=== PATIENT | female | born 1950 | race Caucasian/White ===

== ENCOUNTER 2018-09-10 16:11 | Inpatient (IN) | payer MEDICARE, OTHER ==
--- NOTE | 2018-09-10 16:35 | ED ---
General Adult HPI - General Chief complaint: Skin/Abscess/Foreign Body Stated complaint: Abscess Time Seen by Provider: 09/10/18 16:15 Source: patient, RN/MD, RN notes reviewed Mode of arrival: wheelchair Limitations: no limitations - History of Present Illness Initial comments: This a 67-year-old female who no longer ambulates. Patient is in a wheelchair and developed a wound on her right thigh and it turned into an abscess. Dr. Olvera has been following this patient and today he lanced the abscess and wanted the patient brought in and admitted to the hospital and treated with IV antibiotics. Patient states she believes part of the reason is because they want her in bed as opposed to her wheelchair. Patient denies any fever or chills. Patient denies any redness to the skin patient denies any streaking. Patient denies any other symptoms at this time. - Related Data Home Medications Medication Instructions Recorded Confirmed Biotin 7.5 mg PO DAILY 10/25/14 09/10/18 Bumetanide [BUMEX] 2 mg PO DAILY PRN 10/25/14 09/10/18 Calcium Carbonate/Vitamin D3 1 tab PO BID 10/25/14 09/10/18 [Caltrate 600 + D Tablet] Cholecalciferol [Vitamin D3] 1,000 unit PO BID 10/25/14 09/10/18 Gammagard 50 gram IV [id number] 10/25/14 09/10/18 Simvastatin 40 mg PO HS 10/25/14 09/10/18 predniSONE 20 mg PO Q48H 10/25/14 09/10/18 predniSONE 30 mg PO Q48H 07/04/15 09/10/18 Gabapentin [Neurontin] 300 mg PO TID 12/26/15 09/10/18 Melatonin 10 mg PO HS 12/26/15 09/10/18 Oxybutynin Chloride [Ditropan] 5 mg PO BID 02/10/18 09/10/18 Aspirin EC [Ecotrin Low Dose] 81 mg PO DAILY 08/27/18 09/10/18 Acetaminophen [Tylenol Extra 500 mg PO Q4-6H PRN 09/10/18 09/10/18 Strength] Allergies Allergy/AdvReac Type Severity Reaction Status Date / Time cephalexin monohydrate Allergy Itching, Verified 09/10/18 17:18 [From Keflex] hives diphenhydramine HCl Allergy Itching, Verified 09/10/18 17:18 [From Benadryl] hives sulfamethoxazole AdvReac Mild Unknown Verified 09/10/18 17:18 [From Bactrim] trimethoprim [From Bactrim] AdvReac Mild Unknown Verified 09/10/18 17:18 Review of Systems ROS Statement: Those systems with pertinent positive or pertinent negative responses have been documented in the HPI. ROS Other: All systems not noted in ROS Statement are negative. Past Medical History Past Medical History: Hyperlipidemia, Musculoskeletal Disorder Additional Past Medical History / Comment(s): inclusion body myositis, insomnia , neuropathy, in wheelchair-no wt bearing, History of Any Multi-Drug Resistant Organisms: None Reported Past Surgical History: Appendectomy, Tonsillectomy Additional Past Surgical History / Comment(s): cyst removal left inner thigh4 muscle biopsiesFacial plastic surgery after bout with shingles. Infusaport. Right cataract surgery. mass removed from 2015. Past Anesthesia/Blood Transfusion Reactions: Motion Sickness Past Psychological History: No Psychological Hx Reported Smoking Status: Never smoker Past Alcohol Use History: None Reported Past Drug Use History: None Reported - Past Family History Mother Family Medical History: Dementia Father Family Medical History: Coronary Artery Disease (CAD) General Exam - General Exam Comments Initial Comments: GENERAL: Patient is well-developed and well-nourished. Patient is nontoxic and well- hydrated and is in mild distress. ENT: Neck is soft and supple. No significant lymphadenopathy is noted. Oropharynx is clear. Moist mucous membranes. Neck has full range of motion without eliciting any pain. EYES: The sclera were anicteric and conjunctiva were pink and moist. Extraocular movements were intact and pupils were equal round and reactive to light. Eyelids were unremarkable. PULMONARY: Unlabored respirations. Good breath sounds bilaterally. No audible rales rhonchi or wheezing was noted. CARDIOVASCULAR: There is a regular rate and rhythm without any murmurs gallops or rubs. ABDOMEN: Soft and nontender with normal bowel sounds. No palpable organomegaly was noted. There is no palpable pulsatile mass. SKIN: Skin around the incision is erythematous. NEUROLOGIC: Patient is alert and oriented x3. Cranial nerves II through XII are grossly intact. Normal speech, volume and content. Symmetrical smile. LYMPHATICS: No significant lymphadenopathy is noted PSYCHIATRIC: Normal psychiatric evaluation. MUSCULOSKELETAL Patient has a area on the right thigh that is tender and it appears as though it is already been lanced open and it is very little active bleeding. There is erythema around this incision. Limitations: no limitations Course Vital Signs 09/10/18 16:17 Temperature 96.8 F L Pulse Rate 85 Respiratory 18 Rate Blood Pressure 140/82 O2 Sat by Pulse 95 Oximetry Medical Decision Making - Medical Decision Making CAT scan shows signs of cellulitis with abscess formation but no osteomyelitis noted. I started the patient on Zosyn and Vanco. I spoke with Dr. Smith he did not want to admit the patient. I spoke with Dr. Olvera he wanted me to admit to the surgical service of Dr. Smith would not take it. - Lab Data Result diagrams: 09/10/18 17:00 09/10/18 17:00 Lab Results 09/10/18 09/10/18 09/10/18 Range/Units 17:00 17:00 17:00 WBC 8.3 (3.8-10.6) k/uL RBC 4.58 (3.80-5.40) m/uL Hgb 13.9 (11.4-16.0) gm/dL Hct 42.7 (34.0-46.0) % MCV 93.3 (80.0-100.0) fL MCH 30.3 (25.0-35.0) pg MCHC 32.4 (31.0-37.0) g/dL RDW 15.6 H (11.5-15.5) % Plt Count 173 (150-450) k/uL Neutrophils % 73 % Lymphocytes % 19 % Monocytes % 5 % Eosinophils % 2 % Basophils % 0 % Neutrophils # 6.1 (1.3-7.7) k/uL Lymphocytes # 1.6 (1.0-4.8) k/uL Monocytes # 0.4 (0-1.0) k/uL Eosinophils # 0.1 (0-0.7) k/uL Basophils # 0.0 (0-0.2) k/uL Sodium 140 (137-145) mmol/L Potassium 4.4 (3.5-5.1) mmol/L Chloride 108 H (98-107) mmol/L Carbon Dioxide 27 (22-30) mmol/L Anion Gap 5 mmol/L BUN 13 (7-17) mg/dL Creatinine 0.29 L (0.52-1.04) mg/dL Est GFR (CKD-EPI)AfAm >90 (>60 ml/min/1.73 sqM) Est GFR (CKD-EPI)NonAf >90 (>60 ml/min/1.73 sqM) Glucose 116 H (74-99) mg/dL Plasma Lactic Acid Michael 1.1 (0.7-2.0) mmol/L Calcium 9.1 (8.4-10.2) mg/dL Total Bilirubin 0.4 (0.2-1.3) mg/dL AST 98 H (14-36) U/L ALT 80 H (9-52) U/L Alkaline Phosphatase 240 H (38-126) U/L Total Protein 6.7 (6.3-8.2) g/dL Albumin 3.2 L (3.5-5.0) g/dL Disposition Clinical Impression: Abscess of right thigh Disposition: ADMITTED IP TO THIS [facility] Referrals: Choco Castro DO [Primary Care Provider] - 1-2 days Time of Disposition: 19:36
[2018-09-10 17:33] LABS: ALT 80 U/L (9-52); AST 98 U/L (14-36); Albumin 3.2 g/dL (3.5-5.0); Alkaline Phosphatase 240 U/L (38-126); Anion Gap 5 mmol/L; Blood Urea Nitrogen 13 mg/dL (7-17); Calcium 9.1 mg/dL (8.4-10.2); Carbon Dioxide 27 mmol/L (22-30); Chloride 108 mmol/L (98-107); Glucose 116 mg/dL (74-99); Potassium 4.4 mmol/L (3.5-5.1); Sodium 140 mmol/L (137-145); Total Bilirubin 0.4 mg/dL (0.2-1.3); Total Protein 6.7 g/dL (6.3-8.2)
[2018-09-10 17:36] LABS: Basophils % (A) 0 %; Eosinophils # (A) 0.1 k/uL (0-0.7); Eosinophils % (A) 2 %; HCT 42.7 % (34.0-46.0); HGB 13.9 gm/dL (11.4-16.0); Lymphocytes # (A) 1.6 k/uL (1.0-4.8); Lymphocytes % (A) 19 %; MCH 30.3 pg (25.0-35.0); MCHC 32.4 g/dL (31.0-37.0); MCV 93.3 fL (80.0-100.0); Mean Platelet Volume 7.3; Monocytes # (A) 0.4 k/uL (0-1.0); Monocytes % (A) 5 %; Neutrophils # (A) 6.1 k/uL (1.3-7.7); Neutrophils % (A) 73 %; Platelet Count 173 k/uL (150-450); RBC 4.58 m/uL (3.80-5.40); RDW 15.6 % (11.5-15.5); WBC 8.3 k/uL (3.8-10.6)
[2018-09-10] MEDS ORDERED: VANCOMYCIN IV PER PHARMACY 1 EACH MISC MISCELLANE PRN (18:33)
[2018-09-10] MEDS ORDERED: PIPERACILLIN-TAZOBACTAM 3.375 GM in SODIUM CHLORIDE 0.9% 100 ML IVPB STA (18:33)
--- NOTE | 2018-09-10 18:34 | CT ---
EXAMINATION TYPE: CT femur RT w con DATE OF EXAM: 09/10/2018 COMPARISON: None HISTORY: Right leg swelling and abscess lanced today CT DLP: 418.3 mGycm Automated exposure control for dose reduction was used. CONTRAST: Performed with IV Contrast, patient injected with 100 mL of Isovue 300. Multiple axial sections were obtained from the level of the mid ileum to the proximal tibia with intr avenous contrast. FINDINGS: There is extensive muscle atrophy around the femur. There is a 6.5 x 6.5 x 6 cm complex mass in the s oft tissues posterior to the proximal shaft of the femur. This contains air and other mixed density. Some of this could be packing material from abscess drainage. There is increased density in the subcu taneous fat inferior to the ischial tubercle and consistent with adjacent cellulitis. The femur is intact without evidence of focal bone destruction or fracture. There is air in the soft tissues extending inferiorly to smaller extent along the posterior aspect of the proximal femur. Ther e are also some air bubbles in the soft tissues over the posterior lateral distal femur I see no foca l bone destruction. There is no evidence of osteomyelitis. There is some osteoarthritic narrowing of the lateral joint space of the knee. I see no new fracture. The hip joint appears anatomic. There is minor spurring of the acetabulum. IMPRESSION: ADVANCED MUSCLE ATROPHY. COMPLEX MASS CONSISTENT WITH ABSCESS AND PACKING MATERIAL IN THE POSTERIOR UPPER THIGH SOFT TISSUES. NO FRACTURE. NO SIGN OF OSTEOMYELITIS. There is also subcutaneous edema over the more posterior and m edial proximal thigh consistent with cellulitis. Assess is inferior to the ischial tubercle and measu res 10 x 3.5 cm.
[2018-09-10] MEDS ORDERED: VANCOMYCIN 750 MG in SODIUM CHLORIDE 0.9% 250 ML IVPB ONE (19:00)
[2018-09-10] MEDS ORDERED: SODIUM CHLORIDE 0.9% 1,000 ML IV ONE (19:46)
[2018-09-10] MEDS ORDERED: ACETAMINOPHEN TAB 500 MG TAB PO PRN (23:29)
[2018-09-11] MEDS: MORPHINE SULFATE 2 MG/ML SYRINGE IVP PRN ×3 (00:08→23:34)
[2018-09-11] MEDS: predniSONE 10 MG TAB PO SCH ×2 (01:27→09:06)
[2018-09-11] MEDS: predniSONE 20 MG TAB PO SCH (01:27)
[2018-09-11] MEDS: GABAPENTIN 300 MG CAP PO SCH ×4 (01:30→23:29)
[2018-09-11] MEDS: CALCIUM CARB-VIT D 500MG-200UN 1 EACH TAB PO SCH ×3 (01:30→23:28)
[2018-09-11] MEDS: ATORVASTATIN 20 MG TAB PO SCH ×2 (01:30→23:28)
[2018-09-11] MEDS: MELATONIN 5 MG TABLET PO SCH ×2 (01:30→23:28)
[2018-09-11] MEDS: OXYBUTYNIN CHLORIDE 5 MG TAB PO SCH ×3 (01:31→23:28)
[2018-09-11] MEDS: PIPERACILLIN-TAZOBACTAM 3.375 GM in SODIUM CHLORIDE 0.9% 100 ML IVPB SCH ×3 (04:52→23:27)
[2018-09-11] MEDS: ASPIRIN 81 MG PO SCH (08:49)
[2018-09-11] MEDS: CHOLECALCIFEROL 1,000 UNIT TAB PO SCH (08:50)
[2018-09-11] MEDS ORDERED: BIOTIN PO SCH (09:00)
--- NOTE | 2018-09-11 12:43 | P.HPIM ---
History of Present Illness H&P Date: 09/11/18 Chief Complaint: right thigh abscess This is a 67-year-old female one of Dr. 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 Rehman [place] [facility] [place] and she has been getting Gammagard every 2 weeks for many years, patient developed to have a sore on her right thigh for which initially she saw Dr. Baugh in the office and she was given a cream and antibiotic and ended up having a wound that she was referred to the wound clinic for and she has been seeing Dr. Olvera for the past 3 weeks unfortunately that one got bigger and bigger without significant improvement I received a call yesterday from Dr. Olvera stating that the patient needed to come to the hospital because of what appears to be an abscess in the right thigh and she would need to be on IV antibiotic and try to get her to a detention, patient was referred to the ER had a computed tomography scan of the thigh that showed a 6.5 6.56 cm complex massiveness of an abscess with air bubble in the soft tissue with edema of the soft tissue without any evidence of osteomyelitis, orthopedic surgery as well as general surgery were consulted, patient also was started on IV anabiotic in the form of vancomycin and Zosyn infectious disease consultation was obtained from Dr. Gan. Review of Systems Constitutional: Reports fatigue, Reports weakness, Denies night sweats, Denies poor appetite Eyes: denies blurred vision, denies bulging eye, denies decreased vision, denies diplopia Ears: deny: decreased hearing Ears, nose, mouth and throat: Denies dysphagia, Denies neck lump, Denies swelling in throat, Denies sore throat Cardiovascular: Denies chest pain, Denies decreased exercise tolerance, Denies dyspnea on exertion, Denies paroxysmal nocturnal dyspnea, Denies rapid heart beat, Denies shortness of breath Respiratory: Denies congestion, Denies cough with sputum, Denies sleep apnea, Denies snoring, Denies wheezing Gastrointestinal: Denies abdominal pain, Denies belching, Denies BRBPR, Denies heartburn, Denies loss of appetite, Denies melena, Denies nausea, Denies vomiting Genitourinary: Reports urge incontinence, Denies dysuria, Denies nocturia Menstruation: Reports postmenopausal Musculoskeletal: Reports atrophy, Reports gait dysfunction, Reports muscle weakness Musculoskeletal: absent: ankle pain, ankle stiffness, ankle swelling, elbow pain , elbow stiffness, elbow swelling, foot pain, foot stiffness, foot swelling, hand pain, hand stiffness, hand swelling, hip pain, hip stiffness, hip swelling , knee pain, knee stiffness, knee swelling, shoulder pain, shoulder stiffness, shoulder swelling, wrist pain, wrist stiffness, wrist swelling Integumentary: Denies pruritus, Denies rash Neurological: Reports gait dysfunction, Reports motor disturbance, Reports paralysis, Reports weakness Psychiatric: Denies anxiety, Denies depression Endocrine: Denies fatigue, Denies weight change Past Medical History Past Medical History: Hyperlipidemia, Musculoskeletal Disorder Additional Past Medical History / Comment(s): inclusion body myositis, polymyositis, insomnia, neuropathy, in wheelchair-no wt bearing, History of Any Multi-Drug Resistant Organisms: None Reported Past Surgical History: Appendectomy, Hysterectomy, Tonsillectomy Additional Past Surgical History / Comment(s): cyst removal left inner thigh4 muscle biopsiesFacial plastic surgery after bout with shingles. Infusaport. bilateral cataract surgery. mass removed from urethra 2015. Past Anesthesia/Blood Transfusion Reactions: Motion Sickness Past Psychological History: No Psychological Hx Reported Smoking Status: Never smoker Past Alcohol Use History: None Reported Additional Past Alcohol Use History / Comment(s): quit smoking 1975, smoked for about 9 yrs off and on Past Drug Use History: None Reported - Past Family History Mother Family Medical History: Dementia (mother at age of 95 from Alzheimer dementia.) Father Family Medical History: Coronary Artery Disease (CAD) (father at age 95 from CAD.) Brother(s) Family Medical History: No Reported History (patient has one brother with Celiac disease.) Daughter(s) Family Medical History: No Reported History (patient has 2 daughters no major medical problems.) Son(s) Family Medical History: No Reported History (patient has one son no major medical problems.) Medications and Allergies Home Medications Medication Instructions Recorded Confirmed Type Biotin 7.5 mg PO DAILY 10/25/14 09/10/18 History Bumetanide [BUMEX] 2 mg PO DAILY PRN 10/25/14 09/10/18 History Calcium Carbonate/Vitamin D3 1 tab PO BID 10/25/14 09/10/18 History [Caltrate 600 + D Tablet] Cholecalciferol [Vitamin D3] 1,000 unit PO DAILY 10/25/14 09/10/18 History Gammagard 50 gram IV [id number] 10/25/14 09/10/18 History Simvastatin 40 mg PO HS 10/25/14 09/10/18 History predniSONE 20 mg PO Q48H 10/25/14 09/10/18 History predniSONE 30 mg PO Q48H 07/04/15 09/10/18 History Gabapentin [Neurontin] 300 mg PO TID 12/26/15 09/10/18 History Melatonin 10 mg PO HS 12/26/15 09/10/18 History Oxybutynin Chloride [Ditropan] 5 mg PO BID 02/10/18 09/10/18 History Aspirin EC [Ecotrin Low Dose] 81 mg PO DAILY 08/27/18 09/10/18 History Acetaminophen [Tylenol Extra 500 mg PO Q4-6H PRN 09/10/18 09/10/18 History Strength] Allergies Allergy/AdvReac Type Severity Reaction Status Date / Time diphenhydramine HCl Allergy Mild Itching, Verified 09/10/18 22:49 [From Benadryl] hives cephalexin monohydrate Allergy Itching, Verified 09/10/18 17:18 [From Keflex] hives sulfamethoxazole AdvReac Mild Unknown Verified 09/10/18 22:49 [From Bactrim] trimethoprim [From Bactrim] AdvReac Mild Unknown Verified 09/10/18 22:49 Physical Exam Vitals: Vital Signs Temp Pulse Pulse Resp BP BP Pulse Ox 09/11/18 08:00 16 09/11/18 06:26 99.0 F 97 17 122/71 94 L 09/10/18 23:00 98.4 F 90 18 141/70 95 09/10/18 21:26 97.9 F 94 17 156/89 92 L 09/10/18 20:00 98 F 88 16 156/94 95 09/10/18 16:17 96.8 F L 85 18 140/82 95 Intake and Output 09/10/18 09/11/18 09/11/18 22:59 06:59 14:59 Other: Voiding Method Bedpan # Voids 1 1 Weight 49.895 kg - Constitutional General appearance: no acute distress, thin - EENT Eyes: anicteric sclerae, EOMI, PERRLA, no ptosis, no scleral icterus, normal appearance ENT: hearing grossly normal, NA/AT, normal oropharynx, no thrush Ears: bilateral: normal - Neck Neck: no lymphadenopathy, normal ROM, no rigidity, no stridor, no thyromegaly Carotids: bilateral: upstroke normal Thyroid: bilateral: normal size - Respiratory Respiratory: bilateral: diminished, negative: dullness, rales, rhonchi, wheezing , prolonged expiration - Cardiovascular Rhythm: regular Heart sounds: normal: S1, S2 Abnormal Heart Sounds: no systolic murmur, no S3 Gallop, no S4 Gallop - Gastrointestinal General gastrointestinal: normal bowel sounds, soft, no splenomegaly, no tenderness, no umbilical hernia, no ventral hernia - Integumentary Integumentary: normal, normal turgor - Neurologic Neurologic: focal deficits (bilateral lower extremity paraparesis with bilateral foot drop.) - Musculoskeletal Musculoskeletal: no gait normal - Psychiatric Psychiatric: A&O x's 3, appropriate affect, intact judgment & insight Results CBC & Chem 7: 09/10/18 17:00 09/10/18 17:00 Labs: Abnormal Lab Results - Last 24 Hours (Table) 09/10/18 09/10/18 Range/Units 17:00 17:00 RDW 15.6 H (11.5-15.5) % Chloride 108 H (98-107) mmol/L Creatinine 0.29 L (0.52-1.04) mg/dL Glucose 116 H (74-99) mg/dL AST 98 H (14-36) U/L ALT 80 H (9-52) U/L Alkaline Phosphatase 240 H (38-126) U/L Albumin 3.2 L (3.5-5.0) g/dL Microbiology - Last 24 Hours (Table) 09/10/18 20:15 Gram Stain - Preliminary Leg - Right Wound Culture - Preliminary Thrombosis Risk Factor Assmnt - DVT/VTE Prophylaxis DVT/VTE Prophylaxis: Pharmacologic Prophylaxis ordered, Mechanical Prophylaxis ordered - Choose All That Apply Any of the Below Risk Factors Present?: Yes Each Factor Represents 1 point: Medical pt on bed rest Other Risk Factors: Yes Each Risk Factor Represents 2 Points: Age 61-74 years Other congenital or acquired thrombophilia - If yes, enter type in comment: No Thrombosis Risk Factor Assessment Total Risk Factor Score: 3 Thrombosis Risk Factor Assessment Level: Moderate Risk Assessment and Plan Assessment: Assessment and plan: 1. Right thigh abscess status post incision and drainage. Continue patient on vancomycin and Zosyn, wound culture aerobic and anaerobic, blood cultures, infectious disease consultation, surgical consultation along with orthopedic surgery consultation, to see the patient would need more I+D in the OR based on the report of the computed tomography scan. We'll continue to monitor the patient very closely. 2. 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 Patient has been getting Gammagard every 14 days continue with alternating dose of prednisone as prescribed. 3. Hyperlipidemia. Continue simvastatin 40 mg at bedtime. 4. Overactive bladder. Continue patient on oxybutynin 5 mg orally twice every day. 5. Non-use edema both lower extremity is. Continue patient on Bumex. Monitor the patient CMP magnesium level. 6. DVT prophylaxis. Heparin 5000 unit subcutaneously every 8 hours. 7. GI prophylaxis. Continue PPI. 8. Admit to inpatient. Estimate a length of stay 2 midnights. 9. Patient is full code.
[2018-09-11] MEDS: VANCOMYCIN 750 MG in SODIUM CHLORIDE 0.9% 250 ML IVPB SCH (13:59)
--- NOTE | 2018-09-11 15:06 | P.CNOR ---
History of Present Illness - HPI Consult date: 09/11/18 History of present illness: This is a 67-year-old female with a past medical history of hypertension, cardiovascular disease, and inclusion body myositis who began seeing Dr. Baugh initially for a wound on the right thigh. Patient was given a cream and antibiotic, which she used for about a month with no substantial improvement of the wound. She was subsequently referred to the wound care center for evaluation and treatment. She has been seeing Dr. Olvera for the past 3 weeks , an abscess had developed and Dr. Olvera performed an incision into the abscess yesterday, and patient was told to come to the ER for a CT scan of the right thigh and IV antibiotics. Patient uses a wheelchair and is non-weight bearing of both lower extremities, she uses a slid board to get into bed and this is thought to have caused the initial wound on the right thigh. Currently, patient denies any fevers or chills. She denies any substantial pain in the right thigh area. Denies chest pain, shortness of breath. Review of Systems Please refer to HPI. Past Medical History Past Medical History: Hyperlipidemia, Musculoskeletal Disorder Additional Past Medical History / Comment(s): inclusion body myositis, polymyositis, insomnia, neuropathy, in wheelchair-no wt bearing, History of Any Multi-Drug Resistant Organisms: None Reported Past Surgical History: Appendectomy, Hysterectomy, Tonsillectomy Additional Past Surgical History / Comment(s): cyst removal left inner thigh4 muscle biopsiesFacial plastic surgery after bout with shingles. Infusaport. bilateral cataract surgery. mass removed from urethra 2015. Past Anesthesia/Blood Transfusion Reactions: Motion Sickness Past Psychological History: No Psychological Hx Reported Smoking Status: Never smoker Past Alcohol Use History: None Reported Additional Past Alcohol Use History / Comment(s): quit smoking 1975, smoked for about 9 yrs off and on Past Drug Use History: None Reported - Past Family History Mother Family Medical History: Dementia (mother at age of 95 from Alzheimer dementia.) Father Family Medical History: Coronary Artery Disease (CAD) (father at age 95 from CAD.) Brother(s) Family Medical History: No Reported History (patient has one brother with Celiac disease.) Daughter(s) Family Medical History: No Reported History (patient has 2 daughters no major medical problems.) Son(s) Family Medical History: No Reported History (patient has one son no major medical problems.) Medications and Allergies Home Medications Medication Instructions Recorded Confirmed Type Biotin 7.5 mg PO DAILY 10/25/14 09/10/18 History Bumetanide [BUMEX] 2 mg PO DAILY PRN 10/25/14 09/10/18 History Calcium Carbonate/Vitamin D3 1 tab PO BID 10/25/14 09/10/18 History [Caltrate 600 + D Tablet] Cholecalciferol [Vitamin D3] 1,000 unit PO DAILY 10/25/14 09/10/18 History Gammagard 50 gram IV [id number] 10/25/14 09/10/18 History Simvastatin 40 mg PO HS 10/25/14 09/10/18 History predniSONE 20 mg PO Q48H 10/25/14 09/10/18 History predniSONE 30 mg PO Q48H 07/04/15 09/10/18 History Gabapentin [Neurontin] 300 mg PO TID 12/26/15 09/10/18 History Melatonin 10 mg PO HS 12/26/15 09/10/18 History Oxybutynin Chloride [Ditropan] 5 mg PO BID 02/10/18 09/10/18 History Aspirin EC [Ecotrin Low Dose] 81 mg PO DAILY 08/27/18 09/10/18 History Acetaminophen [Tylenol Extra 500 mg PO Q4-6H PRN 09/10/18 09/10/18 History Strength] Allergies Allergy/AdvReac Type Severity Reaction Status Date / Time diphenhydramine HCl Allergy Mild Itching, Verified 09/10/18 22:49 [From Benadryl] hives cephalexin monohydrate Allergy Itching, Verified 09/10/18 17:18 [From Keflex] hives sulfamethoxazole AdvReac Mild Unknown Verified 09/10/18 22:49 [From Bactrim] trimethoprim [From Bactrim] AdvReac Mild Unknown Verified 09/10/18 22:49 Physical Examination On exam, patient is sitting up in bed in no acute distress. She is alert and orientated x3. There is a dressing in place on the right thigh, dressing was taken down and revealed a deep wound on the right posterolateral thigh that measures about 2 1/2 or 3 cm with active red drainage. No surrounding erythema or fluctuance. Patient unable to perform active ROM of lower extremities bilaterally. Results Femur CT reveals an intact femur without destruction. Air in the soft tissues. No evidence of osteomyelitis. - Labs Labs: Abnormal Lab Results - Last 24 Hours (Table) 09/10/18 09/10/18 09/11/18 Range/Units 17:00 17:00 11:33 RDW 15.6 H (11.5-15.5) % Chloride 108 H (98-107) mmol/L Creatinine 0.29 L (0.52-1.04) mg/dL Glucose 116 H (74-99) mg/dL AST 98 H (14-36) U/L ALT 80 H (9-52) U/L Alkaline Phosphatase 240 H (38-126) U/L C-Reactive Protein 48.1 H (<10.0) mg/L Albumin 3.2 L (3.5-5.0) g/dL Microbiology - Last 24 Hours (Table) 09/10/18 20:15 Gram Stain - Preliminary Leg - Right Wound Culture - Preliminary H & H 09/10/18 Range/Units 17:00 Hgb 13.9 (11.4-16.0) gm/dL Hct 42.7 (34.0-46.0) % Result Diagrams: 09/10/18 17:00 09/10/18 17:00 Assessment and Plan Assessment: Right thigh wound Plan: - Based on the CT scan results and the physical exam, there are no findings that would specifically require an orthopedic surgeon. - Patient is an established patient of Dr. Hanks, therefore orthopedics will defer any further I&D to Dr. Hanks. - We will continue to follow patient peripherally.
--- NOTE | 2018-09-11 16:25 | P.GSCN ---
History of Present Illness Consult date: 09/11/18 Reason for Consult: Thigh abscess, management Requesting physician: Tristan Joseph History of present illness: This is a 67-year-old female who follows with Dr. Choco Whitlock on an outpatient basis. 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 She had developed a wound on her posterior right thigh at the junction of the right buttock which she felt was likely from moving back and forth on her wheelchair slide. She saw her primary care physician who prescribed antibiotic cream, however the wound progressed and she was referred to Dr. Olvera in the wound care clinic where his she has been seen for the last 3 weeks. Most recently she was seen yesterday in the wound care center, it was felt that the wound had abscessed, and she had an I&D with the opening palpated down to 13 cm. It was packed with silver rope, sterile dressings were applied, and the patient was instructed to come to the hospital for IV antibiotics. She was admitted for evaluation and treatment. A computed tomography scan was completed demonstrating complex mass consistent with abscess and packing material, posterior upper thigh soft tissue, consistent with cellulitis, no sign of osteomyelitis. Dr. Olvera was consulted for wound care management. Review of Systems Review of systems was completed and was negative except as noted. - Constitutional Reports weakness - Musculoskeletal Musculoskeleta Comment(s): Generalized weakness, wheelchair bound with myositis Past Medical History Past Medical History: Hyperlipidemia, Musculoskeletal Disorder Additional Past Medical History / Comment(s): inclusion body myositis, polymyositis, insomnia, neuropathy, in wheelchair-no wt bearing, History of Any Multi-Drug Resistant Organisms: None Reported Past Surgical History: Appendectomy, Hysterectomy, Tonsillectomy Additional Past Surgical History / Comment(s): cyst removal left inner thigh4 muscle biopsiesFacial plastic surgery after bout with shingles. Infusaport. bilateral cataract surgery. mass removed from urethra 2015. Past Anesthesia/Blood Transfusion Reactions: Motion Sickness Past Psychological History: No Psychological Hx Reported Smoking Status: Never smoker Past Alcohol Use History: None Reported Additional Past Alcohol Use History / Comment(s): quit smoking 1975, smoked for about 9 yrs off and on Past Drug Use History: None Reported - Past Family History Mother Family Medical History: Dementia (mother at age of 95 from Alzheimer dementia.) Father Family Medical History: Coronary Artery Disease (CAD) (father at age 95 from CAD.) Brother(s) Family Medical History: No Reported History (patient has one brother with Celiac disease.) Daughter(s) Family Medical History: No Reported History (patient has 2 daughters no major medical problems.) Son(s) Family Medical History: No Reported History (patient has one son no major medical problems.) Medications and Allergies Home Medications Medication Instructions Recorded Confirmed Type Biotin 7.5 mg PO DAILY 10/25/14 09/10/18 History Bumetanide [BUMEX] 2 mg PO DAILY PRN 10/25/14 09/10/18 History Calcium Carbonate/Vitamin D3 1 tab PO BID 10/25/14 09/10/18 History [Caltrate 600 + D Tablet] Cholecalciferol [Vitamin D3] 1,000 unit PO DAILY 10/25/14 09/10/18 History Gammagard 50 gram IV [id number] 10/25/14 09/10/18 History Simvastatin 40 mg PO HS 10/25/14 09/10/18 History predniSONE 20 mg PO Q48H 10/25/14 09/10/18 History predniSONE 30 mg PO Q48H 07/04/15 09/10/18 History Gabapentin [Neurontin] 300 mg PO TID 12/26/15 09/10/18 History Melatonin 10 mg PO HS 12/26/15 09/10/18 History Oxybutynin Chloride [Ditropan] 5 mg PO BID 02/10/18 09/10/18 History Aspirin EC [Ecotrin Low Dose] 81 mg PO DAILY 08/27/18 09/10/18 History Acetaminophen [Tylenol Extra 500 mg PO Q4-6H PRN 09/10/18 09/10/18 History Strength] Allergies Allergy/AdvReac Type Severity Reaction Status Date / Time diphenhydramine HCl Allergy Mild Itching, Verified 09/10/18 22:49 [From Benadryl] hives cephalexin monohydrate Allergy Itching, Verified 09/10/18 17:18 [From Keflex] hives sulfamethoxazole AdvReac Mild Unknown Verified 09/10/18 22:49 [From Bactrim] trimethoprim [From Bactrim] AdvReac Mild Unknown Verified 09/10/18 22:49 Surgical - Exam Vital Signs Temp Pulse Resp BP Pulse Ox 96.8 F L 85 18 140/82 95 09/10/18 16:17 18 16:17 09/10/18 16:17 09/10/18 16:17 09/10/18 16:17 - General well developed, well nourished, no distress, no pain - Eyes PERRL, normal ocular movement - ENT no hearing loss - Neck no masses, no bruits, trachea midline - Respiratory Lungs sounds clear bilaterally. Respirations even, nonlabored. Currently on room air with oxygen saturation 94%. - Cardiovascular S1, S2 present. Regular rate and rhythm. Palpable peripheral pulses bilaterally. No edema present. No calf pain or tenderness noted. - Abdomen Abdomen: soft, non tender, bowel sounds - Genitourinary Deferred - Rectum Deferred - Integumentary Patient does have wound 2 to posterior right upper thigh at the junction of the right buttock. Appears clean. See chart for measurements. no rash, no growths - Musculoskeletal Wheelchair-bound, she does have good upper arm strength and is able to roll herself in bed. - Psychiatric oriented to time, oriented to person, oriented to place, speech is normal, memory intact Results - Labs 09/10/18 17:00 09/10/18 17:00 Abnormal Lab Results - Last 24 Hours (Table) 09/10/18 09/10/18 09/11/18 Range/Units 17:00 17:00 11:33 RDW 15.6 H (11.5-15.5) % ESR 84 H (0-20) mm/hr Chloride 108 H (98-107) mmol/L Creatinine 0.29 L (0.52-1.04) mg/dL Glucose 116 H (74-99) mg/dL AST 98 H (14-36) U/L ALT 80 H (9-52) U/L Alkaline Phosphatase 240 H (38-126) U/L C-Reactive Protein (<10.0) mg/L Albumin 3.2 L (3.5-5.0) g/dL 09/11/18 Range/Units 11:33 RDW (11.5-15.5) % ESR (0-20) mm/hr Chloride (98-107) mmol/L Creatinine (0.52-1.04) mg/dL Glucose (74-99) mg/dL AST (14-36) U/L ALT (9-52) U/L Alkaline Phosphatase (38-126) U/L C-Reactive Protein 48.1 H (<10.0) mg/L Albumin (3.5-5.0) g/dL Microbiology - Last 24 Hours (Table) 09/10/18 20:15 Gram Stain - Preliminary Leg - Right Wound Culture - Preliminary Diabetes panel 09/10/18 Range/Units 17:00 Sodium 140 (137-145) mmol/L Potassium 4.4 (3.5-5.1) mmol/L Chloride 108 H (98-107) mmol/L Carbon Dioxide 27 (22-30) mmol/L BUN 13 (7-17) mg/dL Creatinine 0.29 L (0.52-1.04) mg/dL Glucose 116 H (74-99) mg/dL Calcium 9.1 (8.4-10.2) mg/dL AST 98 H (14-36) U/L ALT 80 H (9-52) U/L Alkaline Phosphatase 240 H (38-126) U/L Total Protein 6.7 (6.3-8.2) g/dL Albumin 3.2 L (3.5-5.0) g/dL Calcium panel 09/10/18 Range/Units 17:00 Calcium 9.1 (8.4-10.2) mg/dL Albumin 3.2 L (3.5-5.0) g/dL Pituitary panel 09/10/18 Range/Units 17:00 Sodium 140 (137-145) mmol/L Potassium 4.4 (3.5-5.1) mmol/L Chloride 108 H (98-107) mmol/L Carbon Dioxide 27 (22-30) mmol/L BUN 13 (7-17) mg/dL Creatinine 0.29 L (0.52-1.04) mg/dL Glucose 116 H (74-99) mg/dL Calcium 9.1 (8.4-10.2) mg/dL Adrenal panel 09/10/18 Range/Units 17:00 Sodium 140 (137-145) mmol/L Potassium 4.4 (3.5-5.1) mmol/L Chloride 108 H (98-107) mmol/L Carbon Dioxide 27 (22-30) mmol/L BUN 13 (7-17) mg/dL Creatinine 0.29 L (0.52-1.04) mg/dL Glucose 116 H (74-99) mg/dL Calcium 9.1 (8.4-10.2) mg/dL Total Bilirubin 0.4 (0.2-1.3) mg/dL AST 98 H (14-36) U/L ALT 80 H (9-52) U/L Alkaline Phosphatase 240 H (38-126) U/L Total Protein 6.7 (6.3-8.2) g/dL Albumin 3.2 L (3.5-5.0) g/dL - Imaging Additional studies: CT of the femur reviewed Assessment and Plan (1) Abscess of right thigh Current Visit: Yes Status: Acute Code(s): L02.415 - CUTANEOUS ABSCESS OF RIGHT LOWER LIMB SNOMED Code(s): 8961669 Plan: The patient was seen and examined at the bedside. She was seen earlier by Dr. Olvera. At this time our recommendation is daily wet-to-dry dressing changes to the right upper thigh wound. Antibiotics per infectious disease. Medical management per Dr. Smith's service. Patient may need ECF placement for continued therapy post hospitalization. Time with Patient: Greater than 30
--- NOTE | 2018-09-11 17:33 | P.GSCN ---
History of Present Illness Consult date: 09/11/18 Reason for Consult: Right thigh wound History of present illness: Patient admitted to the hospital from the wound care center. The patient has a wound present in the right posterior proximal thigh for the last month or so. Yesterday the patient had a extension of the incision of the wound itself and during palpation the wound was noted to track down to the level of the femur. CAT scan also showed air bubbles extending down towards the femur. Patient has mild discomfort at the wound opening site. C-reactive protein and sed rate both elevated. Serous drainage noted during dressing changes. Orthopedic and infectious disease consultations have been placed. Patient is wheelchair bound for the last 10 years. No previous wound at that location. No previous flaps. Review of Systems The patient denies any acute changes in vision or hearing, no dysphagia or odynophagia, no chest pain or shortness of breath, no dysuria or hematuria, no headache, no runny nose, no rectal bleeding or melena, no unexplained weight loss Past Medical History Past Medical History: Hyperlipidemia, Musculoskeletal Disorder Additional Past Medical History / Comment(s): inclusion body myositis, polymyositis, insomnia, neuropathy, in wheelchair-no wt bearing, History of Any Multi-Drug Resistant Organisms: None Reported Past Surgical History: Appendectomy, Hysterectomy, Tonsillectomy Additional Past Surgical History / Comment(s): cyst removal left inner thigh4 muscle biopsiesFacial plastic surgery after bout with shinmaria guadalupe. Infusaport. bilateral cataract surgery. mass removed from urethra 2015. Past Anesthesia/Blood Transfusion Reactions: Motion Sickness Past Psychological History: No Psychological Hx Reported Smoking Status: Never smoker Past Alcohol Use History: None Reported Additional Past Alcohol Use History / Comment(s): quit smoking 1975, smoked for about 9 yrs off and on Past Drug Use History: None Reported - Past Family History Mother Family Medical History: Dementia (mother at age of 95 from Alzheimer dementia.) Father Family Medical History: Coronary Artery Disease (CAD) (father at age 95 from CAD.) Brother(s) Family Medical History: No Reported History (patient has one brother with Celiac disease.) Daughter(s) Family Medical History: No Reported History (patient has 2 daughters no major medical problems.) Son(s) Family Medical History: No Reported History (patient has one son no major medical problems.) Medications and Allergies Home Medications Medication Instructions Recorded Confirmed Type Biotin 7.5 mg PO DAILY 10/25/14 09/10/18 History Bumetanide [BUMEX] 2 mg PO DAILY PRN 10/25/14 09/10/18 History Calcium Carbonate/Vitamin D3 1 tab PO BID 10/25/14 09/10/18 History [Caltrate 600 + D Tablet] Cholecalciferol [Vitamin D3] 1,000 unit PO DAILY 10/25/14 09/10/18 History Gammagard 50 gram IV [id number] 10/25/14 09/10/18 History Simvastatin 40 mg PO HS 10/25/14 09/10/18 History predniSONE 20 mg PO Q48H 10/25/14 09/10/18 History predniSONE 30 mg PO Q48H 07/04/15 09/10/18 History Gabapentin [Neurontin] 300 mg PO TID 12/26/15 09/10/18 History Melatonin 10 mg PO HS 12/26/15 09/10/18 History Oxybutynin Chloride [Ditropan] 5 mg PO BID 02/10/18 09/10/18 History Aspirin EC [Ecotrin Low Dose] 81 mg PO DAILY 08/27/18 09/10/18 History Acetaminophen [Tylenol Extra 500 mg PO Q4-6H PRN 09/10/18 09/10/18 History Strength] Allergies Allergy/AdvReac Type Severity Reaction Status Date / Time diphenhydramine HCl Allergy Mild Itching, Verified 09/10/18 22:49 [From Benadryl] hives cephalexin monohydrate Allergy Itching, Verified 09/10/18 17:18 [From Keflex] hives sulfamethoxazole AdvReac Mild Unknown Verified 09/10/18 22:49 [From Bactrim] trimethoprim [From Bactrim] AdvReac Mild Unknown Verified 09/10/18 22:49 Surgical - Exam Vital Signs Temp Pulse Resp BP Pulse Ox 96.8 F L 85 18 140/82 95 09/10/18 16:17 09/10/18 16:17 09/10/18 16:17 09/10/18 16:17 09/10/18 16:17 Physical exam: General: Well-developed, well-nourished HEENT: Normocephalic, sclerae nonicteric Abdomen: Nontender, nondistended Extremities: Wound right posterior thigh proximally with recent extension/ incision measuring 5 cm in length, wound tracking down to the femur, serous drainage noted, mild tenderness, no significant erythema, no purulence noted Neuro: Alert and oriented Results - Labs 09/10/18 17:00 09/10/18 17:00 Abnormal Lab Results - Last 24 Hours (Table) 09/10/18 09/10/18 09/11/18 Range/Units 17:00 17:00 11:33 RDW 15.6 H (11.5-15.5) % ESR 84 H (0-20) mm/hr Chloride 108 H (98-107) mmol/L Creatinine 0.29 L (0.52-1.04) mg/dL Glucose 116 H (74-99) mg/dL AST 98 H (14-36) U/L ALT 80 H (9-52) U/L Alkaline Phosphatase 240 H (38-126) U/L C-Reactive Protein (<10.0) mg/L Albumin 3.2 L (3.5-5.0) g/dL 09/11/18 Range/Units 11:33 RDW (11.5-15.5) % ESR (0-20) mm/hr Chloride (98-107) mmol/L Creatinine (0.52-1.04) mg/dL Glucose (74-99) mg/dL AST (14-36) U/L ALT (9-52) U/L Alkaline Phosphatase (38-126) U/L C-Reactive Protein 48.1 H (<10.0) mg/L Albumin (3.5-5.0) g/dL Microbiology - Last 24 Hours (Table) 09/10/18 20:15 Gram Stain - Preliminary Leg - Right Wound Culture - Preliminary Diabetes panel 09/10/18 Range/Units 17:00 Sodium 140 (137-145) mmol/L Potassium 4.4 (3.5-5.1) mmol/L Chloride 108 H (98-107) mmol/L Carbon Dioxide 27 (22-30) mmol/L BUN 13 (7-17) mg/dL Creatinine 0.29 L (0.52-1.04) mg/dL Glucose 116 H (74-99) mg/dL Calcium 9.1 (8.4-10.2) mg/dL AST 98 H (14-36) U/L ALT 80 H (9-52) U/L Alkaline Phosphatase 240 H (38-126) U/L Total Protein 6.7 (6.3-8.2) g/dL Albumin 3.2 L (3.5-5.0) g/dL Calcium panel 09/10/18 Range/Units 17:00 Calcium 9.1 (8.4-10.2) mg/dL Albumin 3.2 L (3.5-5.0) g/dL Pituitary panel 09/10/18 Range/Units 17:00 Sodium 140 (137-145) mmol/L Potassium 4.4 (3.5-5.1) mmol/L Chloride 108 H (98-107) mmol/L Carbon Dioxide 27 (22-30) mmol/L BUN 13 (7-17) mg/dL Creatinine 0.29 L (0.52-1.04) mg/dL Glucose 116 H (74-99) mg/dL Calcium 9.1 (8.4-10.2) mg/dL Adrenal panel 09/10/18 Range/Units 17:00 Sodium 140 (137-145) mmol/L Potassium 4.4 (3.5-5.1) mmol/L Chloride 108 H (98-107) mmol/L Carbon Dioxide 27 (22-30) mmol/L BUN 13 (7-17) mg/dL Creatinine 0.29 L (0.52-1.04) mg/dL Glucose 116 H (74-99) mg/dL Calcium 9.1 (8.4-10.2) mg/dL Total Bilirubin 0.4 (0.2-1.3) mg/dL AST 98 H (14-36) U/L ALT 80 H (9-52) U/L Alkaline Phosphatase 240 H (38-126) U/L Total Protein 6.7 (6.3-8.2) g/dL Albumin 3.2 L (3.5-5.0) g/dL Assessment and Plan (1) Open wound of right thigh Narrative/Plan: 67-year-old female with wound right posterior thigh extending down to the femur. The femur itself does not have any friability to suggest definite osteomyelitis. Await infectious disease evaluation. Await formal orthopedic consultation. Continue local wound care. No evidence of extension to the GI tract on recent CAT scan or physical exam. Current Visit: Yes Status: Acute Code(s): S71.101A - UNSPECIFIED OPEN WOUND , RIGHT THIGH, INITIAL ENCOUNTER SNOMED Code(s): 976785572
--- NOTE | 2018-09-12 00:20 | CONS ---
CONSULTATION DATE OF SERVICE: 09/11/2018. REASON FOR CONSULTATION: Right hip wound infection. HISTORY OF PRESENT ILLNESS: The patient is a 67-year-old female who apparently did develop a sore on her right thigh area a couple of months ago. The patient says she has been using some local cream and antibiotic. However, the wound continued getting worse. The patient has subsequently follow up with Dr. Olvera in the [facility] and apparently the patient on a follow-up visit yesterday to the wound care center noticed to have an infection. The patient did have debridement of the wound done at the [facility] Care [facility] and subsequently has been sent to the [facility] ER for further evaluation. On arrival to the ER, the patient did have a right femoral CT completed which did show a 6.6 x 6.5 x 6 mm wound. I did review the CT with Dr. Dyson, which shows mostly formation, but no evidence of any drainable fluid. The wound was taken down deep to the femur, but no cortical bony erosion was noticed. The patient has been afebrile and did have a normal white count. Wound culture has been obtained which is currently pending. She was started on vancomycin and Zosyn. Infectious Disease was consulted for further recommendation of antibiotic therapy. The patient does complain of a dull aching pain into the right femoral for right thigh wound area. The pain is 5 to 6/10 worse with dressing changes and currently no significant drainage per the nurse taking care of the patient. REVIEW OF SYSTEMS: Positive points have been mentioned in HPI. The rest of systems has been negative. PAST MEDICAL HISTORY: Significant for hypertension, inclusion body myositis, insomnia, neuropathy, wheelchair. PAST SURGICAL HISTORY: Appendectomy, hysterectomy, tonsillectomy. SOCIAL HISTORY: Remote history of smoking. Quit back in 1975. Denies drinking or drug use. FAMILY HISTORY: Mother with history of father history of coronary artery disease. ALLERGIES: TO CEPHALEXIN, SULFAMETHOXAZOLE AND diphenhydramine. MEDICATION: Currently patient is on Tylenol, aspirin, Lipitor, Os-Wil with D, vitamin D3, Lovenox, Neurontin, melatonin, morphine sulfate, troponin, Zosyn prednisone, vancomycin, Pharmacy to dose. EXAMINATION: Blood pressure is 114/64, pulse of 96, temperature 98.4. She is 94% on room air. General description is an elderly female lying in bed in no distress. No tachypnea or accessory muscle of respiration use. HEENT: Shows no pallor or scleral icterus. Oral mucosa membranes dry. No pharyngeal erythema or thrush. Neck trachea central. No thyromegaly. Lungs unlabored breathing clear to auscultation anteriorly. No wheeze or crackle heart S1, S2. Regular rate and rhythm. ABDOMEN: Soft, no tenderness. No guarding or rigidity. Extremities are no edema of the feet. Examination of right thigh, the patient did have a deep wound with some slough tissue at the site of the wound minimal. No sign of surrounding swelling. No induration or fluctuation was noticed. NEUROLOGICAL: Patient is awake, alert, oriented times three. Mood and affect normal. LABS: Hemoglobin 13.1, white count of 8.3, BUN of 13, creatinine 0.29. There was some mildly elevated CRP was 42.1 32/84. Wound cultures with blood culture currently pending. DIAGNOSTIC IMPRESSION AND PLAN: Patient with extensive right thigh wound, status post drainage by Dr. Olvera. The patient subsequently did have a CT of the right hip femoral area that was reviewed with Kiel and did show some changes, but no drainable abscess. No evidence of any myositis or extension to the femoral wound or any cortical erosion. We will need to cover for both gram-positive as well as gram-negative pathogen while waiting for the culture to finalize. PLAN: 1. Local wound care with Aquacel Silver packing however discuss with surgery if the wound VAC should be attempted. 2. Vancomycin pharmacy to dose target of 15 and Zosyn to provide adequate coverage for underlying infection while waiting for the culture to finalize. 3. We will follow up on clinical condition and culture to further adjust medication if needed. Thank you for this consultation. Will follow this patient with you. MMODL / IJN: [id number] /
[2018-09-12] MEDS: VANCOMYCIN 750 MG in SODIUM CHLORIDE 0.9% 250 ML IVPB SCH ×2 (06:08→21:46)
[2018-09-12] MEDS: PIPERACILLIN-TAZOBACTAM 3.375 GM in SODIUM CHLORIDE 0.9% 100 ML IVPB SCH ×3 (06:08→21:46)
[2018-09-12] MEDS: ENOXAPARIN 40 MG/0.4 ML SYRINGE SQ SCH (09:24)
[2018-09-12] MEDS: GABAPENTIN 300 MG CAP PO SCH ×3 (09:24→21:45)
[2018-09-12] MEDS: CALCIUM CARB-VIT D 500MG-200UN 1 EACH TAB PO SCH ×2 (09:25→21:46)
[2018-09-12] MEDS: OXYBUTYNIN CHLORIDE 5 MG TAB PO SCH ×2 (09:25→21:46)
[2018-09-12] MEDS: CHOLECALCIFEROL 1,000 UNIT TAB PO SCH (09:25)
[2018-09-12] MEDS: MORPHINE SULFATE 2 MG/ML SYRINGE IVP PRN ×3 (09:25→21:51)
[2018-09-12] MEDS: ASPIRIN 81 MG PO SCH (09:25)
[2018-09-12] MEDS: PANTOPRAZOLE 40 MG TABLET PO SCH (09:25)
[2018-09-12 10:56] LABS: ALT 50 U/L (9-52); AST 62 U/L (14-36); Albumin 2.6 g/dL (3.5-5.0); Alkaline Phosphatase 201 U/L (38-126); Anion Gap 7 mmol/L; Blood Urea Nitrogen 11 mg/dL (7-17); Calcium 8.6 mg/dL (8.4-10.2); Carbon Dioxide 23 mmol/L (22-30); Chloride 112 mmol/L (98-107); Glucose 116 mg/dL (74-99); Potassium 3.3 mmol/L (3.5-5.1); Sodium 142 mmol/L (137-145); Total Bilirubin 0.6 mg/dL (0.2-1.3); Total Protein 5.5 g/dL (6.3-8.2)
[2018-09-12 10:58] LABS: Basophils % (A) 0 %; Eosinophils # (A) 0.1 k/uL (0-0.7); Eosinophils % (A) 1 %; HCT 37.8 % (34.0-46.0); HGB 12.1 gm/dL (11.4-16.0); Hypochromasia Slight; Lymphocytes # (A) 1.4 k/uL (1.0-4.8); Lymphocytes % (A) 22 %; MCH 30.2 pg (25.0-35.0); MCHC 32.1 g/dL (31.0-37.0); Monocytes # (A) 0.5 k/uL (0-1.0); Monocytes % (A) 7 %; Neutrophils # (A) 4.4 k/uL (1.3-7.7); Neutrophils % (A) 68 %; Platelet Count 174 k/uL (150-450); RBC 4.02 m/uL (3.80-5.40); RDW 15.4 % (11.5-15.5); WBC 6.5 k/uL (3.8-10.6)
--- NOTE | 2018-09-12 13:15 | P.WNDSOAP ---
Subjective Progress Note Date: 09/12/18 Principal diagnosis: Abscess right thigh No new complaints. Tolerating packing well. Gen. surgery and orthopedics consults noted. Objective - Vital Signs Vital signs: Vital Signs Temp 97.5 F L 09/12/18 06:31 Pulse 79 09/12/18 06:31 Resp 17 09/12/18 08:00 BP 125/80 09/12/18 06:31 Pulse Ox 97 09/12/18 06:31 Intake & Output 09/11/18 09/12/18 09/12/18 18:59 06:59 18:59 Intake Total 400 200 Balance 400 200 Intake: Oral 400 200 Other: Voiding Method Bedpan # Voids 1 1 - Exam Wound is fairly clean with serosanguineous drainage only. - Labs CBC & Chem 7: 09/12/18 10:21 09/12/18 10:21 Labs: Abnormal Lab Results - Last 24 Hours (Table) 09/11/18 09/12/18 Range/Units 11:33 10:21 ESR 84 H (0-20) mm/hr Potassium 3.3 L (3.5-5.1) mmol/L Chloride 112 H (98-107) mmol/L Creatinine 0.36 L (0.52-1.04) mg/dL Glucose 116 H (74-99) mg/dL AST 62 H (14-36) U/L Alkaline Phosphatase 201 H (38-126) U/L Total Protein 5.5 L (6.3-8.2) g/dL Albumin 2.6 L (3.5-5.0) g/dL Microbiology - Last 24 Hours (Table) 09/10/18 17:05 Blood Culture - Preliminary Blood No Growth after 24 hours 09/10/18 20:15 Gram Stain - Preliminary Leg - Right Wound Culture - Preliminary Assessment and Plan (1) Abscess of right thigh Current Visit: Yes Status: Acute Code(s): L02.415 - CUTANEOUS ABSCESS OF RIGHT LOWER LIMB SNOMED Code(s): 8389915 Plan: Cavity seems to be cleaning up well. We will proceed with wound VAC. Discharge planning in process.
--- NOTE | 2018-09-12 15:07 | P.PN ---
Subjective Progress Note Date: 09/12/18 This is a 67-year-old female one of Dr. 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 Baugh in the office and she was given a cream and antibiotic and ended up having a wound that she was referred to the wound clinic for and she has been seeing Dr. Olvera for the past 3 weeks unfortunately that one got bigger and bigger without significant improvement I received a call yesterday from Dr. Olvera stating that the patient needed to come to the hospital because of what appears to be an abscess in the right thigh and she would need to be on IV antibiotic and try to get her to a skilled nursing, patient was referred to the ER had a computed tomography scan of the thigh that showed a 6.5 6.56 cm complex massiveness of an abscess with air bubble in the soft tissue with edema of the soft tissue without any evidence of osteomyelitis, orthopedic surgery as well as general surgery were consulted, patient also was started on IV anabiotic in the form of vancomycin and Zosyn infectious disease consultation was obtained from Dr. Gan. 09/12: Patient has been seen by multiple consultants including Dr. Bolton and Dr. Olvera. Dr. Gan has recommended local wound care with [facility] and will discuss wound VAC with general surgery. He has recommended vancomycin and Zosyn. The patient's pain is currently controlled. She is concerned about getting Gammagard on Saturday which is her normal scheduled date. We have asked social work to follow-up on this issue whether she can have it while in the hospital. She has agreed to go to [facility] for subacute rehab most likely on Saturday. Review of Systems Constitutional: Reports fatigue, Reports weakness, Denies night sweats Eyes: denies blurred vision, denies bulging eye, denies decreased vision, denies diplopia Ears: deny: decreased hearing Ears, nose, mouth and throat: Denies dysphagia, Denies neck lump, Denies swelling in throat, Denies sore throat Cardiovascular: Denies chest pain, Denies decreased exercise tolerance, Denies dyspnea on exertion, Denies paroxysmal nocturnal dyspnea, Denies rapid heart beat, Denies shortness of breath Respiratory: Denies congestion, Denies cough with sputum, Denies sleep apnea, Denies snoring, Denies wheezing Gastrointestinal: Denies abdominal pain, Denies belching, Denies BRBPR, Denies heartburn, Denies loss of appetite, Denies melena, Denies nausea, Denies vomiting Genitourinary: Reports urge incontinence, Denies dysuria, Denies nocturia Menstruation: Reports postmenopausal Musculoskeletal: Reports atrophy, Reports gait dysfunction, Reports muscle weakness Musculoskeletal: absent: ankle pain, ankle stiffness, ankle swelling, elbow pain , elbow stiffness, elbow swelling, foot pain, foot stiffness, foot swelling, hand pain, hand stiffness, hand swelling, hip pain, hip stiffness, hip swelling , knee pain, knee stiffness, knee swelling, shoulder pain, shoulder stiffness, shoulder swelling, wrist pain, wrist stiffness, wrist swelling Integumentary: Denies pruritus, Denies rash Neurological: Reports gait dysfunction, Reports motor disturbance, Reports paralysis, Reports weakness Psychiatric: Denies anxiety, Denies depression Endocrine: Denies fatigue, Denies weight change Objective - Vital Signs Vital signs: Vital Signs Temp 97.5 F L 09/12/18 06:31 Pulse 79 09/12/18 06:31 Resp 17 09/12/18 06:31 BP 125/80 09/12/18 06:31 Pulse Ox 97 09/12/18 06:31 Intake & Output 09/11/18 09/12/18 09/12/18 18:59 06:59 18:59 Intake Total 400 200 Balance 400 200 Intake: Oral 400 200 Other: Voiding Method Bedpan # Voids 1 1 - Exam General appearance: no acute distress, thin, patient is in bed and appears to be comfortable. - EENT Eyes: anicteric sclerae, EOMI, PERRLA, no ptosis, no scleral icterus, normal appearance ENT: hearing grossly normal, NA/AT, normal oropharynx, no thrush Ears: bilateral: normal - Neck Neck: no lymphadenopathy, normal ROM, no rigidity, no stridor, no thyromegaly Carotids: bilateral: upstroke normal Thyroid: bilateral: normal size - Respiratory Respiratory: bilateral: diminished, negative: dullness, rales, rhonchi, wheezing , prolonged expiration - Cardiovascular Rhythm: regular Heart sounds: normal: S1, S2 Abnormal Heart Sounds: no systolic murmur, no S3 Gallop, no S4 Gallop - Gastrointestinal General gastrointestinal: normal bowel sounds, soft, no splenomegaly, no tenderness, no umbilical hernia, no ventral hernia - Integumentary Integumentary: normal, normal turgor - Neurologic Neurologic: focal deficits (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 Right thigh abscess status post incision and drainage. Continue patient on vancomycin and Zosyn, wound culture aerobic and anaerobic, blood cultures, consultations with Dr. Bolton, Dr. Olvera and Dr. Gan appreciated. 2. 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 Patient has been getting Gammagard every 14 days continue with alternating dose of prednisone as prescribed. Patient is scheduled for Gammagard on Saturday and is concerned that she does not miss a dose. Social work to follow-up on this issue. 3. Hyperlipidemia. Continue simvastatin 40 mg at bedtime. 4. Overactive bladder. Continue patient on oxybutynin 5 mg orally twice every day. 5. Non-use edema both lower extremity is. Continue patient on Bumex. Monitor the patient CMP magnesium level. 6. DVT prophylaxis. Heparin 5000 unit subcutaneously every 8 hours. 7. GI prophylaxis. Continue PPI. 8. Patient is full code. Discharge plan: on Saturday Impression and plan of care have been directed as dictated by the signing physician. Loan Zhang nurse practitioner acting as scribe for signing physician.
--- NOTE | 2018-09-12 15:50 | P.PN ---
Progress Note - Text Progress Note Date: 09/12/18 Orthopedics will be signing off this patient and will re-evaluate as needed.
--- NOTE | 2018-09-12 16:46 | P.PN ---
Subjective Progress Note Date: 09/12/18 Principal diagnosis: Right thigh wound Patient without new complaints. The patient had a wound VAC placed earlier today. Spoke with nursing. There were fairly confident they were able to reach the depth of the wound with the foam. Cultures pending. Patient remains on IV antibiotics. She is afebrile. Objective - Vital Signs Vital signs: Vital Signs Temp 97.5 F L 09/12/18 06:31 Pulse 79 09/12/18 06:31 Resp 17 09/12/18 08:00 BP 125/80 09/12/18 06:31 Pulse Ox 97 09/12/18 06:31 Intake & Output 09/11/18 09/12/18 09/12/18 18:59 06:59 18:59 Intake Total 400 400 Balance 400 400 Intake: Oral 400 400 Other: Voiding Method Bedpan # Voids 1 1 2 - Exam Right thigh with wound VAC in place - Labs CBC & Chem 7: 09/12/18 10:21 09/12/18 10:21 Labs: Abnormal Lab Results - Last 24 Hours (Table) 09/12/18 Range/Units 10:21 Potassium 3.3 L (3.5-5.1) mmol/L Chloride 112 H (98-107) mmol/L Creatinine 0.36 L (0.52-1.04) mg/dL Glucose 116 H (74-99) mg/dL AST 62 H (14-36) U/L Alkaline Phosphatase 201 H (38-126) U/L Total Protein 5.5 L (6.3-8.2) g/dL Albumin 2.6 L (3.5-5.0) g/dL Microbiology - Last 24 Hours (Table) 09/10/18 20:15 Gram Stain - Final Leg - Right Wound Culture - Final 09/10/18 17:05 Blood Culture - Preliminary Blood No Growth after 24 hours Assessment and Plan (1) Open wound of right thigh Narrative/Plan: Continue local wound care and IV antibiotics. We'll sign off at this point. Reconsult if necessary. Current Visit: Yes Status: Acute Code(s): S71.101A - UNSPECIFIED OPEN WOUND , RIGHT THIGH, INITIAL ENCOUNTER SNOMED Code(s): 284012327
[2018-09-12] MEDS: predniSONE 10 MG TAB PO SCH (21:45)
[2018-09-12] MEDS: MELATONIN 5 MG TABLET PO SCH (21:46)
[2018-09-12] MEDS: ATORVASTATIN 20 MG TAB PO SCH (21:46)
[2018-09-12] MEDS: predniSONE 20 MG TAB PO SCH (21:55)
--- NOTE | 2018-09-12 22:54 | PN ---
PROGRESS NOTE DATE OF SERVICE: 09/12/2018 REASON FOR FOLLOWUP: Right hip abscess and wound. INTERVAL HISTORY: The patient is currently afebrile. She has been breathing comfortably. Denies having any chest pain or shortness of breath. No cough. No abdominal pain or any worsening pain to the right hip area. EXAMINATION: Blood pressure 135/80 with a pulse of 79, temperature is 97.5. She is 97% on room air. General description is an elderly female lying in bed in no distress. Respiratory system: Unlabored breathing. Clear to auscultation anteriorly. Heart S1, S2. Regular rate and rhythm. Abdomen soft, no tenderness. Right heel wound is currently dressed up no obvious drainage on the dressing. LABS: Wound cultures currently pending. DIAGNOSTIC IMPRESSION AND PLAN: Patient with right hip abscess status post drainage. Culture is currently pending. Patient is currently covered with vancomycin and Zosyn that will continue for now while waiting for the culture to finalize. Local wound care can be transitioned to the wound VAC. This was discussed with Discharge antibiotic will depend upon the culture report. Continue supportive care. MMODL / IJN: [id number] /
[2018-09-13] MEDS ORDERED: Potassium Replacement Protocol 1 EACH MISC MISCELLANE PRN (02:58)
[2018-09-13] MEDS: PIPERACILLIN-TAZOBACTAM 3.375 GM in SODIUM CHLORIDE 0.9% 100 ML IVPB SCH ×3 (04:03→21:02)
[2018-09-13] MEDS: POTASSIUM CHLORIDE ER 20 MEQ TAB.ER PO SCH (05:11)
[2018-09-13] MEDS: CHOLECALCIFEROL 1,000 UNIT TAB PO SCH (07:46)
[2018-09-13] MEDS: CALCIUM CARB-VIT D 500MG-200UN 1 EACH TAB PO SCH ×2 (07:46→21:08)
[2018-09-13] MEDS: PANTOPRAZOLE 40 MG TABLET PO SCH (07:46)
[2018-09-13] MEDS: ASPIRIN 81 MG PO SCH (07:46)
[2018-09-13] MEDS: ENOXAPARIN 40 MG/0.4 ML SYRINGE SQ SCH (07:46)
[2018-09-13] MEDS: GABAPENTIN 300 MG CAP PO SCH ×3 (07:46→21:03)
[2018-09-13] MEDS: OXYBUTYNIN CHLORIDE 5 MG TAB PO SCH ×2 (07:47→21:03)
--- NOTE | 2018-09-13 09:13 | P.WNDSOAP ---
Subjective Progress Note Date: 09/13/18 Principal diagnosis: Abscess right thigh No new complaints. Seems to be tolerating the wound VAC well. Objective - Vital Signs Vital signs: Vital Signs Temp 98.5 F 09/13/18 07:00 Pulse 89 09/13/18 07:00 Resp 18 09/13/18 07:00 BP 110/68 09/13/18 07:00 Pulse Ox 94 L 09/13/18 07:00 Intake & Output 09/12/18 09/13/18 09/13/18 18:59 06:59 18:59 Intake Total 400 600 Balance 400 600 Intake: Oral 400 600 Other: Voiding Method Bedpan # Voids 2 2 # Bowel Movements 1 - Exam Wound VAC dressing dry with serosanguineous drainage from the wound VAC - Labs CBC & Chem 7: 09/12/18 10:21 09/12/18 10:21 Labs: Abnormal Lab Results - Last 24 Hours (Table) 09/12/18 Range/Units 10:21 Potassium 3.3 L (3.5-5.1) mmol/L Chloride 112 H (98-107) mmol/L Creatinine 0.36 L (0.52-1.04) mg/dL Glucose 116 H (74-99) mg/dL AST 62 H (14-36) U/L Alkaline Phosphatase 201 H (38-126) U/L Total Protein 5.5 L (6.3-8.2) g/dL Albumin 2.6 L (3.5-5.0) g/dL Microbiology - Last 24 Hours (Table) 09/10/18 17:05 Blood Culture - Preliminary Blood No Growth after 48 hours 09/10/18 20:15 Gram Stain - Final Leg - Right Wound Culture - Final Assessment and Plan (1) Abscess of right thigh Current Visit: Yes Status: Acute Code(s): L02.415 - CUTANEOUS ABSCESS OF RIGHT LOWER LIMB SNOMED Code(s): 2944462 Plan: Seems to be tolerating the wound VAC well. Patient can be discharged to [facility] when antibiotics arranged by infectious disease. I will follow her in the wound center on a weekly basis.
[2018-09-13 10:01] VITALS: BMI 20.1
[2018-09-13 10:25] LABS: Anion Gap 5 mmol/L; Blood Urea Nitrogen 9 mg/dL (7-17); Calcium 8.7 mg/dL (8.4-10.2); Carbon Dioxide 24 mmol/L (22-30); Chloride 112 mmol/L (98-107); Glucose 149 mg/dL (74-99); Potassium 4.4 mmol/L (3.5-5.1); Sodium 141 mmol/L (137-145)
[2018-09-13] MEDS ORDERED: VANCOMYCIN TROUGH DUE 1 EACH MISC MISCELLANE ONE (13:00)
[2018-09-13] MEDS: VANCOMYCIN 750 MG in SODIUM CHLORIDE 0.9% 250 ML IVPB SCH (13:26)
[2018-09-13] MEDS: MELATONIN 5 MG TABLET PO SCH (21:03)
[2018-09-13] MEDS: ATORVASTATIN 20 MG TAB PO SCH (21:03)
--- NOTE | 2018-09-13 23:20 | P.PN ---
Subjective Progress Note Date: 09/13/18 is is a 67-year-old female one of Dr. 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 Baugh in the office and she was given a cream and antibiotic and ended up having a wound that she was referred to the wound clinic for and she has been seeing Dr. Olvera for the past 3 weeks unfortunately that one got bigger and bigger without significant improvement I received a call yesterday from Dr. Olvera stating that the patient needed to come to the hospital because of what appears to be an abscess in the right thigh and she would need to be on IV antibiotic and try to get her to a residential, patient was referred to the ER had a computed tomography scan of the thigh that showed a 6.5 6.56 cm complex massiveness of an abscess with air bubble in the soft tissue with edema of the soft tissue without any evidence of osteomyelitis, orthopedic surgery as well as general surgery were consulted, patient also was started on IV anabiotic in the form of vancomycin and Zosyn infectious disease consultation was obtained from Dr. Gan. 09/12: Patient has been seen by multiple consultants including Dr. Bolton and Dr. Olvera. Dr. Gan has recommended local wound care with [facility] and will discuss wound VAC with general surgery. He has recommended vancomycin and Zosyn. The patient's pain is currently controlled. She is concerned about getting Gammagard on Saturday which is her normal scheduled date. We have asked social work to follow-up on this issue whether she can have it while in the hospital. She has agreed to go to [facility] for subacute rehab most likely on Saturday. 09/13 patient is doing well, she will be given gammagard while here on saturday prior to her discharge to [facility]. wound vac has negligible discharge, wound cultures are currently negative. Infectious disease following Objective - Vital Signs Vital signs: Vital Signs Temp 98.8 F 09/13/18 14:50 Pulse 93 09/13/18 14:50 Resp 20 09/13/18 14:50 BP 116/78 09/13/18 14:50 Pulse Ox 94 L 09/13/18 14:50 Intake & Output 09/12/18 09/13/18 09/13/18 18:59 06:59 18:59 Intake Total 400 600 440 Balance 400 600 440 Weight 49.895 kg Intake: Oral 400 600 440 Other: Voiding Method Bedpan # Voids 2 2 2 # Bowel Movements 1 - Constitutional General appearance: Present: cooperative, no acute distress, obese - EENT Eyes: Present: anicteric sclerae, EOMI, PERRLA, dentition normal, normal appearance ENT: Present: hearing grossly normal, normal oropharynx - Neck Neck: Present: normal ROM. Absent: lymphadenopathy, other, rigidity, stridor, thyromegaly - Respiratory Respiratory: right: rhonchi, bilateral: CTA, negative: diminished, dullness, wheezing - Cardiovascular Rhythm: regular Heart sounds: normal: S1 - Integumentary Integumentary: Present: decreased turgor, normal, normal turgor - Neurologic Neurologic: Present: CNII-XII intact - Musculoskeletal Musculoskeletal Comment(s): paraparesis bilateral lowere extremites with foot brop on exam and gastrocnemius hamstrings quadriceps atrophy - Labs CBC & Chem 7: 09/12/18 10:21 09/13/18 10:03 Labs: Abnormal Lab Results - Last 24 Hours (Table) 09/13/18 Range/Units 10:03 Chloride 112 H (98-107) mmol/L Creatinine 0.33 L (0.52-1.04) mg/dL Glucose 149 H (74-99) mg/dL Microbiology - Last 24 Hours (Table) 09/10/18 17:05 Blood Culture - Preliminary Blood No Growth after 48 hours 09/10/18 20:15 Gram Stain - Final Leg - Right Wound Culture - Final Assessment and Plan Plan: 1. Right thigh abscess status post incision and drainage. Continue patient on vancomycin and Zosyn, wound culture aerobic and anaerobic, blood cultures, consultations with Dr. Bolton, Dr. Olvera and Dr. Gan appreciated. 2. 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 Patient has been getting Gammagard every 14 days continue with alternating dose of prednisone as prescribed. Patient is scheduled for Gammagard on Saturday and is concerned that she does not miss a dose. Social work to follow-up on this issue. Gammagard ordered for saturday prior to trasnfer to [facility] re[facility] 3. Hyperlipidemia. Continue simvastatin 40 mg at bedtime. 4. Overactive bladder. Continue patient on oxybutynin 5 mg orally twice every day. 5. Non-use edema both lower extremity is. Continue patient on Bumex. Monitor the patient CMP magnesium level. 6. DVT prophylaxis. Heparin 5000 unit subcutaneously every 8 hours. 7. GI prophylaxis. Continue PPI. 8. Patient is full code. Discharge plan: [place] on Saturday
[2018-09-14] MEDS: VANCOMYCIN 750 MG in SODIUM CHLORIDE 0.9% 250 ML IVPB SCH ×2 (01:02→13:30)
[2018-09-14] MEDS: PIPERACILLIN-TAZOBACTAM 3.375 GM in SODIUM CHLORIDE 0.9% 100 ML IVPB SCH ×3 (03:20→21:20)
[2018-09-14] MEDS: PANTOPRAZOLE 40 MG TABLET PO SCH (08:11)
[2018-09-14] MEDS: CALCIUM CARB-VIT D 500MG-200UN 1 EACH TAB PO SCH ×2 (08:12→21:24)
[2018-09-14] MEDS: CHOLECALCIFEROL 1,000 UNIT TAB PO SCH (08:12)
[2018-09-14] MEDS: ENOXAPARIN 40 MG/0.4 ML SYRINGE SQ SCH (08:12)
[2018-09-14] MEDS: ASPIRIN 81 MG PO SCH (08:12)
[2018-09-14] MEDS: OXYBUTYNIN CHLORIDE 5 MG TAB PO SCH ×2 (08:13→21:12)
[2018-09-14] MEDS: GABAPENTIN 300 MG CAP PO SCH ×3 (08:13→21:11)
[2018-09-14] MEDS: NYSTATIN 100,000 UNIT/ML SUSP 500,000 UNIT/5 ML CUP PO SCH ×4 (08:13→21:33)
[2018-09-14] MEDS ORDERED: LORATADINE 10 MG TAB PO PRN (16:21)
[2018-09-14] MEDS: ATORVASTATIN 20 MG TAB PO SCH (21:11)
[2018-09-14] MEDS: predniSONE 10 MG TAB PO SCH (21:12)
[2018-09-14] MEDS: MELATONIN 5 MG TABLET PO SCH (21:23)
--- NOTE | 2018-09-14 21:49 | P.PN ---
Subjective Progress Note Date: 09/14/18 is is a 67-year-old female one of Dr. 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 Baugh in the office and she was given a cream and antibiotic and ended up having a wound that she was referred to the wound clinic for and she has been seeing Dr. Olvera for the past 3 weeks unfortunately that one got bigger and bigger without significant improvement I received a call yesterday from Dr. Olvera stating that the patient needed to come to the hospital because of what appears to be an abscess in the right thigh and she would need to be on IV antibiotic and try to get her to a care home, patient was referred to the ER had a computed tomography scan of the thigh that showed a 6.5 6.56 cm complex massiveness of an abscess with air bubble in the soft tissue with edema of the soft tissue without any evidence of osteomyelitis, orthopedic surgery as well as general surgery were consulted, patient also was started on IV anabiotic in the form of vancomycin and Zosyn infectious disease consultation was obtained from Dr. Gan. 09/12: Patient has been seen by multiple consultants including Dr. Bolton and Dr. Olvera. Dr. Gan has recommended local wound care with [facility] and will discuss wound VAC with general surgery. He has recommended vancomycin and Zosyn. The patient's pain is currently controlled. She is concerned about getting Gammagard on Saturday which is her normal scheduled date. We have asked social work to follow-up on this issue whether she can have it while in the hospital. She has agreed to go to [facility] for subacute rehab most likely on Saturday. 09/13 patient is doing well, she will be given gammagard while here on saturday prior to her discharge to [facility]. wound vac has negligible discharge, wound cultures are currently negative. Infectious disease following 09/14 patient continues to be stable, no fe=nancy or chills no diarrhea, gammgard in am, vwound vacc working presure at goal 126. no redness surrounding incision area. anticipate [place] in am Objective - Vital Signs Vital signs: Vital Signs Temp 98.4 F 09/14/18 14:27 Pulse 89 09/14/18 14:27 Resp 16 09/14/18 14:27 BP 114/75 09/14/18 14:27 Pulse Ox 96 09/14/18 14:27 Intake & Output 09/13/18 09/14/18 09/14/18 18:59 06:59 18:59 Intake Total 440 200 Balance 440 200 Weight 49.895 kg Intake: Oral 440 200 Other: Voiding Method Bedpan Bedpan # Voids 2 2 1 - Constitutional General appearance: Present: cooperative, no acute distress - EENT Eyes: Present: anicteric sclerae, EOMI, PERRLA, dentition normal, normal appearance ENT: Present: hearing grossly normal, NA/AT, normal oropharynx - Neck Neck: Present: normal ROM - Respiratory Respiratory: bilateral: CTA, negative: diminished, dullness, rales, rhonchi, wheezing, prolonged expiration - Cardiovascular Heart sounds: normal: S1, S2 Abnormal Heart Sounds: Absent: systolic murmur, diastolic murmur, rub, S3 Gallop , S4 Gallop, click, other - Gastrointestinal General gastrointestinal: Present: normal bowel sounds, soft - Integumentary Integumentary: Present: decreased turgor, normal - Neurologic Neurologic: Present: CNII-XII intact - Musculoskeletal Musculoskeletal: Present: gait normal, strength equal bilaterally - Psychiatric Psychiatric: Present: A&O x's 3, appropriate affect, intact judgment & insight - Labs CBC & Chem 7: 09/12/18 10:21 09/13/18 10:03 Labs: Microbiology - Last 24 Hours (Table) 09/10/18 17:05 Blood Culture - Preliminary Blood No Growth after 72 hours Assessment and Plan Plan: 1. Right thigh abscess status post incision and drainage. Continue patient on vancomycin and Zosyn, wound culture aerobic and anaerobic, blood cultures, currently negative. consultations with Dr. Bolton, Dr. Olvera and Dr. aGn appreciated. 2. 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 Patient has been getting Gammagard every 14 days continue with alternating dose of prednisone as prescribed. Patient is scheduled for Gammagard on Saturday and is concerned that she does not miss a dose. Social work to follow-up on this issue. Gammagard ordered for saturday prior to trasnfer to [facility] 3. Hyperlipidemia. Continue simvastatin 40 mg at bedtime. 4. Overactive bladder. Continue patient on oxybutynin 5 mg orally twice every day. 5. Non-use edema both lower extremity is. Continue patient on Bumex. Monitor the patient CMP magnesium level. 6. DVT prophylaxis. Heparin 5000 unit subcutaneously every 8 hours. 7. GI prophylaxis. Continue PPI. 8. Patient is full code. Discharge plan: on Saturday
[2018-09-14] MEDS: predniSONE 20 MG TAB PO SCH (23:51)
[2018-09-15] MEDS: VANCOMYCIN 750 MG in SODIUM CHLORIDE 0.9% 250 ML IVPB SCH ×2 (02:14→15:02)
[2018-09-15] MEDS: PIPERACILLIN-TAZOBACTAM 3.375 GM in SODIUM CHLORIDE 0.9% 100 ML IVPB SCH ×2 (04:44→13:57)
[2018-09-15] MEDS ORDERED: IMMUNE GLOBULIN (GAMUNEX-C) 40 GM in EMPTY BAG 1 BAG IV NR (06:00)
[2018-09-15] MEDS ORDERED: IMMUNE GLOBULIN (GAMUNEX-C) 10 GM in EMPTY BAG 1 BAG IV NR (06:00)
[2018-09-15] MEDS ORDERED: IMMUNE GLOBULIN (GAMMAGARD) 1 GM/10 ML VIAL IV ONE (08:00)
[2018-09-15] MEDS: CHOLECALCIFEROL 1,000 UNIT TAB PO SCH (08:07)
[2018-09-15] MEDS: CALCIUM CARB-VIT D 500MG-200UN 1 EACH TAB PO SCH (08:07)
[2018-09-15] MEDS: NYSTATIN 100,000 UNIT/ML SUSP 500,000 UNIT/5 ML CUP PO SCH ×2 (08:07→13:56)
[2018-09-15] MEDS: ASPIRIN 81 MG PO SCH (08:07)
[2018-09-15] MEDS: GABAPENTIN 300 MG CAP PO SCH ×2 (08:07→15:03)
[2018-09-15] MEDS: OXYBUTYNIN CHLORIDE 5 MG TAB PO SCH (08:07)
[2018-09-15] MEDS: ENOXAPARIN 40 MG/0.4 ML SYRINGE SQ SCH (08:08)
[2018-09-15] MEDS: PANTOPRAZOLE 40 MG TABLET PO SCH (08:10)
[2018-09-15 10:58] LABS: ALT 42 U/L (9-52); AST 55 U/L (14-36); Albumin 2.6 g/dL (3.5-5.0); Alkaline Phosphatase 239 U/L (38-126); Anion Gap 7 mmol/L; Blood Urea Nitrogen 6 mg/dL (7-17); Calcium 8.4 mg/dL (8.4-10.2); Carbon Dioxide 23 mmol/L (22-30); Chloride 112 mmol/L (98-107); Glucose 177 mg/dL (74-99); Potassium 3.9 mmol/L (3.5-5.1); Sodium 142 mmol/L (137-145); Total Bilirubin 0.4 mg/dL (0.2-1.3); Total Protein 5.5 g/dL (6.3-8.2)
--- NOTE | 2018-09-15 12:34 | P.DS ---
Providers Date of admission: 09/10/18 19:37 Expected date of discharge: 09/15/18 Attending physician: Jordan Smith Consults: 09/10/18 19:46 Consult Physician Urgent Consulting Provider: Bob Olvera Consult Reason/Comments: Thigh abscess Do you want consulting provider notified?: Yes 09/10/18 20:01 Consult Physician Urgent Consulting Provider: Saulo Gan Consult Reason/Comments: Abscess right thigh Do you want consulting provider notified?: Yes 09/11/18 10:00 Consult Physician Routine Consulting Provider: Chang Bolton Consult Reason/Comments: thigh abscess Do you want consulting provider notified?: Yes Primary care physician: [facility] Course: This is a 67-year-old female one of Dr. 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 Rehman at [facility] and she has been getting Gammagard every 2 weeks for many years, patient developed to have a sore on her right thigh for which initially she saw Dr. Baugh in the office and she was given a cream and antibiotic and ended up having a wound that she was referred to the wound clinic for and she has been seeing Dr. Olvera for the past 3 weeks unfortunately that one got bigger and bigger without significant improvement I received a call yesterday from Dr. Olvera stating that the patient needed to come to the hospital because of what appears to be an abscess in the right thigh and she would need to be on IV antibiotic and try to get her to a halfway, patient was referred to the ER had a computed tomography scan of the thigh that showed a 6.5 6.56 cm complex massiveness of an abscess with air bubble in the soft tissue with edema of the soft tissue without any evidence of osteomyelitis, orthopedic surgery as well as general surgery were consulted, patient also was started on IV anabiotic in the form of vancomycin and Zosyn infectious disease consultation was obtained from Dr. Gan. 09/12: Patient has been seen by multiple consultants including Dr. Bolton and Dr. Olvera. Dr. Gan has recommended local wound care with Aquacel Ag and will discuss wound VAC with general surgery. He has recommended vancomycin and Zosyn. The patient's pain is currently controlled. She is concerned about getting Gammagard on Saturday which is her normal scheduled date. We have asked social work to follow-up on this issue whether she can have it while in the hospital. She has agreed to go to [facility] for subacute rehab most likely on Saturday. 09/13 patient is doing well, she will be given gammagard while here on saturday prior to her discharge to [facility]. wound vac has negligible discharge, wound cultures are currently negative. Infectious disease following 09/14 patient continues to be stable, no fe=nancy or chills no diarrhea, gammgard in am, vwound vacc working presure at goal 126. no redness surrounding incision area. anticipate [place] in am 09/15: Patient did receive Gammagard this morning. Plan is for transfer to [facility] today in stable condition. No new complaints. Discharge diagnoses: 1. Right thigh abscess status post incision and drainage. 2. 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 3. Hyperlipidemia. 4. Overactive bladder. 5. Non-use edema both lower extremities. Discharge plan: [facility] today Impression and plan of care have been directed as dictated by the signing physician. Loan Zhang nurse practitioner acting as scribe for signing physician. Patient Condition at Discharge: Good Plan - Discharge Summary Discharge Rx Participant: No New Discharge Prescriptions: New Loratadine [Claritin] 10 mg PO DAILY PRN tab PRN Reason: Allergy Symptoms Nystatin 100,000 Unit/ml Susp [Mycostatin Oral Susp] 500,000 unit PO QID cup Pantoprazole [Protonix] 40 mg PO AC-BRKFST tablet. cefTRIAXone [Rocephin] 2,000 mg IVPB Q24HR #28 vial Continue predniSONE 20 mg PO Q48H Simvastatin 40 mg PO HS Gammagard 50 gram IV [id number] Cholecalciferol [Vitamin D3] 1,000 unit PO DAILY Calcium Carbonate/Vitamin D3 [Caltrate 600 Plus D3 Tablet] 1 tab PO BID Bumetanide [BUMEX] 2 mg PO DAILY PRN PRN Reason: Edema Biotin 7.5 mg PO DAILY predniSONE 30 mg PO Q48H Gabapentin [Neurontin] 300 mg PO TID Melatonin 10 mg PO HS Oxybutynin Chloride [Ditropan] 5 mg PO BID Aspirin EC [Ecotrin Low Dose] 81 mg PO DAILY Acetaminophen [Tylenol Extra Strength] 500 mg PO Q4-6H PRN PRN Reason: Pain Discharge Medication List Biotin 7.5 mg PO DAILY 10/25/14 [History] Bumetanide [BUMEX] 2 mg PO DAILY PRN 10/25/14 [History] Calcium Carbonate/Vitamin D3 [Caltrate 600 Plus D3 Tablet] 1 tab PO BID [History] Cholecalciferol [Vitamin D3] 1,000 unit PO DAILY 10/25/14 [History] Gammagard 50 gram IV [id number] 10/25/14 [History] Simvastatin 40 mg PO HS 10/25/14 [History] predniSONE 20 mg PO Q48H 10/25/14 [History] predniSONE 30 mg PO Q48H 07/04/15 [History] Gabapentin [Neurontin] 300 mg PO TID 12/26/15 [History] Melatonin 10 mg PO HS 12/26/15 [History] Oxybutynin Chloride [Ditropan] 5 mg PO BID 02/10/18 [History] Aspirin EC [Ecotrin Low Dose] 81 mg PO DAILY 08/27/18 [History] Acetaminophen [Tylenol Extra Strength] 500 mg PO Q4-6H PRN 09/10/18 [History] Loratadine [Claritin] 10 mg PO DAILY PRN tab 09/15/18 [Rx] Nystatin 100,000 Unit/ml Susp [Mycostatin Oral Susp] 500,000 unit PO QID cup [Rx] Pantoprazole [Protonix] 40 mg PO AC-BRKFST tablet. 09/15/18 [Rx] cefTRIAXone [Rocephin] 2,000 mg IVPB Q24HR #28 vial 09/15/18 [Rx] Follow up Appointment(s)/Referral(s): [facility], [NON-STAFF] - Choco Castro DO [Primary Care Provider] - 1-2 days Ambulatory/Diagnostic Orders: Basic Metabolic Panel [LAB.AMB] Location: None Selected Complete Blood Count w/diff [LAB.AMB] Location: None Selected C Reactive Protein [LAB.AMB] Location: None Selected Erythrocyte Sedimentation Rate [LAB.AMB] Location: None Selected Discharge Disposition: TRANSFER TO SNF/ECF
[2018-09-15] MEDS ORDERED: VANCOMYCIN TROUGH DUE 1 EACH MISC MISCELLANE ONE (13:00)
[2018-09-15 15:06] VITALS: BP 96/64; PULSE 97; TEMP 97.1
[2018-09-15 16:20] VITALS: RESP 18
--- NOTE | 2018-09-15 17:13 | PN ---
PROGRESS NOTE DATE OF SERVICE: 09/15/2018 REASON FOR FOLLOWUP: Right thigh abscess and wound. INTERVAL HISTORY: The patient is afebrile. She is breathing comfortably. The patient denies having any chest pain or shortness of breath or cough. No abdominal pain or pain to the right thigh area. PHYSICAL EXAMINATION: Blood pressure 126/70 with a pulse of 97, temperature 97.1. She is 96% on room air. General description is an elderly female lying in bed in no distress. RESPIRATORY SYSTEM: Unlabored breathing. Clear to auscultation anteriorly. HEART: S1, S2. Regular rate and rhythm. ABDOMEN: Soft. No tenderness. Right thigh wound is currently packed with a wound V.A.C. LABS: BUN of 6, creatinine 0.35. The abscess culture has been negative so far. DIAGNOSTIC IMPRESSION AND PLAN: Patient with right thigh abscess, status post drainage. Culture has been negative so far. Antibiotic will be transitioned to Rocephin 2 grams daily. She will continue for a couple of weeks. Local wound care with a wound V.A.C. and close outpatient followup. Continue supportive care. MMODL / IJN: [id number] /
== END 2018-09-15 16:50 | DRG 603 ==
LOC: EC 16:11 → 4MS4W 19:37
PROVIDERS: ADMIT Internal Medicine; ATTEND Internal Medicine
DX: L02.415 Cutaneous abscess of right lower limb (principal); G82.20 Paraplegia, unspecified; L03.115 Cellulitis of right lower limb; E78.5 Hyperlipidemia, unspecified; G72.41 Inclusion body myositis [IBM]; I11.9 Hypertensive heart disease without heart failure; I25.10 Atherosclerotic heart disease of native coronary artery without angina pectoris; M21.371 Foot drop, right foot; M21.372 Foot drop, left foot; N32.81 Overactive bladder; Z79.899 Other long term (current) drug therapy; Z82.0 Family history of epilepsy and other diseases of the nervous system; Z82.49 Family history of ischemic heart disease and other diseases of the circulatory system; Z87.891 Personal history of nicotine dependence; Z90.710 Acquired absence of both cervix and uterus; Z98.42 Cataract extraction status, left eye; Z98.41 Cataract extraction status, right eye; Z99.3 Dependence on wheelchair; Z88.1 Allergy status to other antibiotic agents; Z88.2 Allergy status to sulfonamides; Z88.8 Allergy status to other drugs, medicaments and biological substances; Z83.79 Family history of other diseases of the digestive system; R53.1 Weakness; Z79.82 Long term (current) use of aspirin; Z79.52 Long term (current) use of systemic steroids; G47.00 Insomnia, unspecified; R60.0 Localized edema
CPT/HCPCS: 36415; 80048; 80053; 80202; 83605; 85025; 85652; 86140; 87040; 87070; 87205; 96361; 96365; 96366; 96368; 96375; 99284

== ENCOUNTER 2019-01-14 15:28 | Inpatient (IN) | payer MEDICARE, OTHER ==
--- NOTE | 2019-01-14 16:11 | ED ---
General Adult HPI - General Chief complaint: Extremity Problem,Nontraumatic Stated complaint: Poss Blood Clot Time Seen by Provider: 01/14/19 15:30 Source: patient, RN notes reviewed Mode of arrival: wheelchair Limitations: physical limitation - History of Present Illness Initial comments: This is a 68-year-old female who presents emergency Department complaining of left leg swelling from the knee down. Patient states is gotten progressively worse over the last month. Patient states she is typically [facility] at a [facility] for the last 100 days. Patient states this started about one month ago. Patient states his got progressively worse even when she elevates her legs it does not seem to decrease swelling in that leg. Patient denies any pain unless she touches it. Patient states the bruising at the toes and the medial aspect of the heel has begun in the last couple of weeks. Patient denies any injury or trauma. Patient states sensation to the area is normal. Patient denies any pain in the thigh or problems in the thigh or above. Patient has no other problems at this time she denies any difficulty breathing shortness of breath or chest pain. - Related Data Home Medications Medication Instructions Recorded Confirmed Bumetanide [BUMEX] 2 mg PO DAILY PRN 10/25/14 01/14/19 Calcium Carbonate/Vitamin D3 1 tab PO BID 10/25/14 01/14/19 [Caltrate 600 Plus D3 Tablet] Cholecalciferol [Vitamin D3] 2,000 unit PO DAILY 10/25/14 01/14/19 Gammagard 50 gram IV [id number] 10/25/14 01/14/19 predniSONE 20 mg PO Q48H 10/25/14 01/14/19 predniSONE 30 mg PO Q48H 07/04/15 01/14/19 Gabapentin [Neurontin] 300 mg PO TID 12/26/15 01/14/19 Melatonin 10 mg PO HS 12/26/15 01/14/19 Oxybutynin Chloride [Ditropan] 5 mg PO BID 02/10/18 01/14/19 Aspirin EC [Ecotrin Low Dose] 81 mg PO DAILY 08/27/18 01/14/19 Biotin 7.5mg 7.5 mg PO DAILY 01/14/19 01/14/19 Mupirocin 2% Oint [Bactroban 2% 1 applic TOPICAL BID 01/14/19 01/14/19 Oint] Simvastatin [Zocor] 40 mg PO HS 01/14/19 01/14/19 Allergies Allergy/AdvReac Type Severity Reaction Status Date / Time diphenhydramine HCl Allergy Mild Itching, Verified 01/14/19 17:07 [From Benadryl] hives cephalexin monohydrate Allergy Itching, Verified 01/14/19 17:07 [From Keflex] hives sulfamethoxazole AdvReac Mild Rash/Hives Verified 01/14/19 17:07 [From Bactrim] trimethoprim [From Bactrim] AdvReac Mild Rash/Hives Verified 01/14/19 17:07 Review of Systems ROS Statement: Those systems with pertinent positive or pertinent negative responses have been documented in the HPI. ROS Other: All systems not noted in ROS Statement are negative. Past Medical History Past Medical History: Hyperlipidemia, Musculoskeletal Disorder Additional Past Medical History / Comment(s): inclusion body myositis, polymyositis, insomnia, neuropathy, in wheelchair-no wt bearing, History of Any Multi-Drug Resistant Organisms: None Reported Date of last positivie culture/infection: 11/19/18 MDRO Source:: THIGH Past Surgical History: Appendectomy, Hysterectomy, Tonsillectomy Additional Past Surgical History / Comment(s): cyst removal left inner thigh4 muscle biopsiesFacial plastic surgery after bout with shingles. Infusaport. bilateral cataract surgery. mass removed from urethra 2015. Past Anesthesia/Blood Transfusion Reactions: Motion Sickness Past Psychological History: No Psychological Hx Reported Smoking Status: Former smoker Past Alcohol Use History: None Reported Past Drug Use History: None Reported - Past Family History Mother Family Medical History: Dementia (mother at age of 95 from Alzheimer dementia.) Father Family Medical History: Coronary Artery Disease (CAD) (father at age 95 from CAD.) Brother(s) Family Medical History: No Reported History (patient has one brother with Celiac disease.) Daughter(s) Family Medical History: No Reported History (patient has 2 daughters no major medical problems.) Son(s) Family Medical History: No Reported History (patient has one son no major medical problems.) General Exam - General Exam Comments Initial Comments: GENERAL: Patient is well-developed and well-nourished. Patient is nontoxic and well- hydrated and is in no acute distress. ENT: Neck is soft and supple. EYES: The sclera were anicteric and conjunctiva were pink and moist. Extraocular movements were intact and pupils were equal round and reactive to light. Eyelids were unremarkable. PULMONARY: Unlabored respirations. Good breath sounds bilaterally. No audible rales rhonchi or wheezing was noted. CARDIOVASCULAR: There is a regular rate and rhythm without any murmurs gallops or rubs. SKIN: Skin is clear with no lesions or rashes and otherwise unremarkable. NEUROLOGIC: Patient is alert and oriented x3. Cranial nerves II through XII are grossly intact. Motor and sensory are also intact. Normal speech, volume and content. Symmetrical smile. MUSCULOSKELETAL: Normal extremities with adequate strength and full range of motion. Patient has 2+ edema to the left lower leg from the knee down is extremely edematous and the foot there is ecchymosis to the distal aspect of each toe as well as to her medial heel. LYMPHATICS: No significant lymphadenopathy is noted PSYCHIATRIC: Normal psychiatric evaluation. Limitations: physical limitation Course Vital Signs 01/14/19 01/14/19 15:29 17:46 Temperature 99.1 F Pulse Rate 89 79 Respiratory 18 16 Rate Blood Pressure 132/85 143/84 O2 Sat by Pulse 94 L 94 L Oximetry Medical Decision Making - Medical Decision Making Ultrasound shows a left leg DVT. I spoke with the treatment he agreed to admit the patient admitted the patient I started heparin I continued heparin on the floor. Critical Care Time Critical Care Time: Yes Total Critical Care Time: 35 Disposition Clinical Impression: Left leg DVT Disposition: ADMITTED IP TO THIS HOSP Referrals: Choco Castro DO [Primary Care Provider] - 1-2 days Time of Disposition: 18:07
--- NOTE | 2019-01-14 17:13 | US ---
EXAMINATION TYPE: US venous doppler duplex LE LT DATE OF EXAM: 01/14/2019 4:55 PM COMPARISON: NONE CLINICAL HISTORY: Pain. Pain and swelling left leg x 1 month. Pt on baby aspirin. SIDE PERFORMED: Left TECHNIQUE: The lower extremity deep venous system is examined utilizing real time linear array sonog tara with graded compression, doppler sonography and color-flow sonography. VESSELS IMAGED: External Iliac Vein (EIV) Common Femoral Vein Deep Femoral Vein Greater Saphenous Vein * Femoral Vein Popliteal Vein Small Saphenous Vein * Proximal Calf Veins (* superficial vessels) FINDINGS: There is no compressibility from the left external iliac vein through the left popliteal ve in. Thrombus visualized. Non-compressible from EIV to distal femoral vein with thready flow seen. Pop liteal vein appears compressible and shows flow. IMPRESSION: POSITIVE FOR EXTENSIVE DEEP VENOUS THROMBUS, LEFT LOWER EXTREMITY.
[2019-01-14] MEDS ORDERED: HEPARIN SODIUM,PORCINE 5,000 UNIT/ML 1 ML VIAL IV ONE (18:05)
[2019-01-14] MEDS ORDERED: SODIUM CHLORIDE 0.9% 1,000 ML IV ONE (18:08)
[2019-01-14] MEDS ORDERED: HEPARIN SOD,PORK IN 0.45% NACL 25,000 UNIT in 0.45% NACL 1 250ML.BAG IV SCH (18:15)
[2019-01-14 18:36] LABS: Anisocytosis Slight; Basophils % (A) 0 %; Eosinophils # (A) 0.1 k/uL (0-0.7); Eosinophils % (A) 1 %; HCT 41.7 % (34.0-46.0); HGB 13.5 gm/dL (11.4-16.0); Lymphocytes # (A) 2.2 k/uL (1.0-4.8); Lymphocytes % (A) 30 %; MCH 29.1 pg (25.0-35.0); MCHC 32.3 g/dL (31.0-37.0); Mean Platelet Volume 8.1; Monocytes # (A) 0.2 k/uL (0-1.0); Monocytes % (A) 3 %; Neutrophils # (A) 4.9 k/uL (1.3-7.7); Neutrophils % (A) 65 %; RBC 4.64 m/uL (3.80-5.40); RDW 18.3 % (11.5-15.5); WBC 7.5 k/uL (3.8-10.6)
[2019-01-14 18:47] LABS: ALT 37 U/L (9-52); AST 47 U/L (14-36); Albumin 3.1 g/dL (3.5-5.0); Alkaline Phosphatase 93 U/L (38-126); Anion Gap 2 mmol/L; Blood Urea Nitrogen 11 mg/dL (7-17); Calcium 8.7 mg/dL (8.4-10.2); Carbon Dioxide 28 mmol/L (22-30); Chloride 109 mmol/L (98-107); Glucose 106 mg/dL (74-99); Sodium 139 mmol/L (137-145); Total Bilirubin 0.6 mg/dL (0.2-1.3); Total Protein 7.3 g/dL (6.3-8.2)
[2019-01-14 19:02] LABS: Platelet Count 96 k/uL (150-450); Prothrombin Time 10.8 sec (9.0-12.0)
[2019-01-14 19:07] LABS: Partial Thromboplastin Time 115.4 sec (22.0-30.0)
[2019-01-14 20:53] VITALS: BMI 23.1
[2019-01-14] MEDS ORDERED: ACETAMINOPHEN TAB 325 MG TAB PO PRN (21:09)
[2019-01-14] MEDS ORDERED: BUMETANIDE 1 MG TAB PO PRN (21:10)
[2019-01-14] MEDS ORDERED: ATORVASTATIN 20 MG TAB PO SCH (21:15)
[2019-01-14] MEDS ORDERED: MELATONIN 5 MG TABLET PO SCH (21:15)
[2019-01-14] MEDS: GABAPENTIN 300 MG CAP PO SCH (21:26)
[2019-01-15 07:43] VITALS: TEMP 97.6
[2019-01-15] MEDS ORDERED: HYDROmorphone 0.5 MG/0.5 ML SYRINGE IVP PRN (08:17)
--- NOTE | 2019-01-15 08:19 | P.HPIM ---
History of Present Illness H&P Date: 01/15/19 Chief Complaint: Swelling in the left lower extremity HISTORY AND PHYSICAL AND DISCHARGE SUMMARY: This is a 68-year-old female one of Dr. 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 Patient also has history of abscess of the right thigh in a care of Dr. Olvera through the wound healing Center. Patient states that this is almost healed at the time of this admission. She was recently hospitalized in August 2018 for this reason and was discharged to [facility] and completed her 100 days stay and was discharged for [facility] at the end of November. She is currently living at home with her . She apparently was seen by Dr. Olvera yesterday and due to swelling in her lower extremity which patient states it actually started while she was at [facility] but didn't seem to get any better. Dr. Olvera sent her into the emergency center for evaluation. On venous Doppler was positive for extensive DVT on the left lower extremity. Patient was placed on heparin drip and admitted to the [facility] floor. Upon evaluation of the patient, she was having extreme pain 10/10 to her left foot which had a large hematoma/bolus filled area of swelling. We requested a stat evaluation by Dr. Brooks and Dr. Ospina. It was decided the patient would be best treated at a tertiary care center and patient was agreeable to this. She was started on IV Dilaudid and heparin drip placed on hold which is to be on hold during her transportation. Patient will be transferred to [facility] once all arrangements are have been completed. Patient has been accepted at [facility]. Review of Systems All systems: negative Constitutional: Denies anorexia, Denies chills, Denies fatigue, Denies fever, Denies lethargy, Denies malaise, Denies poor appetite, Denies weight loss Eyes: denies blurred vision, denies pain Ears, nose, mouth and throat: Denies dysphagia, Denies headache, Denies nasal congestion, Denies nasal discharge, Denies sore throat, Denies vertigo Cardiovascular: Reports leg edema, Denies chest pain, Denies decreased exercise tolerance, Denies dyspnea on exertion, Denies shortness of breath, Denies syncope Respiratory: Denies cough, Denies cough with sputum, Denies dyspnea, Denies excessive sputum, Denies hemoptysis, Denies home oxygen, Denies wheezing Gastrointestinal: Denies abdominal pain, Denies diarrhea, Denies loss of appetit e, Denies nausea, Denies vomiting Genitourinary: Denies dysuria, Denies hematuria Musculoskeletal: Denies myalgias Musculoskeletal: left: foot pain, foot swelling Integumentary: Reports color changes, Reports darkening of skin, Reports wounds, Denies pruritus, Denies rash Neurological: Denies aphasia, Denies change in mentation, Denies change in speech, Denies numbness, Denies seizures, Denies weakness Psychiatric: Denies anxiety, Denies depression Endocrine: Denies fatigue, Denies weight change Past Medical History Past Medical History: Hyperlipidemia, Musculoskeletal Disorder Additional Past Medical History / Comment(s): inclusion body myositis, poly myositis, insomnia, neuropathy, in wheelchair-no wt bearing, History of Any Multi-Drug Resistant Organisms: None Reported Date of last positivie culture/infection: 11/19/18 MDRO Source:: THIGH Past Surgical History: Appendectomy, Hysterectomy, Tonsillectomy Additional Past Surgical History / Comment(s): cyst removal left inner thigh4 muscle biopsiesFacial plastic surgery after bout with shingles. Infusaport. bilateral cataract surgery. mass removed from urethra 2015. Past Anesthesia/Blood Transfusion Reactions: Motion Sickness Past Psychological History: No Psychological Hx Reported Smoking Status: Former smoker Past Alcohol Use History: None Reported Additional Past Alcohol Use History / Comment(s): quit smoking 1975, smoked for about 9 yrs off and on Past Drug Use History: None Reported - Past Family History Mother Family Medical History: Dementia Additional Family Medical History / Comment(s): Mother at age 95 from Alzhe tolu dementia. Father Family Medical History: Coronary Artery Disease (CAD) Additional Family Medical History / Comment(s): Father at age 95 from coronary artery disease. Brother(s) Family Medical History: No Reported History Additional Family Medical History / Comment(s): Patient has 1 brother with celiac disease. Daughter(s) Family Medical History: No Reported History Additional Family Medical History / Comment(s): Patient has 2 daughters with no major medical problems. Son(s) Family Medical History: No Reported History Additional Family Medical History / Comment(s): Patient has one son with no major medical problems. Medications and Allergies Home Medications Medication Instructions Recorded Confirmed Type Bumetanide [BUMEX] 2 mg PO DAILY PRN 10/25/14 01/14/19 History Calcium Carbonate/Vitamin D3 1 tab PO BID 10/25/14 01/14/19 History [Caltrate 600 Plus D3 Tablet] Cholecalciferol [Vitamin D3] 2,000 unit PO DAILY 10/25/14 01/14/19 History Gammagard 50 gram IV [id number] 10/25/14 01/14/19 History predniSONE 20 mg PO Q48H 10/25/14 01/14/19 History predniSONE 30 mg PO Q48H 07/04/15 01/14/19 History Gabapentin [Neurontin] 300 mg PO TID 12/26/15 01/14/19 History Melatonin 10 mg PO HS 12/26/15 01/14/19 History Oxybutynin Chloride [Ditropan] 5 mg PO BID 02/10/18 01/14/19 History Aspirin EC [Ecotrin Low Dose] 81 mg PO DAILY 08/27/18 01/14/19 History Biotin 7.5mg 7.5 mg PO DAILY 01/14/19 01/14/19 History Mupirocin 2% Oint [Bactroban 2% 1 applic TOPICAL BID 01/14/19 01/14/19 History Oint] Simvastatin [Zocor] 40 mg PO HS 01/14/19 01/14/19 History Allergies Allergy/AdvReac Type Severity Reaction Status Date / Time diphenhydramine HCl Allergy Mild Itching, Verified 01/14/19 17:07 [From Benadryl] hives cephalexin monohydrate Allergy Itching, Verified 01/14/19 17:07 [From Keflex] hives sulfamethoxazole AdvReac Mild Rash/Hives Verified 01/14/19 17:07 [From Bactrim] trimethoprim [From Bactrim] AdvReac Mild Rash/Hives Verified 01/14/19 17:07 Physical Exam Vitals: Vital Signs Temp Pulse Pulse Resp BP BP Pulse Ox 01/15/19 08:05 124 H 93 H 127/100 01/15/19 07:00 97.6 F 95 18 125/80 98 01/15/19 01:16 97.8 F 98 18 121/80 98 01/14/19 20:14 98.5 F 80 19 165/89 95 01/14/19 18:53 98.2 F 75 16 145/88 96 01/14/19 17:46 79 16 143/84 94 L 01/14/19 15:29 99.1 F 89 18 132/85 94 L Intake and Output 01/14/19 01/15/19 01/15/19 22:59 06:59 14:59 Intake Total 225 506 Balance 225 506 Intake: Intake, IV Titration 225 506 Amount Heparin Sod,Pork in 0.45% 225 56 NaCl 25,000 unit In 0.45 % NaCl 1 250ml.bag @ 12 UNITS/KG/HR 7.076 mls/hr IV .Q24H [facility] Rx#: [id number] Sodium Chloride 0.9% 1, 450 000 ml @ 75 mls/hr IV . [id number] ONE Rx#:[id number] Other: Weight 58.967 kg General appearance: acute distress, thin - EENT Eyes: anicteric sclerae, EOMI, PERRLA, no ptosis, no scleral icterus, normal appearance ENT: hearing grossly normal, NA/AT, normal oropharynx, no thrush Ears: bilateral: normal - Neck Neck: no lymphadenopathy, normal ROM, no rigidity, no stridor, no thyromegaly Carotids: bilateral: upstroke normal Thyroid: bilateral: normal size - Respiratory Respiratory: bilateral: diminished, negative: dullness, rales, rhonchi, wheezing, prolonged expiration - Cardiovascular Rhythm: regular Heart sounds: normal: S1, S2 Abnormal Heart Sounds: no systolic murmur, no S3 Gallop, no S4 Gallop - Gastrointestinal General gastrointestinal: normal bowel sounds, soft, no splenomegaly, no tenderness, no umbilical hernia, no ventral hernia - Integumentary Integumentary: normal, normal turgor - Neurologic Neurologic: focal deficits (bilateral lower extremity paraparesis with bilateral foot drop.) - Musculoskeletal Musculoskeletal: no gait normal Edema to the left lower extremity. Dorsalis pedis obtained by Doppler. Patient has very large area of hematoma, serous fluid collection on the dorsal surface of the left foot. Area extremely painful. - Psychiatric Psychiatric: A&O x's 3, appropriate affect, intact judgment & insight Results CBC & Chem 7: 01/14/19 18:24 01/14/19 18:24 Labs: Abnormal Lab Results - Last 24 Hours (Table) 01/14/19 01/14/19 01/14/19 Range/Units 18:24 18:24 18:24 RDW 18.3 H (11.5-15.5) % Plt Count 96 L (150-450) k/uL APTT 115.4 H* (22.0-30.0) sec Chloride 109 H (98-107) mmol/L Creatinine 0.21 L (0.52-1.04) mg/dL Glucose 106 H (74-99) mg/dL AST 47 H (14-36) U/L Albumin 3.1 L (3.5-5.0) g/dL 01/15/19 Range/Units 00:11 RDW (11.5-15.5) % Plt Count (150-450) k/uL APTT 123.0 H* (22.0-30.0) sec Chloride (98-107) mmol/L Creatinine (0.52-1.04) mg/dL Glucose (74-99) mg/dL AST (14-36) U/L Albumin (3.5-5.0) g/dL Thrombosis Risk Factor Assmnt - Choose All That Apply Any of the Below Risk Factors Present?: No Other Risk Factors: Yes Each Risk Factor Represents 2 Points: Age 61-74 years Other congenital or acquired thrombophilia - If yes, enter type in comment: No Thrombosis Risk Factor Assessment Total Risk Factor Score: 2 Thrombosis Risk Factor Assessment Level: Low Risk Assessment and Plan Plan: 1. Acute left lower extremity DVT with large hematoma on the left foot. Heparin drip will be placed on hold. Consults with vascular surgeon and orthopedic surgeon appreciated. Patient is agreeable for transfer to [facility] and this will be done once all arrangements are completed. Dilaudid for pain control. 2. Healing right thigh abscess/ulcer status post incision and drainage and follows with Dr. Olvera in the wound healing Center. 3. 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 Patient has received Gammagard along with alternating dose of prednisone as prescribed. 4. Hyperlipidemia. Continue simvastatin 40 mg at bedtime. 5. Overactive bladder. Continue patient on oxybutynin 5 mg orally twice every day. Admit to inpatient. Estimate a length of stay 2 midnights. Patient is full code. Impression and plan of care have been directed as dictated by the signing physician. Loan Zhang nurse practitioner acting as scribe for signing physician.
[2019-01-15] MEDS ORDERED: MUPIROCIN 2% OINT 22 GM TUBE TOPICAL SCH (09:00)
[2019-01-15] MEDS ORDERED: CHOLECALCIFEROL 1,000 UNIT TAB PO SCH (09:00)
[2019-01-15] MEDS ORDERED: BIOTIN PO SCH (09:00)
[2019-01-15] MEDS ORDERED: OXYBUTYNIN CHLORIDE 5 MG TAB PO SCH (09:00)
[2019-01-15] MEDS ORDERED: CALCIUM CARB-VIT D 500MG-200UN 1 EACH TAB PO SCH (09:00)
[2019-01-15 09:45] VITALS: BP 115/81; PULSE 95; RESP 16
--- NOTE | 2019-01-15 10:22 | CT ---
EXAMINATION TYPE: CT lower extremity LT wo con DATE OF EXAM: 01/15/2019 COMPARISON: None HISTORY: Swelling Lt lower leg and foot, bruising CT DLP: 153.9 mGycm Automated exposure control for dose reduction was used. Unenhanced CT of the left lower extremity was performed from the right knee through the distal aspect of the midfoot. Bone and soft tissue window settings are submitted. Images are reviewed in the axial, sagittal and coronal planes. FINDINGS: There is a hematoma noted at the site of clinical concern which measures 7.2 x 4.1 x 11.4 cm situated over the dorsum of the left foot. I do not see evidence for additional mass. Fluid fluid level noted . No underlying fractures identified. IMPRESSION: LARGE HEMATOMA AT THE SITE OF CLINICAL CONCERN.
--- NOTE | 2019-01-15 11:29 | CONS ---
CONSULTATION This is a 68-year-old female. She came to the wound clinic for followup with Dr. Bob Olvera. The patient had some swelling of the dorsal aspect of the left foot. The patient was sent to the emergency room and got admitted. The patient has history of DVT of the left external iliac vein and popliteal vein. The patient was started on heparin and patient developed large hematoma on the dorsal aspect of the left foot with skin necrosis. The patient has history of inclusion body myositis, polymyositis, insomnia, neuropathy. The patient is wheelchair bound because she had a wound on her right leg and was treated with VAC therapy in wound clinic. SURGICAL HISTORY: Patient had an appendectomy, hysterectomy and tonsillectomy in the past. PHYSICAL EXAMINATION: On examination, patient was seen in her room. Neck is supple. Chest is clear. Abdomen is soft. Femorals are 1+ bilateral. The patient has a large hematoma 7.2 x 4.1 x .4 cm, situated over the dorsum aspect of the left foot and no underlying fracture noted by CT scan. IMPRESSION: Deep venous thrombosis of the left external iliac vein, popliteal vein with large hematoma dorsal aspect left foot. The patient was seen by orthopedic, Dr. Andrews and also patient evaluated by me. Since patient has extensive deep venous thrombosis. Patient will need extensive debridement of the dorsum aspect of the foot which Dr. Andrews is thinking about, but the concern is coverage of the left foot with skin graft. I did discuss with Orthopedic and also with Dr. Bob Olvera that patient will be going to a tertiary center. She may need a filter placed if she needs to have debridement, but the limb salvage is a concern. She may end up with major amputation. Patient does not want to go this route most likely she will be transferred to a tertiary center. MMODL / IJN: [id number] /
[2019-01-15] MEDS: GABAPENTIN 300 MG CAP PO SCH (12:29)
[2019-01-15] MEDS ORDERED: predniSONE 10 MG TAB PO SCH (21:00)
[2019-01-16] MEDS ORDERED: predniSONE 20 MG TAB PO SCH (21:00)
== END 2019-01-15 13:03 | disposition short-term general hospital (02) | DRG 300 ==
LOC: EC 15:28 → 4SSUR 18:08
PROVIDERS: ADMIT Internal Medicine; ATTEND Internal Medicine
DX: I82.422 Acute embolism and thrombosis of left iliac vein (principal); L02.415 Cutaneous abscess of right lower limb; G82.20 Paraplegia, unspecified; G72.41 Inclusion body myositis [IBM]; G62.9 Polyneuropathy, unspecified; I82.432 Acute embolism and thrombosis of left popliteal vein; B02.9 Zoster without complications; I11.9 Hypertensive heart disease without heart failure; E78.5 Hyperlipidemia, unspecified; G47.00 Insomnia, unspecified; S90.32XA Contusion of left foot, initial encounter; M21.371 Foot drop, right foot; M21.372 Foot drop, left foot; N32.81 Overactive bladder; Z79.899 Other long term (current) drug therapy; Z79.82 Long term (current) use of aspirin; Z74.01 Bed confinement status; Z90.710 Acquired absence of both cervix and uterus; Z90.49 Acquired absence of other specified parts of digestive tract; Z87.891 Personal history of nicotine dependence; Z88.1 Allergy status to other antibiotic agents; Z88.2 Allergy status to sulfonamides; Z88.8 Allergy status to other drugs, medicaments and biological substances; Z99.3 Dependence on wheelchair; Z82.0 Family history of epilepsy and other diseases of the nervous system; Z82.49 Family history of ischemic heart disease and other diseases of the circulatory system; Z83.79 Family history of other diseases of the digestive system
CPT/HCPCS: 80053; 85025; 85610; 85730; 96365; 96376; 99285

== ENCOUNTER 2019-03-25 05:42 | Day surgery (SDC) | payer MEDICARE, OTHER ==
[2019-03-20 11:31] VITALS: BMI 22.8
[~2019-03-25 05:42] MED LIST: ceFAZolin IN SWFI 2 GM/20 ML SYRINGE IVP ONE
[2019-03-25] MEDS ORDERED: HYDROmorphone 0.5 MG/0.5 ML SYRINGE IVP PRN (05:46)
[2019-03-25] MEDS ORDERED: LACTATED RINGERS 1,000 ML IV SCH (05:46)
[2019-03-25] MEDS ORDERED: ONDANSETRON 4 MG/2 ML VIAL IVP ONE (05:46)
[2019-03-25] MEDS ORDERED: LIDOCAINE 1% 20 ML VIAL (10MG/ML) FOR IV START INTRADERMA PRN (05:46)
[2019-03-25] MEDS ORDERED: LACTATED RINGERS 1,000 ML IV ONE (06:47)
--- NOTE | 2019-03-25 07:42 | P.GSHP ---
History of Present Illness H&P Date: 03/25/19 Chief Complaint: Ulcer left foot 6 weeks or so ago the patient developed a hematoma on the dorsum of the left foot and had resulting slough of skin on the dorsum of the foot. She had a debridement and biologic skin replacement. The site is now granulated and prepared for skin grafting. - Constitutional Constitutional: Denies chills, Denies fever - EENT Eyes: denies blurred vision, denies pain Ears, nose, mouth and throat: Denies headache, Denies sore throat - Cardiovascular Cardiovascular: Denies chest pain, Denies shortness of breath - Respiratory Respiratory: Denies cough, Denies 7 - Gastrointestinal Gastrointestinal: Denies abdominal pain, Denies diarrhea, Denies nausea, Denies vomiting - Genitourinary (Female) Genitourinary: Denies dysuria, Denies hematuria - Genitourinary (Male) Genitourinary: Denies dysuria, Denies hematuria - Musculoskeletal Comment: Patient is nonambulatory due to a lower limb neuropathy Musculoskeletal: Denies myalgias - Integumentary Integumentary: Denies pruritus, Denies rash - Neurological Comment: Patient is totally unable to ambulate and has neuropathy affecting both lower limbs. Neurological: Reports motor disturbance, Reports weakness - Psychiatric Psychiatric: Denies anxiety, Denies depression - Endocrine Endocrine: Denies fatigue, Denies weight change Past Medical History Past Medical History: Deep Vein Thrombosis (DVT), Hyperlipidemia, Musculoskeletal Disorder, Skin Disorder Additional Past Medical History / Comment(s): inclusion body myositis, polymyositis - gets IV infusions q14 days, insomnia, neuropathy, in wheelchair- no wt bearing, WOUND LT FOOT; [facility], [facility]. History of Any Multi-Drug Resistant Organisms: None Reported Date of last positivie culture/infection: 11/19/18 MDRO Source:: THIGH Past Surgical History: Appendectomy, Hysterectomy, Tonsillectomy Additional Past Surgical History / Comment(s): cyst removal left inner thigh, 4 muscle biopsies, Facial plastic surgery after bout with shingles. Infusaport. bilateral cataract surgery. mass removed from urethra 2015. BLOOD CLOT FILTERS EUGENE GROIN. Past Anesthesia/Blood Transfusion Reactions: Motion Sickness, Postoperative Nausea & Vomiting (PONV) Additional Past Anesthesia/Blood Transfusion Reaction / Comment(s): PONV AFTER URETHRA SURGERY. Smoking Status: Former smoker - Past Family History Mother Family Medical History: Dementia Additional Family Medical History / Comment(s): Mother at age 95 from Alzheimer dementia. Father Family Medical History: Coronary Artery Disease (CAD) Additional Family Medical History / Comment(s): Father at age 95 from coronary artery disease. Brother(s) Family Medical History: No Reported History Additional Family Medical History / Comment(s): Patient has 1 brother with celiac disease. Daughter(s) Family Medical History: No Reported History Additional Family Medical History / Comment(s): Patient has 2 daughters with no major medical problems. Son(s) Family Medical History: No Reported History Additional Family Medical History / Comment(s): Patient has one son with no major medical problems. Medications and Allergies Home Medications Medication Instructions Recorded Confirmed Type Calcium Carbonate/Vitamin D3 1 tab PO DAILY 10/25/14 03/25/19 History [Caltrate 600 Plus D3 Tablet] Gammagard 50 gram IV [id number] 10/25/14 03/25/19 History predniSONE 20 mg PO Q48H 10/25/14 03/25/19 History predniSONE 30 mg PO Q48H 07/04/15 03/25/19 History Gabapentin [Neurontin] 300 mg PO TID 12/26/15 03/25/19 History Melatonin 10 mg PO HS 12/26/15 03/25/19 History Oxybutynin Chloride [Ditropan] 5 mg PO BID 02/10/18 03/25/19 History Aspirin EC [Ecotrin Low Dose] 81 mg PO DAILY 08/27/18 03/25/19 History Biotin 7.5mg 7.5 mg PO DAILY 01/14/19 03/25/19 History Simvastatin [Zocor] 40 mg PO HS 01/14/19 03/25/19 History Acetaminophen [Tylenol Extra 1,000 mg PO Q6H PRN 03/20/19 03/25/19 History Strength] Multivit-Min/FA/Lycopen/Lutein 1 each PO DAILY 03/20/19 03/25/19 History [Centrum Silver Tablet] Vits A and D/White Pet/Lanolin [A 1 applic TOPICAL DAILY PRN 03/20/19 03/25/19 History and D Ointment] Allergies Allergy/AdvReac Type Severity Reaction Status Date / Time diphenhydramine HCl Allergy Mild Itching, Verified 03/25/19 06:36 [From Benadryl] hives cephalexin monohydrate Allergy Itching, Verified 03/25/19 06:36 [From Keflex] hives sulfamethoxazole AdvReac Mild Rash/Hives Verified 03/25/19 06:36 [From Bactrim] trimethoprim [From Bactrim] AdvReac Mild Rash/Hives Verified 03/25/19 06:36 Surgical - Exam Osteopathic Statement: *. No significant issues noted on an osteopathic structural exam other than those noted in the History and Physical/Consult. Vital Signs Temp Pulse Resp BP Pulse Ox 97.8 F 82 16 162/77 98 03/25/19 06:30 03/25/19 06:30 03/25/19 06:30 03/25/19 06:30 03/25/19 06:30 - General well developed, well nourished, no distress - Eyes normal ocular movement, no icteric - ENT no hearing loss, no congestion - Neck no masses, trachea midline - Respiratory normal expansion, normal respiratory effort, clear to auscultation - Cardiovascular Rhythm: regular - Abdomen Abdomen: soft, non tender, no guarding, no rigid, no rebound - Integumentary no rash, no abnormal pigmentation - Neurologic no disoriented, no combative - Musculoskeletal Totally unable to ambulate due to neuropathy - Psychiatric oriented to time, oriented to person, oriented to place, speech is normal, memory intact Assessment and Plan (1) Chronic ulcer of 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
[2019-03-25] MEDS ORDERED: MIDAZOLAM 2 MG/2 ML VIAL ONE (08:25)
[2019-03-25] MEDS ORDERED: PROPOFOL 10 MG/ML 20 ML VIAL IV ONE (08:25)
[2019-03-25] MEDS ORDERED: fentaNYL (PF) 50 MCG/ML 2 ML AMP ONE (08:25)
[2019-03-25] MEDS ORDERED: MINERAL OIL 1 APPLIC/ML OIL TOPICAL ONE (09:09)
[2019-03-25 09:45] VITALS: TEMP 97.6
[2019-03-25 11:01] VITALS: RESP 20
[2019-03-25 11:05] VITALS: BP 127/76; PULSE 87
--- NOTE | 2019-04-01 14:20 | P.PCN ---
Date of Procedure: 03/25/19 Preoperative Diagnosis: Chronic ulcer dorsum left foot Postoperative Diagnosis: Same Procedure(s) Performed: Split-thickness skin graft Anesthesia: MAC Surgeon: Bob Olvera Estimated Blood Loss (ml): 25 Pathology: none sent Condition: stable Disposition: PACU Indications for Procedure: The patient has a large chronic ulcer on the dorsum of the left foot following I&D of a large hematoma Operative Findings: There was a good viable granular bed at the base of the ulcer. The ulcer was about 11.5 by 6 cm and 0.2 cm in depth Description of Procedure: With the patient spine position, under benefit of IV sedation, we prepped and draped in standard fashion. We first, utilizing a sharp curette, debridement it aggressively the base of the ulcer. We removed all nonviable excess granulation tissue down to a good healthy bloody bed. We then harvested a 1" x 11 cm and a 1" x 9 cm patch using the dermatome set at 06/1000 inch thickness. These were placed on the 1-3 crimping sheet and placed through the fenestrater. We then placed these to obtain as complete a coverage as possible over the ulcer. They were each flattened as much as possible to get his good surface contact as possible between ulcer and graft. We then secured them in position by a cover sheet of Adaptic touch which was held in place by window paning half inch Steri- Strips. We then placed a dressing with a hydrogel, absorptive silver, more hydr ogel, dry gauze, dry gauze roll, and gentle James wrap. The donor sites were covered with Tegaderm. The patient tolerated the procedure well and was taken to recovery area in stable condition.
== END 2019-03-25 11:55 | disposition home or self-care (01) ==
LOC: OR 05:42
PROVIDERS: ATTEND Thoracic Surgery (Cardiothoracic Vascular Surgery)
DX: L97.522 Non-pressure chronic ulcer of other part of left foot with fat layer exposed (principal); E78.5 Hyperlipidemia, unspecified; M33.20 Polymyositis, organ involvement unspecified; G47.00 Insomnia, unspecified; G62.9 Polyneuropathy, unspecified; I82.409 Acute embolism and thrombosis of unspecified deep veins of unspecified lower extremity; Z79.82 Long term (current) use of aspirin; Z79.52 Long term (current) use of systemic steroids; Z79.899 Other long term (current) drug therapy; Z88.1 Allergy status to other antibiotic agents; Z88.2 Allergy status to sulfonamides; Z88.8 Allergy status to other drugs, medicaments and biological substances; Z99.3 Dependence on wheelchair; Z98.890 Other specified postprocedural states; Z90.710 Acquired absence of both cervix and uterus; Z90.81 Acquired absence of spleen; Z90.89 Acquired absence of other organs; Z87.891 Personal history of nicotine dependence; Z82.0 Family history of epilepsy and other diseases of the nervous system; Z82.49 Family history of ischemic heart disease and other diseases of the circulatory system; Z83.79 Family history of other diseases of the digestive system
CPT/HCPCS: 15115; 15004; J2250; J2405; J3010; J2704

== ENCOUNTER → 2019-10-27 | Outpatient (CLI) | payer MEDICARE, OTHER ==
--- NOTE | 2019-10-27 16:21 | XR ---
Lumbosacral spine HISTORY: Chronic back pain 5 views of lumbosacral spine No comparisons There is wedge compression deformity at T12, loss of superior endplate height of approximately 25%, t here is associated sclerosis, no evident retropulsion. Bone mineralization is reduced. Lumbar vertebr al bodies show preserved height. There is multilevel spondylosis, loss of disc height present at L4-5 , L2-3 with associated vacuum phenomenon, there is sclerosis in the posterior elements consistent wit h facet arthropathy. Mild anterolisthesis grade 1 L5-S1, no evident spondylolysis. There is an inferi or vena cava filter noted incidentally. Mild dextroscoliosis centered at the mid lumbar spine. IMPRESSION: Osteopenia. Compression fracture T12 is indeterminate, consider bone scan as indicated. F acet arthropathy and degenerative disc disease, scoliosis.
== END | disposition home or self-care (01) ==
LOC: RADXRMAIN 12:48
PROVIDERS: ATTEND Family Medicine
DX: M51.37 Other intervertebral disc degeneration, lumbosacral region (principal); M85.80 Other specified disorders of bone density and structure, unspecified site; M46.97 Unspecified inflammatory spondylopathy, lumbosacral region; M41.87 Other forms of scoliosis, lumbosacral region
CPT/HCPCS: 72110

== ENCOUNTER → 2019-11-19 | Outpatient (CLI) | payer MEDICARE, OTHER ==
--- NOTE | 2019-11-19 15:33 | NM ---
EXAMINATION TYPE: NM bone scan whole body DATE OF EXAM: 11/19/2019 COMPARISON: Lumbosacral spine 10/27/2019 HISTORY: Osteopenia, back pain Delayed whole-body scanning was performed following the injection of 24.4 mCi Tc 99m MDP. Images acq uired 3 hours post injection. FINDINGS: There are foci of increased uptake noted along the anterior ribs bilaterally. Bandlike area of increa sed uptake is also noted at T12 and likely the superior endplate of L1. Soft tissue uptake is normal. IMPRESSION: Probable osteoporotic compression fractures at T12, L1. Likely there are posttraumatic changes of mul tiple anterior bilateral ribs.
== END | disposition home or self-care (01) ==
LOC: RADNMMAIN 10:52
PROVIDERS: ATTEND Family Medicine
DX: M85.80 Other specified disorders of bone density and structure, unspecified site (principal)
CPT/HCPCS: 78306; A9503; J1642

== ENCOUNTER 2020-12-22 11:36 | Inpatient (IN) | payer MEDICARE, OTHER ==
[2020-12-22] MEDS ORDERED: SODIUM CHLORIDE 0.9% 1,000 ML IV ONE ×3 (12:30→14:50)
[2020-12-22] MEDS ORDERED: ACETAMINOPHEN TAB 500 MG TAB PO STA (12:33)
[2020-12-22] MEDS ORDERED: PIPERACILLIN-TAZOBACTAM 3.375 GM in SODIUM CHLORIDE 0.9% 100 ML IVPB STA (12:33)
[2020-12-22] MEDS ORDERED: IBUPROFEN 600 MG TAB PO STA (12:33)
--- NOTE | 2020-12-22 12:53 | ED ---
General Adult HPI - General Chief complaint: Seizure Stated complaint: Altered mental status Time Seen by Provider: 12/22/20 12:00 Source: patient, EMS, RN notes reviewed, old records reviewed Mode of arrival: EMS Limitations: no limitations - History of Present Illness Initial comments: This is a 70-year-old female presents emergency Department via EMS. EMS brought the patient because the found the patient in bed confused and he states her normal baseline is alert and oriented 3 with occasional confusion. Today the patient was much more confused she has some blood in her mouth and it concerned the and he thought maybe she had had a seizure. Patient has no history of seizures. Patient herself has no complaints. Patient did have a temperature of 106. There's been no history given to me of any difficulty breathing or cough. Patient has had no history of vomiting or diarrhea. No other history is available this time because no one is with the patient currently. - Related Data Home Medications Medication Instructions Recorded Confirmed Calcium Carbonate/Vitamin D3 1 tab PO BID 10/25/14 12/22/20 [Caltrate 600 Plus D3 Tablet] Gammagard 1 dose IV [id number] 10/25/14 12/22/20 predniSONE 20 mg PO DAILY 10/25/14 12/22/20 Gabapentin [Neurontin] 300 mg PO BID@0900,1300 12/26/15 12/22/20 Oxybutynin Chloride [Ditropan] 5 mg PO BID 02/10/18 12/22/20 Aspirin EC [Ecotrin Low Dose] 81 mg PO DAILY 08/27/18 12/22/20 Simvastatin [Zocor] 40 mg PO DAILY 01/14/19 12/22/20 Acetaminophen [Tylenol Extra 1,000 mg PO Q6H PRN 03/20/19 12/22/20 Strength] Biotin 10,000 mcg PO DAILY 12/22/20 12/22/20 Cholecalciferol [Vitamin D3 (25 50 mcg PO DAILY 12/22/20 12/22/20 Mcg = 1000 Iu)] Gabapentin 600 mg PO HS 12/22/20 12/22/20 Loratadine [Claritin] 10 mg PO DAILY 12/22/20 12/22/20 Melatonin 5 mg PO HS 12/22/20 12/22/20 Multivitamin [Multivitamins Adult 2 tab PO DAILY 12/22/20 12/22/20 Gummies] Allergies Allergy/AdvReac Type Severity Reaction Status Date / Time diphenhydramine HCl Allergy Mild Itching, Verified 12/22/20 13:42 [From Benadryl] hives cephalexin monohydrate Allergy Itching, Verified 12/22/20 13:42 [From Keflex] hives sulfamethoxazole AdvReac Mild Rash/Hives Verified 12/22/20 13:42 [From Bactrim] trimethoprim [From Bactrim] AdvReac Mild Rash/Hives Verified 12/22/20 13:42 Review of Systems ROS Statement: Those systems with pertinent positive or pertinent negative responses have been documented in the HPI. ROS Other: All systems not noted in ROS Statement are negative. 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 History of Any Multi-Drug Resistant Organisms: None Reported Date of last positivie culture/infection: 11/19/18 MDRO Source:: THIGH Past Surgical History: Appendectomy, Hysterectomy, Tonsillectomy Additional Past Surgical History / Comment(s): cyst removal left inner thigh4 muscle biopsiesFacial plastic surgery after bout with shingles. Infusaport. bilateral cataract surgery. mass removed from urethra 2015.skin graft to left foot Past Anesthesia/Blood Transfusion Reactions: Motion Sickness, Postoperative Nausea & Vomiting (PONV) Additional Past Anesthesia/Blood Transfusion Reaction / Comment(s): PONV AFTER URETHRA SURGERY. Past Psychological History: No Psychological Hx Reported Smoking Status: Former smoker Past Alcohol Use History: None Reported Past Drug Use History: None Reported - Past Family History Mother Family Medical History: Dementia Additional Family Medical History / Comment(s): Mother at age 95 from Alzheimer dementia. Father Family Medical History: Coronary Artery Disease (CAD) Additional Family Medical History / Comment(s): Father at age 95 from coronary artery disease. Brother(s) Family Medical History: No Reported History Additional Family Medical History / Comment(s): Patient has 1 brother with ce liac disease. Daughter(s) Family Medical History: No Reported History Additional Family Medical History / Comment(s): Patient has 2 daughters with no major medical problems. Son(s) Family Medical History: No Reported History Additional Family Medical History / Comment(s): Patient has one son with no major medical problems. General Exam - General Exam Comments Initial Comments: GENERAL: Patient is well-developed and well-nourished. Patient is nontoxic and well- hydrated and is in no acute distress. ENT: Neck is soft and supple. No significant lymphadenopathy is noted. Oropharynx is clear. Dry mucous membranes. Neck has full range of motion without eliciting any pain. EYES: The sclera were anicteric and conjunctiva were pink and moist. Extraocular movements were intact and pupils were equal round and reactive to light. Eyelids were unremarkable. PULMONARY: Unlabored respirations. Good breath sounds bilaterally. No audible rales rhonchi or wheezing was noted. CARDIOVASCULAR: There is a regular rate and rhythm without any murmurs gallops or rubs. ABDOMEN: Soft and nontender with normal bowel sounds. SKIN: Skin is clear with no lesions or rashes and otherwise unremarkable. NEUROLOGIC: Patient is alert and oriented 2. Cranial nerves II through XII are grossly intact. Motor and sensory are also intact. Normal speech, volume and content. Symmetrical smile. MUSCULOSKELETAL: Normal extremities with adequate strength and full range of motion. No lower extremity swelling or edema. No calf tenderness. LYMPHATICS: No significant lymphadenopathy is noted PSYCHIATRIC: Normal psychiatric evaluation. Limitations: no limitations Course Vital Signs 12/22/20 12/22/20 12/22/20 11:37 13:31 13:46 Temperature 100.8 F H 99.2 F Pulse Rate 129 H 113 H 115 H Respiratory 24 20 22 Rate Blood Pressure 75/50 94/46 110/58 O2 Sat by Pulse 97 96 Oximetry 12/22/20 12/22/20 12/22/20 14:49 15:32 16:57 Temperature 98 F Pulse Rate 112 H 105 H 105 H Respiratory 22 24 22 Rate Blood Pressure 90/54 98/59 113/82 O2 Sat by Pulse 96 95 95 Oximetry Procedures - Sepsis Sepsis Focused Exam #1 Time Sepsis Criteria Met: 14:30 Sepsis Focused Exam Date: 12/22/20 Sepsis Focused Exam Time: 14:51 Sepsis Focused Exam Complete: Yes Vital Signs & RN Notes Reviewed: Yes Capillary Refill: < 2 Seconds: Fingers Peripheral Pulses: Weak: Radial (R) Skin Color: Normal for Patient Respiratory Exam: normal lung sounds Cardiovascular Exam: tachycardia Medical Decision Making - Medical Decision Making EKG shows sinus tachycardia at 130 bpm UT interval 200 QRS is 86 QT interval 310 QTC is 456. Patient's EKG shows some slight ST segment depression in V4 V5 and V6. Patient also some T-wave inversions in 1 and aVL. Patient's lactic acid was elevated patient had a white count and urinary tract infection. Patient was started on Zosyn. He was deemed septic at 2:30. Patient received 2 L of fluid patient's ideal body weight is 56 kg. I spoke with Dr. Guerin she agreed to accept the patient admitted the patient admitted wrote admitting orders. EKG shows sinus tachycardia at 111 bpm UT interval 130 QRS is 80 QT interval 328 QTC is 446. Patient's EKG shows some T-wave inversions in 1 and aVL. Also some T-wave inversions in V1 and V2. No ST segment elevation is noted. Patient has a GCS of about 14 at this point and she stated that she does not want CPR does not want to be intubated we are trying to contact her to verify this. Chest x-ray showed some infiltrate in the lower lobes correlate for pneumonitis. - Lab Data Result diagrams: 12/22/20 12:41 12/22/20 12:41 Lab Results 12/22/20 12/22/20 12/22/20 Range/Units 12:41 12:41 12:41 WBC 16.9 H (3.8-10.6) k/uL RBC 5.10 (3.80-5.40) m/uL Hgb 14.9 (11.4-16.0) gm/dL Hct 47.4 H (34.0-46.0) % MCV 92.9 (80.0-100.0) fL MCH 29.2 (25.0-35.0) pg MCHC 31.4 (31.0-37.0) g/dL RDW 17.9 H (11.5-15.5) % Plt Count 142 L (150-450) k/uL MPV 10.3 Neutrophils % 73 % Lymphocytes % 20 % Monocytes % 5 % Eosinophils % 0 % Basophils % 0 % Neutrophils # 12.4 H (1.3-7.7) k/uL Lymphocytes # 3.4 (1.0-4.8) k/uL Monocytes # 0.9 (0-1.0) k/uL Eosinophils # 0.1 (0-0.7) k/uL Basophils # 0.1 (0-0.2) k/uL Hypochromasia Slight Anisocytosis Slight PT 12.6 H (9.0-12.0) sec INR 1.2 H (<1.2) APTT 26.4 (22.0-30.0) sec Sodium (137-145) mmol/L Potassium (3.5-5.1) mmol/L Chloride (98-107) mmol/L Carbon Dioxide (22-30) mmol/L Anion Gap mmol/L BUN (7-17) mg/dL Creatinine (0.52-1.04) mg/dL Est GFR (CKD-EPI)AfAm (>60 ml/min/1.73 sqM) Est GFR (CKD-EPI)NonAf (>60 ml/min/1.73 sqM) Glucose (74-99) mg/dL Lactic Ac Sepsis Rflx Plasma Lactic Acid Michael (0.7-2.0) mmol/L Calcium (8.4-10.2) mg/dL Total Bilirubin (0.2-1.3) mg/dL AST (14-36) U/L ALT (4-34) U/L Alkaline Phosphatase (38-126) U/L Troponin I (0.000-0.034) ng/mL Total Protein (6.3-8.2) g/dL Albumin (3.5-5.0) g/dL Urine Color Yellow Urine Appearance Cloudy H (Clear) Urine pH 5.0 (5.0-8.0) Ur Specific [place] 1.014 (1.001-1.035) Urine Protein 1+ H (Negative) Urine Glucose (UA) 3+ H (Negative) Urine Ketones Negative (Negative) Urine Blood Moderate H (Negative) Urine Nitrite Negative (Negative) Urine Bilirubin Negative (Negative) Urine Urobilinogen <2.0 (<2.0) mg/dL Ur Leukocyte Esterase Large H (Negative) Urine RBC 6 H (0-5) /hpf Urine WBC 99 H (0-5) /hpf Urine WBC Clumps Occasional H (None) /hpf Ur Squamous Epith Cells 2 (0-4) /hpf Amorphous Sediment Few H (None) /hpf Urine Bacteria Many H (None) /hpf Urine Mucus Rare H (None) /hpf Urine Opiates Screen Not Detected (NotDetected) Ur Oxycodone Screen Not Detected (NotDetected) Urine Methadone Screen Not Detected (NotDetected) Ur Propoxyphene Screen Not Detected (NotDetected) Ur Barbiturates Screen Not Detected (NotDetected) U Tricyclic Antidepress Not Detected (NotDetected) Ur Phencyclidine Scrn Not Detected (NotDetected) Ur Amphetamines Screen Not Detected (NotDetected) U Methamphetamines Scrn Not Detected (NotDetected) U Benzodiazepines Scrn Not Detected (NotDetected) Urine Cocaine Screen Not Detected (NotDetected) U Marijuana (THC) Screen Not Detected (NotDetected) Coronavirus (PCR) (Not Detectd) 12/22/20 12/22/20 12/22/20 Range/Units 12:41 12:41 12:43 WBC (3.8-10.6) k/uL RBC (3.80-5.40) m/uL Hgb (11.4-16.0) gm/dL Hct (34.0-46.0) % MCV (80.0-100.0) fL MCH (25.0-35.0) pg MCHC (31.0-37.0) g/dL RDW (11.5-15.5) % Plt Count (150-450) k/uL MPV Neutrophils % % Lymphocytes % % Monocytes % % Eosinophils % % Basophils % % Neutrophils # (1.3-7.7) k/uL Lymphocytes # (1.0-4.8) k/uL Monocytes # (0-1.0) k/uL Eosinophils # (0-0.7) k/uL Basophils # (0-0.2) k/uL Hypochromasia Anisocytosis PT (9.0-12.0) sec INR (<1.2) APTT (22.0-30.0) sec Sodium 139 (137-145) mmol/L Potassium 4.1 (3.5-5.1) mmol/L Chloride 108 H (98-107) mmol/L Carbon Dioxide 20 L (22-30) mmol/L Anion Gap 11 mmol/L BUN 20 H (7-17) mg/dL Creatinine 1.11 H (0.52-1.04) mg/dL Est GFR (CKD-EPI)AfAm 58 (>60 ml/min/1.73 sqM) Est GFR (CKD-EPI)NonAf 50 (>60 ml/min/1.73 sqM) Glucose 94 (74-99) mg/dL Lactic Ac Sepsis Rflx Plasma Lactic Acid Michael (0.7-2.0) mmol/L Calcium 8.3 L (8.4-10.2) mg/dL Total Bilirubin 1.1 (0.2-1.3) mg/dL AST 198 H (14-36) U/L ALT 137 H (4-34) U/L Alkaline Phosphatase 200 H (38-126) U/L Troponin I 0.086 H* (0.000-0.034) ng/mL Total Protein 6.7 (6.3-8.2) g/dL Albumin 2.7 L (3.5-5.0) g/dL Urine Color Urine Appearance (Clear) Urine pH (5.0-8.0) Ur Specific [place] (1.001-1.035) Urine Protein (Negative) Urine Glucose (UA) (Negative) Urine Ketones (Negative) Urine Blood (Negative) Urine Nitrite (Negative) Urine Bilirubin (Negative) Urine Urobilinogen (<2.0) mg/dL Ur Leukocyte Esterase (Negative) Urine RBC (0-5) /hpf Urine WBC (0-5) /hpf Urine WBC Clumps (None) /hpf Ur Squamous Epith Cells (0-4) /hpf Amorphous Sediment (None) /hpf Urine Bacteria (None) /hpf Urine Mucus (None) /hpf Urine Opiates Screen (NotDetected) Ur Oxycodone Screen (NotDetected) Urine Methadone Screen (NotDetected) Ur Propoxyphene Screen (NotDetected) Ur Barbiturates Screen (NotDetected) U Tricyclic Antidepress (NotDetected) Ur Phencyclidine Scrn (NotDetected) Ur Amphetamines Screen (NotDetected) U Methamphetamines Scrn (NotDetected) U Benzodiazepines Scrn (NotDetected) Urine Cocaine Screen (NotDetected) U Marijuana (THC) Screen (NotDetected) Coronavirus (PCR) Not Detected (Not Detectd) 12/22/20 12/22/20 Range/Units 12:45 13:56 WBC (3.8-10.6) k/uL RBC (3.80-5.40) m/uL Hgb (11.4-16.0) gm/dL Hct (34.0-46.0) % MCV (80.0-100.0) fL MCH (25.0-35.0) pg MCHC (31.0-37.0) g/dL RDW (11.5-15.5) % Plt Count (150-450) k/uL MPV Neutrophils % % Lymphocytes % % Monocytes % % Eosinophils % % Basophils % % Neutrophils # (1.3-7.7) k/uL Lymphocytes # (1.0-4.8) k/uL Monocytes # (0-1.0) k/uL Eosinophils # (0-0.7) k/uL Basophils # (0-0.2) k/uL Hypochromasia Anisocytosis PT (9.0-12.0) sec INR (<1.2) APTT (22.0-30.0) sec Sodium (137-145) mmol/L Potassium (3.5-5.1) mmol/L Chloride (98-107) mmol/L Carbon Dioxide (22-30) mmol/L Anion Gap mmol/L BUN (7-17) mg/dL Creatinine (0.52-1.04) mg/dL Est GFR (CKD-EPI)AfAm (>60 ml/min/1.73 sqM) Est GFR (CKD-EPI)NonAf (>60 ml/min/1.73 sqM) Glucose (74-99) mg/dL Lactic Ac Sepsis Rflx Y Plasma Lactic Acid Michael 6.5 H* (0.7-2.0) mmol/L Calcium (8.4-10.2) mg/dL Total Bilirubin (0.2-1.3) mg/dL AST (14-36) U/L ALT (4-34) U/L Alkaline Phosphatase (38-126) U/L Troponin I (0.000-0.034) ng/mL Total Protein (6.3-8.2) g/dL Albumin (3.5-5.0) g/dL Urine Color Urine Appearance (Clear) Urine pH (5.0-8.0) Ur Specific [place] (1.001-1.035) Urine Protein (Negative) Urine Glucose (UA) (Negative) Urine Ketones (Negative) Urine Blood (Negative) Urine Nitrite (Negative) Urine Bilirubin (Negative) Urine Urobilinogen (<2.0) mg/dL Ur Leukocyte Esterase (Negative) Urine RBC (0-5) /hpf Urine WBC (0-5) /hpf Urine WBC Clumps (None) /hpf Ur Squamous Epith Cells (0-4) /hpf Amorphous Sediment (None) /hpf Urine Bacteria (None) /hpf Urine Mucus (None) /hpf Urine Opiates Screen (NotDetected) Ur Oxycodone Screen (NotDetected) Urine Methadone Screen (NotDetected) Ur Propoxyphene Screen (NotDetected) Ur Barbiturates Screen (NotDetected) U Tricyclic Antidepress (NotDetected) Ur Phencyclidine Scrn (NotDetected) Ur Amphetamines Screen (NotDetected) U Methamphetamines Scrn (NotDetected) U Benzodiazepines Scrn (NotDetected) Urine Cocaine Screen (NotDetected) U Marijuana (THC) Screen (NotDetected) Coronavirus (PCR) (Not Detectd) Critical Care Time Critical Care Time: Yes Total Critical Care Time: 35 Disposition Clinical Impression: Sepsis, Urinary tract infection, Altered mental status Disposition: ADMITTED IP TO THIS [facility] Time of Disposition: 14:42
[2020-12-22 13:26] LABS: Albumin 2.7 g/dL (3.5-5.0); Calcium 8.3 mg/dL (8.4-10.2); Potassium 4.1 mmol/L (3.5-5.1); Total Bilirubin 1.1 mg/dL (0.2-1.3); Total Protein 6.7 g/dL (6.3-8.2)
[2020-12-22 13:28] LABS: INR 1.2 (<1.2); Partial Thromboplastin Time 26.4 sec (22.0-30.0); Prothrombin Time 12.6 sec (9.0-12.0)
[2020-12-22 13:29] LABS: Amorphous Sediment,Urine Few /hpf; Appearance,Urine Cloudy (Clear); Bacteria,Urine Many /hpf; Bilirubin,Urine Negative (Negative); Blood,Urine Moderate (Negative); Color,Urine Yellow; Glucose,Urine (UA) 3+ (Negative); Ketones,Urine Negative (Negative); Leukocyte Esterase,Urine Large (Negative); Mucus,Urine Rare /hpf; Nitrite,Urine Negative (Negative); Protein,Urine 1+ (Negative); RBC,Urine 6 /hpf (0-5); Specific Gravity,Urine 1.014 (1.001-1.035); Squamous Epithelial Cell,Urine 2 /hpf (0-4); Urobilinogen,Urine <2.0 mg/dL (<2.0); WBC,Urine 99 /hpf (0-5)
[2020-12-22 13:32] LABS: Amphetamine Screen,Urine Not Detected (NotDetected); Anisocytosis Slight; Barbiturate Screen,Urine Not Detected (NotDetected); Basophils # (A) 0.1 k/uL (0-0.2); Basophils % (A) 0 %; Benzodiazepines Screen,Urine Not Detected (NotDetected); Cocaine Screen,Urine Not Detected (NotDetected); Eosinophils # (A) 0.1 k/uL (0-0.7); Eosinophils % (A) 0 %; HCT 47.4 % (34.0-46.0); HGB 14.9 gm/dL (11.4-16.0); Hypochromasia Slight; Lymphocytes # (A) 3.4 k/uL (1.0-4.8); Lymphocytes % (A) 20 %; MCH 29.2 pg (25.0-35.0); MCHC 31.4 g/dL (31.0-37.0); MCV 92.9 fL (80.0-100.0); Mean Platelet Volume 10.3; Methadone Screen, Urine Not Detected (NotDetected); Monocytes # (A) 0.9 k/uL (0-1.0); Monocytes % (A) 5 %; Neutrophils # (A) 12.4 k/uL (1.3-7.7); Neutrophils % (A) 73 %; Opiate Screen,Urine Not Detected (NotDetected); Oxycodone Screen, Urine Not Detected (NotDetected); Phencyclidine Screen,Urine Not Detected (NotDetected); Platelet Count 142 k/uL (150-450); RDW 17.9 % (11.5-15.5); Tricyclic Antidepressant,Urine Not Detected (NotDetected); Urn Cannabinoid Scrn Not Detected (NotDetected); WBC 16.9 k/uL (3.8-10.6)
--- NOTE | 2020-12-22 14:15 | XR ---
EXAMINATION TYPE: XR chest 2V DATE OF EXAM: 12/22/2020 COMPARISON: 01/05/2016 TECHNIQUE: PA and lateral views submitted. HISTORY: Altered mental status FINDINGS: Bilateral lower lobe consolidation and small effusion. Heart size is normal. Right-sided Mediport cat heter. Atherosclerotic change aorta. Biapical pleural thickening. Diffuse interstitial pattern. Heart size normal. IMPRESSION: 1. Bilateral lower lobe infiltrate correlate for bronchitis or interstitial pneumonitis.
[2020-12-22] MEDS ORDERED: VANCOMYCIN IV PER PHARMACY 1 EACH MISC MISCELLANE PRN (14:54)
[2020-12-22] MEDS ORDERED: HYDROCORTISONE SUCCINATE 100 MG/2 ML VIAL IV STA (14:57)
[2020-12-22 15:03] LABS: Glucose,Whole Blood 97 mg/dL (75-99)
[2020-12-22] MEDS ORDERED: VANCOMYCIN 1,250 MG in SODIUM CHLORIDE 0.9% 250 ML IVPB ONE (15:15)
[2020-12-22] MEDS: SODIUM CHLORIDE 0.9% 1,000 ML IV SCH (15:22)
--- NOTE | 2020-12-22 18:28 | P.HPIM ---
History of Present Illness H&P Date: 12/22/20 Chief Complaint: mental status change anorexia This is a 68-year-old female one of Dr. 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 Patient also has history of abscess of the right thigh in a care of Dr. Olvera through the wound healing Center. Patient was brought into the emergency room secondary to mental status changes, the found that the patient is more confused than usual, patient she is fully alert and oriented, with intermittent arm contusion, however she persisted with this confusional state, along with blood the secretions in her mouth, could be related to tongue biting or mouth biting, and he thought that he might have a seizure. She also has temperature of 106, patient denies any abdominal pain nausea vomiting or diarrhea, denies any shortness of breath cough of difficulty of breathing. In the emergency room, patient was dehydrated when seen, with lactic acidosis, and septic. Patient requires fluids are for breast station 2 L was given, also has some pyuria, significant of pus in the urine, and was started on IV Zosyn. EKG supposed sinus tachycardia, heart rate of 111, there is nonspecific inversion T-wave, leads 1 and aVL, and T-wave inversion in V1 and V2, no ST segment elevations noted, troponins done, chest x-ray are shows lower lobe inf iltration, correlated for pneumonitis. CODE STATUS was discussed in the ER, and she is has verbalized to the emergency physician that she does not want CPR, and no intubation. was attempted to be conducted in the emergency room to verify this. Review of Systems Constitutional: Reports as per HPI, Reports anorexia, Reports chills, Reports fatigue, Reports fever, Reports lethargy, Reports poor appetite, Reports weakne ss Ears, nose, mouth and throat: Reports as per HPI, Denies dysphagia Cardiovascular: Reports as per HPI, Denies chest pain, Denies claudication, Lorenzo es decreased exercise tolerance, Denies dyspnea on exertion, Denies edema, Denies high blood pressure, Denies irregular heart beat, Denies leg edema, Denies lightheadedness, Denies orthopnea, Denies palpitations, Denies paroxysmal nocturnal dyspnea, Denies phlebitis, Denies rapid heart beat, Denies shortness of breath, Denies syncope Respiratory: Reports as per HPI, Denies cough, Denies cough with sputum, Denies dyspnea Gastrointestinal: Reports as per HPI, Reports loss of appetite, Denies abdominal pain, Denies coffee ground emesis, Denies nausea, Denies vomiting Genitourinary: Reports as per HPI, Denies dysuria, Denies flank pain, Denies mixed incontinence Menstruation: Reports as per HPI Musculoskeletal: Reports as per HPI, Reports gait dysfunction, Reports low back pain, Reports muscle weakness, Denies arm numbness/tingling, Denies atrophy, Denies fractures, Denies frequent falls, Denies hot joints, Denies leg numbness/tingling, Denies limitation of motion, Denies loss of height, Denies morning stiffness, Denies muscle cramps, Denies myalgias, Denies neck pain, Denies neck stiffness, Denies prior amputations, Denies redness of joints, Denies shooting arm pain, Denies shooting leg pain Integumentary: Reports as per HPI Neurological: Reports as per HPI, Reports memory loss, Reports tremors, Reports weakness Psychiatric: Reports as per HPI, Reports sleep disturbances, Denies anhedonia, Denies anxiety, Denies anxiety attacks, Denies change in appetite, Denies change in libido, Denies change in sleep habits, Denies confusion, Denies depression, Denies difficulty concentrating, Denies disorientation, Denies hallucinations, Denies hopelessness, Denies hypersomnia, Denies insomnia, Denies irritability, Denies memory loss, Denies mood swings, Denies paranoia, Denies sadness/ tearfulness, Denies suicidal ideation Endocrine: Reports as per HPI Hematologic/Lymphatic: Reports as per HPI Allergic/Immunologic: Reports as per HPI, Denies allergic rhinitis, Denies anaphylaxis, Denies angioedema, Denies gluten intolerance, Denies persistent infections, Denies seasonal allergies, Denies urticaria, Denies wheezing Past Medical History Past Medical History: Deep Vein Thrombosis (DVT), Hyperlipidemia, Musculoskeletal Disorder, Skin Disorder Additional Past Medical History / Comment(s): inclusion body myositis, polymyositis - gets IV infusions q14 days, insomnia, neuropathy, in wheelchair- no wt bearing, WOUND LT FOOT; HAS [facility] & SAT, [facility]. History of Any Multi-Drug Resistant Organisms: None Reported Date of last positivie culture/infection: 11/19/18 MDRO Source:: THIGH Past Surgical History: Appendectomy, Hysterectomy, Tonsillectomy Additional Past Surgical History / Comment(s): cyst removal left inner thigh4 muscle biopsiesFacial plastic surgery after bout with shingles. Infusaport. bilateral cataract surgery. mass removed from urethra 2016.skin graft to left foot Past Anesthesia/Blood Transfusion Reactions: Motion Sickness, Postoperative Nausea & Vomiting (PONV) Additional Past Anesthesia/Blood Transfusion Reaction / Comment(s): PONV AFTER URETHRA SURGERY. Past Psychological History: No Psychological Hx Reported Smoking Status: Former smoker Past Alcohol Use History: None Reported Past Drug Use History: None Reported - Past Family History Mother Family Medical History: Dementia Additional Family Medical History / Comment(s): Mother at age 95 from Alzheimer dementia. Father Family Medical History: Coronary Artery Disease (CAD) Additional Family Medical History / Comment(s): Father at age 95 from coronary artery disease. Brother(s) Family Medical History: No Reported History Additional Family Medical History / Comment(s): Patient has 1 brother with celiac disease. Daughter(s) Family Medical History: No Reported History Additional Family Medical History / Comment(s): Patient has 2 daughters with no major medical problems. Son(s) Family Medical History: No Reported History Additional Family Medical History / Comment(s): Patient has one son with no major medical problems. Medications and Allergies Home Medications Medication Instructions Recorded Confirmed Type Calcium Carbonate/Vitamin D3 1 tab PO BID 10/25/14 12/22/20 History [Caltrate 600 Plus D3 Tablet] Gammagard 1 dose IV [id number] 10/25/14 12/22/20 History predniSONE 20 mg PO DAILY 10/25/14 12/22/20 History Gabapentin [Neurontin] 300 mg PO BID@0900,1300 12/26/15 12/22/20 History Oxybutynin Chloride [Ditropan] 5 mg PO BID 02/10/18 12/22/20 History Aspirin EC [Ecotrin Low Dose] 81 mg PO DAILY 08/27/18 12/22/20 History Simvastatin [Zocor] 40 mg PO DAILY 01/14/19 12/22/20 History Acetaminophen [Tylenol Extra 1,000 mg PO Q6H PRN 03/20/19 12/22/20 History Strength] Biotin 10,000 mcg PO DAILY 12/22/20 12/22/20 History Cholecalciferol [Vitamin D3 (25 50 mcg PO DAILY 12/22/20 12/22/20 History Mcg = 1000 Iu)] Gabapentin 600 mg PO HS 12/22/20 12/22/20 History Loratadine [Claritin] 10 mg PO DAILY 12/22/20 12/22/20 History Melatonin 5 mg PO HS 12/22/20 12/22/20 History Multivitamin [Multivitamins Adult 2 tab PO DAILY 12/22/20 12/22/20 History Gummies] Allergies Allergy/AdvReac Type Severity Reaction Status Date / Time diphenhydramine HCl Allergy Mild Itching, Verified 12/22/20 13:42 [From Benadryl] hives cephalexin monohydrate Allergy Itching, Verified 12/22/20 13:42 [From Keflex] hives sulfamethoxazole AdvReac Mild Rash/Hives Verified 12/22/20 13:42 [From Bactrim] trimethoprim [From Bactrim] AdvReac Mild Rash/Hives Verified 12/22/20 13:42 Physical Exam Vitals: Vital Signs Temp Pulse Resp BP Pulse Ox 12/22/20 15:32 98 F 105 H 24 98/59 95 12/22/20 14:49 112 H 22 90/54 96 12/22/20 13:46 115 H 22 110/58 12/22/20 13:31 99.2 F 113 H 20 94/46 96 12/22/20 11:37 100.8 F H 129 H 24 75/50 97 Intake and Output 12/22/20 12/22/20 12/22/20 06:59 14:59 22:59 Other: Weight 67 kg - Constitutional General appearance: cooperative - EENT Eyes: anicteric sclerae, normal appearance ENT: NA/AT, normal oropharynx - Neck Neck: normal ROM - Respiratory Respiratory: bilateral: CTA, negative: diminished, dullness, rales - Cardiovascular Rhythm: regular - Gastrointestinal General gastrointestinal: normal bowel sounds, soft - Integumentary Integumentary: decreased turgor, normal - Neurologic Neurologic: CNII-XII intact - Musculoskeletal Musculoskeletal: generalized weakness - Psychiatric Psychiatric: A&O x's 3, appropriate affect Results CBC & Chem 7: 12/22/20 12:41 12/22/20 12:41 Labs: Abnormal Lab Results - Last 24 Hours (Table) 12/22/20 12/22/20 12/22/20 Range/Units 12:41 12:41 12:41 WBC 16.9 H (3.8-10.6) k/uL Hct 47.4 H (34.0-46.0) % RDW 17.9 H (11.5-15.5) % Plt Count 142 L (150-450) k/uL Neutrophils # 12.4 H (1.3-7.7) k/uL PT 12.6 H (9.0-12.0) sec INR 1.2 H (<1.2) Chloride (98-107) mmol/L Carbon Dioxide (22-30) mmol/L BUN (7-17) mg/dL Creatinine (0.52-1.04) mg/dL Plasma Lactic Acid Michael (0.7-2.0) mmol/L Calcium (8.4-10.2) mg/dL AST (14-36) U/L ALT (4-34) U/L Alkaline Phosphatase (38-126) U/L Troponin I (0.000-0.034) ng/mL Albumin (3.5-5.0) g/dL Urine Appearance Cloudy H (Clear) Urine Protein 1+ H (Negative) Urine Glucose (UA) 3+ H (Negative) Urine Blood Moderate H (Negative) Ur Leukocyte Esterase Large H (Negative) Urine RBC 6 H (0-5) /hpf Urine WBC 99 H (0-5) /hpf Urine WBC Clumps Occasional H (None) /hpf Amorphous Sediment Few H (None) /hpf Urine Bacteria Many H (None) /hpf Urine Mucus Rare H (None) /hpf 12/22/20 12/22/20 12/22/20 Range/Units 12:41 12:41 12:45 WBC (3.8-10.6) k/uL Hct (34.0-46.0) % RDW (11.5-15.5) % Plt Count (150-450) k/uL Neutrophils # (1.3-7.7) k/uL PT (9.0-12.0) sec INR (<1.2) Chloride 108 H (98-107) mmol/L Carbon Dioxide 20 L (22-30) mmol/L BUN 20 H (7-17) mg/dL Creatinine 1.11 H (0.52-1.04) mg/dL Plasma Lactic Acid Michael 6.5 H* (0.7-2.0) mmol/L Calcium 8.3 L (8.4-10.2) mg/dL AST 198 H (14-36) U/L ALT 137 H (4-34) U/L Alkaline Phosphatase 200 H (38-126) U/L Troponin I 0.086 H* (0.000-0.034) ng/mL Albumin 2.7 L (3.5-5.0) g/dL Urine Appearance (Clear) Urine Protein (Negative) Urine Glucose (UA) (Negative) Urine Blood (Negative) Ur Leukocyte Esterase (Negative) Urine RBC (0-5) /hpf Urine WBC (0-5) /hpf Urine WBC Clumps (None) /hpf Amorphous Sediment (None) /hpf Urine Bacteria (None) /hpf Urine Mucus (None) /hpf 12/22/20 12/22/20 Range/Units 15:13 16:19 WBC (3.8-10.6) k/uL Hct (34.0-46.0) % RDW (11.5-15.5) % Plt Count (150-450) k/uL Neutrophils # (1.3-7.7) k/uL PT (9.0-12.0) sec INR (<1.2) Chloride (98-107) mmol/L Carbon Dioxide (22-30) mmol/L BUN (7-17) mg/dL Creatinine (0.52-1.04) mg/dL Plasma Lactic Acid Michael 6.1 H* (0.7-2.0) mmol/L Calcium (8.4-10.2) mg/dL AST (14-36) U/L ALT (4-34) U/L Alkaline Phosphatase (38-126) U/L Troponin I 0.096 H* (0.000-0.034) ng/mL Albumin (3.5-5.0) g/dL Urine Appearance (Clear) Urine Protein (Negative) Urine Glucose (UA) (Negative) Urine Blood (Negative) Ur Leukocyte Esterase (Negative) Urine RBC (0-5) /hpf Urine WBC (0-5) /hpf Urine WBC Clumps (None) /hpf Amorphous Sediment (None) /hpf Urine Bacteria (None) /hpf Urine Mucus (None) /hpf Laboratory Results WBC 16.9 k/uL (3.8-10.6) H 12/22/20 12:41 RBC 5.10 m/uL (3.80-5.40) 12/22/20 12:41 Hgb 14.9 gm/dL (11.4-16.0) 12/22/20 12:41 Hct 47.4 % (34.0-46.0) H 12/22/20 12:41 MCV 92.9 fL (80.0-100.0) 12/22/20 12:41 MCH 29.2 pg (25.0-35.0) 12/22/20 12:41 MCHC 31.4 g/dL (31.0-37.0) 12/22/20 12:41 RDW 17.9 % (11.5-15.5) H 12/22/20 12:41 Plt Count 142 k/uL (150-450) L 12/22/20 12:41 MPV 10.3 12/22/20 12:41 Neutrophils % 73 % 12/22/20 12:41 Lymphocytes % 20 % 12/22/20 12:41 Monocytes % 5 % 12/22/20 12:41 Eosinophils % 0 % 12/22/20 12:41 Basophils % 0 % 12/22/20 12:41 Neutrophils # 12.4 k/uL (1.3-7.7) H 12/22/20 12:41 Lymphocytes # 3.4 k/uL (1.0-4.8) 12/22/20 12:41 Monocytes # 0.9 k/uL (0-1.0) 12/22/20 12:41 Eosinophils # 0.1 k/uL (0-0.7) 12/22/20 12:41 Basophils # 0.1 k/uL (0-0.2) 12/22/20 12:41 Hypochromasia Slight 12/22/20 12:41 Anisocytosis Slight 12/22/20 12:41 PT 12.6 sec (9.0-12.0) H 12/22/20 12:41 INR 1.2 (<1.2) H 12/22/20 12:41 APTT 26.4 sec (22.0-30.0) 12/22/20 12:41 Sodium 139 mmol/L (137-145) 12/22/20 12:41 Potassium 4.1 mmol/L (3.5-5.1) 12/22/20 12:41 Chloride 108 mmol/L (98-107) H 12/22/20 12:41 Carbon Dioxide 20 mmol/L (22-30) L 12/22/20 12:41 Anion Gap 11 mmol/L 12/22/20 12:41 BUN 20 mg/dL (7-17) H 12/22/20 12:41 Creatinine 1.11 mg/dL (0.52-1.04) H 12/22/20 12:41 Est GFR (CKD-EPI)AfAm 58 (>60 ml/min/1.73 sqM) 12/22/20 12:41 Est GFR (CKD-EPI)NonAf 50 (>60 ml/min/1.73 sqM) 12/22/20 12:41 Glucose 94 mg/dL (74-99) 12/22/20 12:41 POC Glucose (mg/dL) 97 mg/dL (75-99) 12/22/20 15:02 POC Glu Training Development Manager Viktor Ocampo 12/22/20 15:02 Lactic Ac Sepsis Rflx Y 12/22/20 13:56 Plasma Lactic Acid Michael 6.1 mmol/L (0.7-2.0) H* 12/22/20 16:19 Calcium 8.3 mg/dL (8.4-10.2) L 12/22/20 12:41 Total Bilirubin 1.1 mg/dL (0.2-1.3) 12/22/20 12:41 AST 198 U/L (14-36) H 12/22/20 12:41 ALT 137 U/L (4-34) H 12/22/20 12:41 Alkaline Phosphatase 200 U/L (38-126) H 12/22/20 12:41 Troponin I 0.096 ng/mL (0.000-0.034) H* 12/22/20 15:13 Total Protein 6.7 g/dL (6.3-8.2) 12/22/20 12:41 Albumin 2.7 g/dL (3.5-5.0) L 12/22/20 12:41 Urine Color Yellow 12/22/20 12:41 Urine Appearance Cloudy (Clear) H 12/22/20 12:41 Urine pH 5.0 (5.0-8.0) 12/22/20 12:41 Ur Specific [place] 1.014 (1.001-1.035) 12/22/20 12:41 Urine Protein 1+ (Negative) H 12/22/20 12:41 Urine Glucose (UA) 3+ (Negative) H 12/22/20 12:41 Urine Ketones Negative (Negative) 12/22/20 12:41 Urine Blood Moderate (Negative) H 12/22/20 12:41 Urine Nitrite Negative (Negative) 12/22/20 12:41 Urine Bilirubin Negative (Negative) 12/22/20 12:41 Urine Urobilinogen <2.0 mg/dL (<2.0) 12/22/20 12:41 Ur Leukocyte Esterase Large (Negative) H 12/22/20 12:41 Urine RBC 6 /hpf (0-5) H 12/22/20 12:41 Urine WBC 99 /hpf (0-5) H 12/22/20 12:41 Urine WBC Clumps Occasional /hpf (None) H 12/22/20 12:41 Ur Squamous Epith Cells 2 /hpf (0-4) 12/22/20 12:41 Amorphous Sediment Few /hpf (None) H 12/22/20 12:41 Urine Bacteria Many /hpf (None) H 12/22/20 12:41 Urine Mucus Rare /hpf (None) H 12/22/20 12:41 Urine Opiates Screen Not Detected (NotDetected) 12/22/20 12:41 Ur Oxycodone Screen Not Detected (NotDetected) 12/22/20 12:41 Urine Methadone Screen Not Detected (NotDetected) 12/22/20 12:41 Ur Propoxyphene Screen Not Detected (NotDetected) 12/22/20 12:41 Ur Barbiturates Screen Not Detected (NotDetected) 12/22/20 12:41 U Tricyclic Antidepress Not Detected (NotDetected) 12/22/20 12:41 Ur Phencyclidine Scrn Not Detected (NotDetected) 12/22/20 12:41 Ur Amphetamines Screen Not Detected (NotDetected) 12/22/20 12:41 U Methamphetamines Scrn Not Detected (NotDetected) 12/22/20 12:41 U Benzodiazepines Scrn Not Detected (NotDetected) 12/22/20 12:41 Urine Cocaine Screen Not Detected (NotDetected) 12/22/20 12:41 U Marijuana (THC) Screen Not Detected (NotDetected) 12/22/20 12:41 Coronavirus (PCR) Not Detected (Not Detectd) 12/22/20 12:43 Thrombosis Risk Factor Assmnt - DVT/VTE Prophylaxis DVT/VTE Prophylaxis: Pharmacologic Prophylaxis ordered - Choose All That Apply Each Factor Represents 1 point: Sepsis (< 1month) Each Risk Factor Represents 2 Points: Age 61-74 years, Patient confined to bed Thrombosis Risk Factor Assessment Total Risk Factor Score: 5 Thrombosis Risk Factor Assessment Level: High Risk Assessment and Plan Plan: 1. Acute UTI with suspected pyelonephritis, sepsis, with SIRS, fever, leukocytosis , metabolic encephalopathy coming in with severe confusional state, and dehydration. Patient currently is receiving IV Zosyn, with cultures sent over blood in urine, renal ultrasound, IV fluids for hydration. 2. Acute kidney injury, underlying Ckd stage II 3. Elevated troponin, with T-wave inversion in leads 1 and aVF, no current chest pain, however underlying sepsis could be triggering effect, monitor for type II [place], consult with cardiology, echocardiogram to eval for wall motion abnormality 2. 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 Patient has been getting Gammagard every 14 days continue with alternating dose of prednisone as prescribed. Patient is scheduled for [facility] work to follow-up on this issue. 3. Hyperlipidemia. Continue simvastatin 40 mg at bedtime. check for cpk 4. Overactive bladder. Continue patient on oxybutynin 5 mg orally twice every day. 5. Non-use edema both lower extremity Continue patient on Bumex. Monitor the patient CMP magnesium level. 6. DVT prophylaxis. Heparin 5000 unit subcutaneously every 8 hours. 7. GI prophylaxis. Continue PPI. 8. Patient is full code.
--- NOTE | 2020-12-22 22:22 | US ---
EXAMINATION TYPE: US kidneys/renal and bladder DATE OF EXAM: 12/22/2020 COMPARISON: NONE CLINICAL HISTORY: pyelonephritis. Pyelonephritis. Poor historian. EXAM MEASUREMENTS: Right Kidney: 10.0 x 5.7 x 4.8 cm Left Kidney: 9.2 x 5.4 x 5.5 cm Right Kidney: Cortex appears thin. Left Kidney: Cortex appears slightly thin. Bladder: Not visualized. Patient has catheter in place. Bilateral Jets seen: No IMPRESSION: No acute abnormality of the renal ultrasound.
--- NOTE | 2020-12-23 05:36 | CONS ---
CONSULTATION DATE OF SERVICE: 12/22/2020 REASON FOR CONSULTATION: Sepsis. HISTORY OF PRESENT ILLNESS: The patient is a 70-year-old female who has been brought into the ER by EMS after apparently the patient was noted to be confused in bed with her in this patient who at baseline is alert and oriented x3 with occasional confusion. The patient was extremely more confused today and presented to hospital. Her thought she may have seizure activity, but no history of any seizure. There was no clear history of any fever at home. No vomiting, diarrhea or any other complaints. With these symptoms, the patient was evaluated by the ER physician. On arrival in the ER the patient did have a fever of 100.8 degrees Fahrenheit. The patient has been tachycardic. Blood pressure has been normal. She did have elevated lactic acid. Troponin was mildly elevated. White count was 16.9. Creatinine was 1.1. Urine has been positive. Urine tox screen was negative. Can PCR was negative. The patient did have a chest x-ray; bilateral lower lobe infiltrate, correlate for bronchitis or aspiration pneumonitis. Patient will be started on vancomycin and Zosyn. The patient was admitted to the hospital. Infectious Disease was consulted for further management of antibiotic therapy. Most of the information has been obtained from review of the chart and talking to the nursing staff, as the patient herself was unable to provide a reliable history. REVIEW OF SYSTEMS: Positive points have been mentioned in the HPI. Rest of the systems are negative as per discussion with her . PAST MEDICAL HISTORY: DVT, hyperlipidemia, inclusion dermatomyositis, polymyositis. PAST SURGICAL HISTORY: Appendectomy, hysterectomy, tonsillectomy, cyst removed from the inner thigh. SOCIAL HISTORY: Remote history of smoking. No drinking or drug use. FAMILY HISTORY: Mother with history of dementia. Father with history of coronary artery disease. ALLERGIES: CEPHALEXIN, , DIPHENHYDRAMINE. Has tolerated Zosyn without a problem. MEDICATIONS: The patient is currently on aspirin, Lipitor, Os Wil D, Lovenox, Neurontin, Zosyn, vancomycin, Pharmacy to dose and IV fluid. PHYSICAL EXAMINATION: Blood pressure 129/69 with a pulse of 103, temperature 99.1. She is 98% on 3 L nasal cannula. General description is an elderly female lying in bed in no distress. No tachypnea or accessory muscle of respiration use. HEENT EXAMINATION: No pallor or scleral icterus. Oral mucous membrane has slight dried blood. NECK: Trachea is central. No thyromegaly. LUNGS: Unlabored breathing. Decreased breath sounds at the base. No wheeze. HEART: S1, S2. Regular rate and rhythm. ABDOMEN: Soft. No tenderness. No guarding or rigidity. EXTREMITIES: No edema of the feet. SKIN EXAMINATION: No rash or mass palpable. Neurologically the patient is awake; however, orientation could not be determined. LABS: Hemoglobin is 14.9, white count 16.9, BUN of 20, creatinine 1.11. Lactic acid 6.5. Liver enzymes are elevated. Urine was positive. Culture is currently pending. The patient did have an abdominal ultrasound that did not show any abnormality. DIAGNOSTIC IMPRESSION AND PLAN: Patient admitted to hospital with confusion and weakness in this patient who did have a fever, elevated white count, meeting criteria for SIRS/sepsis. Source is likely urine. She did have significantly positive UA and currently no other obvious focus of infection. Pneumonitis is less likely but not excluded. Abdomen was soft. Skin examination showed no evidence of any cellulitis. PLAN: 1. Will keep the patient on Zosyn 3.375 grams q.8 hours. 2. Try to obtain sputum for Gram stain and culture. 3. Discontinue vancomycin to decrease risk of nephrotoxicity. No evidence of any Gram- positive infection. 4. Will follow clinical condition and culture to further adjust medication if needed. Thank you for this consultation. Will follow this patient along with you. MMODL / IJN: [id number] /
[2020-12-23] MEDS: SODIUM CHLORIDE 0.9% 1,000 ML IV SCH ×3 (08:17→21:51)
[2020-12-23] MEDS: GABAPENTIN 300 MG CAP PO SCH ×4 (08:19→21:51)
[2020-12-23] MEDS: MELATONIN 5 MG TABLET PO SCH ×2 (08:24→21:51)
[2020-12-23] MEDS: ENOXAPARIN 40 MG/0.4 ML SYRINGE SQ SCH ×2 (08:24→10:13)
[2020-12-23] MEDS: PIPERACILLIN-TAZOBACTAM 3.375 GM in SODIUM CHLORIDE 0.9% 100 ML IVPB SCH ×4 (08:25→21:52)
[2020-12-23 10:05] LABS: African American GFR (CKD) >90 (>60 ml/min/1.73 sqM); Creatine Kinase 597 U/L (30-135); Non-African American GFR(CKD) >90 (>60 ml/min/1.73 sqM)
[2020-12-23 10:11] LABS: Anisocytosis Slight; Basophils % (A) 0 %; Eosinophils % (A) 0 %; HGB 12.8 gm/dL (11.4-16.0); Hypochromasia Slight; Lymphocytes # (A) 1.5 k/uL (1.0-4.8); Lymphocytes % (A) 15 %; MCH 28.7 pg (25.0-35.0); MCHC 31.3 g/dL (31.0-37.0); MCV 91.9 fL (80.0-100.0); Mean Platelet Volume 9.8; Monocytes # (A) 0.4 k/uL (0-1.0); Monocytes % (A) 4 %; Neutrophils # (A) 8.2 k/uL (1.3-7.7); Neutrophils % (A) 80 %; RBC 4.47 m/uL (3.80-5.40); RDW 17.7 % (11.5-15.5); WBC 10.3 k/uL (3.8-10.6)
[2020-12-23] MEDS: ATORVASTATIN 20 MG TAB PO SCH (10:13)
[2020-12-23] MEDS: ASPIRIN 81 MG PO SCH (10:13)
[2020-12-23] MEDS: predniSONE 20 MG TAB PO SCH (10:13)
[2020-12-23] MEDS: CALCIUM CARB-VIT D 500 MG-5 MCG TAB PO SCH ×3 (10:13→21:51)
[2020-12-23] MEDS: LORATADINE 10 MG TAB PO SCH (10:13)
--- NOTE | 2020-12-23 10:50 | ECHOF ---
Referral Reason:abn ekg, elev troponin MEASUREMENTS -------- HEIGHT: 165.1 cm WEIGHT: 66.7 kg BP: IVSd: 1.1 cm (0.6 - 1.1) LVIDd: 3.9 cm (3.9 - 5.3) LVPWd: 1.2 cm (0.6 - 1.1) IVSs: 1.1 cm LVIDs: 2.5 cm LVPWs: 0.9 cm Ao Diam: 3.1 cm (2.0 - 3.7) MV EXCURSION: 15.271 mm (> 18.000) MV EF SLOPE: 95 mm/s (70 - 150) EPSS: 0.6 cm FINDINGS -------- Atrial fibrillation. This was a techncally difficult study with suboptimal views, , Lumason utilized for enhancement of im ages. Pt. not compliant. LV size, wall thickness and systolic function are normal, with an EF greater than 55%. The left baltazar tricular size is normal. The right ventricle is normal in size. The left atrial size is normal. The right atrial size is normal. 5.0mg OF Lumason UTLIZED: 2 OR MORE WALL SEGMENTS NOT VISUALIZED. There is mild aortic valve sclerosis. There is no evidence of aortic regurgitation. Mild mitral regurgitation is present. Mild tricuspid regurgitation present. Right ventricular systolic pressure is normal at < 35 mmHg. The pulmonic valve was not well visualized. There is a small, generalized pericardial effusion present. CONCLUSIONS -------- 1. This was a techncally difficult study with suboptimal views, , Lumason utilized for enhancement of images. 2. Pt. not compliant. 3. LV size, wall thickness and systolic function are normal, with an EF greater than 55%. 4. The left ventricular size is normal. 5. The right ventricle is normal in size. 6. The left atrial size is normal. 7. The right atrial size is normal. 8. 5.0mg OF Lumason UTLIZED: 2 OR MORE WALL SEGMENTS NOT VISUALIZED. 9. There is mild aortic valve sclerosis. 10. Mild mitral regurgitation is present. 11. Mild tricuspid regurgitation present. 12. The pulmonic valve was not well visualized. 13. There is a small, generalized pericardial effusion present. FARO DEALER: Em Barry RDCS
--- NOTE | 2020-12-23 10:53 | P.CRDCN ---
History of Present Illness History of present illness: HISTORY OF PRESENTING ILLNESS This is a pleasant 70-year-old female past medical history significant for inclusion body myositis, dyslipidemia and history of DVT. She does not fol low in the office with a director of occupational therapy. We have been asked to see in consultation for elevated troponin. She is a poor historian, information is obtained from the nursing staff and medical record. She was brought in by EMS because her found her in bed confused. On arrival she was diagnosed with urinary tract infection and has been started on IV antibiotics. She is seen and examined resting comfortably laying flat in no acute distress. She denies symptoms of chest pain, shortness of breath, dizziness or palpitations. Echocardiogram obtained reveals preserved LV systolic function with ejection fraction greater than 55% with a small generalized pericardial effusion. DIAGNOSTICS EKG reveals sinus tachycardia T-wave inversions in the lateral precordial leads suggestive of LVH. Chest xray bilateral lower lobe infiltrate. Laboratory reviewed, WBC 16.9, hemoglobin 14.9, platelets 142, sodium 139, potassium 4.1, creatinine 1.11, lactic acid on admission 6. 5 repeat today 3.1, troponin 0.086 and 0.096. Current cardiac medications include simvastatin 40 mg daily. REVIEW OF SYSTEMS At the time of my exam: CONSTITUTIONAL: Denies fever or chills. CARDIOVASCULAR: Denies chest pain, shortness of breath, orthopnea, PND or palpitations. RESPIRATORY: Denies cough. GASTROINTESTINAL: Denies abdominal pain, diarrhea, constipation, nausea or vomiting. MUSCULOSKELETAL: Denies myalgias. NEUROLOGIC: Denies numbness, tingling, headacbe or weakness. ENDOCRINE: Denies fatigue, weight change, polydipsia or polyurina. GENITOURINARY: Denies burning, hematuria or urgency with micturation. HEMATOLOGIC: Denies history of anemia or bleeding. PHYSICAL EXAMINATION Blood pressure 132/82 heart rate 105 afebrile and maintaining oxygen saturation on room air. CONSTITUTIONAL: No apparent distress. HEENT: Head is normocephalic. Pupils are equal, round. Sclerae anicteric. Mucous membranes of the mouth are moist. No JVD. No carotid bruit. CHEST EXAMINATION: Lungs are clear to auscultation. No chest wall tenderness is noted on palpation or with deep breathing. HEART EXAMINATION: Regular rate and rhythm. S1, S2 heard. No murmurs, gallops or rub. ABDOMEN: Soft, nontender. Positive bowel sounds. EXTREMITIES: 2+ peripheral pulses, no lower extremity edema and no calf tenderness. NEUROLOGIC EXAMINATION: Patient is awake, alert and oriented x3. ASSESSMENT Urinary tract infection with sepsis Leukocytosis Lactic acidosis Elevated troponin secondary to sepsis Inclusion body myositis Dyslipidemia PLAN Troponin elevation is not secondary to primary myocardial injury. No further cardiac workup at this time. Ongoing medical management treatment of sepsis and UTI. Thank you kindly for this consultation. Nurse Practitioner note has been reviewed, I agree with a documented findings an d plan of care. Patient was seen and examined. 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 History of Any Multi-Drug Resistant Organisms: None Reported Date of last positivie culture/infection: 11/19/18 MDRO Source:: THIGH Past Surgical History: Appendectomy, Hysterectomy, Tonsillectomy Additional Past Surgical History / Comment(s): cyst removal left inner thigh, 4 muscle biopsies, facial plastic surgery after bout with shingles, Infusaport. bilateral cataract surgery with lens implants, benign mass removed from urethra , skin graft to left foot, spouse believes pt has filters in bilateral groins for DVTs Past Anesthesia/Blood Transfusion Reactions: Motion Sickness, Postoperative Nausea & Vomiting (PONV) Additional Past Anesthesia/Blood Transfusion Reaction / Comment(s): PONV AFTER URETHRA SURGERY. Smoking Status: Former smoker - Past Family History Mother Family Medical History: Dementia Additional Family Medical History / Comment(s): Mother at age 93-95 from Alzheimer dementia. Father Family Medical History: Coronary Artery Disease (CAD), Dementia Additional Family Medical History / Comment(s): Father at age 93-95 from coronary artery disease. Brother(s) Family Medical History: No Reported History Additional Family Medical History / Comment(s): Patient has 1 brother with celiac disease. Daughter(s) Family Medical History: No Reported History Additional Family Medical History / Comment(s): Patient has 2 daughters with no major medical problems. Son(s) Family Medical History: No Reported History Additional Family Medical History / Comment(s): Patient has one son with no major medical problems. Medications and Allergies Home Medications Medication Instructions Recorded Confirmed Type Calcium Carbonate/Vitamin D3 1 tab PO BID 10/25/14 12/22/20 History [Caltrate 600 Plus D3 Tablet] Gammagard 1 dose IV [id number] 10/25/14 12/22/20 History predniSONE 20 mg PO DAILY 10/25/14 12/22/20 History Gabapentin [Neurontin] 300 mg PO BID@0900,1300 12/26/15 12/22/20 History Oxybutynin Chloride [Ditropan] 5 mg PO BID 02/10/18 12/22/20 History Aspirin EC [Ecotrin Low Dose] 81 mg PO DAILY 08/27/18 12/22/20 History Simvastatin [Zocor] 40 mg PO DAILY 01/14/19 12/22/20 History Acetaminophen [Tylenol Extra 1,000 mg PO Q6H PRN 03/20/19 12/22/20 History Strength] Biotin 10,000 mcg PO DAILY 12/22/20 12/22/20 History Cholecalciferol [Vitamin D3 (25 50 mcg PO DAILY 12/22/20 12/22/20 History Mcg = 1000 Iu)] Gabapentin 600 mg PO HS 12/22/20 12/22/20 History Loratadine [Claritin] 10 mg PO DAILY 12/22/20 12/22/20 History Melatonin 5 mg PO HS 12/22/20 12/22/20 History Multivitamin [Multivitamins Adult 2 tab PO DAILY 12/22/20 12/22/20 History Gummies] Allergies Allergy/AdvReac Type Severity Reaction Status Date / Time diphenhydramine HCl Allergy Mild Itching, Verified 12/22/20 13:42 [From Benadryl] hives cephalexin monohydrate Allergy Itching, Verified 12/22/20 13:42 [From Keflex] hives sulfamethoxazole AdvReac Mild Rash/Hives Verified 12/22/20 13:42 [From Bactrim] trimethoprim [From Bactrim] AdvReac Mild Rash/Hives Verified 12/22/20 13:42 Physical Exam Vitals: Vital Signs Temp Pulse Resp BP Pulse Ox 12/23/20 10:32 99 F 105 H 18 132/82 97 12/23/20 08:45 99.0 F 105 H 24 131/81 95 12/22/20 21:00 98.1 F 103 H 20 129/69 98 12/22/20 18:17 98 F 98 18 128/82 96 12/22/20 16:57 105 H 22 113/82 95 12/22/20 15:32 98 F 105 H 24 98/59 95 12/22/20 14:49 112 H 22 90/54 96 12/22/20 13:46 115 H 22 110/58 12/22/20 13:31 99.2 F 113 H 20 94/46 96 12/22/20 11:37 100.8 F H 129 H 24 75/50 97 Intake and Output 12/22/20 12/23/20 12/23/20 22:59 06:59 14:59 Other: Weight 67 kg Results 12/23/20 09:07 12/23/20 09:07 Cardiac Enzymes 12/22/20 12/22/20 12/22/20 Range/Units 12:41 12:41 15:13 AST 198 H (14-36) U/L Troponin I 0.086 H* 0.096 H* (0.000-0.034) ng/mL Coagulation 12/22/20 Range/Units 12:41 PT 12.6 H (9.0-12.0) sec APTT 26.4 (22.0-30.0) sec CBC 12/22/20 12/23/20 Range/Units 12:41 09:07 WBC 16.9 H 10.3 (3.8-10.6) k/uL RBC 5.10 4.47 (3.80-5.40) m/uL Hgb 14.9 12.8 (11.4-16.0) gm/dL Hct 47.4 H 41.0 (34.0-46.0) % Plt Count 142 L (150-450) k/uL Comprehensive Metabolic Panel 12/22/20 12/23/20 Range/Units 12:41 09:07 Sodium 139 (137-145) mmol/L Potassium 4.1 (3.5-5.1) mmol/L Chloride 108 H (98-107) mmol/L Carbon Dioxide 20 L (22-30) mmol/L BUN 20 H (7-17) mg/dL Creatinine 1.11 H 0.51 L (0.52-1.04) mg/dL Glucose 94 (74-99) mg/dL Calcium 8.3 L (8.4-10.2) mg/dL AST 198 H (14-36) U/L ALT 137 H (4-34) U/L Alkaline Phosphatase 200 H (38-126) U/L Total Protein 6.7 (6.3-8.2) g/dL Albumin 2.7 L (3.5-5.0) g/dL Current Medications Generic Name Dose Route Start Last Admin Trade Name Freq PRN Reason Stop Dose Admin Aspirin 81 mg 12/23/20 09:00 12/23/20 10:13 Aspirin 81 Mg PO 81 mg DAILY JARVIS Administration Atorvastatin Calcium 20 mg 12/23/20 09:00 12/23/20 10:13 Atorvastatin 20 Mg Tab PO 20 mg DAILY JARVIS Administration Calcium Carbonate 1 each 12/22/20 21:00 12/23/20 10:31 Calcium Carb-Vit D 500 Mg-5 Mcg Tab PO Not Given BID JARVIS Enoxaparin Sodium 40 mg 12/22/20 21:30 12/23/20 10:13 Enoxaparin 40 Mg/0.4 Ml Syringe SQ 40 mg DAILY JARVIS Administration Gabapentin 600 mg 12/22/20 21:00 12/23/20 08:19 Gabapentin 300 Mg Cap PO Not Given HS JARVIS Gabapentin 300 mg 12/23/20 09:00 12/23/20 10:31 Gabapentin 300 Mg Cap PO Not Given BID@0900,1300 JARVIS Sodium Chloride 1,000 mls @ 130 mls/hr 12/22/20 15:00 12/23/20 08:17 Saline 0.9% IV Not Given .[id number] JARVIS Piperacillin Sod/Tazobactam 100 mls @ 25 mls/hr 12/22/20 22:00 12/23/20 10:13 Sod 3.375 gm/ Sodium Chloride IVPB 25 mls/hr Q8H JARVIS Administration Loratadine 10 mg 12/23/20 09:00 12/23/20 10:13 Loratadine 10 Mg Tab PO 10 mg DAILY JARVIS Administration Melatonin 5 mg 12/22/20 21:00 12/23/20 08:24 Melatonin 5 Mg Tablet PO Not Given HS JARVIS Prednisone 20 mg 12/23/20 09:00 12/23/20 10:13 Prednisone 20 Mg Tab PO 20 mg DAILY JARVIS Administration Intake and Output 12/22/20 12/23/20 12/23/20 22:59 06:59 14:59 Other: Weight 67 kg Patient Weight 12/24/20 06:59 Weight 67 kg 12/23/20 09:07 12/23/20 09:07
--- NOTE | 2020-12-23 11:10 | P.PN ---
Subjective Progress Note Date: 12/23/20 HISTORY OF PRESENT ILLNESS This is a 68-year-old female one of Dr. Castro with a past medical history significant for hypertension and hypertensive cardiovascular disease, history of inclusion body myositis that [place] [facility] [place] many [place]. Patient also has history of abscess of the right thigh in a care of Dr. Olvera through the wound healing [facility]. Patient was brought into the emergency room secondary to mental status changes, the found that the patient is more confused than usual, patient she is fully alert and oriented, with intermittent arm contusion, however she persisted with this confusional state, along with blood the secretions in her mouth, could be related to tongue biting or mouth biting, and he thought that he might have a seizure. She also has temperature of 106, patient denies any abdominal pain nausea vomiting or diarrhea, denies any shortness of breath cough of difficulty of breathing. In the emergency room, patient was dehydrated when seen, with lactic acidosis, and septic. Patient requires fluids are for breast station 2 L was given, also has some pyuria, significant of pus in the urine, and was started on IV Zosyn. EKG supposed sinus tachycardia, heart rate of 111, there is nonspecific inversion T-wave, leads 1 and aVL, and T-wave inversion in V1 and V2, no ST seg ment elevations noted, troponins done, chest x-ray are shows lower lobe infiltration, correlated for pneumonitis. CODE STATUS was discussed in the ER, and she is has verbalized to the emergency physician that she does not want CPR, and no intubation. was attempted to be conducted in the emergency room to verify this. 12/23: Patient is seen today in the emergency center waiting for a cardiac stepdown bed. Patient is complaining of feeling sore all over. Patient has been afebrile, heart rate 105, blood pressure 132/82, pulse ox 97% on 3 L nasal cannula. Repeat blood work reveals WBC 10.3, hemoglobin 12.8. Creatinine 0.51. CK 597. Echocardiogram reveals EF greater than 55%, mild mitral regurgitation, mild tricuspid regurgitation. Patient has been seen by cardiology and acute coronary syndrome has been ruled out and no plan for any further cardiac workup. Renal ultrasound reveals no acute abnormality. Patient has been seen by Dr. Gan with recommendations to continue Zosyn, obtain sputum culture, discontinue vancomycin. Consult is also in place for pulmonary medicine. Patient will be transferred to [facility] floor without telemetry. REVIEW OF SYSTEMS Constitutional: No fever, no chills, no night sweats. No weight change. Reports weakness, Reports fatigue Reports lethargy. Reports daytime sleepiness. EENT: No headache. No blurred vision or double vision, no loss of vision. No dizziness. No nasal drainage or congestion. No epistaxis. No sore throat. Lungs: No shortness of breath, cough, no sputum production. No wheezing. Cardiovascular: No chest pain, no lower extremity edema. No palpitations. No paroxysmal nocturnal dyspnea. No orthopnea. No lightheadedness or dizziness. No syncopal episodes. Abdominal: No abdominal pain. No nausea, vomiting. No diarrhea. No constipation. No bloody or tarry stools. Reports loss of appetite. Genitourinary: No dysuria, increased frequency, urgency. No urinary retention. Musculoskeletal: No myalgias. Reports muscle weakness, Reports gait dysfunction, no frequent falls. No back pain. No neck pain. Integumentary: No wounds, no lesions. No rash or pruritus. No unusual b ruising. No change in hair or nails. Neurologic: No aphasia. No facial droop. No change in mentation. Reports memory loss. No head injury. No headache. No paralysis. No paresthesia. Psychiatric: No depression. No anxiety. No mood swings. Endocrine: No abnormal blood sugars. PHYSICAL EXAMINATION Gen: This is a 70-year-old female. Patient is in the ER. She is resting in bed and appears to be comfortable. No acute distress. HEENT: Head is atraumatic, normocephalic. Pupils equal, round. Sclerae is anicteric. NECK: Supple. No JVD. No lymphadenopathy. No thyromegaly. LUNGS: Clear to auscultation. No wheezes or rhonchi. No intercostal retractions. HEART: Regular rate and rhythm. No murmur. ABDOMEN: Soft. Bowel sounds are present. No masses. No tenderness. EXTREMITIES: No pedal edema. No calf tenderness. Dorsalis pedis +2 bilaterally. NEUROLOGICAL: Patient is awake, alert and oriented x3. Cranial nerves 2 through 12 are grossly intact. ASSESSMENT AND PLAN 1. Acute UTI with suspected pyelonephritis, sepsis, metabolic encephalopathy coming in with severe confusional state, and dehydration. Patient currently on IV Zosyn, with cultures sent over blood in urine, renal ultrasound, IV fluids for hydration. Consult with Dr. Gan appreciated. Vancomycin discontinued. 2. Acute kidney injury, underlying Ckd stage II 3. Elevated troponin, with T-wave inversion in leads 1 and aVF, no current chest pain, however underlying sepsis could be triggering effect, monitor for type II LA, consult with cardiology appreciated. Echocardiogram as above. Acute coronary syndrome ruled out. 4. 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 Patient has been getting Gammagard every 14 days continue with alternating dose of prednisone as prescribed. Patient is scheduled for [employer] work to follow-up on this issue. 5. Hyperlipidemia. Continue simvastatin 40 mg at bedtime. check for cpk 6. Overactive bladder. Continue patient on oxybutynin 5 mg orally twice every day. 7. Non-use edema both lower extremity Continue patient on Bumex. Monitor the patient CMP magnesium level. 8. DVT prophylaxis. Lovenox 40 mg subcu daily. 9. GI prophylaxis. Continue PPI. 10. Patient is NO code. DISCHARGE PLAN To be determined. PT and OT consults. Impression and plan of care have been directed as dictated by the signing joyce faustin. Loan Zhang nurse practitioner acting as scribe for signing physician. Objective - Vital Signs Vital signs: Vital Signs Temp 99.0 F 12/23/20 08:45 Pulse 105 H 12/23/20 08:45 Resp 24 12/23/20 08:45 BP 131/81 12/23/20 08:45 Pulse Ox 95 12/23/20 08:45 Intake & Output 12/22/20 12/23/20 12/23/20 18:59 06:59 18:59 Weight 67 kg - Labs CBC & Chem 7: 12/23/20 09:07 12/23/20 09:07 Labs: Abnormal Lab Results - Last 24 Hours (Table) 12/22/20 12/22/20 12/22/20 Range/Units 12:41 12:41 12:41 WBC 16.9 H (3.8-10.6) k/uL Hct 47.4 H (34.0-46.0) % RDW 17.9 H (11.5-15.5) % Plt Count 142 L (150-450) k/uL Neutrophils # 12.4 H (1.3-7.7) k/uL PT 12.6 H (9.0-12.0) sec INR 1.2 H (<1.2) Chloride (98-107) mmol/L Carbon Dioxide (22-30) mmol/L BUN (7-17) mg/dL Creatinine (0.52-1.04) mg/dL Plasma Lactic Acid Michael (0.7-2.0) mmol/L Calcium (8.4-10.2) mg/dL AST (14-36) U/L ALT (4-34) U/L Alkaline Phosphatase (38-126) U/L Troponin I (0.000-0.034) ng/mL Albumin (3.5-5.0) g/dL Urine Appearance Cloudy H (Clear) Urine Protein 1+ H (Negative) Urine Glucose (UA) 3+ H (Negative) Urine Blood Moderate H (Negative) Ur Leukocyte Esterase Large H (Negative) Urine RBC 6 H (0-5) /hpf Urine WBC 99 H (0-5) /hpf Urine WBC Clumps Occasional H (None) /hpf Amorphous Sediment Few H (None) /hpf Urine Bacteria Many H (None) /hpf Urine Mucus Rare H (None) /hpf 12/22/20 12/22/20 12/22/20 Range/Units 12:41 12:41 12:45 WBC (3.8-10.6) k/uL Hct (34.0-46.0) % RDW (11.5-15.5) % Plt Count (150-450) k/uL Neutrophils # (1.3-7.7) k/uL PT (9.0-12.0) sec INR (<1.2) Chloride 108 H (98-107) mmol/L Carbon Dioxide 20 L (22-30) mmol/L BUN 20 H (7-17) mg/dL Creatinine 1.11 H (0.52-1.04) mg/dL Plasma Lactic Acid Michael 6.5 H* (0.7-2.0) mmol/L Calcium 8.3 L (8.4-10.2) mg/dL AST 198 H (14-36) U/L ALT 137 H (4-34) U/L Alkaline Phosphatase 200 H (38-126) U/L Troponin I 0.086 H* (0.000-0.034) ng/mL Albumin 2.7 L (3.5-5.0) g/dL Urine Appearance (Clear) Urine Protein (Negative) Urine Glucose (UA) (Negative) Urine Blood (Negative) Ur Leukocyte Esterase (Negative) Urine RBC (0-5) /hpf Urine WBC (0-5) /hpf Urine WBC Clumps (None) /hpf Amorphous Sediment (None) /hpf Urine Bacteria (None) /hpf Urine Mucus (None) /hpf 12/22/20 12/22/20 12/22/20 Range/Units 15:13 16:19 19:36 WBC (3.8-10.6) k/uL Hct (34.0-46.0) % RDW (11.5-15.5) % Plt Count (150-450) k/uL Neutrophils # (1.3-7.7) k/uL PT (9.0-12.0) sec INR (<1.2) Chloride (98-107) mmol/L Carbon Dioxide (22-30) mmol/L BUN (7-17) mg/dL Creatinine (0.52-1.04) mg/dL Plasma Lactic Acid Michael 6.1 H* 4.4 H* (0.7-2.0) mmol/L Calcium (8.4-10.2) mg/dL AST (14-36) U/L ALT (4-34) U/L Alkaline Phosphatase (38-126) U/L Troponin I 0.096 H* (0.000-0.034) ng/mL Albumin (3.5-5.0) g/dL Urine Appearance (Clear) Urine Protein (Negative) Urine Glucose (UA) (Negative) Urine Blood (Negative) Ur Leukocyte Esterase (Negative) Urine RBC (0-5) /hpf Urine WBC (0-5) /hpf Urine WBC Clumps (None) /hpf Amorphous Sediment (None) /hpf Urine Bacteria (None) /hpf Urine Mucus (None) /hpf 12/22/20 12/23/20 Range/Units 22:43 01:50 WBC (3.8-10.6) k/uL Hct (34.0-46.0) % RDW (11.5-15.5) % Plt Count (150-450) k/uL Neutrophils # (1.3-7.7) k/uL PT (9.0-12.0) sec INR (<1.2) Chloride (98-107) mmol/L Carbon Dioxide (22-30) mmol/L BUN (7-17) mg/dL Creatinine (0.52-1.04) mg/dL Plasma Lactic Acid Michael 2.9 H* 3.1 H* (0.7-2.0) mmol/L Calcium (8.4-10.2) mg/dL AST (14-36) U/L ALT (4-34) U/L Alkaline Phosphatase (38-126) U/L Troponin I (0.000-0.034) ng/mL Albumin (3.5-5.0) g/dL Urine Appearance (Clear) Urine Protein (Negative) Urine Glucose (UA) (Negative) Urine Blood (Negative) Ur Leukocyte Esterase (Negative) Urine RBC (0-5) /hpf Urine WBC (0-5) /hpf Urine WBC Clumps (None) /hpf Amorphous Sediment (None) /hpf Urine Bacteria (None) /hpf Urine Mucus (None) /hpf Microbiology - Last 24 Hours (Table) 12/22/20 12:41 Urine Culture - Preliminary Urine,Catheterized
[2020-12-23 11:11] LABS: Platelet Count 83 k/uL (150-450)
[2020-12-23 11:12] LABS: Poikilocytosis (M) Present
[2020-12-23] MEDS ORDERED: VANCOMYCIN 1,250 MG in SODIUM CHLORIDE 0.9% 250 ML IVPB SCH (12:00)
[2020-12-23 13:12] VITALS: BMI 24.5
[2020-12-23] MEDS ORDERED: ACETAMINOPHEN TAB 500 MG TAB PO PRN (15:49)
--- NOTE | 2020-12-23 23:07 | PN ---
PROGRESS NOTE DATE OF SERVICE: 12/23/2020 REASON FOR FOLLOWUP: Urinary tract infection. INTERVAL HISTORY: The patient has been running a low-grade fever. The patient is more awake and alert. The patient is breathing comfortably. Denies having any chest pain, shortness of breath or cough. No abdominal pain or diarrhea. PHYSICAL EXAMINATION: Blood pressure is 124/74 with a pulse of 102. Temperature is 100. She is 98% on room air. General description is an elderly female lying in bed in no distress. RESPIRATORY SYSTEM: Unlabored breathing. Clear to auscultation anteriorly. HEART: S1, S2. Regular rate and rhythm. ABDOMEN: Soft. No tenderness. LABS: Hemoglobin is 12, white count 10.3. Urine showing Gram-negative. DIAGNOSTIC IMPRESSION AND PLAN: Patient with Gram-negative urinary tract infection in this patient currently covered with Zosyn while waiting for the culture to finalize. Continue with supportive care. MMODL / IJN: [id number] /
[2020-12-24] MEDS: PIPERACILLIN-TAZOBACTAM 3.375 GM in SODIUM CHLORIDE 0.9% 100 ML IVPB SCH ×3 (06:01→21:45)
[2020-12-24] MEDS: SODIUM CHLORIDE 0.9% 1,000 ML IV SCH ×2 (06:02→11:30)
--- NOTE | 2020-12-24 07:31 | XR ---
EXAMINATION TYPE: XR chest 2V DATE OF EXAM: 12/24/2020 COMPARISON: 01/05/2016 HISTORY: Shortness of breath. TECHNIQUE: Frontal and lateral views of the chest are obtained. FINDINGS: There are bibasilar opacities obscuring the hemidiaphragms consistent with small pleural pleural effu sions and possibly atelectasis The upper lungs are clear and there is no pneumothorax. There is a Mediport catheter unchanged. The osseous structures are intact. Impression: bibasilar opacities not seen on the prior remote study most consistent with bilateral pleural effusi ons and atelectasis. Pneumonic infiltrates are not excluded and short-term follow-up is recommended.
[2020-12-24] MEDS: ENOXAPARIN 40 MG/0.4 ML SYRINGE SQ SCH (08:36)
[2020-12-24] MEDS: ASPIRIN 81 MG PO SCH (08:36)
[2020-12-24] MEDS: ATORVASTATIN 20 MG TAB PO SCH (08:36)
[2020-12-24] MEDS: predniSONE 20 MG TAB PO SCH (08:36)
[2020-12-24] MEDS: PANTOPRAZOLE 40 MG TABLET PO SCH (08:36)
[2020-12-24] MEDS: GABAPENTIN 300 MG CAP PO SCH ×3 (08:36→19:40)
[2020-12-24] MEDS: CALCIUM CARB-VIT D 500 MG-5 MCG TAB PO SCH ×2 (08:36→19:51)
[2020-12-24] MEDS: LORATADINE 10 MG TAB PO SCH (08:37)
--- NOTE | 2020-12-24 10:00 | CT ---
EXAMINATION TYPE: CT soft tissue neck w con DATE OF EXAM: 12/24/2020 COMPARISON: None HISTORY: Left sided facial/neck swelling, possible parotid gland edema CT DLP: 249.5 mGycm CONTRAST: CT scan of the neck is performed with IV Contrast, patient injected with 100 mL of Isovue 300. Contrast enhanced CT of the neck was performed from the skull base through the lung apices. AIRWAY: The supraglottic, glottic, and subglottic portions of the airway appear patent and free of mass. SALIVARY GLANDS: There is edema of the left parotid gland with a small amount of surrounding fluid. C orrelate for parotitis. No obstructing calculus is identified with certainty. Right-sided parotid gla nd demonstrates that atrophy. Submandibular glands are unremarkable. THYROID GLAND: No nodules or masses seen. LYMPH NODES: No adenopathy seen greater than 1cm. LUNG APICES: No nodule or mass is seen. OTHER: Vascular structures are patent. No significant degenerative change of the cervical spine. N o abscess seen. Mucosal thickening left maxillary sinus. IMPRESSION: There is edema of the left parotid gland with a small amount of surrounding fluid. Correlate for paro titis.
--- NOTE | 2020-12-24 10:25 | P.PN ---
Subjective Progress Note Date: 12/24/20 HISTORY OF PRESENT ILLNESS This is a 68-year-old female one of Dr. 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 Patient also has history of abscess of the right thigh in a care of Dr. Olvera through the wound healing Center. Patient was brought into the emergency room secondary to mental status changes, the found that the patient is more confused than usual, patient she is fully alert and oriented, with intermittent arm contusion, however she persisted with this confusional state, along with blood the secretions in her mouth, could be related to tongue biting or mouth biting, and he thought that he might have a seizure. She also has temperature of 106, patient denies any abdominal pain nausea vomiting or diarrhea, denies any shortness of breath cough of difficulty of breathing. In the emergency room, patient was dehydrated when seen, with lactic acidosis, and septic. Patient requires fluids are for breast station 2 L was given, also has some pyuria, significant of pus in the urine, and was started on IV Zosyn. EKG supposed sinus tachycardia, heart rate of 111, there is nonspecific inversion T-wave, leads 1 and aVL, and T-wave inversion in V1 and V2, no ST seg ment elevations noted, troponins done, chest x-ray are shows lower lobe infiltration, correlated for pneumonitis. CODE STATUS was discussed in the ER, and she is has verbalized to the emergency physician that she does not want CPR, and no intubation. was attempted to be conducted in the emergency room to verify this. 12/23: Patient is seen today in the emergency center waiting for a cardiac stepdown bed. Patient is complaining of feeling sore all over. Patient has been afebrile, heart rate 105, blood pressure 132/82, pulse ox 97% on 3 L nasal cannula. Repeat blood work reveals WBC 10.3, hemoglobin 12.8. Creatinine 0.51. CK 597. Echocardiogram reveals EF greater than 55%, mild mitral regurgitation, mild tricuspid regurgitation. Patient has been seen by cardiology and acute coronary syndrome has been ruled out and no plan for any further cardiac workup. Renal ultrasound reveals no acute abnormality. Patient has been seen by Dr. Gan with recommendations to continue Zosyn, obtain sputum culture, discontinue vancomycin. Consult is also in place for pulmonary medicine. Patient will be transferred to [facility] without telemetry. 12/24: Modified barium swallow is ordered for Saturday as well as speech therapy. Patient is not having any difficulty swallowing but has dental pain which is causing her difficulty with swallowing. She does have swelling in the left parietal area and left lower mouth area. A CAT scan to evaluate has been ordered. We will be changing her diet to a soft diet and ensure as well. Patient has no new complaints today. Urine culture is gram-negative bacilli. Temperature max 100.0, heart rate 95, blood pressure 10/23/1974, pulse ox 97% on 3 L nasal cannula. WBC 10.3, hemoglobin 12.8, platelet count 83. Creatinine 0.51. CK 597. Lactic acid 1.9. Chest x-ray reveals bibasilar opacities not seen on the prior remote study most consistent with bilateral pleural effusions and atelectasis. Pneumonic infiltrates are not excluded and short-term follow- up is recommended. Incentive spirometry will be added. CAT scan of soft tissue of the neck shows edema of the left parotid gland and small amount of surrounding fluid. Correlate for parotitis. Cerna catheter will be removed. Patient is not maintained on Cerna catheter at home. REVIEW OF SYSTEMS Constitutional: No fever, no chills, no night sweats. No weight change. Reports weakness, Reports fatigue Reports lethargy. Reports daytime sleepiness. EENT: No headache. No blurred vision or double vision, no loss of vision. No dizziness. No nasal drainage or congestion. No epistaxis. No sore throat. Lungs: No shortness of breath, cough, no sputum production. No wheezing. Cardiovascular: No chest pain, no lower extremity edema. No palpitations. No paroxysmal nocturnal dyspnea. No orthopnea. No lightheadedness or dizziness. No syncopal episodes. Abdominal: No abdominal pain. No nausea, vomiting. No diarrhea. No constipation. No bloody or tarry stools. Reports loss of appetite. Genitourinary: No dysuria, increased frequency, urgency. No urinary retention. Musculoskeletal: No myalgias. Reports muscle weakness, Reports gait dysfunction, no frequent falls. No back pain. No neck pain. Integumentary: No wounds, no lesions. No rash or pruritus. No unusual bruising. No change in hair or nails. Neurologic: No aphasia. No facial droop. No change in mentation. Reports memory loss. No head injury. No headache. No paralysis. No paresthesia. Psychiatric: No depression. No anxiety. No mood swings. Endocrine: No abnormal blood sugars. PHYSICAL EXAMINATION Gen: This is a 70-year-old female. Patient is in the ER. She is resting in bed and appears to be comfortable. No acute distress. HEENT: Head is atraumatic, normocephalic. Pupils equal, round. Sclerae is anicteric. Edema on the left parotid area. NECK: Supple. No JVD. No lymphadenopathy. No thyromegaly. LUNGS: Clear to auscultation. No wheezes or rhonchi. No intercostal retractions. HEART: Regular rate and rhythm. No murmur. ABDOMEN: Soft. Bowel sounds are present. No masses. No tenderness. EXTREMITIES: No pedal edema. No calf tenderness. Dorsalis pedis +2 bilaterally. Strength 3/5 in bilateral lower extremities, bilateral foot drop. NEUROLOGICAL: Patient is awake, alert and oriented x3. Cranial nerves 2 through 12 are grossly intact. ASSESSMENT AND PLAN 1. Acute UTI with suspected pyelonephritis, sepsis, metabolic encephalopathy coming in with severe confusional state, and dehydration. Patient currently on IV Zosyn, with cultures sent over blood in urine, renal ultrasound, IV fluids for hydration. Consult with Dr. Gan appreciated. Vancomycin discontinued. 2. Acute kidney injury, underlying Ckd stage II 3. Elevated troponin, with T-wave inversion in leads 1 and aVF, no current chest pain, however underlying sepsis could be triggering effect, monitor for type II [place], consult with cardiology appreciated. Echocardiogram as above. Acute coronary syndrome ruled out. 4. 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 Patient has been getting Gammagard every 14 days continue with alternating dose of prednisone as prescribed. Patient is scheduled for [employer] [facility] to follow-up on this issue. 5. Hyperlipidemia. Continue simvastatin 40 mg at bedtime. check for cpk 6. Overactive bladder. Continue patient on oxybutynin 5 mg orally twice every day. 7. Non-use edema both lower extremity Continue patient on Bumex. Monitor the patient CMP magnesium level. 8. DVT prophylaxis. Lovenox 40 mg subcu daily. 9. GI prophylaxis. Continue PPI. 10. Patient is NO code. DISCHARGE PLAN Home. Impression and plan of care have been directed as dictated by the signing physician. Loan Zhang nurse practitioner acting as scribe for signing physician. Objective - Vital Signs Vital signs: Vital Signs Temp 100.0 F H 12/24/20 08:00 Pulse 95 12/24/20 08:00 Resp 16 12/24/20 08:00 BP 124/74 12/24/20 08:00 Pulse Ox 97 12/24/20 08:00 Intake & Output 12/23/20 12/24/20 12/24/20 18:59 06:59 18:59 Intake Total 50 Output Total 400 Balance -350 Weight 67 kg 73.5 kg Intake: Oral 50 Output: Urine 400 Other: Voiding Method Indwelling Catheter # Bowel Movements 2 - Labs CBC & Chem 7: 12/23/20 09:07 12/23/20 09:07 Labs: Abnormal Lab Results - Last 24 Hours (Table) 12/23/20 12/23/20 Range/Units 09:07 09:07 RDW 17.7 H (11.5-15.5) % Plt Count 83 L (150-450) k/uL Neutrophils # 8.2 H (1.3-7.7) k/uL Creatinine 0.51 L (0.52-1.04) mg/dL Creatine Kinase 597 H (30-135) U/L Microbiology - Last 24 Hours (Table) 12/22/20 12:41 Urine Culture - Preliminary Urine,Catheterized Gram Neg Bacilli 12/22/20 13:00 Blood Culture - Preliminary Blood No Growth after 24 hours 12/22/20 12:40 Blood Culture - Preliminary Blood No Growth after 24 hours
[2020-12-24 10:41] LABS: Anisocytosis Slight; Basophils % (A) 0 %; Eosinophils % (A) 0 %; HCT 37.9 % (34.0-46.0); HGB 12.8 gm/dL (11.4-16.0); Lymphocytes # (A) 1.2 k/uL (1.0-4.8); Lymphocytes % (A) 12 %; MCH 29.9 pg (25.0-35.0); MCHC 33.7 g/dL (31.0-37.0); MCV 88.9 fL (80.0-100.0); Mean Platelet Volume 9.9; Monocytes # (A) 0.3 k/uL (0-1.0); Monocytes % (A) 3 %; Neutrophils # (A) 7.9 k/uL (1.3-7.7); Neutrophils % (A) 84 %; RBC 4.27 m/uL (3.80-5.40); RDW 17.6 % (11.5-15.5); WBC 9.5 k/uL (3.8-10.6)
[2020-12-24 10:42] LABS: Platelet Count 60 k/uL (150-450)
--- NOTE | 2020-12-24 11:58 | P.CNPUL ---
History of Present Illness Consult date: 12/24/20 Chief complaint: Altered mental status History of present illness: 70-year-old female patient admitted to the emergency department because of a ltered mentation, encephalopathy and confusion. The patient was febrile and she was running a temperature as high as 106. No headache. Questionable seizure activity although this is not certain. No cough. No sputum production. No shortness of breath. No abdominal pain. No nausea vomiting or emesis. She has history of polymyositis maintenance steroids and she is also on IV Gammagard every 2 weeks. She has chronic neuromuscular weakness. She is chronically debilitated. She is nonambulatory. Extensive muscle weakness and foot drops in the lower extremities bilaterally. Blood work in the emergency department showed a white cell count of 16.9 with hemoglobin of 14.9 and platelets of 42. She has 73% neutrophils failure. Coagulation profile was within normal limits. UA was abnormal and the patient had 99 WBCs along with white cell clumps, +1 protein, +3 glucose, urine drug screen was negative, serum bicarb was 20 with a lactic acid level of 6.2. Anion gap was 11. BUN was 20 with a creatinine of 1.1. Calcium is 8.3. AST of 198, ALC of 137, alk phos of 200, troponin of 0.08, total protein of 6.7 with albumin of 2.7. Chest x-ray showed bilateral lower lobe small effusion/infiltration. The patient does have elevation of the diaphragms bilaterally with small lung volumes. She also has a port in the right IJ. In the ED, the patient was noted to be quite dehydrated and that intravascularly depleted. The total of 2 L of IV fluid was given. UTI was suspected. She was given a combination of Zosyn and vancomycin pending further cultures. EKG was sinus with some sinus tachycardia and a heart rate improved with fluid resuscitation. No acute ischemic changes. No pressors were initiated. Blood pressures under better control for now with subsequent lactic acid level coming down to 4.4 with lactic acid level is down to 3.1. The cultures are still negative or pending for now. The patient remains hemodynamically stable. No pressors. She is on room air oxygen this morning with a pulse ox of 95%. Review of Systems Constitutional: Reports fatigue, Reports weakness, Denies night sweats, Denies poor appetite Eyes: denies blurred vision, denies bulging eye, denies decreased vision, denies diplopia Ears: deny: decreased hearing Ears, nose, mouth and throat: Denies dysphagia, Denies neck lump, Denies swelling in throat, Denies sore throat Cardiovascular: Denies chest pain, Denies decreased exercise tolerance, Denies dyspnea on exertion, Denies paroxysmal nocturnal dyspnea, Denies rapid heart beat, Denies shortness of breath Respiratory: Denies congestion, Denies cough with sputum, Denies sleep apnea, Denies snoring, Denies wheezing Gastrointestinal: Denies abdominal pain, Denies belching, Denies BRBPR, Denies heartburn, Denies loss of appetite, Denies melena, Denies nausea, Denies vomiting Genitourinary: Reports urge incontinence, Denies dysuria, Denies nocturia Menstruation: Reports postmenopausal Musculoskeletal: Reports atrophy, Reports gait dysfunction, Reports muscle weakness Musculoskeletal: absent: ankle pain, ankle stiffness, ankle swelling, elbow pain, elbow stiffness, elbow swelling, foot pain, foot stiffness, foot swelling, hand pain, hand stiffness, hand swelling, hip pain, hip stiffness, hip swelling, knee pain, knee stiffness, knee swelling, shoulder pain, shoulder stiffness, shoulder swelling, wrist pain, wrist stiffness, wrist swelling Integumentary: Denies pruritus, Denies rash Neurological: Reports gait dysfunction, Reports motor disturbance, Reports paralysis, Reports weakness and in addition, the patient had generalized weakness and altered mental status Psychiatric: Denies anxiety, Denies depression Endocrine: Denies fatigue, Denies weight change Past Medical History Past Medical History: Deep Vein Thrombosis (DVT), Hyperlipidemia, Musculoskeletal Disorder, Skin Disorder Additional Past Medical History / Comment(s): Inclusion body myositis, 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 History of Any Multi-Drug Resistant Organisms: None Reported Date of last positivie culture/infection: 11/19/18 MDRO Source:: THIGH Past Surgical History: Appendectomy, Hysterectomy, Tonsillectomy Additional Past Surgical History / Comment(s): cyst removal left inner thigh, 4 muscle biopsies, facial plastic surgery after bout with shingles, Infusaport. bilateral cataract surgery with lens implants, benign mass removed from urethra, skin graft to left foot, spouse believes pt has filters in bilateral groins for DVTs Past Anesthesia/Blood Transfusion Reactions: Motion Sickness, Postoperative Nausea & Vomiting (PONV) Additional Past Anesthesia/Blood Transfusion Reaction / Comment(s): PONV AFTER URETHRA SURGERY. Smoking Status: Former smoker - Past Family History Mother Family Medical History: Dementia Additional Family Medical History / Comment(s): Mother at age 93-95 from Alzheimer dementia. Father Family Medical History: Coronary Artery Disease (CAD), Dementia Additional Family Medical History / Comment(s): Father at age 93-95 from coronary artery disease. Brother(s) Family Medical History: No Reported History Additional Family Medical History / Comment(s): Patient has 1 brother with celiac disease. Daughter(s) Family Medical History: No Reported History Additional Family Medical History / Comment(s): Patient has 2 daughters with no major medical problems. Son(s) Family Medical History: No Reported History Additional Family Medical History / Comment(s): Patient has one son with no major medical problems. Medications and Allergies Home Medications Medication Instructions Recorded Confirmed Type Calcium Carbonate/Vitamin D3 1 tab PO BID 10/25/14 12/22/20 History [Caltrate 600 Plus D3 Tablet] Gammagard 1 dose IV [id number] 10/25/14 12/22/20 History predniSONE 20 mg PO DAILY 10/25/14 12/22/20 History Gabapentin [Neurontin] 300 mg PO BID@0900,1300 12/26/15 12/22/20 History Oxybutynin Chloride [Ditropan] 5 mg PO BID 02/10/18 12/22/20 History Aspirin EC [Ecotrin Low Dose] 81 mg PO DAILY 08/27/18 12/22/20 History Simvastatin [Zocor] 40 mg PO DAILY 01/14/19 12/22/20 History Acetaminophen [Tylenol Extra 1,000 mg PO Q6H PRN 03/20/19 12/22/20 History Strength] Biotin 10,000 mcg PO DAILY 12/22/20 12/22/20 History Cholecalciferol [Vitamin D3 (25 50 mcg PO DAILY 12/22/20 12/22/20 History Mcg = 1000 Iu)] Gabapentin 600 mg PO HS 12/22/20 12/22/20 History Loratadine [Claritin] 10 mg PO DAILY 12/22/20 12/22/20 History Melatonin 5 mg PO HS 12/22/20 12/22/20 History Multivitamin [Multivitamins Adult 2 tab PO DAILY 12/22/20 12/22/20 History Gummies] Allergies Allergy/AdvReac Type Severity Reaction Status Date / Time diphenhydramine HCl Allergy Mild Itching, Verified 12/22/20 13:42 [From Benadryl] hives cephalexin monohydrate Allergy Itching, Verified 12/22/20 13:42 [From Keflex] hives sulfamethoxazole AdvReac Mild Rash/Hives Verified 12/22/20 13:42 [From Bactrim] trimethoprim [From Bactrim] AdvReac Mild Rash/Hives Verified 12/22/20 13:42 Physical Exam Vitals: Vital Signs Temp Pulse Pulse Resp BP BP Pulse Ox 12/24/20 08:00 100.0 F H 95 16 124/74 97 12/24/20 00:46 98.8 F 100 15 126/61 95 12/23/20 19:08 98.6 F 99 14 110/75 94 L 12/23/20 18:11 100 F H 102 H 18 124/74 98 12/23/20 14:19 100.3 F H 101 H 18 125/72 100 Intake and Output 12/23/20 12/24/20 12/24/20 22:59 06:59 14:59 Intake Total 50 0 Output Total 400 Balance 50 -400 Intake: Oral 50 0 Output: Urine 400 Other: Voiding Method Indwelling Catheter # Bowel Movements 2 Weight 73.5 kg - Constitutional General appearance: no acute distress, thin - EENT Eyes: anicteric sclerae, EOMI, PERRLA, no ptosis, no scleral icterus, normal appearance ENT: hearing grossly normal, NA/AT, normal oropharynx, no thrush Ears: bilateral: normal - Neck Neck: no lymphadenopathy, normal ROM, no rigidity, no stridor, no thyromegaly Carotids: bilateral: upstroke normal Thyroid: bilateral: normal size - Respiratory Respiratory: bilateral: diminished, negative: dullness, rales, rhonchi, wheezing, prolonged expiration - Cardiovascular Rhythm: regular Heart sounds: normal: S1, S2 Abnormal Heart Sounds: no systolic murmur, no S3 Gallop, no S4 Gallop - Gastrointestinal General gastrointestinal: normal bowel sounds, soft, no splenomegaly, no tenderness, no umbilical hernia, no ventral hernia - Integumentary Integumentary: normal, normal turgor - Neurologic Neurologic: focal deficits (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 She is nonambulatory. She has foot drops bilaterally, she has generalized motor weakness and she is unable to raise her arms against gravity at this point in time. - Psychiatric Psychiatric: A&O x's 3, appropriate affect, intact judgment & insight Results - Laboratory Findings CBC and BMP: 12/24/20 09:54 12/23/20 09:07 PT/INR, D-dimer PT 12.6 sec (9.0-12.0) H 12/22/20 12:41 INR 1.2 (<1.2) H 12/22/20 12:41 Abnormal lab findings: Abnormal Labs 12/22/20 12/22/20 12/22/20 12:41 12:41 12:41 WBC 16.9 H Hct 47.4 H RDW 17.9 H Plt Count 142 L Neutrophils # 12.4 H PT 12.6 H INR 1.2 H Chloride Carbon Dioxide BUN Creatinine Plasma Lactic Acid Michael Calcium AST ALT Alkaline Phosphatase Creatine Kinase Troponin I Albumin Urine Appearance Cloudy H Urine Protein 1+ H Urine Glucose (UA) 3+ H Urine Blood Moderate H Ur Leukocyte Esterase Large H Urine RBC 6 H Urine WBC 99 H Urine WBC Clumps Occasional H Amorphous Sediment Few H Urine Bacteria Many H Urine Mucus Rare H 12/22/20 12/22/20 12/22/20 12:41 12:41 12:45 WBC Hct RDW Plt Count Neutrophils # PT INR Chloride 108 H Carbon Dioxide 20 L BUN 20 H Creatinine 1.11 H Plasma Lactic Acid Michael 6.5 H* Calcium 8.3 L AST 198 H ALT 137 H Alkaline Phosphatase 200 H Creatine Kinase Troponin I 0.086 H* Albumin 2.7 L Urine Appearance Urine Protein Urine Glucose (UA) Urine Blood Ur Leukocyte Esterase Urine RBC Urine WBC Urine WBC Clumps Amorphous Sediment Urine Bacteria Urine Mucus 12/22/20 12/22/20 12/22/20 15:13 16:19 19:36 WBC Hct RDW Plt Count Neutrophils # PT INR Chloride Carbon Dioxide BUN Creatinine Plasma Lactic Acid Michael 6.1 H* 4.4 H* Calcium AST ALT Alkaline Phosphatase Creatine Kinase Troponin I 0.096 H* Albumin Urine Appearance Urine Protein Urine Glucose (UA) Urine Blood Ur Leukocyte Esterase Urine RBC Urine WBC Urine WBC Clumps Amorphous Sediment Urine Bacteria Urine Mucus 12/22/20 12/23/20 12/23/20 22:43 01:50 09:07 WBC Hct RDW Plt Count Neutrophils # PT INR Chloride Carbon Dioxide BUN Creatinine 0.51 L Plasma Lactic Acid Michael 2.9 H* 3.1 H* Calcium AST ALT Alkaline Phosphatase Creatine Kinase 597 H Troponin I Albumin Urine Appearance Urine Protein Urine Glucose (UA) Urine Blood Ur Leukocyte Esterase Urine RBC Urine WBC Urine WBC Clumps Amorphous Sediment Urine Bacteria Urine Mucus 12/23/20 12/24/20 12/24/20 09:07 09:54 09:54 WBC Hct RDW 17.7 H 17.6 H Plt Count 83 L 60 L Neutrophils # 8.2 H 7.9 H PT INR Chloride Carbon Dioxide BUN Creatinine Plasma Lactic Acid Michael Calcium AST ALT Alkaline Phosphatase Creatine Kinase 257 H Troponin I Albumin Urine Appearance Urine Protein Urine Glucose (UA) Urine Blood Ur Leukocyte Esterase Urine RBC Urine WBC Urine WBC Clumps Amorphous Sediment Urine Bacteria Urine Mucus - Diagnostic Findings Chest x-ray: image reviewed Assessment and Plan Plan: 1 altered mental status , secondary to sepsis induced encephalopathy 2 UTI with secondary sepsis 3 Lekocytosis secondary to above 4 lactic acidosis secondary to above 5 Hypotension secondary to UTI and sepsis and the BP has improved with fluid resuscitation, no pressors for now 6 Inclusion body myositis maintained on steroids on skilled nursing basis in addition to IV gammagard 7 Skeletal and neuromuscular weakness secondary to 6 8 Hypertension 8 remote history of DVT currently on no anticoagulation 9 Gait dysfunction secondary to above 10 chronic elevation of the bilateral hemidiaphragms with possible diaphragmatic weakness and chronic respiratory insufficiency 11 hyperlipidemia. 12 minimal troponin leak secondary to mismatch/sepsis induced myocardial ischemia 13. Overactive bladder Plan Continue IV fluids With normal saline today to 130 mL an hour. The patient received a total of 2 L of fluid in the emergency department Urine cultures Blood cultures Zosyn and vancomycin is appropriate for now pending further cultures Restart prednisone 20 mg by mouth daily, no need for stress dose hydrocortisone for now Monitor lactic acid level which is already declining Monitor white cell count We'll give Lovenox 40 mg subcu for DVT prophylaxis Monitor mental status ICU care if there is any issues with hemodynamics Echocardiogram We'll continue to follow
--- NOTE | 2020-12-24 12:03 | P.PN ---
Subjective Progress Note Date: 12/24/20 70-year-old female patient admitted to the emergency department because of altered mentation, encephalopathy and confusion. The patient was febrile and she was running a temperature as high as 106. No headache. Questionable seizure activity although this is not certain. No cough. No sputum production. No shortness of breath. No abdominal pain. No nausea vomiting or emesis. She has history of polymyositis maintenance steroids and she is also on IV Gammagard every 2 weeks. She has chronic neuromuscular weakness. She is chronically debilitated. She is nonambulatory. Extensive muscle weakness and foot drops in the lower extremities bilaterally. Blood work in the emergency department showed a white cell count of 16.9 with hemoglobin of 14.9 and platelets of 42. She has 73% neutrophils failure. Coagulation profile was within normal limits. UA was abnormal and the patient had 99 WBCs along with white cell clumps, +1 protein, +3 glucose, urine drug screen was negative, serum bicarb was 20 with a lactic acid level of 6.2. Anion gap was 11. BUN was 20 with a creatinine of 1.1. Calcium is 8.3. AST of 198, ALC of 137, alk phos of 200, troponin of 0.08, total protein of 6.7 with albumin of 2.7. Chest x-ray showed bilateral lower lobe small effusion/infiltration. The patient does have elevation of the diaphragms bilaterally with small lung volumes. She also has a port in the right IJ. In the ED, the patient was noted to be quite dehydrated and that intravascularly depleted. The total of 2 L of IV fluid was given. UTI was suspected. She was given a combination of Zosyn and vancomycin pending further cultures. EKG was sinus with some sinus tachycardia and a heart rate improved with fluid resuscitation. No acute ischemic changes. No pressors were initiated. Blood pressures under better control for now with subsequent lactic acid level coming down to 4.4 with lactic acid level is down to 3.1. The cultures are still negative or pending for now. The patient remains hemodynamically stable. No pressors. She is on room air oxygen this morning with a pulse ox of 95%. On today's evaluation of 12/24/2020 the patient is being seen for a follow-up. I saw her initially in consultation for possible ICU transfer. The patient was stabilized and the patient received IV fluids and antibiotics regarding an underlying UTI. In terms of her mental status, she has already improved after being given fluids and currently is in antibiotics and she is getting IV Zosyn. She remains on prednisone. Urine cultures positive for gram-negative bacillus. She is afebrile. She is hemodynamically stable. No significant leukocytosis. Hemoglobin is at 12.8. The rest of the electrolytes all within normal limits. Lactic acid level dropped down to 1.9. Objective - Vital Signs Vital signs: Vital Signs Temp 100.0 F H 12/24/20 08:00 Pulse 95 12/24/20 08:00 Resp 16 12/24/20 08:00 BP 124/74 12/24/20 08:00 Pulse Ox 97 12/24/20 08:00 Intake & Output 12/23/20 12/24/20 12/24/20 18:59 06:59 18:59 Intake Total 50 Output Total 400 Balance -350 Weight 67 kg 73.5 kg Intake: Oral 50 Output: Urine 400 Other: Voiding Method Indwelling Catheter # Bowel Movements 2 - Exam - Constitutional General appearance: no acute distress, thin - EENT Eyes: anicteric sclerae, EOMI, PERRLA, no ptosis, no scleral icterus, normal appearance ENT: hearing grossly normal, NA/AT, normal oropharynx, no thrush Ears: bilateral: normal - Neck Neck: no lymphadenopathy, normal ROM, no rigidity, no stridor, no thyromegaly Carotids: bilateral: upstroke normal Thyroid: bilateral: normal size - Respiratory Respiratory: bilateral: diminished, negative: dullness, rales, rhonchi, wheezing, prolonged expiration - Cardiovascular Rhythm: regular Heart sounds: normal: S1, S2 Abnormal Heart Sounds: no systolic murmur, no S3 Gallop, no S4 Gallop - Gastrointestinal General gastrointestinal: normal bowel sounds, soft, no splenomegaly, no tenderness, no umbilical hernia, no ventral hernia - Integumentary Integumentary: normal, normal turgor - Neurologic Neurologic: focal deficits (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 She is nonambulatory. She has foot drops bilaterally, she has generalized motor weakness and she is unable to raise her arms against gravity at this point in time. - Psychiatric Psychiatric: A&O x's 3, appropriate affect, intact judgment & insight - Labs CBC & Chem 7: 12/24/20 09:54 12/23/20 09:07 Labs: Abnormal Lab Results - Last 24 Hours (Table) 12/24/20 12/24/20 Range/Units 09:54 09:54 RDW 17.6 H (11.5-15.5) % Plt Count 60 L (150-450) k/uL Neutrophils # 7.9 H (1.3-7.7) k/uL Creatine Kinase 257 H (30-135) U/L Microbiology - Last 24 Hours (Table) 12/22/20 12:41 Urine Culture - Preliminary Urine,Catheterized Gram Neg Bacilli 12/22/20 13:00 Blood Culture - Preliminary Blood No Growth after 24 hours 12/22/20 12:40 Blood Culture - Preliminary Blood No Growth after 24 hours Assessment and Plan Plan: 1 altered mental status , secondary to sepsis induced encephalopathy 2 UTI with secondary sepsis 3 Lekocytosis secondary to above 4 lactic acidosis secondary to above 5 Hypotension secondary to UTI and sepsis and the BP has improved with fluid resuscitation, no pressors for now 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 12 minimal troponin leak secondary to mismatch/sepsis induced myocardial ischemia 13. Overactive bladder Plan Continue IV fluids With normal saline at 75 mL an hour Urine cultures are showing gram-negative bacillus and the patient is currently on IV Zosyn Blood cultures still pending for now Zosyn for now pending further cultures prednisone 20 mg by mouth daily, no need for stress dose hydrocortisone for now Monitor lactic acid level which is already declining and the lactic acid level has normalized Monitor white cell count, improved We'll give Lovenox 40 mg subcu for DVT prophylaxis Monitor mental status No need for ICU care Echocardiogram and get preserved LV function We'll will sign off the case
--- NOTE | 2020-12-24 17:56 | PN ---
PROGRESS NOTE DATE OF SERVICE: 12/24/2020 REASON FOR FOLLOWUP: Gram-negative urinary tract infection. INTERVAL HISTORY: The patient did have a low-grade 100 this morning. The patient is more awake and alert. The patient is breathing comfortably. The patient denies having any chest pain, shortness of breath or cough. No abdominal pain. No diarrhea. PHYSICAL EXAMINATION: Blood pressure 137/84, pulse of 90, temperature 97.6. She is 100% on 4 L nasal cannula. General description: The patient is an elderly female lying in bed in no distress. Respiratory system: Unlabored breathing, clear anteriorly. Heart S1, S2. Regular rate and rhythm. Abdomen soft, no tenderness. LABS: Hemoglobin is 12.1, white count 9.5. Urine with gram-negative. IDC culture pending. Blood culture so far pending. DIAGNOSTIC IMPRESSION AND PLAN: Patient with Gram-negative urinary tract infection. IDC culture pending. The patient covered with Zosyn, adjusting antibiotic further based on culture report. Continue supportive care. MMODL / IJN: [id number] /
[2020-12-24] MEDS: MELATONIN 5 MG TABLET PO SCH (19:40)
[2020-12-25] MEDS: PIPERACILLIN-TAZOBACTAM 3.375 GM in SODIUM CHLORIDE 0.9% 100 ML IVPB SCH ×3 (05:35→21:34)
--- NOTE | 2020-12-25 05:58 | CONS ---
CONSULTATION DATE OF CONSULTATION: 12/24/2020 REASON FOR CONSULTATION: Left facial swelling. HISTORY OF PRESENT ILLNESS: The patient is a pleasant 70-year-old female who unfortunately is a poor historian. The patient presented to the emergency room with confusion and weakness and she was transported to the ER by her . The patient admits that she normally drinks very little water. She recently developed swelling of the left side of her face. She also states that she recently had some dental work performed. The emergency room found that she had a urinary tract infection and in addition to this, a CT scan of the face showed that there was edema of the left parotid gland, but no evidence of any phlegmon, cellulitis, or abscess. The patient is noted to have poor dentition. ALLERGIES: BENADRYL, KEFLEX, SULFA, BACTRIM. HOME MEDICATIONS: Include Tylenol, Zocor, Neurontin, Claritin, and melatonin. REVIEW OF SYSTEMS: Review of systems is positive for the metabolic endocrine system in that the patient is noted to have hypercholesterolemia. The remainder of review of systems is unremarkable. It is to be noted that the patient is not ambulatory and uses a wheelchair. PHYSICAL EXAMINATION: This patient is a 70-year-old female who is alert, cooperative, but not well oriented to time and place. She is a poor historian. HEENT EXAMINATION: Patient is normocephalic. Tympanic membranes normal. Middle ear space is free of any fluid or infection. Pupils equal, round, react to light and accommodation. It is to be noted that there was some impacted cerumen in the ears. Extraocular movements are within normal limits. Sclerae are clear. Intranasal examination reveals moderately severe septal deviation to the left with bilateral compensatory hypertrophy of the inferior turbinates and a moderate amount of clear mucous on the mucous membranes and draining down the posterior pharynx. The mucous membranes of the oropharynx are quite dry. I attempted to express purulent material from the left parotid gland using bi-manual palpation, but this was negative. Palpation of the neck is negative for any neck adenopathy. Palpation of the left facial area reveals it to be firm in the region of the left parotid gland but no discrete masses or areas of fluctuance are noted. It is only slight to moderately tender to deep palpation. Cranial nerves 2 through 12 and remainder of the head and neck exam is unremarkable. CHEST CARDIOVASCULAR: Both lung rangel are clear to percussion and auscultation. The patient is in regular sinus rhythm, S1, S2 are present. No murmurs S3s or S4s. Peripheral pulses are bilaterally symmetrical. ABDOMEN: There is no evidence of any masses, megaly or tenderness. The abdomen is soft. The remainder of physical exam is unremarkable. IMPRESSION: Left parotitis, secondary to dehydration and possibly secondary to poor dental hygiene. PLAN: This patient's case is similar to the typical surgical parotitis commonly seen. It is generally due to mainly dehydration and in some cases due to a low-grade bacterial infection mainly with penicillin resistant Staph. Therefore my recommended treatment is to continue with her increased intravenous fluids and the present antibiotic should be adequate, namely Zosyn. Certainly at this point, I do not have anything to contribute from a surgical standpoint unless the patient should go on and developed an abscess. Generally the treatment with increasing fluids and appropriate antibiotic should resolve this patient's clinical condition. I personally reviewed the CT scan and agree that there was no evidence of any phlegmon or abscess present. I want to take this opportunity to thank you for allowing me to assist in the care of your patient. If I could be of any further assistance, please feel free to re- consult me. MMODL / IJN: [id number] / MTDKiki
[2020-12-25] MEDS: ASPIRIN 81 MG PO SCH (08:30)
[2020-12-25] MEDS: CALCIUM CARB-VIT D 500 MG-5 MCG TAB PO SCH ×2 (08:30→20:08)
[2020-12-25] MEDS: predniSONE 20 MG TAB PO SCH (08:30)
[2020-12-25] MEDS: GABAPENTIN 300 MG CAP PO SCH ×3 (08:30→20:06)
[2020-12-25] MEDS: ATORVASTATIN 20 MG TAB PO SCH (08:31)
[2020-12-25] MEDS: PANTOPRAZOLE 40 MG TABLET PO SCH (08:31)
[2020-12-25] MEDS: LORATADINE 10 MG TAB PO SCH (08:31)
[2020-12-25] MEDS: ENOXAPARIN 40 MG/0.4 ML SYRINGE SQ SCH (08:31)
[2020-12-25] MEDS ORDERED: FUROSEMIDE 10 MG/ML 2 ML VIAL IV ONE (09:30)
--- NOTE | 2020-12-25 11:14 | P.PN ---
Subjective Progress Note Date: 12/25/20 HISTORY OF PRESENT ILLNESS This is a 68-year-old female one of Dr. 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 Patient also has history of abscess of the right thigh in a care of Dr. Olvera through the wound healing Center. Patient was brought into the emergency room secondary to mental status changes, the found that the patient is more confused than usual, patient she is fully alert and oriented, with intermittent arm contusion, however she persisted with this confusional state, along with blood the secretions in her mouth, could be related to tongue biting or mouth biting, and he thought that he might have a seizure. She also has temperature of 106, patient denies any abdominal pain nausea vomiting or diarrhea, denies any shortness of breath cough of difficulty of breathing. In the emergency room, patient was dehydrated when seen, with lactic acidosis, and septic. Patient requires fluids are for breast station 2 L was given, also has some pyuria, significant of pus in the urine, and was started on IV Zosyn. EKG supposed sinus tachycardia, heart rate of 111, there is nonspecific inversion T-wave, leads 1 and aVL, and T-wave inversion in V1 and V2, no ST seg ment elevations noted, troponins done, chest x-ray are shows lower lobe infiltration, correlated for pneumonitis. CODE STATUS was discussed in the ER, and she is has verbalized to the emergency physician that she does not want CPR, and no intubation. was attempted to be conducted in the emergency room to verify this. 12/23: Patient is seen today in the emergency center waiting for a cardiac stepdown bed. Patient is complaining of feeling sore all over. Patient has been afebrile, heart rate 105, blood pressure 132/82, pulse ox 97% on 3 L nasal cannula. Repeat blood work reveals WBC 10.3, hemoglobin 12.8. Creatinine 0.51. CK 597. Echocardiogram reveals EF greater than 55%, mild mitral regurgitation, mild tricuspid regurgitation. Patient has been seen by cardiology and acute coronary syndrome has been ruled out and no plan for any further cardiac workup. Renal ultrasound reveals no acute abnormality. Patient has been seen by Dr. Gan with recommendations to continue Zosyn, obtain sputum culture, discontinue vancomycin. Consult is also in place for pulmonary medicine. Patient will be transferred to [facility] without telemetry. 12/24: Modified barium swallow is ordered for Saturday as well as speech therapy. Patient is not having any difficulty swallowing but has dental pain which is causing her difficulty with swallowing. She does have swelling in the left parietal area and left lower mouth area. A CAT scan to evaluate has been ordered. We will be changing her diet to a soft diet and ensure as well. Patient has no new complaints today. Urine culture is gram-negative bacilli. Temperature max 100.0, heart rate 95, blood pressure 10/23/1974, pulse ox 97% on 3 L nasal cannula. WBC 10.3, hemoglobin 12.8, platelet count 83. Creatinine 0.51. CK 597. Lactic acid 1.9. Chest x-ray reveals bibasilar opacities not seen on the prior remote study most consistent with bilateral pleural effusions and atelectasis. Pneumonic infiltrates are not excluded and short-term follow- up is recommended. Incentive spirometry will be added. CAT scan of soft tissue of the neck shows edema of the left parotid gland and small amount of surrounding fluid. Correlate for parotitis. Cerna catheter will be removed. Patient is not maintained on Cerna catheter at home. 12/25: Patient has been seen by ENT, Dr. Erazo regarding parotitis secondary to dehydration. Due to chest x-ray findings, IV fluids will be discontinued and patient will be given 1 dose of IV Lasix 20 mg. O2 is to be weaned today. Patient is eating better. She is encouraged to use incentive spirometry. Urine culture is E. coli, pansensitive. Patient is been afebrile, heart rate 81, blood pressure 128/81, pulse ox 97% on room air. Anticipate discharge home tomorrow. REVIEW OF SYSTEMS Constitutional: No fever, no chills, no night sweats. No weight change. Reports weakness, Reports fatigue. Reports daytime sleepiness. EENT: No headache. No blurred vision or double vision, no loss of vision. No dizziness. No nasal drainage or congestion. No epistaxis. No sore throat. Lungs: No shortness of breath, cough, no sputum production. No wheezing. Cardiovascular: No chest pain, no lower extremity edema. No palpitations. No paroxysmal nocturnal dyspnea. No orthopnea. No lightheadedness or dizziness. No syncopal episodes. Abdominal: No abdominal pain. No nausea, vomiting. No diarrhea. No constipation. No bloody or tarry stools. Reports loss of appetite. Genitourinary: No dysuria, increased frequency, urgency. No urinary retention. Musculoskeletal: No myalgias. Reports muscle weakness, Reports gait dysfunction, no frequent falls. No back pain. No neck pain. Integumentary: No wounds, no lesions. No rash or pruritus. No unusual bruising. No change in hair or nails. Neurologic: No aphasia. No facial droop. No change in mentation. Reports memory loss. No head injury. No headache. No paralysis. No paresthesia. Psychiatric: No depression. No anxiety. No mood swings. Endocrine: No abnormal blood sugars. PHYSICAL EXAMINATION Gen: This is a 70-year-old female. Patient is in the ER. She is resting in bed and appears to be comfortable. No acute distress. HEENT: Head is atraumatic, normocephalic. Pupils equal, round. Sclerae is anicteric. Edema on the left parotid area. NECK: Supple. No JVD. No lymphadenopathy. No thyromegaly. LUNGS: Clear to auscultation. No wheezes or rhonchi. No intercostal retractions. HEART: Regular rate and rhythm. No murmur. ABDOMEN: Soft. Bowel sounds are present. No masses. No tenderness. EXTREMITIES: No pedal edema. No calf tenderness. Dorsalis pedis +2 bilaterally. Strength 3/5 in bilateral lower extremities, bilateral foot drop. NEUROLOGICAL: Patient is awake, alert and oriented x3. Cranial nerves 2 through 12 are grossly intact. ASSESSMENT AND PLAN 1. Acute UTI with suspected pyelonephritis, sepsis, metabolic encephalopathy coming in with severe confusional state, and dehydration. Patient currently on IV Zosyn, with cultures sent over blood in urine, renal ultrasound, IV fluids discontinued. Consult with Dr. Gan appreciated. Vancomycin discontinued. 2. Acute kidney injury, underlying Ckd stage II 3. Elevated troponin, with T-wave inversion in leads 1 and aVF, no current chest pain, however underlying sepsis could be triggering effect, monitor for type II ND, consult with cardiology appreciated. Echocardiogram as above. Acute coronary syndrome ruled out. 4. 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 Patient has been getting Gammagard every 14 days continue with alternating dose of prednisone as prescribed. Patient is scheduled for [address] [facility] work to follow-up on this issue. 5. Hyperlipidemia. Continue simvastatin 40 mg at bedtime. check for cpk 6. Overactive bladder. Continue patient on oxybutynin 5 mg orally twice every day. 7. Non-use edema both lower extremity Continue patient on Bumex. Monitor the patient CMP magnesium level. 8. Left-sided parotitis secondary to dehydration. ENT consult appreciated. Continue antibiotics. 9. DVT prophylaxis. Lovenox 40 mg subcu daily. 10. GI prophylaxis. Continue PPI. 11. Patient is NO code. DISCHARGE PLAN Home. Impression and plan of care have been directed as dictated by the signing physician. Loan Zhang nurse practitioner acting as scribe for signing physician. Objective - Vital Signs Vital signs: Vital Signs Temp 97.7 F 12/25/20 08:00 Pulse 81 12/25/20 08:00 Resp 16 12/25/20 08:00 BP 128/81 12/25/20 08:00 Pulse Ox 97 12/25/20 08:00 Intake & Output 12/24/20 12/25/20 12/25/20 18:59 06:59 18:59 Output Total 300 Balance -300 Weight 73.5 kg 75.5 kg Output: Urine 300 Other: Voiding Method Bedpan Diaper Incontinent # Voids 1 0 # Bowel Movements 1 - Labs CBC & Chem 7: 12/24/20 09:54 12/23/20 09:07 Labs: Abnormal Lab Results - Last 24 Hours (Table) 12/24/20 Range/Units 09:54 Plt Count 60 L (150-450) k/uL Microbiology - Last 24 Hours (Table) 12/22/20 12:41 Urine Culture - Final Urine,Catheterized Escherichia coli 12/22/20 13:00 Blood Culture - Preliminary Blood No Growth after 48 hours 12/22/20 12:40 Blood Culture - Preliminary Blood No Growth after 48 hours
[2020-12-25] MEDS: MELATONIN 5 MG TABLET PO SCH (20:05)
--- NOTE | 2020-12-26 04:29 | PN ---
PROGRESS NOTE DATE OF SERVICE: 12/25/2020. REASON FOR FOLLOWUP: Urinary tract infection. INTERVAL HISTORY: The patient is currently afebrile. The patient is breathing comfortably, feeling better. Denies having any chest pain, shortness of breath or cough. No nausea, vomiting. No abdominal pain. No diarrhea. PHYSICAL EXAMINATION: Blood pressure 105/59, pulse of 80, temperature 98.6. He is 96% on 2 L nasal cannula. General description is an elderly female lying in bed in no distress. Respiratory system: Unlabored breathing. Clear to auscultation anteriorly. Heart S1, S2. Regular rate and rhythm. Abdomen: Soft, no tenderness. LABS: Hemoglobin is 12.8, white count 9.5. Urine with E coli that is a sensitive pathogen. DIAGNOSTIC IMPRESSION AND PLAN: Patient with E coli urinary tract infection in this patient who has multiple antibiotic allergies. She has clinically responded to Zosyn. Plan to finish therapy with oral Augmentin. Continue supportive care. MMODL / IJN: [id number] /
[2020-12-26] MEDS: PIPERACILLIN-TAZOBACTAM 3.375 GM in SODIUM CHLORIDE 0.9% 100 ML IVPB SCH (05:14)
[2020-12-26 08:40] VITALS: BP 134/81; PULSE 73; RESP 16; TEMP 98.1
[2020-12-26] MEDS: CALCIUM CARB-VIT D 500 MG-5 MCG TAB PO SCH (08:46)
[2020-12-26] MEDS: GABAPENTIN 300 MG CAP PO SCH (08:46)
[2020-12-26] MEDS: ENOXAPARIN 40 MG/0.4 ML SYRINGE SQ SCH (08:46)
[2020-12-26] MEDS: predniSONE 20 MG TAB PO SCH (08:46)
[2020-12-26] MEDS: LORATADINE 10 MG TAB PO SCH (08:46)
[2020-12-26] MEDS: ASPIRIN 81 MG PO SCH (08:46)
[2020-12-26] MEDS: ATORVASTATIN 20 MG TAB PO SCH (08:46)
[2020-12-26] MEDS: PANTOPRAZOLE 40 MG TABLET PO SCH (08:46)
--- NOTE | 2020-12-26 09:22 | P.DS ---
Providers Date of admission: 12/22/20 14:55 Expected date of discharge: 12/26/20 Attending physician: Tameka Guerin Consults: 12/22/20 14:58 Consult Physician Urgent Consulting Provider: Saulo Gan Consult Reason/Comments: Sepsis Do you want consulting provider notified?: Yes 12/22/20 17:50 Consult Physician Routine Consulting Provider: Kiet Hassan Consult Reason/Comments: abn ekg elevated troponin Do you want consulting provider notified?: Yes 12/22/20 18:01 Consult Physician Urgent Consulting Provider: Axel Kent Consult Reason/Comments: Critical care management Do you want consulting provider notified?: Yes 12/24/20 10:29 Consult Physician Routine Consulting Provider: Vic Erazo Consult Reason/Comments: parotitis Do you want consulting provider notified?: Yes Primary care physician: [facility] Course: HISTORY OF PRESENT ILLNESS This is a 68-year-old female one of Dr. 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 Patient also has history of abscess of the right thigh in a care of Dr. Olvera through the [facility]. Patient was brought into the emergency room secondary to mental status changes, the found that the patient is more confused than usual, patient she is fully alert and oriented, with intermittent arm contusion, however she persisted with this confusional state, along with blood the secretions in her mouth, could be related to tongue biting or mouth biting, and he thought that he might have a seizure. She also has temperature of 106, patient denies any abdominal pain nausea vomiting or diarrhea, denies any shortness of breath cough of difficulty of breathing. In the emergency room, patient was dehydrated when seen, with lactic acidosis, and septic. Patient requires fluids are for breast station 2 L was given, also has some pyuria, significant of pus in the urine, and was started on IV Zosyn. EKG supposed sinus tachycardia, heart rate of 111, there is nonspecific inversion T-wave, leads 1 and aVL, and T-wave inversion in V1 and V2, no ST segment elevations noted, troponins done, chest x-ray are shows lower lobe infiltration, correlated for pneumonitis. CODE STATUS was discussed in the ER, and she is has verbalized to the emergency physician that she does not want CPR, and no intubation. was attempted to be conducted in the emergency room to verify this. 12/23: Patient is seen today in the emergency center waiting for a cardiac stepdown bed. Patient is complaining of feeling sore all over. Patient has been afebrile, heart rate 105, blood pressure 132/82, pulse ox 97% on 3 L nasal cannula. Repeat blood work reveals WBC 10.3, hemoglobin 12.8. Creatinine 0.51. CK 597. Echocardiogram reveals EF greater than 55%, mild mitral regurgitation, mild tricuspid regurgitation. Patient has been seen by cardiology and acute coronary syndrome has been ruled out and no plan for any further cardiac workup. Renal ultrasound reveals no acute abnormality. Patient has been seen by Dr. Gan with recommendations to continue Zosyn, obtain sputum culture, discontinue vancomycin. Consult is also in place for pulmonary medicine. Patient will be transferred to [facility] without telemetry. 12/24: Modified barium swallow is ordered for Saturday as well as speech therapy. Patient is not having any difficulty swallowing but has dental pain which is causing her difficulty with swallowing. She does have swelling in the left parietal area and left lower mouth area. A CAT scan to evaluate has been ordered. We will be changing her diet to a soft diet and ensure as well. Patient has no new complaints today. Urine culture is gram-negative bacilli. Temperature max 100.0, heart rate 95, blood pressure 10/23/1974, pulse ox 97% on 3 L nasal cannula. WBC 10.3, hemoglobin 12.8, platelet count 83. Creatinine 0.51. CK 597. Lactic acid 1.9. Chest x-ray reveals bibasilar opacities not seen on the prior remote study most consistent with bilateral pleural effusions and atelectasis. Pneumonic infiltrates are not excluded and short-term follow- up is recommended. Incentive spirometry will be added. CAT scan of soft tissue of the neck shows edema of the left parotid gland and small amount of surrounding fluid. Correlate for parotitis. Cerna catheter will be removed. Patient is not maintained on Cerna catheter at home. 12/25: Patient has been seen by ENT, Dr. Erazo regarding parotitis secondary to dehydration. Due to chest x-ray findings, IV fluids will be discontinued and patient will be given 1 dose of IV Lasix 20 mg. O2 is to be weaned today. Patient is eating better. She is encouraged to use incentive spirometry. Urine culture is E. coli, pansensitive. Patient is been afebrile, heart rate 81, blood pressure 128/81, pulse ox 97% on room air. Anticipate discharge home tomorrow. 12/26: Patient underwent modified barium swallow today with recommendations from speech therapy for mechanical soft diet with thin liquids, base of tongue exercises recommended. Patient has been afebrile, heart rate 73, blood pressure 134/81, pulse ox 96% on 2 L nasal cannula and has been switched to room air. Urine culture is E. coli pansensitive and will be discharged home on doxycycline. ASSESSMENT AND PLAN 1. Acute UTI with suspected pyelonephritis, sepsis, metabolic encephalopathy c oming in with severe confusional state, and dehydration. 2. Acute kidney injury, Ckd stage II 3. Elevated troponin, acute coronary syndrome ruled out. 4. 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 5. Hyperlipidemia. 6. Overactive bladder. 7. Non-use edema both lower extremity 8. Left-sided parotitis secondary to dehydration. DISCHARGE PLAN Home. Impression and plan of care have been directed as dictated by the signing physician. Loan Zhang nurse practitioner acting as scribe for signing physician. Patient Condition at Discharge: Good Plan - Discharge Summary Discharge Rx Participant: No New Discharge Prescriptions: New Doxycycline Hyclate 100 mg PO BID #14 tab Continue predniSONE 20 mg PO DAILY Gammagard 1 dose IV [id number] Calcium Carbonate/Vitamin D3 [Caltrate 600 Plus D3 Tablet] 1 tab PO BID Gabapentin [Neurontin] 300 mg PO BID@0900,1300 Oxybutynin Chloride [Ditropan] 5 mg PO BID Aspirin EC [Ecotrin Low Dose] 81 mg PO DAILY Simvastatin [Zocor] 40 mg PO DAILY Acetaminophen [Tylenol Extra Strength] 1,000 mg PO Q6H PRN PRN Reason: Pain Multivitamin [Multivitamins Adult Gummies] 2 tab PO DAILY Loratadine [Claritin] 10 mg PO DAILY Cholecalciferol [Vitamin D3 (25 Mcg = 1000 Iu)] 50 mcg PO DAILY Biotin 10,000 mcg PO DAILY Melatonin 5 mg PO HS Gabapentin 600 mg PO HS Discharge Medication List Calcium Carbonate/Vitamin D3 [Caltrate 600 Plus D3 Tablet] 1 tab PO BID 10/25/14 [History] Gammagard 1 dose IV [id number] 10/25/14 [History] predniSONE 20 mg PO DAILY 10/25/14 [History] Gabapentin [Neurontin] 300 mg PO BID@0900,1300 12/26/15 [History] Oxybutynin Chloride [Ditropan] 5 mg PO BID 02/10/18 [History] Aspirin EC [Ecotrin Low Dose] 81 mg PO DAILY 08/27/18 [History] Simvastatin [Zocor] 40 mg PO DAILY 01/14/19 [History] Acetaminophen [Tylenol Extra Strength] 1,000 mg PO Q6H PRN 03/20/19 [History] Biotin 10,000 mcg PO DAILY 12/22/20 [History] Cholecalciferol [Vitamin D3 (25 Mcg = 1000 Iu)] 50 mcg PO DAILY 12/22/20 [History] Gabapentin 600 mg PO HS 12/22/20 [History] Loratadine [Claritin] 10 mg PO DAILY 12/22/20 [History] Melatonin 5 mg PO HS 12/22/20 [History] Multivitamin [Multivitamins Adult Gummies] 2 tab PO DAILY 12/22/20 [History] Doxycycline Hyclate 100 mg PO BID #14 tab 12/26/20 [Rx] Follow up Appointment(s)/Referral(s): Choco Castro DO [Primary Care Provider] - 1-2 days (follow up appt January 02 @ 2:00pm) Patient Instructions/Handouts: Urinary Tract Infection in Women (DC) Discharge Disposition: HOME SELF-CARE
--- NOTE | 2020-12-26 13:27 | FL ---
EXAMINATION TYPE: FL barium swallow w video DATE OF EXAM: 12/26/2020 CLINICAL HISTORY: 70-year-old female trouble swallowing, Dysphagia. TECHNIQUE: Deglutition study is performed utilizing thin liquid barium, honey and nectar thick liqui d barium, barium thick applesauce, and barium coated cracker. COMPARISON: None. Total fluoroscopy time: 1 minute 21 seconds. Total images: None. Real-time fluoroscopy support was provided to speech pathology. FINDINGS: There was some limitation in the exam due to difficulty in positioning the patient. The oral and pharyngeal phases show satisfactory initiation and propagation with all modalities teste d. Normal mastication is seen with solid modalities tested. There is no evidence of penetration or aspiration with any modality tested. However, moderate to severe vallecular residuals are noted. IMPRESSION: Moderate to severe vallecular residuals but without penetration or aspiration seen. Please refer to speech therapist notes for further details if necessary.
[2020-12-26 13:30] LABS: EBV-EA (IgG) 1.4 AI; EBV-EBNA(IgG) >8.0 AI; EBV-VCA (IgG) >8.0 AI; EBV-VCA (IgM) <0.2 AI; Mumps Virus IgG Ab Interp POSITIVE (NEGATIVE); Mumps Virus IgG Antibody 3.4 AI
[2021-01-05] MEDS ORDERED: GAMMAGARD IV SCH (09:00)
== END 2020-12-26 15:20 | disposition home or self-care (01) | DRG 871 ==
LOC: EC 11:36 → 3SCARD 14:55 → 4SSUR 12-23 14:46
PROVIDERS: ADMIT Family Medicine; ATTEND Family Medicine
DX: A41.51 Sepsis due to Escherichia coli [E. coli] (principal); G93.41 Metabolic encephalopathy; N39.0 Urinary tract infection, site not specified; N17.9 Acute kidney failure, unspecified; E87.2 Acidosis; G82.20 Paraplegia, unspecified; I31.3 Pericardial effusion (noninflammatory); J90 Pleural effusion, not elsewhere classified; J98.11 Atelectasis; N12 Tubulo-interstitial nephritis, not specified as acute or chronic; R56.9 Unspecified convulsions; Z66 Do not resuscitate; Z20.822 Contact with and (suspected) exposure to COVID-19; G72.41 Inclusion body myositis [IBM]; I13.10 Hypertensive heart and chronic kidney disease without heart failure, with stage 1 through stage 4 chronic kidney disease, or unspecified chronic kidney disease; E86.0 Dehydration; N18.2 Chronic kidney disease, stage 2 (mild); I08.1 Rheumatic disorders of both mitral and tricuspid valves; K11.20 Sialoadenitis, unspecified; K08.89 Other specified disorders of teeth and supporting structures; M21.371 Foot drop, right foot; M21.372 Foot drop, left foot; E78.5 Hyperlipidemia, unspecified; N32.81 Overactive bladder; G47.00 Insomnia, unspecified; G62.9 Polyneuropathy, unspecified; R31.9 Hematuria, unspecified; R77.8 Other specified abnormalities of plasma proteins; R53.81 Other malaise; Z79.82 Long term (current) use of aspirin; Z79.52 Long term (current) use of systemic steroids; Z79.899 Other long term (current) drug therapy; Z87.891 Personal history of nicotine dependence; Z99.3 Dependence on wheelchair; Z86.718 Personal history of other venous thrombosis and embolism; Z90.710 Acquired absence of both cervix and uterus; Z90.49 Acquired absence of other specified parts of digestive tract; Z87.19 Personal history of other diseases of the digestive system; Z87.42 Personal history of other diseases of the female genital tract; Z87.2 Personal history of diseases of the skin and subcutaneous tissue; Z90.89 Acquired absence of other organs; Z86.19 Personal history of other infectious and parasitic diseases; Z96.1 Presence of intraocular lens; Z98.41 Cataract extraction status, right eye; Z98.42 Cataract extraction status, left eye; Z98.890 Other specified postprocedural states; Z88.1 Allergy status to other antibiotic agents; Z88.2 Allergy status to sulfonamides; Z88.8 Allergy status to other drugs, medicaments and biological substances; Z82.0 Family history of epilepsy and other diseases of the nervous system; Z82.49 Family history of ischemic heart disease and other diseases of the circulatory system; Z83.79 Family history of other diseases of the digestive system
CPT/HCPCS: 36415; 70491; 71046; 74230; 76770; 80053; 80306; 81001; 82550; 82565; 83605; 84484; 85025; 85610; 85730; 86663; 86664; 86665; 86735; 87040; 87077; 87086; 87186; 87252; 87496; 87498; 87529; 87635; 87798; 93005; 93306; 94760; 96365; 96366; 96367; 96368; 96372; 96375; 99291

== ENCOUNTER 2021-01-02 10:05 | Inpatient (IN) | payer MEDICARE, OTHER ==
[2021-01-02] MEDS ORDERED: SODIUM CHLORIDE 0.9% 1,000 ML IV STA ×2 (10:31)
[2021-01-02] MEDS ORDERED: SODIUM CHLORIDE 0.9% 800 ML IV STA (10:35)
[2021-01-02] MEDS ORDERED: LEVOFLOXACIN 750MG-D5W PMX 750 MG in DEXTROSE/WATER 1 150ML.BAG IVPB STA (10:39)
--- NOTE | 2021-01-02 10:56 | ED ---
Altered Mental Status HPI - General Chief Complaint: Altered Mental Status Stated Complaint: altered mental status Time Seen by Provider: 01/02/21 10:29 Source: patient Mode of arrival: EMS Limitations: no limitations - History of Present Illness Initial Comments: 70-year-old female with history of infusion myositis presents to the emergency department chief complaint of altered mental status. Patient was brought to the ED by her who states the patient has not been acting like herself. States the patient was discharged several days ago from this facility after being admitted for UTI sepsis. States she was discharged on medication which she has been not able to take due to difficulties with swallowing. States the patient has had minimal oral intake of fluids and solids over the last several days. States the patient has also been complaining of some abdominal pain since Saturday. When asked where the hand is located, patient points throughout the whole abdomen. States she receives infusions of gammagrad biweekly. Patient was questioned but she only moans and nods when questioned. However, she is able to follow directions. The states the patient is mostly bedbound - Related Data Home Medications Medication Instructions Recorded Confirmed Calcium Carbonate/Vitamin D3 1 tab PO BID 10/25/14 01/02/21 [Caltrate 600 Plus D3 Tablet] Gammagard 1 dose IV [id number] 10/25/14 01/02/21 predniSONE 20 mg PO DAILY 10/25/14 01/02/21 Gabapentin [Neurontin] 300 mg PO BID@0900,1300 12/26/15 01/02/21 Oxybutynin Chloride [Ditropan] 5 mg PO BID 02/10/18 01/02/21 Aspirin EC [Ecotrin Low Dose] 81 mg PO DAILY 08/27/18 01/02/21 Simvastatin [Zocor] 40 mg PO DAILY 01/14/19 01/02/21 Acetaminophen [Tylenol Extra 1,000 mg PO Q6H PRN 03/20/19 01/02/21 Strength] Biotin 10,000 mcg PO DAILY 12/22/20 01/02/21 Cholecalciferol [Vitamin D3 (25 50 mcg PO DAILY 12/22/20 01/02/21 Mcg = 1000 Iu)] Gabapentin 600 mg PO HS 12/22/20 01/02/21 Loratadine [Claritin] 10 mg PO DAILY 12/22/20 01/02/21 Melatonin 5 mg PO HS 12/22/20 01/02/21 Multivitamin [Multivitamins Adult 2 tab PO DAILY 12/22/20 01/02/21 Gummies] Allergies Allergy/AdvReac Type Severity Reaction Status Date / Time diphenhydramine HCl Allergy Mild Itching, Verified 01/02/21 11:36 [From Benadryl] hives cephalexin monohydrate Allergy Itching, Verified 01/02/21 11:36 [From Keflex] hives sulfamethoxazole AdvReac Mild Rash/Hives Verified 01/02/21 11:36 [From Bactrim] trimethoprim [From Bactrim] AdvReac Mild Rash/Hives Verified 01/02/21 11:36 Review of Systems ROS Statement: Those systems with pertinent positive or pertinent negative responses have been documented in the HPI. ROS Other: All systems not noted in ROS Statement are negative. Past Medical History Past Medical History: Deep Vein Thrombosis (DVT), Hyperlipidemia, Musculosk eletal Disorder, Skin Disorder Additional Past Medical History / Comment(s): Inclusion body myositis, 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 History of Any Multi-Drug Resistant Organisms: None Reported Date of last positivie culture/infection: 11/19/18 MDRO Source:: THIGH Past Surgical History: Appendectomy, Hysterectomy, Tonsillectomy Additional Past Surgical History / Comment(s): cyst removal left inner thigh, 4 muscle biopsies, facial plastic surgery after bout with shingles, Infusaport. bilateral cataract surgery with lens implants, benign mass removed from urethra, skin graft to left foot, spouse believes pt has filters in bilateral groins for DVTs Past Anesthesia/Blood Transfusion Reactions: Motion Sickness, Postoperative Nausea & Vomiting (PONV) Additional Past Anesthesia/Blood Transfusion Reaction / Comment(s): PONV AFTER URETHRA SURGERY. Past Psychological History: No Psychological Hx Reported Smoking Status: Former smoker Past Alcohol Use History: None Reported Past Drug Use History: None Reported - Past Family History Mother Family Medical History: Dementia Additional Family Medical History / Comment(s): Mother at age 93-95 from Alzheimer dementia. Father Family Medical History: Coronary Artery Disease (CAD), Dementia Additional Family Medical History / Comment(s): Father at age 93-95 from coronary artery disease. Brother(s) Family Medical History: No Reported History Additional Family Medical History / Comment(s): Patient has 1 brother with celiac disease. Daughter(s) Family Medical History: No Reported History Additional Family Medical History / Comment(s): Patient has 2 daughters with no major medical problems. Son(s) Family Medical History: No Reported History Additional Family Medical History / Comment(s): Patient has one son with no major medical problems. General Exam Limitations: altered mental status, physical limitation General appearance: alert, in no apparent distress Head exam: Present: atraumatic, normocephalic, normal inspection Eye exam: Present: normal appearance, PERRL, EOMI Pupils: Present: normal accommodation ENT exam: Present: normal exam, normal oropharynx, mucous membranes dry (Dry mucous members. No pharyngeal tonsillar erythema or exudates.), TM's normal bilaterally, normal external ear exam (Unable to visualize left tympanic membrane secondary to cerumen impaction.) Neck exam: Present: normal inspection, full ROM. Absent: tenderness, lymphadenopathy Respiratory exam: Present: normal lung sounds bilaterally. Absent: respiratory distress, wheezes, rales, rhonchi, stridor, chest wall tenderness Cardiovascular Exam: Present: normal rhythm, tachycardia, normal heart sounds. Absent: bradycardia, systolic murmur, diastolic murmur GI/Abdominal exam: Present: soft, tenderness (Diffuse abdominal tenderness), normal bowel sounds. Absent: distended, guarding, rebound, rigid Extremities exam: Present: normal inspection, full ROM, normal capillary refill, other (Palpable DP and PT bilaterally). Absent: tenderness, pedal edema, joint swelling, calf tenderness Back exam: Present: normal inspection, full ROM. Absent: tenderness Neurological exam: Present: alert Skin exam: Present: warm, dry, intact, normal color, other (Ecchymosis noted on bilateral upper extremities.) Course Vital Signs 01/02/21 01/02/21 01/02/21 10:19 13:10 14:53 Temperature 101.5 F H 99.2 F 99.0 F Pulse Rate 120 H 126 H 107 H Respiratory 18 18 18 Rate Blood Pressure 126/104 109/72 133/81 O2 Sat by Pulse 94 L 97 99 Oximetry Medical Decision Making - Medical Decision Making 70-year-old female with history of infusion myositis presents to the emergency department with a chief complaint of altered mental status. On physical examination, patient is able to follow directions but is otherwise only able to nod and moan when questioned. Patient is severely dehydrated with dry mucous members. We did apply some Vaseline on her lips. She also had some diffuse abdominal tenderness. CBC was unremarkable. CMP revealed low BUN and creatinine. Hypokalemia of 2.6. IV potassium replacement was started. Magnesium is 1.9. Phosphorus at 2.6. hypocalcemia of 8.1. Elevated alk phos at 296 which appears to be trending upward compared to her last for lab draws. Initially the patient appeared septic with surgical criteria. Patient was given 1.8 L of IV fluids according to ideal body weight of 59 kg. She was also started on Levaquin 750 mg which was consulted with inpatient pharmacy. Covid negative.UA showed +3 ketones but no other signs of urinary tract infections. CT of abdomen and pelvis reveals cholelithiasis with wall thickening but no signs of acute cholecystitis at this time. EKG showed no acute findings. I discussed the case with who also examined the patient and will admit for further management. Case discussed with Neurology on consult - Lab Data Result diagrams: 01/02/21 11:47 01/02/21 11:47 Lab Results 01/02/21 01/02/21 01/02/21 Range/Units 11:47 11:47 11:47 WBC 10.4 (3.8-10.6) k/uL RBC 4.64 (3.80-5.40) m/uL Hgb 13.6 (11.4-16.0) gm/dL Hct 41.1 (34.0-46.0) % MCV 88.7 (80.0-100.0) fL MCH 29.4 (25.0-35.0) pg MCHC 33.1 (31.0-37.0) g/dL RDW 19.0 H (11.5-15.5) % Plt Count 240 D (150-450) k/uL MPV 8.1 Neutrophils % 69 % Lymphocytes % 26 % Monocytes % 3 % Eosinophils % 1 % Basophils % 1 % Neutrophils # 7.1 (1.3-7.7) k/uL Lymphocytes # 2.7 (1.0-4.8) k/uL Monocytes # 0.3 (0-1.0) k/uL Eosinophils # 0.1 (0-0.7) k/uL Basophils # 0.1 (0-0.2) k/uL Manual Slide Review Performed Polychromasia Present Hypochromasia Slight Poikilocytosis Slight Anisocytosis Slight Sodium 137 (137-145) mmol/L Potassium 2.6 L* (3.5-5.1) mmol/L Chloride 100 (98-107) mmol/L Carbon Dioxide 31 H (22-30) mmol/L Anion Gap 6 mmol/L BUN 5 L (7-17) mg/dL Creatinine 0.28 L (0.52-1.04) mg/dL Est GFR (CKD-EPI)AfAm >90 (>60 ml/min/1.73 sqM) Est GFR (CKD-EPI)NonAf >90 (>60 ml/min/1.73 sqM) Glucose 112 H (74-99) mg/dL Plasma Lactic Acid Michael 1.9 (0.7-2.0) mmol/L Calcium 8.1 L (8.4-10.2) mg/dL Phosphorus (2.5-4.5) mg/dL Magnesium (1.6-2.3) mg/dL Total Bilirubin 1.0 (0.2-1.3) mg/dL AST 52 H (14-36) U/L ALT 26 (4-34) U/L Alkaline Phosphatase 296 H (38-126) U/L Total Protein 5.2 L (6.3-8.2) g/dL Albumin 2.4 L (3.5-5.0) g/dL Urine Color Urine Appearance (Clear) Urine pH (5.0-8.0) Ur Specific [place] (1.001-1.035) Urine Protein (Negative) Urine Glucose (UA) (Negative) Urine Ketones (Negative) Urine Blood (Negative) Urine Nitrite (Negative) Urine Bilirubin (Negative) Urine Urobilinogen (<2.0) mg/dL Ur Leukocyte Esterase (Negative) Urine RBC (0-5) /hpf Urine WBC (0-5) /hpf Ur Squamous Epith Cells (0-4) /hpf Hyaline Casts (0-2) /lpf Urine Mucus (None) /hpf 01/02/21 01/02/21 Range/Units 11:47 12:39 WBC (3.8-10.6) k/uL RBC (3.80-5.40) m/uL Hgb (11.4-16.0) gm/dL Hct (34.0-46.0) % MCV (80.0-100.0) fL MCH (25.0-35.0) pg MCHC (31.0-37.0) g/dL RDW (11.5-15.5) % Plt Count (150-450) k/uL MPV Neutrophils % % Lymphocytes % % Monocytes % % Eosinophils % % Basophils % % Neutrophils # (1.3-7.7) k/uL Lymphocytes # (1.0-4.8) k/uL Monocytes # (0-1.0) k/uL Eosinophils # (0-0.7) k/uL Basophils # (0-0.2) k/uL Manual Slide Review Polychromasia Hypochromasia Poikilocytosis Anisocytosis Sodium (137-145) mmol/L Potassium (3.5-5.1) mmol/L Chloride (98-107) mmol/L Carbon Dioxide (22-30) mmol/L Anion Gap mmol/L BUN (7-17) mg/dL Creatinine (0.52-1.04) mg/dL Est GFR (CKD-EPI)AfAm (>60 ml/min/1.73 sqM) Est GFR (CKD-EPI)NonAf (>60 ml/min/1.73 sqM) Glucose (74-99) mg/dL Plasma Lactic Acid Michael (0.7-2.0) mmol/L Calcium (8.4-10.2) mg/dL Phosphorus 2.3 L (2.5-4.5) mg/dL Magnesium 1.8 (1.6-2.3) mg/dL Total Bilirubin (0.2-1.3) mg/dL AST (14-36) U/L ALT (4-34) U/L Alkaline Phosphatase (38-126) U/L Total Protein (6.3-8.2) g/dL Albumin (3.5-5.0) g/dL Urine Color Yellow Urine Appearance Clear (Clear) Urine pH 6.0 (5.0-8.0) Ur Specific [place] 1.013 (1.001-1.035) Urine Protein Trace H (Negative) Urine Glucose (UA) Negative (Negative) Urine Ketones 3+ H (Negative) Urine Blood Small H (Negative) Urine Nitrite Negative (Negative) Urine Bilirubin 1+ H (Negative) Urine Urobilinogen <2.0 (<2.0) mg/dL Ur Leukocyte Esterase Negative (Negative) Urine RBC 3 (0-5) /hpf Urine WBC 3 (0-5) /hpf Ur Squamous Epith Cells <1 (0-4) /hpf Hyaline Casts 3 H (0-2) /lpf Urine Mucus Few H (None) /hpf - EKG Data EKG Comments: Sinus tachycardia, left ventricular hypertrophy. Smallest C depressions in V3 through V6. Similar to 12/22/20 Ventricular rate 117, KS 124, QRS 70, QTC 496. Disposition Clinical Impression: Acute encephalopathy, Hypocalcemia, Hypokalemia, Dehydration Disposition: ADMITTED IP TO THIS HOSP Condition: Fair Is patient prescribed a controlled substance at d/c from ED?: No Time of Disposition: 14:15
[2021-01-02 12:15] LABS: Anisocytosis Slight; Basophils # (A) 0.1 k/uL (0-0.2); Basophils % (A) 1 %; Eosinophils # (A) 0.1 k/uL (0-0.7); Eosinophils % (A) 1 %; HCT 41.1 % (34.0-46.0); HGB 13.6 gm/dL (11.4-16.0); Hypochromasia Slight; Lymphocytes # (A) 2.7 k/uL (1.0-4.8); Lymphocytes % (A) 26 %; MCH 29.4 pg (25.0-35.0); MCHC 33.1 g/dL (31.0-37.0); MCV 88.7 fL (80.0-100.0); Mean Platelet Volume 8.1; Monocytes # (A) 0.3 k/uL (0-1.0); Monocytes % (A) 3 %; Neutrophils # (A) 7.1 k/uL (1.3-7.7); Neutrophils % (A) 69 %; Poikilocytosis Slight; RBC 4.64 m/uL (3.80-5.40); WBC 10.4 k/uL (3.8-10.6)
[2021-01-02 12:18] LABS: Platelet Count 240 k/uL (150-450)
[2021-01-02 12:33] LABS: ALT 26 U/L (4-34); AST 52 U/L (14-36); African American GFR (CKD) >90 (>60 ml/min/1.73 sqM); Albumin 2.4 g/dL (3.5-5.0); Alkaline Phosphatase 296 U/L (38-126); Anion Gap 6 mmol/L; Blood Urea Nitrogen 5 mg/dL (7-17); Calcium 8.1 mg/dL (8.4-10.2); Carbon Dioxide 31 mmol/L (22-30); Chloride 100 mmol/L (98-107); Glucose 112 mg/dL (74-99); Non-African American GFR(CKD) >90 (>60 ml/min/1.73 sqM); Sodium 137 mmol/L (137-145); Total Protein 5.2 g/dL (6.3-8.2)
[2021-01-02 12:56] LABS: Polychromasia Present
[2021-01-02 13:13] LABS: Potassium 2.6 mmol/L (3.5-5.1)
[2021-01-02] MEDS ORDERED: POTASSIUM CHLORIDE 20 MEQ in WATER FOR INJECTION 1 100ML.BAG IVPB STA (13:18)
[2021-01-02 13:32] LABS: Appearance,Urine Clear (Clear); Bilirubin,Urine 1+ (Negative); Blood,Urine Small (Negative); Color,Urine Yellow; Glucose,Urine (UA) Negative (Negative); Hyaline Casts,Urine 3 /lpf (0-2); Ketones,Urine 3+ (Negative); Leukocyte Esterase,Urine Negative (Negative); Mucus,Urine Few /hpf; Nitrite,Urine Negative (Negative); Protein,Urine Trace (Negative); RBC,Urine 3 /hpf (0-5); Specific Gravity,Urine 1.013 (1.001-1.035); Squamous Epithelial Cell,Urine <1 /hpf (0-4); Urobilinogen,Urine <2.0 mg/dL (<2.0); WBC,Urine 3 /hpf (0-5)
[2021-01-02 13:33] LABS: Magnesium 1.8 mg/dL (1.6-2.3); Phosphorus 2.3 mg/dL (2.5-4.5)
[2021-01-02] MEDS ORDERED: ONDANSETRON 4 MG/2 ML VIAL IVP PRN (14:05)
[2021-01-02] MEDS ORDERED: NALOXONE 0.4 MG/ML 1 ML VIAL IV PRN (14:05)
--- NOTE | 2021-01-02 14:56 | CT ---
EXAMINATION TYPE: CT abdomen pelvis w con DATE OF EXAM: 01/02/2021 COMPARISON: None HISTORY: fever, acute abdominal pain CT DLP: 2122.7 mGycm CONTRAST: CT scan of the abdomen and pelvis is performed without Oral Contrast and with IV Contrast, patient in jected with 100 mL of Isovue 300. FINDINGS: LUNG BASES-: No visible nodule. No infiltrate. Small right-sided pleural effusion with compressive a telectasis. LIVER/GB: Cholelithiasis with gallbladder wall thickening although there is no evidence for inflamm atory change. Correlate clinically. No space occupying hepatic lesion. Biliary tree is of normal linette iber. PANCREAS: No inflammation. No distinct mass. SPLEEN: No splenic enlargement. No lesion seen. ADRENALS: No nodule. No thickening. KIDNEYS/BLADDER: No hydronephrosis. No nephrolithiasis. No distinct renal mass. Urinary bladder g rossly unremarkable. BOWEL: Normal appendix. Normal bowel caliber. No inflammation. GENITAL ORGANS: No gross abnormality. LYMPH NODES: No greater than 1cm abdominal or pelvic lymph nodes are appreciated. AORTA: No significant abnormality. OSSEOUS STRUCTURES: No significant abnormality is seen. OTHER: IVC filter is in place. IMPRESSION: 1. Cholelithiasis with gallbladder wall thickening although there is no evidence for inflammatory nirmal nge. Correlate clinically. 2. Small right-sided pleural effusion and right basilar compressive atelectasis.
[2021-01-02] MEDS ORDERED: Potassium Replacement Protocol 1 EACH MISC MISCELLANE PRN (15:39)
--- NOTE | 2021-01-02 15:53 | P.HPIM ---
History of Present Illness H&P Date: 01/02/21 Chief Complaint: Mental status change HISTORY OF PRESENT ILLNESS This is a 70-year-old female patient of Dr. 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 Patient has history of abscess of the right thigh that was under the care of Dr. Olvera through the wound healing Center. Patient was recently hospitalized from December 22 through December 26 which time she was treated for acute UTI with suspected pyelonephritis and metabolic encephalopathy and sepsis, acute kidney injury. She did undergo modified barium swallow and recommendations were for mechanical soft diet with thin liquids, base of the tongue exercises were recommended. Patient was seen by Dr. Erazo for parotitis secondary to dehydration. She was treated for UTI with Zosyn and discharged on doxycycline. She was seen also by cardiology and ruled out acute coronary syndrome. The patient was discharged home and family did not want home care set up. She is normally bed or wheelchair bound. She now presents back to the emergency center as states that she wouldn't swallow couldn't eat anything complained of sore throat and ear pain. She also did not have much urine output. No fever. She did have a small bowel movement prior to coming into the hospital. Patient was due for her Gammagard apparently today and had missed a dose due to being hospitalized last week. She had her last appointment with her neurologist Dr. Chavez in August 2020 which was a virtual appointment. Patient presented to [facility] emergency center for evaluation. Temperature was 101.5, heart rate 120, blood pressure 126/104, pulse ox 94%. CBC was unremarkable. Sodium 137, potassium 2.6, chloride 100, CO2 31, BUN 5 and creatinine 0.28. Blood pressure 112. Lactic acid 1.9. AST 52, alkaline phosphatase 296. Phosphorus 2.3, magnesium 1.8. Urinalysis clear, nitrite and leukoesterase negative. EKG was sinus tachycardia with left internal hypertrophy. CAT scan of the abdomen and pelvis revealed cholelithiasis with gallbladder wall thickening although there is no evidence of inflammatory change. Small right-sided pleural effusion and right basilar compressive atelectasis. Patient was started on IV Levaquin and potassium was replaced with 20 mEq. She is status post 1800 mL of IV fluid. REVIEW OF SYSTEMS Constitutional: Reported fever, reported chills, no night sweats. No weight change. Reported weakness, Reported fatigue Reported lethargy. Reported daytime sleepiness. EENT: No headache. No blurred vision or double vision, no loss of vision. Reported ear pain. No loss of Hearing, no ringing in the ears, no dizziness. No nasal drainage or congestion. No epistaxis. Reported sore throat. Reported difficulty swallowing. Lungs: No shortness of breath, cough, no sputum production. No wheezing. Cardiovascular: No chest pain, no lower extremity edema. No palpitations. No paroxysmal nocturnal dyspnea. No orthopnea. No lightheadedness or dizziness. No syncopal episodes. Abdominal: No abdominal pain. No nausea, vomiting. No diarrhea. No c onstipation. No bloody or tarry stools.. No loss of appetite. Genitourinary: No dysuria, increased frequency, urgency. No urinary retention. Reported decreased urine output. Musculoskeletal: No myalgias. Reported muscle weakness, chronic gait dysfunction, no frequent falls. No back pain. No neck pain. Integumentary: No wounds, no lesions. No rash or pruritus. No unusual bruising. Neurologic: No aphasia. No facial droop. Reported change in mentation. No head injury. No headache. No paralysis. No paresthesia. Psychiatric: No depression. No anxiety. Endocrine: No abnormal blood sugars. SOCIAL HISTORY Patient smoked for a few years and quit greater than 40 years ago. No marijuana, illicit drug use or alcohol use. She lives at home with her who is her caregiver. She is bedbound and all DME equipment in place. FAMILY HISTORY Mother at age 93 from old age with history of dementia. Father at age 93 from old age with history of dementia. Patient does not have any sisters. Patient has 1 brother and he is alive with no major medical problems. She has 3 children with no major medical problems. PHYSICAL EXAMINATION Gen: This is a 70-year-old female. She is resting on the ER stretcher and appears to be comfortable. No acute distress. HEENT: Head is atraumatic, normocephalic. Pupils equal, round. Sclerae is anicteric. Oral mucous membranes are dry. NECK: Supple. No JVD. No lymphadenopathy. No thyromegaly. LUNGS: Clear to auscultation. No wheezes or rhonchi. No intercostal retractions. HEART: Regular rate and rhythm. No murmur. ABDOMEN: Soft. Bowel sounds are present. No masses. Diffuse abdominal tenderness. EXTREMITIES: No pedal edema. No calf tenderness. NEUROLOGICAL: Patient opens eyes to verbal stimuli. Unable to answer questions or follow directions. Significant generalized weakness noted. ASSESSMENT AND PLAN 1. Acute metabolic encephalopathy and fever of unclear etiology. Patient is status post Levaquin 750 mg 1. Patient has received 1800 ML's of IV fluids. Continue IV fluids at 75 mL per hour. Consult with neurology and infectious disease. The following medications are on hold gabapentin 600 mg at bedtime, 300 mg twice daily, loratadine vitamins, oxybutynin. 2. Dehydration. Continue IV fluids 0.9 normal saline at 75 mL per hour. 3. Severe hypokalemia. Continue grief counselor, continue replacement protocol. 4. 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 Patient normally receives Gammagard every 14 days and missed a dose due to hospitalization. Patient also on chronic prednisone. 5. Hyperlipidemia. Continue simvastatin 40 mg at bedtime. 6. Overactive bladder. Hold oxybutynin. 7. Non-use edema of the lower extremities. 8. Recent left-sided parotitis secondary to dehydration, stable. 9. GI prophylaxis. Protonix. 10. DVT prophylaxis. Lovenox 40 mg subcu daily. Patient will be admitted to the hospital for a minimum of 2 night stay. DISCHARGE PLAN Most likely return home with her . Impression and plan of care have been directed as dictated by the signing physician. Loan Zhang nurse practitioner acting as scribe for signing physician. 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 History of Any Multi-Drug Resistant Organisms: None Reported Date of last positivie culture/infection: 11/19/18 MDRO Source:: THIGH Past Surgical History: Appendectomy, Hysterectomy, Tonsillectomy Additional Past Surgical History / Comment(s): cyst removal left inner thigh, 4 muscle biopsies, facial plastic surgery after bout with shingles, Infusaport. bilateral cataract surgery with lens implants, benign mass removed from urethra, skin graft to left foot, spouse believes pt has filters in bilateral groins for DVTs Past Anesthesia/Blood Transfusion Reactions: Motion Sickness, Postoperative Nausea & Vomiting (PONV) Additional Past Anesthesia/Blood Transfusion Reaction / Comment(s): PONV AFTER URETHRA SURGERY. Past Psychological History: No Psychological Hx Reported Smoking Status: Former smoker Past Alcohol Use History: None Reported Past Drug Use History: None Reported - Past Family History Mother Family Medical History: Dementia Additional Family Medical History / Comment(s): Mother at age 93-95 from Alzheimer dementia. Father Family Medical History: Coronary Artery Disease (CAD), Dementia Additional Family Medical History / Comment(s): Father at age 93-95 from coronary artery disease. Brother(s) Family Medical History: No Reported History Additional Family Medical History / Comment(s): Patient has 1 brother with roby iac disease. Daughter(s) Family Medical History: No Reported History Additional Family Medical History / Comment(s): Patient has 2 daughters with no major medical problems. Son(s) Family Medical History: No Reported History Additional Family Medical History / Comment(s): Patient has one son with no major medical problems. Medications and Allergies Home Medications Medication Instructions Recorded Confirmed Type Calcium Carbonate/Vitamin D3 1 tab PO BID 10/25/14 01/02/21 History [Caltrate 600 Plus D3 Tablet] Gammagard 1 dose IV [id number] 10/25/14 01/02/21 History predniSONE 20 mg PO DAILY 10/25/14 01/02/21 History Gabapentin [Neurontin] 300 mg PO BID@0900,1300 12/26/15 01/02/21 History Oxybutynin Chloride [Ditropan] 5 mg PO BID 02/10/18 01/02/21 History Aspirin EC [Ecotrin Low Dose] 81 mg PO DAILY 08/27/18 01/02/21 History Simvastatin [Zocor] 40 mg PO DAILY 01/14/19 01/02/21 History Acetaminophen [Tylenol Extra 1,000 mg PO Q6H PRN 03/20/19 01/02/21 History Strength] Biotin 10,000 mcg PO DAILY 12/22/20 01/02/21 History Cholecalciferol [Vitamin D3 (25 50 mcg PO DAILY 12/22/20 01/02/21 History Mcg = 1000 Iu)] Gabapentin 600 mg PO HS 12/22/20 01/02/21 History Loratadine [Claritin] 10 mg PO DAILY 12/22/20 01/02/21 History Melatonin 5 mg PO HS 12/22/20 01/02/21 History Multivitamin [Multivitamins Adult 2 tab PO DAILY 12/22/20 01/02/21 History Gummies] Allergies Allergy/AdvReac Type Severity Reaction Status Date / Time diphenhydramine HCl Allergy Mild Itching, Verified 01/02/21 11:36 [From Benadryl] hives cephalexin monohydrate Allergy Itching, Verified 01/02/21 11:36 [From Keflex] hives sulfamethoxazole AdvReac Mild Rash/Hives Verified 01/02/21 11:36 [From Bactrim] trimethoprim [From Bactrim] AdvReac Mild Rash/Hives Verified 01/02/21 11:36 Physical Exam Vitals: Vital Signs Temp Pulse Resp BP Pulse Ox 01/02/21 10:19 101.5 F H 120 H 18 126/104 94 L Intake and Output 01/01/21 01/02/21 01/02/21 22:59 06:59 14:59 Other: Weight 86.183 kg Results CBC & Chem 7: 01/03/21 05:32 01/02/21 20:54
[2021-01-02] MEDS: POTASSIUM CHLORIDE 20 MEQ in WATER FOR INJECTION 1 100ML.BAG IVPB SCH ×3 (16:21→22:32)
[2021-01-02] MEDS: SODIUM CHLORIDE 0.9% 1,000 ML IV SCH (16:25)
[2021-01-02 21:06] LABS: Magnesium 1.8 mg/dL (1.6-2.3); Potassium 3.6 mmol/L (3.5-5.1)
[2021-01-02] MEDS: MELATONIN 5 MG TABLET PO SCH (21:53)
[2021-01-03] MEDS: SODIUM CHLORIDE 0.9% 1,000 ML IV SCH ×2 (04:51→17:55)
--- NOTE | 2021-01-03 09:07 | P.CONS ---
History of Present Illness - Reason for Consult Consult date: 01/02/21 Fever no clear source Requesting physician: Darion Townsend - Chief Complaint Mental status changes x 1 day - History of Present Illness Patient is a 70 year female who was recently admitted at this facility treated for a urinary tract infection, patient urine cultures can be positive for E. coli she was treated with IV Zosyn initially and subsequently discharged home on Augmentin, patient is now presenting back to [facility] ER for evaluation of mental status changes patient was brought in by the has been complaining she was not acting like herself patient did have minimal oral intake patient be complaining of some abdominal pain since Saturday that is 3 day before presentation hospital patient has some nausea but no vomiting denies having any chest pain shortness of breath or cough and no diarrhea has been reported, on presentation. The patient was febrile with a temperature of 101F patient did have slight tachycardia patient did have a normal white count with no left shift or lymphopenia patient did have low potassium of 2.6 creatinine was normal, AST mildly elevated, urine was negative, PCR was negative, patient did have a CT of abdominal pelvis with evidence of cholelithiasis and gallbladder wall thickening but no evidence of inflammation change some atelectasis at lung bases patient did receive a dose of Levaquin in the ER subsequent has been admitted to the hospital infectious disease was consulted for further management Review of Systems Positive point has been mentioned in the HPI rest of the systems are negative Past Medical History Past Medical History: Deep Vein Thrombosis (DVT), Hyperlipidemia, Musculoskeletal Disorder, Skin Disorder Additional Past Medical History / Comment(s): Inclusion body myositis, 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 History of Any Multi-Drug Resistant Organisms: None Reported Year Discovered:: 11/19/18 MDRO Source:: THIGH Past Surgical History: Appendectomy, Hysterectomy, Tonsillectomy Additional Past Surgical History / Comment(s): cyst removal left inner thigh, 4 muscle biopsies, facial plastic surgery after bout with shingles, Infusaport. bilateral cataract surgery with lens implants, benign mass removed from urethra, skin graft to left foot, spouse believes pt has filters in bilateral groins for DVTs Past Anesthesia/Blood Transfusion Reactions: Motion Sickness, Postoperative Nausea & Vomiting (PONV) Additional Past Anesthesia/Blood Transfusion Reaction / Comm: PONV AFTER URETHRA SURGERY. Past Psychological History: No Psychological Hx Reported Smoking Status: Former smoker Past Alcohol Use History: None Reported Past Drug Use History: None Reported - Past Family History Mother Family Medical History: Dementia Additional Family Medical History / Comment(s): Mother at age 93-95 from Alzheimer dementia. Father Family Medical History: Coronary Artery Disease (CAD), Dementia Additional Family Medical History / Comment(s): Father at age 93-95 from coronary artery disease. Brother(s) Family Medical History: No Reported History Additional Family Medical History / Comment(s): Patient has 1 brother with celiac disease. Daughter(s) Family Medical History: No Reported History Additional Family Medical History / Comment(s): Patient has 2 daughters with no major medical problems. Son(s) Family Medical History: No Reported History Additional Family Medical History / Comment(s): Patient has one son with no major medical problems. Medications and Allergies Home Medications Medication Instructions Recorded Confirmed Type Calcium Carbonate/Vitamin D3 1 tab PO BID 10/25/14 01/02/21 History [Caltrate 600 Plus D3 Tablet] Gammagard 1 dose IV [id number] 10/25/14 01/02/21 History predniSONE 20 mg PO DAILY 10/25/14 01/02/21 History Gabapentin [Neurontin] 300 mg PO BID@0900,1300 12/26/15 01/02/21 History Oxybutynin Chloride [Ditropan] 5 mg PO BID 02/10/18 01/02/21 History Aspirin EC [Ecotrin Low Dose] 81 mg PO DAILY 08/27/18 01/02/21 History Simvastatin [Zocor] 40 mg PO DAILY 01/14/19 01/02/21 History Acetaminophen [Tylenol Extra 1,000 mg PO Q6H PRN 03/20/19 01/02/21 History Strength] Biotin 10,000 mcg PO DAILY 12/22/20 01/02/21 History Cholecalciferol [Vitamin D3 (25 50 mcg PO DAILY 12/22/20 01/02/21 History Mcg = 1000 Iu)] Gabapentin 600 mg PO HS 12/22/20 01/02/21 History Loratadine [Claritin] 10 mg PO DAILY 12/22/20 01/02/21 History Melatonin 5 mg PO HS 12/22/20 01/02/21 History Multivitamin [Multivitamins Adult 2 tab PO DAILY 12/22/20 01/02/21 History Gummies] Allergies Allergy/AdvReac Type Severity Reaction Status Date / Time diphenhydramine HCl Allergy Mild Itching, Verified 01/02/21 11:36 [From Benadryl] hives cephalexin monohydrate Allergy Itching, Verified 01/02/21 11:36 [From Keflex] hives sulfamethoxazole AdvReac Mild Rash/Hives Verified 01/02/21 11:36 [From Bactrim] trimethoprim [From Bactrim] AdvReac Mild Rash/Hives Verified 01/02/21 11:36 Physical Exam Vitals: Vital Signs Temp Pulse Resp BP Pulse Ox 01/02/21 22:33 98.8 F 106 H 18 160/89 98 01/02/21 14:53 99.0 F 107 H 18 133/81 99 01/02/21 13:10 99.2 F 126 H 18 109/72 97 01/02/21 10:19 101.5 F H 120 H 18 126/104 94 L Intake and Output 01/02/21 01/02/21 01/03/21 14:59 22:59 06:59 Other: Weight 86.183 kg GENERAL DESCRIPTION: An elderly female lying in bed, no distress. No tachypnea or accessory muscle of respiration use. HEENT: Shows Pallor , no scleral icterus. Oral mucous membrane is dry. No pharyngeal erythema or thrush NECK: Trachea central, no thyromegaly. LUNGS: Unlabored breathing. Decreased breath sound at the base. No wheeze or crackle. HEART: S1, S2, regular rate and rhythm. No loud murmur ABDOMEN: Soft, mild upper quadrant tenderness , guarding or rigidity, no organomegaly EXTREMITIES: No edema of feet. SKIN: No rash, no masses palpable. NEUROLOGICAL: The patient is awake, alert, oriented x2, mood and affect normal. Results CBC & Chem 7: 01/02/21 11:47 01/02/21 20:54 Labs: Abnormal Lab Results - Last 24 Hours (Table) 04/02/1701/02/21 01/02/21 Range/Units 11:47 11:47 11:47 RDW 19.0 H (11.5-15.5) % Potassium 2.6 L* (3.5-5.1) mmol/L Carbon Dioxide 31 H (22-30) mmol/L BUN 5 L (7-17) mg/dL Creatinine 0.28 L (0.52-1.04) mg/dL Glucose 112 H (74-99) mg/dL Calcium 8.1 L (8.4-10.2) mg/dL Phosphorus 2.3 L (2.5-4.5) mg/dL AST 52 H (14-36) U/L Alkaline Phosphatase 296 H (38-126) U/L Total Protein 5.2 L (6.3-8.2) g/dL Albumin 2.4 L (3.5-5.0) g/dL Urine Protein (Negative) Urine Ketones (Negative) Urine Blood (Negative) Urine Bilirubin (Negative) Hyaline Casts (0-2) /lpf Urine Mucus (None) /hpf 01/02/21 Range/Units 12:39 RDW (11.5-15.5) % Potassium (3.5-5.1) mmol/L Carbon Dioxide (22-30) mmol/L BUN (7-17) mg/dL Creatinine (0.52-1.04) mg/dL Glucose (74-99) mg/dL Calcium (8.4-10.2) mg/dL Phosphorus (2.5-4.5) mg/dL AST (14-36) U/L Alkaline Phosphatase (38-126) U/L Total Protein (6.3-8.2) g/dL Albumin (3.5-5.0) g/dL Urine Protein Trace H (Negative) Urine Ketones 3+ H (Negative) Urine Blood Small H (Negative) Urine Bilirubin 1+ H (Negative) Hyaline Casts 3 H (0-2) /lpf Urine Mucus Few H (None) /hpf Assessment and Plan Assessment: Patient presented to the hospital with mental status changes in this patient who did have a fever of 101F patient also, negative abdominal pain she was noticed to be mildly tender in the right upper quadrant area and did have abnormal CT with gallstone and gallbladder wall thickening possible cholecystitis to be in the differential in this patient currently with no other obvious focus of infection, patient did have a negative UA, no significant respiratory symptoms and no evidence of any cellulitis 2-Patient with multiple antibiotic ALLERGIES that would limit the number of antibiotic safe to use (1) Sepsis Current Visit: No Status: Acute Code(s): A41.9 - SEPSIS, UNSPECIFIED ORGANISM SNOMED Code(s): 61762932 Plan: 1- we will start the patient on Zosyn 3.375 g every 8 hours 2- we'll obtain HIDA scan We will follow on clinical condition and cultures to further adjust medication if needed Thank you for this consultation will follow this patient with you
[2021-01-03] MEDS: ENOXAPARIN 40 MG/0.4 ML SYRINGE SQ SCH (09:10)
[2021-01-03] MEDS: predniSONE 20 MG TAB PO SCH (09:11)
[2021-01-03] MEDS: ASPIRIN 81 MG PO SCH (09:11)
[2021-01-03] MEDS: ATORVASTATIN 20 MG TAB PO SCH (09:11)
[2021-01-03] MEDS: PANTOPRAZOLE 40 MG/10 ML VIAL IVP SCH (09:16)
[2021-01-03] MEDS: PIPERACILLIN-TAZOBACTAM 3.375 GM in SODIUM CHLORIDE 0.9% 100 ML IVPB SCH ×3 (09:51→21:09)
[2021-01-03 09:58] LABS: Basophils # (A) 0.07 X 10*3/uL (0.00-0.10); Basophils % (A) 0.9 %; Eosinophils # (A) 0.01 X 10*3/uL (0.04-0.35); Eosinophils % (A) 0.1 %; HCT 43.1 % (37.2-46.3); HGB 12.9 g/dL (12.0-15.0); Lymphocytes # (A) 2.11 X 10*3/uL (0.90-5.00); Lymphocytes % (A) 28.6 %; MCH 28.6 pg (27.0-32.0); MCHC 29.9 g/dL (32.0-37.0); MCV 95.6 fL (80.0-97.0); Mean Platelet Volume 11.4 fL (9.5-12.2); Monocytes # (A) 0.46 X 10*3/uL (0.20-1.00); Monocytes % (A) 6.2 %; Neutrophils % (A) 62.3 %; Platelet Count 179 X 10*3/uL (140-440); RBC 4.51 X 10*6/uL (4.10-5.20); RDW 20.6 % (11.5-14.5); WBC 7.39 X 10*3/uL (4.50-10.00)
--- NOTE | 2021-01-03 11:49 | P.PN ---
Subjective Progress Note Date: 01/03/21 HISTORY OF PRESENT ILLNESS This is a 70-year-old female patient of Dr. 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 Patient has history of abscess of the right thigh that was under the care of Dr. Olvera through the wound healing Center. Patient was recently hospitalized from December 22 through December 26 which time she was treated for acute UTI with suspected pyelonephritis and metabolic encephalopathy and sepsis, acute kidney injury. She did undergo modified barium swallow and recommendations were for mechanical soft diet with thin liquids, base of the tongue exercises were recommended. Patient was seen by Dr. Erazo for parotitis secondary to dehydration. She was treated for UTI with Zosyn and discharged on doxycycline. She was seen also by cardiology and ruled out acute coronary syndrome. The patient was discharged home and family did not want home care set up. She is normally bed or wheelchair bound. She now presents back to the emergency center as states that she wouldn't swallow couldn't eat anything complained of sore throat and ear pain. She also did not have much urine output. No fever. She did have a small bowel movement prior to coming into the hospital. Patient was due for her Gammagard apparently today and had missed a dose due to being hospitalized last week. She had her last appointment with her neurologist Dr. Chavez in August 2020 which was a virtual appointment. Patient presented to [facility] emergency center for evaluation. Temperature was 101.5, heart rate 120, blood pressure 126/104, pulse ox 94%. CBC was unremarkable. Sodium 137, potassium 2.6, chloride 100, CO2 31, BUN 5 and creatinine 0.28. Blood pressure 112. Lactic acid 1.9. AST 52, alkaline phosphatase 296. Phosphorus 2.3, magnesium 1.8. Urinalysis clear, nitrite and leukoesterase negative. EKG was sinus tachycardia with left internal hypertrophy. CAT scan of the abdomen and pelvis revealed cholelithiasis with gallbladder wall thickening although there is no evidence of inflammatory change. Small right-sided pleural effusion and right basilar compressive atelectasis. Patient was started on IV Levaquin and potassium was replaced with 20 mEq. She is status post 1800 mL of IV fluid. 01/03: Patient has been afebrile since admission, heart rate 114, blood pressure 138/87, pulse ox 98% on 2 L nasal cannula. Repeat potassium yesterday afternoon was 3.6 and magnesium 1.8. Patient's mental status is slightly improved from yesterday. She is awake and alert but remains confused. IV access has been unable to be obtained and Accu cath has been ordered. Consult in place with neurology and infectious disease. REVIEW OF SYSTEMS Constitutional: Reported fever, reported chills, no night sweats. No weight change. Reported weakness, Reported fatigue Reported lethargy. Reported daytime sleepiness. EENT: No headache. No blurred vision or double vision, no loss of vision. Reported ear pain. No loss of Hearing, no ringing in the ears, no dizziness. No nasal drainage or congestion. No epistaxis. Reported sore throat. Reported difficulty swallowing. Lungs: No shortness of breath, cough, no sputum production. No wheezing. Cardiovascular: No chest pain, no lower extremity edema. No palpitations. No paroxysmal nocturnal dyspnea. No orthopnea. No lightheadedness or dizziness. No syncopal episodes. Abdominal: No abdominal pain. No nausea, vomiting. No diarrhea. No constipation. No bloody or tarry stools. No loss of appetite. Genitourinary: No dysuria, increased frequency, urgency. No urinary retention. Reported decreased urine output. Musculoskeletal: No myalgias. Reported muscle weakness, chronic gait dysfunction, no frequent falls. No back pain. No neck pain. Integumentary: No wounds, no lesions. No rash or pruritus. No unusual bruising. Neurologic: No aphasia. No facial droop. Reported change in mentation. No head injury. No headache. No paralysis. No paresthesia. Psychiatric: No depression. No anxiety. Endocrine: No abnormal blood sugars. PHYSICAL EXAMINATION Gen: This is a 70-year-old female. She is resting in bed and appears to be comfortable. No acute distress. HEENT: Head is atraumatic, normocephalic. Pupils equal, round. Sclerae is anicteric. Oral mucous membranes are dry. NECK: Supple. No JVD. No lymphadenopathy. No thyromegaly. LUNGS: Clear to auscultation. No wheezes or rhonchi. No intercostal retractions. HEART: Regular rate and rhythm. No murmur. ABDOMEN: Soft. Bowel sounds are present. No masses. Diffuse abdominal tenderness. External female catheter in place. Stage II decubitus ulcer on coccyx, POA. EXTREMITIES: 1+ bilateral pedal edema. No calf tenderness. NEUROLOGICAL: Patient is awake and alert, oriented to person and place. He is able to answer only simple questions. Significant generalized weakness noted. ASSESSMENT AND PLAN 1. Acute metabolic encephalopathy and fever of unclear etiology. Patient is status post Levaquin 750 mg 1. Patient has received 1800 ML's of IV fluids. Continue IV fluids at 75 mL per hour. Consult with neurology and infectious disease in place. Infectious disease has started the patient on Zosyn. The following medications are on hold gabapentin 600 mg at bedtime, 300 mg twice daily, loratadine vitamins, oxybutynin. 2. Dehydration. Continue IV fluids 0.9 normal saline at 75 mL per hour. 3. Severe hypokalemia. Continue night monitor, continue replacement protocol. 4. 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 Patient normally receives Gammagard every 14 days and missed a dose due to hospitalization. Patient also on chronic prednisone. 5. Hyperlipidemia. Continue simvastatin 40 mg at bedtime. 6. Overactive bladder. Hold oxybutynin. 7. Non-use edema of the lower extremities. 8. Recent left-sided parotitis secondary to dehydration, stable. 9. GI prophylaxis. Protonix. 10. DVT prophylaxis. Lovenox 40 mg subcu daily. DISCHARGE PLAN Most likely return home with her . Impression and plan of care have been directed as dictated by the signing physician. Loan Zhang nurse practitioner acting as scribe for signing physician. Objective - Vital Signs Vital signs: Vital Signs Temp 98.9 F 01/03/21 04:53 Pulse 114 H 01/03/21 04:53 Resp 20 01/03/21 04:53 BP 138/87 01/03/21 04:53 Pulse Ox 98 01/03/21 04:53 Intake & Output 01/02/21 01/03/21 01/03/21 18:59 06:59 18:59 Weight 86.183 kg 86.183 kg Other: # Voids 1 - Labs CBC & Chem 7: 01/03/21 05:32 01/02/21 20:54 Labs: Abnormal Lab Results - Last 24 Hours (Table) 01/02/21 01/02/21 01/02/21 Range/Units 11:47 11:47 11:47 RDW 19.0 H (11.5-15.5) % Potassium 2.6 L* (3.5-5.1) mmol/L Carbon Dioxide 31 H (22-30) mmol/L BUN 5 L (7-17) mg/dL Creatinine 0.28 L (0.52-1.04) mg/dL Glucose 112 H (74-99) mg/dL Calcium 8.1 L (8.4-10.2) mg/dL Phosphorus 2.3 L (2.5-4.5) mg/dL AST 52 H (14-36) U/L Alkaline Phosphatase 296 H (38-126) U/L Total Protein 5.2 L (6.3-8.2) g/dL Albumin 2.4 L (3.5-5.0) g/dL Urine Protein (Negative) Urine Ketones (Negative) Urine Blood (Negative) Urine Bilirubin (Negative) Hyaline Casts (0-2) /lpf Urine Mucus (None) /hpf 01/02/21 Range/Units 12:39 RDW (11.5-15.5) % Potassium (3.5-5.1) mmol/L Carbon Dioxide (22-30) mmol/L BUN (7-17) mg/dL Creatinine (0.52-1.04) mg/dL Glucose (74-99) mg/dL Calcium (8.4-10.2) mg/dL Phosphorus (2.5-4.5) mg/dL AST (14-36) U/L Alkaline Phosphatase (38-126) U/L Total Protein (6.3-8.2) g/dL Albumin (3.5-5.0) g/dL Urine Protein Trace H (Negative) Urine Ketones 3+ H (Negative) Urine Blood Small H (Negative) Urine Bilirubin 1+ H (Negative) Hyaline Casts 3 H (0-2) /lpf Urine Mucus Few H (None) /hpf
[2021-01-03 13:20] LABS: ALT 27 U/L (8-44); AST 68 U/L (13-35); African American GFR (CKD) 133.5 (60.0-200.0); Albumin/Globulin Ratio 1.15 (1.60-3.17); Alkaline Phosphatase 226 U/L (41-126); Blood Urea Nitrogen <5.0 mg/dL (9.0-27.0); C Reactive Protein 13.9 mg/dL (0.0-0.8); Calcium 7.8 mg/dL (8.7-10.3); Carbon Dioxide 24.9 mmol/L (21.6-31.8); Chloride 103 mmol/L (96-109); Glucose 103 mg/dL (70-110); Non-African American GFR(CKD) 115.2 (60.0-200.0); Potassium 4.1 mmol/L (3.5-5.5); Sodium 142 mmol/L (135-145); Total Bilirubin 0.6 mg/dL (0.2-1.2); Total Protein 4.3 g/dL (6.2-8.2)
--- NOTE | 2021-01-03 14:53 | P.CNNES ---
History of Present Illness Consult date: 01/03/21 Requesting physician: [place] Reason for Consult: Acute encephalopathy, infusion myositis History of Present Illness: Patient is a 70-year-old female came to the hospital yesterday at 10:05 AM by ambulance for altered mental status. Apparently patient was recently hospitalized for a UTI, strep throat and sepsis, returned home last Saturday12/26/2020. Since discharge from the hospital, patient has been complaining of ear and throat pain. However on , 12/29/2020, she started complaining of stomach hurting, therefore the family brought her to the hospital. She also has been altered, sleeping most of the day, states has been very little to eat or drink since returning home. I spoke to patient's daughter, who states that patient has been diagnosed with inclusion body myositis for which she follows up with Dr. Kishan Chavez at [facility]. She was diagnosed with this condition about 20 years ago. She has been on IVIG every 2 weeks along with prednisone 20 mg. Her last dose was 2 weeks ago, as she was due for another dose of IVIG yesterday but she was in the hospital. Patient has been progressively deteriorating, has been bedbound for the last 2-3 years. Patient's daughter also mentioned that usually patient is able to swallow pills on her own without need to crush. However since Saturday, 2 days ago, she has to be fed, and the pills had to be crushed and she was incontinent. This was something change. Patient at present lives at her home, and her 's and caregiver. Per EMS patient was conscious, lethargic, laying in the bed. Patient is awake, makes eye contact with verbal stimuli, however will not answer questions. Patient seemed very agitated and does not seem to want to be bothered. No signs of a stroke. Patient was oriented 2. Vital signs at the scene blood pressure was 126/95, pulse rate 123, saturation 95% and blood sugar 92. Temperature 100.7. Vital signs on arrival blood pressure 126/104, pulse rate 120, temperature 101.5. EKG shows sinus tachycardia, left-ventricular hypertrophy. CT of abdomen and pelvis shows cholelithiasis with gallbladder wall thickening although there is no evidence for inflammatory change. Small right-sided pleural effusion and right basilar compressive atelectasis. Blood test shows normal CBC, sodium 137 potassium 2.6, renal functions normal, AST is mildly elevated 52, ALT 26. UA shows 3+ ketones and small amount of blood. Can virus PCR negative. Patient currently is on prednisone 20 mg, Gammagard IV every 14 days, gabapentin 300 mg twice a day and gabapentin 600 mg at bedtime, oxybutynin, aspirin 81 mg, Lipitor 40 mg. Melatonin. Patient's daughter also believes that patient has signs of dementia since last summer when she was hospitalized for 2 weeks for with similar problems. She has been more forgetful since then. Review of Systems Patient denies headache. I asked multiple times. Patient states that "I cannot see" although she is able to count fingers, and her visual rangel are full. Patient has dry mouth. Peripheral edema. Weakness of arms and legs. 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 History of Any Multi-Drug Resistant Organisms: None Reported Date of last positivie culture/infection: 11/19/18 MDRO Source:: THIGH Past Surgical History: Appendectomy, Hysterectomy, Tonsillectomy Additional Past Surgical History / Comment(s): cyst removal left inner thigh, 4 muscle biopsies, facial plastic surgery after bout with shingles, Infusaport. bilateral cataract surgery with lens implants, benign mass removed from urethra, skin graft to left foot, spouse believes pt has filters in bilateral groins for DVTs Past Anesthesia/Blood Transfusion Reactions: Motion Sickness, Postoperative Nausea & Vomiting (PONV) Additional Past Anesthesia/Blood Transfusion Reaction / Comment(s): PONV AFTER URETHRA SURGERY. Past Psychological History: No Psychological Hx Reported Smoking Status: Former smoker Past Alcohol Use History: None Reported Past Drug Use History: None Reported - Past Family History Mother Family Medical History: Dementia Additional Family Medical History / Comment(s): Mother at age 93-95 from Alzheimer dementia. Father Family Medical History: Coronary Artery Disease (CAD), Dementia Additional Family Medical History / Comment(s): Father at age 93-95 from coronary artery disease. Brother(s) Family Medical History: No Reported History Additional Family Medical History / Comment(s): Patient has 1 brother with scooby c disease. Daughter(s) Family Medical History: No Reported History Additional Family Medical History / Comment(s): Patient has 2 daughters with no major medical problems. Son(s) Family Medical History: No Reported History Additional Family Medical History / Comment(s): Patient has one son with no major medical problems. Medications and Allergies Home Medications Medication Instructions Recorded Confirmed Type Calcium Carbonate/Vitamin D3 1 tab PO BID 10/25/14 01/02/21 History [Caltrate 600 Plus D3 Tablet] Gammagard 1 dose IV [id number] 10/25/14 01/02/21 History predniSONE 20 mg PO DAILY 10/25/14 01/02/21 History Gabapentin [Neurontin] 300 mg PO BID@0900,1300 12/26/15 01/02/21 History Oxybutynin Chloride [Ditropan] 5 mg PO BID 02/10/18 01/02/21 History Aspirin EC [Ecotrin Low Dose] 81 mg PO DAILY 08/27/18 01/02/21 History Simvastatin [Zocor] 40 mg PO DAILY 01/14/19 01/02/21 History Acetaminophen [Tylenol Extra 1,000 mg PO Q6H PRN 03/20/19 01/02/21 History Strength] Biotin 10,000 mcg PO DAILY 12/22/20 01/02/21 History Cholecalciferol [Vitamin D3 (25 50 mcg PO DAILY 12/22/20 01/02/21 History Mcg = 1000 Iu)] Gabapentin 600 mg PO HS 12/22/20 01/02/21 History Loratadine [Claritin] 10 mg PO DAILY 12/22/20 01/02/21 History Melatonin 5 mg PO HS 12/22/20 01/02/21 History Multivitamin [Multivitamins Adult 2 tab PO DAILY 12/22/20 01/02/21 History Gummies] Allergies Allergy/AdvReac Type Severity Reaction Status Date / Time diphenhydramine HCl Allergy Mild Itching, Verified 01/02/21 11:36 [From Benadryl] hives cephalexin monohydrate Allergy Itching, Verified 01/02/21 11:36 [From Keflex] hives sulfamethoxazole AdvReac Mild Rash/Hives Verified 01/02/21 11:36 [From Bactrim] trimethoprim [From Bactrim] AdvReac Mild Rash/Hives Verified 01/02/21 11:36 Physical Examination - Vital Signs Vital Signs: Vital Signs Temp Pulse Pulse Pulse Resp BP BP 01/03/21 08:33 01/03/21 08:00 98.6 F 111 H 16 138/88 01/03/21 04:53 98.9 F 114 H 20 138/87 01/03/21 03:48 110 H 16 131/93 01/02/21 22:33 98.8 F 106 H 18 160/89 01/02/21 14:53 99.0 F 107 H 18 133/81 01/02/21 13:10 99.2 F 126 H 18 109/72 Pulse Ox 01/03/21 08:33 95 01/03/21 08:00 97 01/03/21 04:53 98 01/03/21 03:48 96 01/02/21 22:33 98 01/02/21 14:53 99 01/02/21 13:10 97 Intake and Output 01/02/21 01/03/21 01/03/21 22:59 06:59 14:59 Other: # Voids 1 Weight 86.183 kg On examination patient is an elderly female, who appears obviously en cephalopathic, slightly delirious. She is otherwise alert and awake. She has slow mentation, prolonged latency time to answer any question. She is oriented 1, to her name. She could not tell the city or state [place] lives. She could not tell the current month or the year. Does not know name of the president. At times it appears that she is to tired or sick to answer any questions, as she was able to tell me about her diagnosis of inclusion body myositis and that she follows up with Dr. Kishan Chavez. Speech was clear with no aphasia or dysarthria. On cranial exam showed pupils are round and reacting to light, visual rangel are full on confrontation, extraocular muscles are intact. Face appears symmetric. Patient's mouth is very dry, lips are chapped. Tongue protrudes to the midline. Facial sensations equal. Patient's shoulders are somewhat contracted on the right. On muscle strength testing patient is very weak in the arms and legs. Her vacuum repairer is 3 bilaterally, biceps 2 on the right, 3 on left. Patient cannot move her deltoids. She can move her lower extremities only at the level of the hips, only [id number], with no flexion. Patient has bilateral footdrop, no movement of her toes, feet or ankles. Patient is areflexic all over. Plantars are flat. Sensations are equal. Cerebellar functions could not be performed. Gait cannot be checked. On general examination, there is no obvious bruit, S1 and S2 audible. Patient has peripheral edema. Chest is clear. Results - Laboratory Findings CBC and BMP: 01/03/21 05:32 01/03/21 05:32 Abnormal Lab Findings: Abnormal Labs 01/02/21 01/02/21 01/02/21 11:47 11:47 11:47 MCHC RDW 19.0 H Absolute Nucleated RBC Immature Gran # Eosinophils # NRBC/100 WBC Diff Potassium 2.6 L* Carbon Dioxide 31 H BUN 5 L Creatinine 0.28 L Glucose 112 H Calcium 8.1 L Phosphorus 2.3 L AST 52 H Alkaline Phosphatase 296 H Total Protein 5.2 L Albumin 2.4 L Urine Protein Urine Ketones Urine Blood Urine Bilirubin Hyaline Casts Urine Mucus 01/02/21 01/03/21 12:39 05:32 MCHC 29.9 L RDW 20.6 H Absolute Nucleated RBC 0.04 H Immature Gran # 0.14 H Eosinophils # 0.01 L NRBC/100 WBC Diff 0.5 H Potassium Carbon Dioxide BUN Creatinine Glucose Calcium Phosphorus AST Alkaline Phosphatase Total Protein Albumin Urine Protein Trace H Urine Ketones 3+ H Urine Blood Small H Urine Bilirubin 1+ H Hyaline Casts 3 H Urine Mucus Few H Assessment and Plan Assessment: * Altered mental status, likely due to delirium, possible metabolic encephalopathy. Patient is febrile, suggestive of cryptogenic infection. Patient denies headache, therefore doubt intracranial process. Per ID, likely source is gallbladder. Patient undergoing HIDA scan. * Recent history of UTI. Patient has decreased nutritional intake, dehydration, hypokalemia likely the cause. * History of inclusion body myositis, on IVIG and prednisone, follows up with neurologist at [facility]. * Memory disturbance with forgetfulness for last 1 year. Possible mild underlying cognitive impairment. * Generalized disability, bedbound state for last 2-3 years because of IBM. 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 Patient will continue to follow with her neurologist. May hold IVIG until patient has recovered from acute illness. * Patient has abdominal tenderness, possibility of cholecystitis. Patient undergoing HIDA scan. ID following. * Patient's daughter also has raised concern about memory loss, possible dementia. At this time patient is delirious, therefore cannot assess for underlying cognitive impairment/dementia. Patient's daughter was recommended to follow up with her neurologist once her acute medical condition has resolve d for cognitive function testing. * We will check B12, folate, TSH, B1, B6 level. Her last CK was 257 on 12/24/2020 with normal aldolase 5.7. * Neurology will follow.
[2021-01-03] MEDS: MELATONIN 5 MG TABLET PO SCH (21:12)
[2021-01-04] MEDS: PIPERACILLIN-TAZOBACTAM 3.375 GM in SODIUM CHLORIDE 0.9% 100 ML IVPB SCH ×3 (04:20→19:20)
--- NOTE | 2021-01-04 06:05 | PN ---
PROGRESS NOTE DATE OF SERVICE: 01/03/2021 REASON FOR FOLLOWUP: Fever. INTERVAL HISTORY: The patient overall feels better and has improved. The patient was slightly more awake, alert this morning when seen. The patient denies any chest pain or shortness of breath. No nausea or vomiting. No abdominal pain or diarrhea. PHYSICAL EXAMINATION: Blood pressure 134/77, pulse of 96, temperature 98.1, she is 100% on 2 L nasal cannula. General description is an elderly female lying in bed in no distress. Respiratory system: Unlabored breathing, decreased intensity of breath sounds. No wheeze. HEART: S1, S2. Regular rate and rhythm. ABDOMEN: Soft, no tenderness. No guarding or rigidity. LABS: Blood culture has been negative. White count normal 7.39, creatinine 0.3. HIDA scan requested, not completed. DIAGNOSTIC IMPRESSION AND PLAN: Patient presented to the hospital with mental status changes and fever. Patient with complex abdominal pain. Did have mild abnormal CT with concern for possible cholecystitis. HIDA scan was requested but apparently not completed. Will discuss further with nursing staff. Continue Zosyn while waiting for the culture to finalize. MMODL / IJN: [id number] /
[2021-01-04] MEDS: SODIUM CHLORIDE 0.9% 1,000 ML IV SCH ×2 (09:49→19:15)
[2021-01-04] MEDS: ATORVASTATIN 20 MG TAB PO SCH (09:50)
[2021-01-04] MEDS: ASPIRIN 81 MG PO SCH (09:50)
[2021-01-04] MEDS: predniSONE 20 MG TAB PO SCH (09:50)
[2021-01-04] MEDS: ENOXAPARIN 40 MG/0.4 ML SYRINGE SQ SCH (09:50)
[2021-01-04] MEDS: PANTOPRAZOLE 40 MG/10 ML VIAL IVP SCH (09:52)
--- NOTE | 2021-01-04 13:06 | P.PN ---
Subjective Progress Note Date: 01/04/21 HISTORY OF PRESENT ILLNESS This is a 70-year-old female patient of Dr. 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 [facility] [place] on Gammagard every 2 weeks for many years. Patient has history of abscess of the right thigh that was under the care of Dr. Olvera through the wound healing Center. Patient was recently hospitalized from December 22 through December 26 which time she was treated for acute UTI with suspected pyelonephritis and metabolic encephalopathy and sepsis, acute kidney injury. She did undergo modified barium swallow and recommendations were for mechanical soft diet with thin liquids, base of the tongue exercises were recommended. Patient was seen by Dr. Erazo for parotitis secondary to dehydration. She was treated for UTI with Zosyn and discharged on doxycycline. She was seen also by cardiology and ruled out acute coronary syndrome. The patient was discharged home and family did not want home care set up. She is normally bed or wheelchair bound. She now presents back to the emergency center as states that she wouldn't swallow couldn't eat anything complained of sore throat and ear pain. She also did not have much urine output. No fever. She did have a small bowel movement prior to coming into the hospital. Patient was due for her Gammagard apparently today and had missed a dose due to being hospitalized last week. She had her last appointment with her neurologist Dr. Chavez in August 2020 which was a virtual appointment. Patient presented to [facility] emergency center for evaluation. Temperature was 101.5, heart rate 120, blood pressure 126/104, pulse ox 94%. CBC was unremarkable. Sodium 137, potassium 2.6, chloride 100, CO2 31, BUN 5 and creatinine 0.28. Blood pressure 112. Lactic acid 1.9. AST 52, alkaline phosphatase 296. Phosphorus 2.3, magnesium 1.8. Urinalysis clear, nitrite and leukoesterase negative. EKG was sinus tachycardia with left internal hypertrophy. CAT scan of the abdomen and pelvis revealed cholelithiasis with gallbladder wall thickening although there is no evidence of inflammatory change. Small right-sided pleural effusion and right basilar compressive atelectasis. Patient was started on IV Levaquin and potassium was replaced with 20 mEq. She is status post 1800 mL of IV fluid. 01/03: Patient has been afebrile since admission, heart rate 114, blood pressure 138/87, pulse ox 98% on 2 L nasal cannula. Repeat potassium yesterday afternoon was 3.6 and magnesium 1.8. Patient's mental status is slightly improved from yesterday. She is awake and alert but remains confused. IV access has been unable to be obtained and Accu cath has been ordered. Consult in place with neurology and infectious disease. 01/04: Patient has been seen by infectious disease with recommendations for Zosyn and possible HIDA scan. This was canceled for unknown reason. We will add order for HIDA scan to be done today. Patient has also been seen by neurology for altered mental status is likely at acute delirium possible metabolic encephalopathy secondary to possible cryptogenic infection. Recommendations to hold IVIG until patient recover from acute illness. Recommendations to follow- up with her neurologist regarding memory loss with possible dementia. The following lab work was ordered: Vitamin B12, folate level, TSH, B1, B6. Patient has been afebrile, heart rate 97, blood pressure 113/72, pulse ox 90% on 2 L nasal cannula. Blood cultures no growth at 24 hours. Midline was placed yesterday for IV access. She was fed by staff. She reviews her breakfast this morning. She is awake and alert but remains confused. REVIEW OF SYSTEMS Constitutional: Reported fever, reported chills, no night sweats. No weight change. Reported weakness, Reported fatigue Reported lethargy. Reported daytime sleepiness. EENT: No headache. No blurred vision or double vision, no loss of vision. Reported ear pain. No loss of Hearing, no ringing in the ears, no dizziness. No nasal drainage or congestion. No epistaxis. Reported sore throat. Reported difficulty swallowing. Lungs: No shortness of breath, cough, no sputum production. No wheezing. Cardiovascular: No chest pain, no lower extremity edema. No palpitations. No paroxysmal nocturnal dyspnea. No orthopnea. No lightheadedness or dizziness. No syncopal episodes. Abdominal: No abdominal pain. No nausea, vomiting. No diarrhea. No constipation. No bloody or tarry stools. No loss of appetite. Genitourinary: No dysuria, increased frequency, urgency. No urinary retention. Reported decreased urine output. Musculoskeletal: No myalgias. Reported muscle weakness, chronic gait dysfunction, no frequent falls. No back pain. No neck pain. Integumentary: No wounds, no lesions. No rash or pruritus. No unusual bruising. Neurologic: No aphasia. No facial droop. Reported change in mentation. No head injury. No headache. No paralysis. No paresthesia. Psychiatric: No depression. No anxiety. Endocrine: No abnormal blood sugars. PHYSICAL EXAMINATION Gen: This is a 70-year-old female. She is resting in bed and appears to be comfortable. No acute distress. HEENT: Head is atraumatic, normocephalic. Pupils equal, round. Sclerae is anicteric. Oral mucous membranes are dry. NECK: Supple. No JVD. No lymphadenopathy. No thyromegaly. LUNGS: Clear to auscultation. No wheezes or rhonchi. No intercostal retractions. HEART: Regular rate and rhythm. No murmur. ABDOMEN: Soft. Bowel sounds are present. No masses. Diffuse abdominal tenderness. External female catheter in place. Stage II decubitus ulcer on coccyx, POA. EXTREMITIES: 1+ bilateral pedal edema. No calf tenderness. NEUROLOGICAL: Patient is awake and alert, oriented to person and place. Patient is able to answer only simple questions. Significant generalized weakness noted. ASSESSMENT AND PLAN 1. Acute metabolic encephalopathy and fever of unclear etiology. Patient is status post Levaquin 750 mg 1. Patient has received 1800 ML's of IV fluids. Continue IV fluids at 75 mL per hour. Consult with neurology and infectious disease appreciated. Infectious disease has started the patient on Zosyn. The following medications are on hold gabapentin 600 mg at bedtime, 300 mg twice daily, loratadine vitamins, oxybutynin. HIDA scan ordered. 2. Dehydration. Continue IV fluids 0.9 normal saline at 75 mL per hour. 3. Severe hypokalemia. Continue telemetry monitor, continue replacement protocol. 4. 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 Patient normally receives Gammagard every 14 days and missed a dose due to hospitalization. Patient also on chronic prednisone. Hold Avagard until infection cleared. Consult with neurology appreciated. 5. Hyperlipidemia. Continue simvastatin 40 mg at bedtime. 6. Overactive bladder. Hold oxybutynin. 7. Non-use edema of the lower extremities. 8. Recent left-sided parotitis secondary to dehydration, stable. 9. GI prophylaxis. Protonix. 10. DVT prophylaxis. Lovenox 40 mg subcu daily. DISCHARGE PLAN Most likely return home with her . Possible discharge tomorrow Impression and plan of care have been directed as dictated by the signing physician. Loan Zhang nurse practitioner acting as scribe for signing physician. Objective - Vital Signs Vital signs: Vital Signs Temp 98.7 F 01/04/21 02:00 Pulse 97 01/04/21 02:00 Resp 16 01/04/21 02:00 BP 113/72 01/04/21 02:00 Pulse Ox 98 01/04/21 02:00 Intake & Output 01/03/21 01/04/21 01/04/21 18:59 06:59 18:59 Intake Total 100 Output Total 250 Balance 100 -250 Intake: Intake, IV Titration 100 Amount Piperacillin-Tazobactam 3 100 .375 gm In Sodium Chloride 0.9% 100 ml @ 25 mls/hr IVPB Q8H [facility] Rx#: [id number] Output: Urine 250 Other: Voiding Method External Catheter External Catheter - Labs CBC & Chem 7: 01/03/21 05:32 01/03/21 05:32 Labs: Abnormal Lab Results - Last 24 Hours (Table) 01/03/21 01/03/21 01/03/21 Range/Units 05:32 05:32 05:32 MCHC 29.9 L (32.0-37.0) g/dL RDW 20.6 H (11.5-14.5) % Absolute Nucleated RBC 0.04 H (0.00-0.00) X 10*3/uL Immature Gran # 0.14 H (0.00-0.04) X 10*3/uL Eosinophils # 0.01 L (0.04-0.35) X 10*3/uL NRBC/100 WBC Diff 0.5 H (0.0-0.0) /100 WBCS Anion Gap 14.10 H (4.00-12.00) mmol/L BUN <5.0 L (9.0-27.0) mg/dL Creatinine 0.3 L (0.6-1.5) mg/dL Calcium 7.8 L (8.7-10.3) mg/dL AST 68 H (13-35) U/L Alkaline Phosphatase 226 H (41-126) U/L C-Reactive Protein 13.9 H (0.0-0.8) mg/dL Total Protein 4.3 L (6.2-8.2) g/dL Albumin 2.30 L (3.80-4.90) g/dL Albumin/Globulin Ratio 1.15 L (1.60-3.17) g/dL Procalcitonin 1.56 H (0.02-0.09) ng/mL Microbiology - Last 24 Hours (Table) 01/02/21 11:30 Blood Culture - Preliminary Blood No Growth after 24 hours 01/02/21 11:37 Blood Culture - Preliminary Blood No Growth after 24 hours
[2021-01-04 13:44] LABS: Folate, Serum >24.0 ng/mL
--- NOTE | 2021-01-04 16:11 | P.PN ---
Subjective Progress Note Date: 01/04/21 Patient was seen for a follow-up. Patient was just moved from bed to the stretcher, as she was going for HIDA scan. Patient was crying, in pain. Patient's was also present today. He states that she started complaining of all this pain, since 12/29/2020. Everything was hurting. Her stomach was hurting, and her throat was hurting. Patient's states that he has a Tasia lift at home, through which he helps her get in the chair. He takes her for infusion of IVIG every 2 weeks. Since last infusion, she has been hollering, crying, pain everywhere, whenever he tries to move her. No focal symptoms otherwise. Objective - Vital Signs Vital signs: Vital Signs Temp 99 F 01/04/21 13:27 Pulse 96 01/04/21 13:27 Resp 17 01/04/21 13:27 BP 109/68 01/04/21 13:27 Pulse Ox 96 01/04/21 13:27 Intake & Output 01/03/21 01/04/21 01/04/21 18:59 06:59 18:59 Intake Total 100 Output Total 250 Balance 100 -250 Intake: Intake, IV Titration 100 Amount Piperacillin-Tazobactam 3 100 .375 gm In Sodium Chloride 0.9% 100 ml @ 25 mls/hr IVPB Q8H [facility] Rx#: [id number] Output: Urine 250 Other: Voiding Method External Catheter External Catheter External Catheter - Exam Deferred, as patient was crying, in pain. She was just move from bed to the stretcher. - Labs CBC & Chem 7: 01/03/21 05:32 01/03/21 05:32 Labs: Microbiology - Last 24 Hours (Table) 01/02/21 11:37 Blood Culture - Preliminary Blood No Growth after 48 hours 01/02/21 11:30 Blood Culture - Preliminary Blood No Growth after 48 hours Assessment and Plan Assessment: * Altered mental status, likely due to delirium, possible metabolic encephalopathy. Patient is febrile, suggestive of cryptogenic infection. Patient denies headache, therefore doubt intracranial process. Per ID, likely source is gallbladder. Patient undergoing HIDA scan today. * Recent history of UTI. Patient has decreased nutritional intake, dehydration, hypokalemia likely the cause. * History of inclusion body myositis, on IVIG and prednisone, [place] [facility] [place] * Memory disturbance with forgetfulness for last 1 year. Possible mild underlying cognitive impairment. * Generalized disability, bedbound state for last 2-3 years because of IBM. 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 Patient will continue to follow with her neurologist. May hold IVIG until patient has recovered from acute illness. * Patient has abdominal tenderness, possibility of cholecystitis. Patient undergoing HIDA scan today. ID following. * Patient's daughter also has raised concern about memory loss, possible dementia. At this time patient is delirious, therefore cannot assess for underlying cognitive impairment/dementia. Patient's daughter was recommended to follow up with her neurologist once her acute medical condition has resolved for cognitive function testing. * B12 936, folate >24, TSH 2.65, B1, B6 level pending. Her last CK was 257 on 12/24/2020 with normal aldolase 5.7. * Discussed with patient's .
--- NOTE | 2021-01-04 16:44 | NM ---
EXAMINATION TYPE: NM hepatobiliary w CCK DATE OF EXAM: 01/04/2021 COMPARISON: NONE INDICATION: Cholelithiasis abdomen pain and fever TECHNIQUE: After the intravenous administration of 4.3 mCi Tc 99m Mebrofenin hepatobiliary scintigrap hy is performed. Images were obtained immediately post injection. FINDINGS: There is prompt uptake and excretion of radiotracer by the liver. Extrahepatic ducts are identified at 14 minutes. The gallbladder is visualized within 20 minutes. Small bowel activity is noted within 36 minutes. At one hour CCK was administered, patient was injected with 1.7 mcg of Kinevac, and gallbladder eject ion fraction is calculated at 21 %, which is low. (Normal >35% and <80%.). IMPRESSION: 1. Low ejection fraction of 21%. Correlate for biliary dyskinesia.
[2021-01-04] MEDS: ACETAMINOPHEN TAB 500 MG TAB PO PRN (16:58)
[2021-01-04] MEDS: MELATONIN 5 MG TABLET PO SCH (20:05)
--- NOTE | 2021-01-04 22:36 | PN ---
PROGRESS NOTE DATE OF SERVICE: 01/04/2021 REASON FOR FOLLOWUP: Fever, possible cholecystitis. INTERVAL HISTORY: The patient is currently afebrile. She is breathing comfortably. Denies having any chest pain or shortness of breath or cough. No abdominal pain or diarrhea. PHYSICAL EXAMINATION: Blood pressure 139/81, pulse of 99, temperature 98. She is 97% on 2 L nasal cannula. General description is an elderly female lying in bed in no distress. RESPIRATORY SYSTEM: Unlabored breathing with decreased intensity of breath sounds. No wheeze. HEART: S1, S2. Regular rate and rhythm. ABDOMEN: Soft. No tenderness. LABS: Hemoglobin is 12.9, white count 7.39, BUN of 5, creatinine 0.3. DIAGNOSTIC IMPRESSION AND PLAN: Patient with a fever, abdominal pain on CT and HIDA scan that shows low EF of the gallbladder with a question of biliary source. The fever responded to Zosyn; to continue. May benefit from surgical evaluation. Continue supportive care. MMODL / IJN: [id number] / MTDKiki
[2021-01-05] MEDS: PIPERACILLIN-TAZOBACTAM 3.375 GM in SODIUM CHLORIDE 0.9% 100 ML IVPB SCH ×3 (03:52→20:56)
[2021-01-05] MEDS: PANTOPRAZOLE 40 MG/10 ML VIAL IVP SCH (07:35)
[2021-01-05] MEDS: ENOXAPARIN 40 MG/0.4 ML SYRINGE SQ SCH (07:35)
[2021-01-05] MEDS: ATORVASTATIN 20 MG TAB PO SCH (07:36)
[2021-01-05] MEDS: ASPIRIN 81 MG PO SCH (07:36)
[2021-01-05] MEDS: predniSONE 20 MG TAB PO SCH (07:36)
[2021-01-05] MEDS: SODIUM CHLORIDE 0.9% 1,000 ML IV SCH ×2 (07:36→22:26)
[2021-01-05 09:43] LABS: HCT 37.5 % (37.2-46.3); HGB 11.3 g/dL (12.0-15.0); MCH 28.6 pg (27.0-32.0); MCHC 30.1 g/dL (32.0-37.0); MCV 94.9 fL (80.0-97.0); Mean Platelet Volume 11.3 fL (9.5-12.2); Platelet Count 195 X 10*3/uL (140-440); RBC 3.95 X 10*6/uL (4.10-5.20); RDW 20.6 % (11.5-14.5); WBC 6.54 X 10*3/uL (4.50-10.00)
[2021-01-05 10:27] LABS: African American GFR (CKD) 152.6 (60.0-200.0); Albumin 2.3 g/dL (3.80-4.90); Albumin/Globulin Ratio 1.21 (1.60-3.17); Anion Gap 13.5 mmol/L (4.00-12.00); Calcium 7.5 mg/dL (8.7-10.3); Carbon Dioxide 25.5 mmol/L (21.6-31.8); Globulin 1.9 g/dL (1.6-3.3); Non-African American GFR(CKD) 131.6 (60.0-200.0); Potassium 2.8 mmol/L (3.5-5.5); Total Bilirubin 0.6 mg/dL (0.2-1.2); Total Protein 4.2 g/dL (6.2-8.2)
[2021-01-05] MEDS: POTASSIUM CHLORIDE ER 20 MEQ TAB.ER PO SCH ×4 (11:47→16:20)
[2021-01-05] MEDS: POTASSIUM CHLORIDE 20 MEQ in WATER FOR INJECTION 1 100ML.BAG IVPB SCH ×4 (13:54→20:14)
--- NOTE | 2021-01-05 14:16 | P.PN ---
Subjective Progress Note Date: 01/05/21 HISTORY OF PRESENT ILLNESS This is a 70-year-old female patient of Dr. 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 Chavez [place] [facility] [place], on Gammagard every 2 weeks for many years. Patient has history of abscess of the right thigh that was under the care of Dr. Olvera through the wound healing Center. Patient was recently hospitalized from December 22 through December 26 which time she was treated for acute UTI with suspected pyelonephritis and metabolic encephalopathy and sepsis, acute kidney injury. She did undergo modified barium swallow and recommendations were for mechanical soft diet with thin liquids, base of the tongue exercises were recommended. Patient was seen by Dr. Erazo for parotitis secondary to dehydration. She was treated for UTI with Zosyn and discharged on doxycycline. She was seen also by cardiology and ruled out acute coronary syndrome. The patient was discharged home and family did not want home care set up. She is normally bed or wheelchair bound. She now presents back to the emergency center as states that she wouldn't swallow couldn't eat anything complained of sore throat and ear pain. She also did not have much urine output. No fever. She did have a small bowel movement prior to coming into the hospital. Patient was due for her Gammagard apparently today and had missed a dose due to being hospitalized last week. She had her last appointment with her neurologist Dr. Chavez in August 2020 which was a virtual appointment. Patient presented to [facility] emergency center for evaluation. Temperature was 101.5, heart rate 120, blood pressure 126/104, pulse ox 94%. CBC was unremarkable. Sodium 137, potassium 2.6, chloride 100, CO2 31, BUN 5 and creatinine 0.28. Blood pressure 112. Lactic acid 1.9. AST 52, alkaline phosphatase 296. Phosphorus 2.3, magnesium 1.8. Urinalysis clear, nitrite and leukoesterase negative. EKG was sinus tachycardia with left internal hypertrophy. CAT scan of the abdomen and pelvis revealed cholelithiasis with gallbladder wall thickening although there is no evidence of inflammatory change. Small right-sided pleural effusion and right basilar compressive atelectasis. Patient was started on IV Levaquin and potassium was replaced with 20 mEq. She is status post 1800 mL of IV fluid. 01/03: Patient has been afebrile since admission, heart rate 114, blood pressure 138/87, pulse ox 98% on 2 L nasal cannula. Repeat potassium yesterday afternoon was 3.6 and magnesium 1.8. Patient's mental status is slightly improved from yesterday. She is awake and alert but remains confused. IV access has been unable to be obtained and Accu cath has been ordered. Consult in place with neurology and infectious disease. 01/04: Patient has been seen by infectious disease with recommendations for Zosyn and possible HIDA scan. This was canceled for unknown reason. We will add order for HIDA scan to be done today. Patient has also been seen by neurology for altered mental status is likely at acute delirium possible metabolic encephalopathy secondary to possible cryptogenic infection. Recommendations to hold IVIG until patient recover from acute illness. Recommendations to follow- up with her neurologist regarding memory loss with possible dementia. The following lab work was ordered: Vitamin B12, folate level, TSH, B1, B6. Patient has been afebrile, heart rate 97, blood pressure 113/72, pulse ox 90% on 2 L nasal cannula. Blood cultures no growth at 24 hours. Midline was placed yesterday for IV access. She was fed by staff. She reviews her breakfast this morning. She is awake and alert but remains confused. 01/05: HIDA scan revealed low ejection fraction of 21%. Correlate for biliary dyskinesia. Dr. Gan recommends continuing Zosyn. Patient is followed by neurology as well. Vitamin B12 level CMXXXVI. Folate greater than 24. TSH 2.650. Repeat blood work reveals WBC 6.5, hemoglobin 11.3, platelet count 195. Sodium 146, potassium 2.8, chloride 107, CO2 25, BUN 5, creatinine 0.2. AST 44, ALT 22, alkaline phosphatase 253. Dr. Townsend discussed condition with the patient's Shukri and patient's would like to move forward with gallbladder surgery. He understands that there are complications and she is at high risk for surgery due to her underlying neurological disorder. Consult has been added for Dr. Bolton to evaluate. REVIEW OF SYSTEMS Constitutional: Reported fever, reported chills, no night sweats. No weight change. Reported weakness, Reported fatigue Reported lethargy. Reported daytime sleepiness. EENT: No headache. No blurred vision or double vision, no loss of vision. Reported ear pain. No loss of Hearing, no ringing in the ears, no dizziness. No nasal drainage or congestion. No epistaxis. Reported sore throat. Reported difficulty swallowing. Lungs: No shortness of breath, cough, no sputum production. No wheezing. Cardiovascular: No chest pain, no lower extremity edema. No palpitations. No paroxysmal nocturnal dyspnea. No orthopnea. No lightheadedness or dizziness. No syncopal episodes. Abdominal: No abdominal pain. No nausea, vomiting. No diarrhea. No constipation. No bloody or tarry stools. No loss of appetite. Genitourinary: No dysuria, increased frequency, urgency. No urinary retention. Reported decreased urine output. Musculoskeletal: No myalgias. Reported muscle weakness, chronic gait dysfunction, no frequent falls. No back pain. No neck pain. Integumentary: No wounds, no lesions. No rash or pruritus. No unusual bruisin g. Neurologic: No aphasia. No facial droop. Reported change in mentation. No head injury. No headache. No paralysis. No paresthesia. Psychiatric: No depression. No anxiety. Endocrine: No abnormal blood sugars. PHYSICAL EXAMINATION Gen: This is a 70-year-old female. She is resting in bed and appears to be comfortable. No acute distress. HEENT: Head is atraumatic, normocephalic. Pupils equal, round. Sclerae is anicteric. Oral mucous membranes are dry. NECK: Supple. No JVD. No lymphadenopathy. No thyromegaly. LUNGS: Clear to auscultation. No wheezes or rhonchi. No intercostal retractions. HEART: Regular rate and rhythm. No murmur. ABDOMEN: Soft. Bowel sounds are present. No masses. Diffuse abdominal tenderness. External female catheter in place. Stage II decubitus ulcer on coccyx, POA. EXTREMITIES: 1+ bilateral pedal edema. No calf tenderness. NEUROLOGICAL: Patient is awake and alert, oriented to person and place. Patient is able to answer only simple questions. Significant generalized weakness noted. ASSESSMENT AND PLAN 1. Acute metabolic encephalopathy and fever of secondary to cholecystitis. Consult with neurology and infectious disease appreciated. Infectious disease has started the patient on Zosyn. The following medications are on hold gabapentin 600 mg at bedtime, 300 mg twice daily, loratadine vitamins, oxybutynin. HIDA scan with low ejection fraction correlate for biliary dyskinesia. Consult with Dr. Bolton 2. Dehydration. Continue IV fluids 0.9 normal saline at 75 mL per hour. 3. Severe hypokalemia. Continue color television console monitor, continue replacement protocol. 4. 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 Patient normally receives Gammagard every 14 days and missed a dose due to hospitalization. Patient also on chronic prednisone. Hold Avagard until infection cleared. Consult with neurology appreciated. 5. Hyperlipidemia. Continue simvastatin 40 mg at bedtime. 6. Overactive bladder. Hold oxybutynin. 7. Non-use edema of the lower extremities. 8. Recent left-sided parotitis secondary to dehydration, stable. 9. Severe hypokalemia. Replacement, recheck potassium this evening and tomorrow morning. 10. GI prophylaxis. Protonix. 11. DVT prophylaxis. Lovenox 40 mg subcu daily. DISCHARGE PLAN Most likely return home with her . Impression and plan of care have been directed as dictated by the signing physician. Loan Zhang nurse practitioner acting as scribe for signing physician. Objective - Vital Signs Vital signs: Vital Signs Temp 98.6 F 01/05/21 07:42 Pulse 93 01/05/21 07:42 Resp 19 01/05/21 07:42 BP 133/84 01/05/21 07:42 Pulse Ox 97 01/05/21 07:42 Intake & Output 01/04/21 01/05/21 01/05/21 18:59 06:59 18:59 Output Total 450 Balance -450 Output: Urine 450 Other: Voiding Method Diaper Diaper # Voids 1 2 - Labs CBC & Chem 7: 01/05/21 04:41 01/05/21 04:41 Labs: Microbiology - Last 24 Hours (Table) 01/02/21 11:37 Blood Culture - Preliminary Blood No Growth after 48 hours 01/02/21 11:30 Blood Culture - Preliminary Blood No Growth after 48 hours
--- NOTE | 2021-01-05 14:56 | P.GSCN ---
<Zari Jean - Last Filed: 01/05/21 15:17> History of Present Illness Consult date: 01/05/21 History of present illness: CHIEF COMPLAINT: Mental status changes HISTORY OF PRESENT ILLNESS: This is a 70-year-old female with a known past medical history of inclusion body myositis diagnosed in 1991 and is followed at the [facility]. She takes Gammagard every 2 weeks. Patient is bedbound. Patient also has a history of obesity, hypertension, chronic kidney disease, hyperlipidemia and a prior right thigh abscess treated by Dr. Olvera at [facility]. She has past surgical history of appendectomy and hysterectomy. Patient presented to the emergency room with altered mental status changes and fever. Patient had recently been hospitalized at the end of November with UTI with sepsis. Per patient's she had been complaining of abdominal pain at home that started this past Saturday. Patient has had poor oral intake. HEENT patient's called EMS due to patient complaining of abdominal pain. She denies any nausea or vomiting. Patient had a computed tomography scan of the abdomen and pelvis done on 01/02/2021 which showed cholelithiasis with gallbladder wall thickening although there is no evidence for inflammatory change. HIDA scan was completed yesterday which showed a low ejection fraction of 21%. Correlate for biliary dyskinesia. Patient does have right upper quadrant tenderness on exam. Patient followed by infectious disease and is currently on IV Zosyn. Patient followed by neurology regarding her metabolic encephalopathy. Patient did have a fever of 101.5 and was tachycardic on admission. Patient is currently afebrile. Surgical service has been consulted in regards to patient's gallbladder dysfunction. PAST MEDICAL HISTORY: See list. PAST SURGICAL HISTORY: See list. MEDICATIONS: See list. ALLERGIES: See list. SOCIAL HISTORY: No illicit drug use. REVIEW OF SYSTEMS: CONSTITUTIONAL: Denies fever or chills. HEENT: Denies blurred vision, vision changes, or eye pain. Denies hemoptysis CARDIOVASCULAR: Denies chest pain or pressure. RESPIRATORY: No shortness of breath. GASTROINTESTINAL: See HPI for pertinent findings HEMATOLOGIC: Denies bleeding disorders. GENITOURINARY: Denies any blood in urine or increased urinary frequency. SKIN: Denies pruitis. Denies rash. PHYSICAL EXAM: VITAL SIGNS: Reviewed GENERAL: Well-developed in no acute distress. HEENT: No sclera icterus. Extraocular movements grossly intact. Moist buccal mucosa. Head is atraumatic, normocephalic. No nasal drainage. ABDOMEN: Soft. Obese. Nondistended. Right upper quadrant tenderness NEUROLOGIC: Alert and oriented to person and place. Skin: Per nursing staff patient does have some skin breakdown on her buttocks. LABORATORY DATA: WBC 6.5 for hemoglobin 11.3 platelets 195 Sodium 146 potassium 2.8 creatinine 0.2 Total bilirubin 0.6 AST 44 ALT 22 alk phos 253 Pro-calcitonin 1.56 Lactic 1.9 IMAGING: computed tomography scan of the abdomen and pelvis done on 01/02/2021 which showed cholelithiasis with gallbladder wall thickening although there is no evidence for inflammatory change. HIDA scan was completed yesterday which showed a low ejection fraction of 21%. Correlate for biliary dyskinesia. ASSESSMENT: 1. Right upper quadrant abdominal pain and fever likely due to an acute cholecystitis 2. Acute cholecystitis 3. Biliary dyskinesia with ejection fraction of 21% on HIDA scan 4. History of inclusion body myositis 5. Hypokalemia patient receiving potassium supplement 6. Metabolic encephalopathy PLAN: -Continue IV antibiotics -Continue IV fluids -Potassium being corrected -Further recommendations forthcoming per surgeon Thank you for this consultation Physician Women'S Lacrosse Coach note has been reviewed by physician. Signing provider agrees with the documented findings, assessment, and plan of care. 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 History of Any Multi-Drug Resistant Organisms: None Reported Year Discovered:: 11/19/18 MDRO Source:: THIGH Past Surgical History: Appendectomy, Hysterectomy, Tonsillectomy Additional Past Surgical History / Comment(s): cyst removal left inner thigh, 4 muscle biopsies, facial plastic surgery after bout with shingles, Infusaport. bilateral cataract surgery with lens implants, benign mass removed from urethra, skin graft to left foot, spouse believes pt has filters in bilateral groins for DVTs Past Anesthesia/Blood Transfusion Reactions: Motion Sickness, Postoperative Mesfin sea & Vomiting (PONV) Additional Past Anesthesia/Blood Transfusion Reaction / Comm: PONV AFTER URETHRA SURGERY. Past Psychological History: No Psychological Hx Reported Smoking Status: Former smoker Past Alcohol Use History: None Reported Past Drug Use History: None Reported - Past Family History Mother Family Medical History: Dementia Additional Family Medical History / Comment(s): Mother at age 93-95 from Alzheimer dementia. Father Family Medical History: Coronary Artery Disease (CAD), Dementia Additional Family Medical History / Comment(s): Father at age 93-95 from coronary artery disease. Brother(s) Family Medical History: No Reported History Additional Family Medical History / Comment(s): Patient has 1 brother with celiac disease. Daughter(s) Family Medical History: No Reported History Additional Family Medical History / Comment(s): Patient has 2 daughters with no major medical problems. Son(s) Family Medical History: No Reported History Additional Family Medical History / Comment(s): Patient has one son with no major medical problems. Medications and Allergies Home Medications Medication Instructions Recorded Confirmed Type Calcium Carbonate/Vitamin D3 1 tab PO BID 10/25/14 01/02/21 History [Caltrate 600 Plus D3 Tablet] Gammagard 1 dose IV [id number] 10/25/14 01/02/21 History predniSONE 20 mg PO DAILY 10/25/14 01/02/21 History Gabapentin [Neurontin] 300 mg PO BID@0900,1300 12/26/15 01/02/21 History Oxybutynin Chloride [Ditropan] 5 mg PO BID 02/10/18 01/02/21 History Aspirin EC [Ecotrin Low Dose] 81 mg PO DAILY 08/27/18 01/02/21 History Simvastatin [Zocor] 40 mg PO DAILY 01/14/19 01/02/21 History Acetaminophen [Tylenol Extra 1,000 mg PO Q6H PRN 03/20/19 01/02/21 History Strength] Biotin 10,000 mcg PO DAILY 12/22/20 01/02/21 History Cholecalciferol [Vitamin D3 (25 50 mcg PO DAILY 12/22/20 01/02/21 History Mcg = 1000 Iu)] Gabapentin 600 mg PO HS 12/22/20 01/02/21 History Loratadine [Claritin] 10 mg PO DAILY 12/22/20 01/02/21 History Melatonin 5 mg PO HS 12/22/20 01/02/21 History Multivitamin [Multivitamins Adult 2 tab PO DAILY 12/22/20 01/02/21 History Gummies] Allergies Allergy/AdvReac Type Severity Reaction Status Date / Time diphenhydramine HCl Allergy Mild Itching, Verified 01/02/21 11:36 [From Benadryl] hives cephalexin monohydrate Allergy Itching, Verified 01/02/21 11:36 [From Keflex] hives sulfamethoxazole AdvReac Mild Rash/Hives Verified 01/02/21 11:36 [From Bactrim] trimethoprim [From Bactrim] AdvReac Mild Rash/Hives Verified 01/02/21 11:36 Surgical - Exam Vital Signs Temp Pulse Resp BP Pulse Ox 101.5 F H 120 H 18 126/104 94 L 01/02/21 10:19 01/02/21 10:19 01/02/21 10:19 01/02/21 10:19 01/02/21 10:19 Results - Labs 01/05/21 04:41 01/05/21 04:41 Abnormal Lab Results - Last 24 Hours (Table) 01/05/21 01/05/21 Range/Units 04:41 04:41 RBC 3.95 L (4.10-5.20) X 10*6/uL Hgb 11.3 L (12.0-15.0) g/dL MCHC 30.1 L (32.0-37.0) g/dL RDW 20.6 H (11.5-14.5) % Absolute Nucleated RBC 0.02 H (0.00-0.00) X 10*3/uL NRBC/100 WBC Diff 0.3 H (0.0-0.0) /100 WBCS Sodium 146 H (135-145) mmol/L Potassium 2.8 L (3.5-5.5) mmol/L Anion Gap 13.50 H (4.00-12.00) mmol/L BUN 5.0 L (9.0-27.0) mg/dL Creatinine 0.2 L (0.6-1.5) mg/dL BUN/Creatinine Ratio 25.00 H (12.00-20.00) Ratio Calcium 7.5 L (8.7-10.3) mg/dL AST 44 H (13-35) U/L Alkaline Phosphatase 253 H (41-126) U/L Total Protein 4.2 L (6.2-8.2) g/dL Albumin 2.30 L (3.80-4.90) g/dL Albumin/Globulin Ratio 1.21 L (1.60-3.17) g/dL Microbiology - Last 24 Hours (Table) 01/02/21 11:37 Blood Culture - Preliminary Blood No Growth after 72 hours 01/02/21 11:30 Blood Culture - Preliminary Blood No Growth after 72 hours Diabetes panel 01/05/21 Range/Units 04:41 Sodium 146 H (135-145) mmol/L Potassium 2.8 L (3.5-5.5) mmol/L Chloride 107 (96-109) mmol/L Carbon Dioxide 25.5 (21.6-31.8) mmol/L BUN 5.0 L (9.0-27.0) mg/dL Creatinine 0.2 L (0.6-1.5) mg/dL Glucose 80 (70-110) mg/dL Calcium 7.5 L (8.7-10.3) mg/dL AST 44 H (13-35) U/L ALT 22 (8-44) U/L Alkaline Phosphatase 253 H (41-126) U/L Total Protein 4.2 L (6.2-8.2) g/dL Albumin 2.30 L (3.80-4.90) g/dL Calcium panel 01/05/21 Range/Units 04:41 Calcium 7.5 L (8.7-10.3) mg/dL Albumin 2.30 L (3.80-4.90) g/dL Pituitary panel 01/05/21 Range/Units 04:41 Sodium 146 H (135-145) mmol/L Potassium 2.8 L (3.5-5.5) mmol/L Chloride 107 (96-109) mmol/L Carbon Dioxide 25.5 (21.6-31.8) mmol/L BUN 5.0 L (9.0-27.0) mg/dL Creatinine 0.2 L (0.6-1.5) mg/dL Glucose 80 (70-110) mg/dL Calcium 7.5 L (8.7-10.3) mg/dL Adrenal panel 01/05/21 Range/Units 04:41 Sodium 146 H (135-145) mmol/L Potassium 2.8 L (3.5-5.5) mmol/L Chloride 107 (96-109) mmol/L Carbon Dioxide 25.5 (21.6-31.8) mmol/L BUN 5.0 L (9.0-27.0) mg/dL Creatinine 0.2 L (0.6-1.5) mg/dL Glucose 80 (70-110) mg/dL Calcium 7.5 L (8.7-10.3) mg/dL Total Bilirubin 0.6 (0.2-1.2) mg/dL AST 44 H (13-35) U/L ALT 22 (8-44) U/L Alkaline Phosphatase 253 H (41-126) U/L Total Protein 4.2 L (6.2-8.2) g/dL Albumin 2.30 L (3.80-4.90) g/dL <Chang Bolton - Last Filed: 01/05/21 18:48> History of Present Illness History of present illness: As above. Unable to obtain much history from the patient. She does describe pain but cannot localize it. She is very tearful this evening. Discussed her case with her in detail. Apparently she was having abdominal discomfort at home and when they were helping her move she was sore in the abdomen. Oral intake has been decreased. Workup thus far shows gallstones with a thickened gallbladder wall. She has had intermittent low-grade fevers for the last 2-3 weeks. Liver enzymes slightly elevated although better than when she was here last admission. On examination she has right upper quadrant tenderness greater than left upper quadrant tenderness. Neurology has been following this patient for inclusion body myositis. MRI of the spine ordered to evaluate for spinal stenosis. Her potassium today was low at 2.8. After discussing options with the patient's by phone we have decided to tentatively proceed with laparoscopic, possible open cholecystectomy on Saturday. This will allow us to correct her hypokalemia and obtain MRI spine first. Risks of bleeding, infection, bile leak, bile duct injury, retained common bile duct stone, trocar injury, conversion to an open procedure, hernia, respiratory failure, anesthesia related complications were reviewed. The patient understands and wishes to proceed. Surgical - Exam Vital Signs Temp Pulse Resp BP Pulse Ox 101.5 F H 120 H 18 126/104 94 L 01/02/21 10:19 01/02/21 10:19 01/02/21 10:19 01/02/21 10:19 01/02/21 10:19 Results - Labs 01/05/21 04:41 01/05/21 04:41 Abnormal Lab Results - Last 24 Hours (Table) 01/05/21 01/05/21 Range/Units 04:41 04:41 RBC 3.95 L (4.10-5.20) X 10*6/uL Hgb 11.3 L (12.0-15.0) g/dL MCHC 30.1 L (32.0-37.0) g/dL RDW 20.6 H (11.5-14.5) % Absolute Nucleated RBC 0.02 H (0.00-0.00) X 10*3/uL NRBC/100 WBC Diff 0.3 H (0.0-0.0) /100 WBCS Sodium 146 H (135-145) mmol/L Potassium 2.8 L (3.5-5.5) mmol/L Anion Gap 13.50 H (4.00-12.00) mmol/L BUN 5.0 L (9.0-27.0) mg/dL Creatinine 0.2 L (0.6-1.5) mg/dL BUN/Creatinine Ratio 25.00 H (12.00-20.00) Ratio Calcium 7.5 L (8.7-10.3) mg/dL AST 44 H (13-35) U/L Alkaline Phosphatase 253 H (41-126) U/L Total Protein 4.2 L (6.2-8.2) g/dL Albumin 2.30 L (3.80-4.90) g/dL Albumin/Globulin Ratio 1.21 L (1.60-3.17) g/dL Microbiology - Last 24 Hours (Table) 01/02/21 11:37 Blood Culture - Preliminary Blood No Growth after 72 hours 01/02/21 11:30 Blood Culture - Preliminary Blood No Growth after 72 hours Diabetes panel 01/05/21 Range/Units 04:41 Sodium 146 H (135-145) mmol/L Potassium 2.8 L (3.5-5.5) mmol/L Chloride 107 (96-109) mmol/L Carbon Dioxide 25.5 (21.6-31.8) mmol/L BUN 5.0 L (9.0-27.0) mg/dL Creatinine 0.2 L (0.6-1.5) mg/dL Glucose 80 (70-110) mg/dL Calcium 7.5 L (8.7-10.3) mg/dL AST 44 H (13-35) U/L ALT 22 (8-44) U/L Alkaline Phosphatase 253 H (41-126) U/L Total Protein 4.2 L (6.2-8.2) g/dL Albumin 2.30 L (3.80-4.90) g/dL Calcium panel 01/05/21 Range/Units 04:41 Calcium 7.5 L (8.7-10.3) mg/dL Albumin 2.30 L (3.80-4.90) g/dL Pituitary panel 01/05/21 Range/Units 04:41 Sodium 146 H (135-145) mmol/L Potassium 2.8 L (3.5-5.5) mmol/L Chloride 107 (96-109) mmol/L Carbon Dioxide 25.5 (21.6-31.8) mmol/L BUN 5.0 L (9.0-27.0) mg/dL Creatinine 0.2 L (0.6-1.5) mg/dL Glucose 80 (70-110) mg/dL Calcium 7.5 L (8.7-10.3) mg/dL Adrenal panel 01/05/21 Range/Units 04:41 Sodium 146 H (135-145) mmol/L Potassium 2.8 L (3.5-5.5) mmol/L Chloride 107 (96-109) mmol/L Carbon Dioxide 25.5 (21.6-31.8) mmol/L BUN 5.0 L (9.0-27.0) mg/dL Creatinine 0.2 L (0.6-1.5) mg/dL Glucose 80 (70-110) mg/dL Calcium 7.5 L (8.7-10.3) mg/dL Total Bilirubin 0.6 (0.2-1.2) mg/dL AST 44 H (13-35) U/L ALT 22 (8-44) U/L Alkaline Phosphatase 253 H (41-126) U/L Total Protein 4.2 L (6.2-8.2) g/dL Albumin 2.30 L (3.80-4.90) g/dL
--- NOTE | 2021-01-05 16:49 | P.PN ---
Subjective Progress Note Date: 01/05/21 01/05/2021: Patient today is much more alert, awake, comfortable, in no distress. Continues to have significant weakness in the arms and legs. Less tenderness all over. Denies headache. 01/04/2021: Patient was seen for a follow-up. Patient was just moved from bed to the stretcher, as she was going for HIDA scan. Patient was crying, in pain. Patient's was also present today. He states that she started complaining of all this pain, since 12/29/2020. Everything was hurting. Her stomach was hurting, and her throat was hurting. Patient's states that he has a Tasia lift at home, through which he helps her get in the chair. He takes her for infusion of IVIG every 2 weeks. Since last infusion, she has been hollering, crying, pain everywhere, whenever he tries to move her. No focal symptoms otherwise. Objective - Vital Signs Vital signs: Vital Signs Temp 98.7 F 01/05/21 13:38 Pulse 98 01/05/21 13:38 Resp 17 01/05/21 13:38 BP 121/80 01/05/21 13:38 Pulse Ox 96 01/05/21 13:38 Intake & Output 01/04/21 01/05/21 01/05/21 18:59 06:59 18:59 Output Total 450 Balance -450 Output: Urine 450 Other: Voiding Method Diaper Diaper Diaper # Voids 1 2 # Bowel Movements 1 - Exam Patient is alert and awake, in no distress. Speech and language functions appears normal. Pupils are round and reacting, visual rangel are full, extraocular muscles are intact, face is symmetric and tongue protrudes to the midline. On muscle strength testing the grain farmer is about 3+ bilaterally. Patient is extremely weak in the biceps, triceps. Patient has no movement in the lower extremities. - Labs CBC & Chem 7: 01/05/21 04:41 01/05/21 04:41 Labs: Abnormal Lab Results - Last 24 Hours (Table) 01/05/21 01/05/21 Range/Units 04:41 04:41 RBC 3.95 L (4.10-5.20) X 10*6/uL Hgb 11.3 L (12.0-15.0) g/dL MCHC 30.1 L (32.0-37.0) g/dL RDW 20.6 H (11.5-14.5) % Absolute Nucleated RBC 0.02 H (0.00-0.00) X 10*3/uL NRBC/100 WBC Diff 0.3 H (0.0-0.0) /100 WBCS Sodium 146 H (135-145) mmol/L Potassium 2.8 L (3.5-5.5) mmol/L Anion Gap 13.50 H (4.00-12.00) mmol/L BUN 5.0 L (9.0-27.0) mg/dL Creatinine 0.2 L (0.6-1.5) mg/dL BUN/Creatinine Ratio 25.00 H (12.00-20.00) Ratio Calcium 7.5 L (8.7-10.3) mg/dL AST 44 H (13-35) U/L Alkaline Phosphatase 253 H (41-126) U/L Total Protein 4.2 L (6.2-8.2) g/dL Albumin 2.30 L (3.80-4.90) g/dL Albumin/Globulin Ratio 1.21 L (1.60-3.17) g/dL Microbiology - Last 24 Hours (Table) 01/02/21 11:37 Blood Culture - Preliminary Blood No Growth after 72 hours 01/02/21 11:30 Blood Culture - Preliminary Blood No Growth after 72 hours Assessment and Plan Assessment: * Altered mental status, likely due to delirium, possible metabolic ence phalopathy. Patient has acute cholecystitis. Patient denies headache, therefore doubt intracranial process. * Recent history of UTI. Patient has decreased nutritional intake, dehydration, hypokalemia likely the cause. * History of inclusion body myositis, on IVIG and prednisone, follows up with ne urologist at [facility]. * Memory disturbance with forgetfulness for last 1 year. Possible mild underlying cognitive impairment. * Generalized disability, bedbound state for last 2-3 years because of IBM. 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 Patient will continue to follow with her neurologist. May hold IVIG until patient has recovered from acute illness. We will check MRI of the cervical spine to rule out spinal stenosis. * Patient has acute cholecystitis. Surgery following. * Patient's daughter also has raised concern about memory loss, possible dementia. At this time patient is delirious, therefore cannot assess for un derlying cognitive impairment/dementia. Patient's daughter was recommended to follow up with her neurologist once her acute medical condition has resolved for cognitive function testing. * B12 936, folate >24, TSH 2.65, B1, B6 level pending. Her last CK was 257 on 12/24/2020 with normal aldolase 5.7.
[2021-01-05] MEDS: ACETAMINOPHEN TAB 500 MG TAB PO PRN (18:09)
[2021-01-05] MEDS: LORazepam 2 MG/ML INJ IV PRN (18:09)
--- NOTE | 2021-01-05 18:40 | PN ---
PROGRESS NOTE DATE OF SERVICE: 01/05/2021 REASON FOR FOLLOWUP: Fever, possible cholecystitis. INTERVAL HISTORY: The patient is currently afebrile. The patient is breathing comfortably, currently on room air. Denies having any chest pain, shortness of breath or cough. No vomiting or diarrhea has been reported. PHYSICAL EXAMINATION: Blood pressure 121/80 with a pulse of 98, temperature 98.7. She is 96% on room air. General description is an elderly female lying in bed in no distress. RESPIRATORY SYSTEM: Unlabored breathing with decreased intensity of breath sounds. No wheeze. HEART: S1, S2. Regular rate and rhythm. ABDOMEN: Soft. No tenderness. LABS: Hemoglobin is 11.3, white count 6.54, creatinine 0.2. DIAGNOSTIC IMPRESSION AND PLAN: Patient with a fever, concern for possible cholecystitis. General Surgery has seen the patient. Patient to continue Zosyn, as the patient's fever has responded. Culture has been negative so far. MMODL / IJN: [id number] /
[2021-01-05] MEDS: MELATONIN 5 MG TABLET PO SCH (20:56)
[2021-01-06 02:56] LABS: Anisocytosis Slight; HCT 36.5 % (34.0-46.0); Hypochromasia Slight; MCH 29.6 pg (25.0-35.0); MCHC 32.8 g/dL (31.0-37.0); MCV 90.1 fL (80.0-100.0); Mean Platelet Volume 8.3; Platelet Count 165 k/uL (150-450); Poikilocytosis Slight; RBC 4.06 m/uL (3.80-5.40); RDW 19.2 % (11.5-15.5); WBC 5.5 k/uL (3.8-10.6)
[2021-01-06] MEDS: PIPERACILLIN-TAZOBACTAM 3.375 GM in SODIUM CHLORIDE 0.9% 100 ML IVPB SCH ×3 (03:42→19:47)
[2021-01-06 03:56] LABS: ALT 23 U/L (4-34); AST 55 U/L (14-36); African American GFR (CKD) >90 (>60 ml/min/1.73 sqM); Albumin/Globulin Ratio 0.8; Alkaline Phosphatase 277 U/L (38-126); Anion Gap 6 mmol/L; Blood Urea Nitrogen 3 mg/dL (7-17); Calcium 7.6 mg/dL (8.4-10.2); Carbon Dioxide 25 mmol/L (22-30); Chloride 110 mmol/L (98-107); Globulin 2.4 g/dL; Glucose 51 mg/dL (74-99); Non-African American GFR(CKD) >90 (>60 ml/min/1.73 sqM); Potassium 4.1 mmol/L (3.5-5.1); Sodium 141 mmol/L (137-145); Total Bilirubin 0.8 mg/dL (0.2-1.3); Total Protein 4.4 g/dL (6.3-8.2)
[2021-01-06] MEDS: ASPIRIN 81 MG PO SCH (08:08)
[2021-01-06] MEDS: ATORVASTATIN 20 MG TAB PO SCH (08:08)
[2021-01-06] MEDS: predniSONE 20 MG TAB PO SCH (08:08)
[2021-01-06] MEDS: ACETAMINOPHEN TAB 500 MG TAB PO PRN (08:08)
[2021-01-06] MEDS: ENOXAPARIN 40 MG/0.4 ML SYRINGE SQ SCH (08:12)
[2021-01-06] MEDS: PANTOPRAZOLE 40 MG/10 ML VIAL IVP SCH (08:15)
[2021-01-06] MEDS: SODIUM CHLORIDE 0.9% 1,000 ML IV SCH (11:21)
--- NOTE | 2021-01-06 11:37 | P.PN ---
<Zari Jean - Last Filed: 01/06/21 11:32> Subjective Progress Note Date: 01/06/21 CHIEF COMPLAINT: Mental status changes HISTORY OF PRESENT ILLNESS: Surgical service is following regards to patient's abdominal pain and acute cholecystitis. Patient is complaining of abdominal pain this morning. She did eat a few bites of her breakfast tray. She is scheduled for an MRI of the cervical spine to rule out spinal stenosis. Afebrile. Heart rate 108 WBC 5.5 hemoglobin 12 platelets 165 sodium 141 potassium 4.2 creatinine 0.25 AST 55 ALT 23 alk phos 277 total bili 0.8 PHYSICAL EXAM: VITAL SIGNS: Reviewed. GENERAL: Well-developed in no acute distress. HEENT: No sclera icterus. Extraocular movements grossly intact. Moist buccal mucosa. Head is atraumatic, normocephalic. ABDOMEN: Soft. Nondistended. Tenderness with palpation of the right upper quadrant NEUROLOGIC: Alert and oriented. Cranial nerves II through XII grossly intact. ASSESSMENT: 1. Right upper quadrant abdominal pain and fever likely due to an acute cholecystitis 2. Acute cholecystitis 3. Biliary dyskinesia with ejection fraction of 21% on HIDA scan 4. History of inclusion body myositis 5. Hypokalemia improved 6. Metabolic encephalopathy PLAN: -Patient scheduled for laparoscopic, possible open cholecystectomy for tomorrow, 01/07/[address] Bolton -Patient can have clear liquids today -Nothing by mouth after midnight -Continue antibiotics -Continue IV fluids Physician Risk Modeler note has been reviewed by physician. Signing provider agrees with the documented findings, assessment, and plan of care. Objective - Vital Signs Vital signs: Vital Signs Temp 97.7 F 01/06/21 08:00 Pulse 108 H 01/06/21 01:55 Resp 16 01/06/21 08:00 BP 134/85 01/06/21 08:00 Pulse Ox 97 01/06/21 08:00 Intake & Output 01/05/21 01/06/21 01/06/21 18:59 06:59 18:59 Intake Total 900 Balance 900 Intake: Intake, IV Titration 900 Amount Sodium Chloride 0.9% 1, 900 000 ml @ 75 mls/hr IV . [id number] [facility] Rx#:[id number] Other: Voiding Method External Catheter External Catheter External Catheter # Voids 1 # Bowel Movements 1 - Labs CBC & Chem 7: 01/06/21 02:06 01/06/21 02:06 Labs: Abnormal Lab Results - Last 24 Hours (Table) 01/06/21 01/06/21 Range/Units 02:06 02:06 RDW 19.2 H (11.5-15.5) % Chloride 110 H (98-107) mmol/L BUN 3 L (7-17) mg/dL Creatinine 0.25 L (0.52-1.04) mg/dL Glucose 51 L (74-99) mg/dL Calcium 7.6 L (8.4-10.2) mg/dL AST 55 H (14-36) U/L Alkaline Phosphatase 277 H (38-126) U/L Total Protein 4.4 L (6.3-8.2) g/dL Albumin 2.0 L (3.5-5.0) g/dL Microbiology - Last 24 Hours (Table) 01/02/21 11:37 Blood Culture - Preliminary Blood No Growth after 72 hours 01/02/21 11:30 Blood Culture - Preliminary Blood No Growth after 72 hours <Chang Bolton - Last Filed: 01/06/21 15:41> Subjective As above. Patient still was complaining of abdominal pain. She could not localize it any more than that. Remains tender in the upper abdomen with right upper and left upper quadrant. Labs noted. Potassium is now normal. Te ntatively plan laparoscopic, possible open cholecystectomy tomorrow. Discussed again with the patient's at the bedside. Risks again reviewed. Will check coags. Objective - Vital Signs Vital signs: Vital Signs Temp 97.7 F 01/06/21 08:00 Pulse 108 H 01/06/21 01:55 Resp 16 01/06/21 08:00 BP 134/85 01/06/21 08:00 Pulse Ox 97 01/06/21 08:00 Intake & Output 01/05/21 01/06/21 01/06/21 18:59 06:59 18:59 Intake Total 900 Balance 900 Intake: Intake, IV Titration 900 Amount Sodium Chloride 0.9% 1, 900 000 ml @ 75 mls/hr IV . [id number] [facility] Rx#:[id number] Other: Voiding Method External Catheter External Catheter External Catheter # Voids 1 # Bowel Movements 1 - Labs CBC & Chem 7: 01/06/21 02:06 01/06/21 02:06 Labs: Abnormal Lab Results - Last 24 Hours (Table) 01/06/21 01/06/21 Range/Units 02:06 02:06 RDW 19.2 H (11.5-15.5) % Chloride 110 H (98-107) mmol/L BUN 3 L (7-17) mg/dL Creatinine 0.25 L (0.52-1.04) mg/dL Glucose 51 L (74-99) mg/dL Calcium 7.6 L (8.4-10.2) mg/dL AST 55 H (14-36) U/L Alkaline Phosphatase 277 H (38-126) U/L Total Protein 4.4 L (6.3-8.2) g/dL Albumin 2.0 L (3.5-5.0) g/dL Microbiology - Last 24 Hours (Table) 01/02/21 11:30 Blood Culture - Preliminary Blood No Growth after 96 hours 01/02/21 11:37 Blood Culture - Preliminary Blood No Growth after 96 hours
[2021-01-06] MEDS: Acetaminophen-Codeine 300-30mg TAB PO PRN (12:45)
--- NOTE | 2021-01-06 13:55 | P.PN ---
Subjective Progress Note Date: 01/06/21 HISTORY OF PRESENT ILLNESS This is a 70-year-old female patient of Dr. 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 Patient has history of abscess of the right thigh that was under the care of Dr. Olvera through the wound healing Center. Patient was recently hospitalized from December 22 through December 26 which time she was treated for acute UTI with suspected pyelonephritis and metabolic encephalopathy and sepsis, acute kidney injury. She did undergo modified barium swallow and recommendations were for mechanical soft diet with thin liquids, base of the tongue exercises were recommended. Patient was seen by Dr. Erazo for parotitis secondary to dehydration. She was treated for UTI with Zosyn and discharged on doxycycline. She was seen also by cardiology and ruled out acute coronary syndrome. The patient was discharged home and family did not want home care set up. She is normally bed or wheelchair bound. She now presents back to the emergency center as states that she wouldn't swallow couldn't eat anything complained of sore throat and ear pain. She also did not have much urine output. No fever. She did have a small bowel movement prior to coming into the hospital. Patient was due for her Gammagard apparently today and had missed a dose due to being hospitalized last week. She had her last appointment with her neurologist Dr. Chavez in August 2020 which was a virtual appointment. Patient presented to [facility] emergency center for evaluation. Temperature was 101.5, heart rate 120, blood pressure 126/104, pulse ox 94%. CBC was unremarkable. Sodium 137, potassium 2.6, chloride 100, CO2 31, BUN 5 and creatinine 0.28. Blood pressure 112. Lactic acid 1.9. AST 52, alkaline phosphatase 296. Phosphorus 2.3, magnesium 1.8. Urinalysis clear, nitrite and leukoesterase negative. EKG was sinus tachycardia with left internal hypertrophy. CAT scan of the abdomen and pelvis revealed cholelithiasis with gallbladder wall thickening although there is no evidence of inflammatory change. Small right-sided pleural effusion and right basilar compressive atelectasis. Patient was started on IV Levaquin and potassium was replaced with 20 mEq. She is status post 1800 mL of IV fluid. 01/03: Patient has been afebrile since admission, heart rate 114, blood pressure 138/87, pulse ox 98% on 2 L nasal cannula. Repeat potassium yesterday afternoon was 3.6 and magnesium 1.8. Patient's mental status is slightly improved from yesterday. She is awake and alert but remains confused. IV access has been unable to be obtained and Accu cath has been ordered. Consult in place with neurology and infectious disease. 01/04: Patient has been seen by infectious disease with recommendations for Zosyn and possible HIDA scan. This was canceled for unknown reason. We will add order for HIDA scan to be done today. Patient has also been seen by neurology for altered mental status is likely at acute delirium possible metabolic encephalopathy secondary to possible cryptogenic infection. Recommendations to hold IVIG until patient recover from acute illness. Recommendations to follow- up with her neurologist regarding memory loss with possible dementia. The following lab work was ordered: Vitamin B12, folate level, TSH, B1, B6. Patient has been afebrile, heart rate 97, blood pressure 113/72, pulse ox 90% on 2 L nasal cannula. Blood cultures no growth at 24 hours. Midline was placed yesterday for IV access. She was fed by staff. She reviews her breakfast this morning. She is awake and alert but remains confused. 01/05: HIDA scan revealed low ejection fraction of 21%. Correlate for biliary dyskinesia. Dr. Gan recommends continuing Zosyn. Patient is followed by neurology as well. Vitamin B12 level CMXXXVI. Folate greater than 24. TSH 2.650. Repeat blood work reveals WBC 6.5, hemoglobin 11.3, platelet count 195. Sodium 146, potassium 2.8, chloride 107, CO2 25, BUN 5, creatinine 0.2. AST 44, ALT 22, alkaline phosphatase 253. Dr. Townsend discussed condition with the patient's Shukri and patient's would like to move forward with gallbladder surgery. He understands that there are complications and she is at high risk for surgery due to her underlying neurological disorder. Consult has been added for Dr. Bolton to evaluate. 01/06: Patient has been afebrile, heart rate 108, blood pressure 139/70, pulse ox 98% on room air. Repeat blood work reveals CBC was unremarkable. Chloride 110, potassium 4.2, BUN 3 and creatinine 0.25. Total bilirubin 0.8, AST 55, ALT 23, clindamycin phosphatase 277. Dr. Gan recommends continuing Zosyn. Patient has been seen by general surgery with recommendations for IV fluids, IV antibiotics. And as for laparoscopic possible open cholecystectomy on Saturday. Neurology has ordered MRI of the spine to rule out spinal stenosis. Patient is complaining of abdominal pain and will add Tylenol 3 for pain control. REVIEW OF SYSTEMS Constitutional: Reported fever, reported chills, no night sweats. No weight change. Reported weakness, Reported fatigue Reported lethargy. Reported daytime sleepiness. EENT: No headache. No blurred vision or double vision, no loss of vision. Reported ear pain. No loss of Hearing, no ringing in the ears, no dizziness. No nasal drainage or congestion. No epistaxis. Reported sore throat. Reported difficulty swallowing. Lungs: No shortness of breath, cough, no sputum production. No wheezing. Cardiovascular: No chest pain, no lower extremity edema. No palpitations. No paroxysmal nocturnal dyspnea. No orthopnea. No lightheadedness or dizziness. No syncopal episodes. Abdominal: Reports abdominal pain. No nausea, vomiting. No diarrhea. No constipation. No bloody or tarry stools. No loss of appetite. Genitourinary: No dysuria, increased frequency, urgency. No urinary retention. Reported decreased urine output. Musculoskeletal: No myalgias. Reported muscle weakness, chronic gait dysfunction, no frequent falls. No back pain. No neck pain. Integumentary: No wounds, no lesions. No rash or pruritus. No unusual bruising. Neurologic: No aphasia. No facial droop. Reported change in mentation. No head injury. No headache. No paralysis. No paresthesia. Psychiatric: No depression. No anxiety. Endocrine: No abnormal blood sugars. PHYSICAL EXAMINATION Gen: This is a 70-year-old female. She is resting in bed and appears to be comfortable. No acute distress. HEENT: Head is atraumatic, normocephalic. Pupils equal, round. Sclerae is anicteric. Oral mucous membranes are dry. NECK: Supple. No JVD. No lymphadenopathy. No thyromegaly. LUNGS: Clear to auscultation. No wheezes or rhonchi. No intercostal retractions. HEART: Regular rate and rhythm. No murmur. ABDOMEN: Soft. Bowel sounds are present. No masses. Diffuse abdominal tenderness. External female catheter in place. Stage II decubitus ulcer on coccyx, POA. EXTREMITIES: 1+ bilateral pedal edema. No calf tenderness. NEUROLOGICAL: Patient is awake and alert, oriented to person and place. Patient is able to answer only simple questions. Significant generalized weakness noted. ASSESSMENT AND PLAN 1. Acute metabolic encephalopathy and fever of secondary to acute cholecystitis. Consult with neurology and infectious disease appreciated. Infectious disease has started the patient on Zosyn. The following medications are on hold gabapentin 600 mg at bedtime, 300 mg twice daily, loratadine vitamins, oxybutynin. HIDA scan with low ejection fraction correlate for biliary dyskinesia. Consult with Dr. Bolton appreciated. 2. Dehydration. Continue IV fluids 0.9 normal saline at 75 mL per hour. 3. Severe hypokalemia. Continue engine monitor, continue replacement protocol. 4. Acute cholecystitis. Consult with general surgery appreciated. Patient scheduled for upper scopic cholecystectomy on Saturday. Continue Zosyn. Tylenol 3 as needed for pain. 5. Chronic kidney disease stage II 6. 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 Patient normally receives Gammagard every 14 days and missed a dose due to hospitalization. Patient also on chronic prednisone. Hold Avagard until infection cleared. Consult with neurology appreciated. 7. Hyperlipidemia. Continue simvastatin 40 mg at bedtime. 8. Overactive bladder. Hold oxybutynin. 9. Non-use edema of the lower extremities. 10. Recent left-sided parotitis secondary to dehydration, stable. 11. Severe hypokalemia. Replacement. 12. GI prophylaxis. Protonix. 13. DVT prophylaxis. Lovenox 40 mg subcu daily. DISCHARGE PLAN Most likely return home with her . Impression and plan of care have been directed as dictated by the signing physician. Loan Zhang nurse practitioner acting as scribe for signing physician. Objective - Vital Signs Vital signs: Vital Signs Temp 98.0 F 01/06/21 01:55 Pulse 108 H 01/06/21 01:55 Resp 17 01/05/21 20:00 BP 139/70 01/06/21 01:55 Pulse Ox 98 01/06/21 01:55 Intake & Output 01/05/21 01/06/21 01/06/21 18:59 06:59 18:59 Intake Total 900 Balance 900 Intake: Intake, IV Titration 900 Amount Sodium Chloride 0.9% 1, 900 000 ml @ 75 mls/hr IV . [id number] [facility] Rx#:[id number] Other: Voiding Method External Catheter External Catheter # Voids 1 # Bowel Movements 1 - Labs CBC & Chem 7: 01/06/21 02:06 01/06/21 02:06 Labs: Abnormal Lab Results - Last 24 Hours (Table) 01/05/21 01/05/21 01/06/21 Range/Units 04:41 04:41 02:06 RBC 3.95 L (4.10-5.20) X 10*6/uL Hgb 11.3 L (12.0-15.0) g/dL MCHC 30.1 L (32.0-37.0) g/dL RDW 20.6 H 19.2 H (11.5-14.5) % Absolute Nucleated RBC 0.02 H (0.00-0.00) X 10*3/uL NRBC/100 WBC Diff 0.3 H (0.0-0.0) /100 WBCS Sodium 146 H (135-145) mmol/L Potassium 2.8 L (3.5-5.5) mmol/L Chloride (98-107) mmol/L Anion Gap 13.50 H (4.00-12.00) mmol/L BUN 5.0 L (9.0-27.0) mg/dL Creatinine 0.2 L (0.6-1.5) mg/dL BUN/Creatinine Ratio 25.00 H (12.00-20.00) Ratio Glucose (74-99) mg/dL Calcium 7.5 L (8.7-10.3) mg/dL AST 44 H (13-35) U/L Alkaline Phosphatase 253 H (41-126) U/L Total Protein 4.2 L (6.2-8.2) g/dL Albumin 2.30 L (3.80-4.90) g/dL Albumin/Globulin Ratio 1.21 L (1.60-3.17) g/dL 01/06/21 Range/Units 02:06 RBC (4.10-5.20) X 10*6/uL Hgb (12.0-15.0) g/dL MCHC (32.0-37.0) g/dL RDW (11.5-14.5) % Absolute Nucleated RBC (0.00-0.00) X 10*3/uL NRBC/100 WBC Diff (0.0-0.0) /100 WBCS Sodium (135-145) mmol/L Potassium (3.5-5.5) mmol/L Chloride 110 H (98-107) mmol/L Anion Gap (4.00-12.00) mmol/L BUN 3 L (9.0-27.0) mg/dL Creatinine 0.25 L (0.6-1.5) mg/dL BUN/Creatinine Ratio (12.00-20.00) Ratio Glucose 51 L (74-99) mg/dL Calcium 7.6 L (8.7-10.3) mg/dL AST 55 H (13-35) U/L Alkaline Phosphatase 277 H (41-126) U/L Total Protein 4.4 L (6.2-8.2) g/dL Albumin 2.0 L (3.80-4.90) g/dL Albumin/Globulin Ratio (1.60-3.17) g/dL Microbiology - Last 24 Hours (Table) 01/02/21 11:37 Blood Culture - Preliminary Blood No Growth after 72 hours 01/02/21 11:30 Blood Culture - Preliminary Blood No Growth after 72 hours
[2021-01-06] MEDS: LORazepam 2 MG/ML INJ IV PRN (16:36)
--- NOTE | 2021-01-06 17:50 | MR ---
EXAMINATION TYPE: MR cervical spine wo con DATE OF EXAM: 01/06/2021 COMPARISON: None HISTORY: Weakness arms, legs, quadriparesis, r/o spinal stenosis CONTRAST: Performed utilizing 0 mL intravenous Gadavist gadolinium contrast. TECHNIQUE: Multiplanar multiecho imaging on a 3.0 Priscila magnet is performed through the cervical spin e. FINDINGS: The craniovertebral junction is normal. Vertebral body alignment is normal. Spinal cord maintains normal signal throughout visualized course. C7-T1: Left paracentral broad-based disc bulge is present with moderate anterior thecal sac compress ion. No AP spinal canal stenosis is present. No cord contact is evident. Neural foramen are patent.. C6-7: There is narrowing of the C6-7 disc height. No focal disc herniation is evident. Minimal residu al disc bulge may have anterior thecal sac contact. No cord contact is evident. No spinal canal steno sis or neural foraminal stenosis is present. C5-6: Loss of disc height C5-6. Some posterior endplate spurring may be present. Moderate central spu rring and focal protrusion has moderate anterior thecal sac compression. This is in close approximati on with the spinal cord. Cord contact is not identified. Some flattening of the right spinal cord how ever may be present. C4-5: There is minimal retrolisthesis of C4 posterior on C5. No spinal canal stenosis is present. The re is loss of disc height C4-5. Disc uncovering has mild anterior thecal sac flattening. No cord cont act is evident. No spinal canal stenosis present. Neural foramen are patent C3-4: No focal disc herniation or significant disc bulge is evident. No spinal canal stenosis or loi ral foraminal stenosis is present C2-3: No focal disc herniation or significant disc bulge is evident. No spinal canal stenosis or loi ral foraminal stenosis is present. IMPRESSIONS: 1. No severe spinal canal stenosis evident. 2. There is disc bulging with focal protrusion centrally at C5-6. Some right sided cord flattening ma y be present in the axial plane. 3. Retrolisthesis of C4 on C5 with disc uncovering causing mild anterior thecal sac flattening withou t stenosis or cord contact rate 4. Loss of disc height C6-7. 5. Left paracentral large disc bulge with moderate anterior thecal sac compression C7-T1
[2021-01-06 18:57] LABS: INR 2.1 (<1.2); Partial Thromboplastin Time 40.9 sec (22.0-30.0); Prothrombin Time 20.8 sec (9.0-12.0)
[2021-01-06] MEDS: MELATONIN 5 MG TABLET PO SCH (19:47)
[2021-01-06] MEDS ORDERED: PHYTONADIONE ORAL 5 MG/5 ML ORAL.SYRG PO STA (21:34)
--- NOTE | 2021-01-06 21:39 | P.PN ---
Subjective Progress Note Date: 01/06/21 01/06/2021: Patient apparently had MRI of the cervical spine. Now sedated. 01/05/2021: Patient today is much more alert, awake, comfortable, in no distress. Continues to have significant weakness in the arms and legs. Less tenderness all over. Denies headache. 01/04/2021: Patient was seen for a follow-up. Patient was just moved from bed to the stretcher, as she was going for HIDA scan. Patient was crying, in pain. Patient's was also present today. He states that she started complaini ng of all this pain, since 12/29/2020. Everything was hurting. Her stomach was hurting, and her throat was hurting. Patient's states that he has a Tasia lift at home, through which he helps her get in the chair. He takes her for infusion of IVIG every 2 weeks. Since last infusion, she has been hollering, crying, pain everywhere, whenever he tries to move her. No focal symptoms otherwise. Objective - Vital Signs Vital signs: Vital Signs Temp 98.4 F 01/06/21 19:07 Pulse 107 H 01/06/21 19:07 Resp 16 01/06/21 14:00 BP 142/88 01/06/21 19:07 Pulse Ox 96 01/06/21 19:07 Intake & Output 01/06/21 01/06/21 01/07/21 06:59 18:59 06:59 Intake Total 900 Output Total 300 Balance 900 -300 Intake: Intake, IV Titration 900 Amount Sodium Chloride 0.9% 1, 900 000 ml @ 75 mls/hr IV . [id number] [facility] Rx#:[id number] Output: Urine 300 Other: Voiding Method External Catheter External Catheter # Voids 1 - Exam 01/06/2021: Patient is very comfortable, asleep at this time. Did not wake her up. 01/05/2021: Patient is alert and awake, in no distress. Speech and language functions appears normal. Pupils are round and reacting, visual rangel are full, extraocular muscles are intact, face is symmetric and tongue protrudes to the midline. On muscle strength testing the registered veterinary technician is about 3+ bilaterally. Patient is extremely weak in the biceps, triceps. Patient has no movement in the lower extremities. - Labs CBC & Chem 7: 04/19/21 03:45 01/16/21 03:45 Labs: Abnormal Lab Results - Last 24 Hours (Table) 01/06/21 01/06/21 01/06/21 Range/Units 02:06 02:06 18:18 RDW 19.2 H (11.5-15.5) % PT 20.8 H (9.0-12.0) sec INR 2.1 H (<1.2) APTT 40.9 H (22.0-30.0) sec Chloride 110 H (98-107) mmol/L BUN 3 L (7-17) mg/dL Creatinine 0.25 L (0.52-1.04) mg/dL Glucose 51 L (74-99) mg/dL Calcium 7.6 L (8.4-10.2) mg/dL AST 55 H (14-36) U/L Alkaline Phosphatase 277 H (38-126) U/L Total Protein 4.4 L (6.3-8.2) g/dL Albumin 2.0 L (3.5-5.0) g/dL Microbiology - Last 24 Hours (Table) 01/02/21 11:30 Blood Culture - Preliminary Blood No Growth after 96 hours 01/02/21 11:37 Blood Culture - Preliminary Blood No Growth after 96 hours Assessment and Plan Assessment: * Altered mental status, likely due to delirium, possible metabolic encephalopathy. Patient has acute cholecystitis. * Recent history of UTI. Patient has decreased nutritional intake, dehydration, hypokalemia likely the cause. * History of inclusion body myositis, on IVIG and prednisone, follows up with neurologist at [facility]. * Memory disturbance with forgetfulness for last 1 year. Possible mild underlying cognitive impairment. * Generalized disability, bedbound state for last 2-3 years because of IBM. 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 Patient will continue to follow with her neurologist. May hold IVIG until patient has recovered from acute illness. * MRI of the cervical spine showed no severe spinal canal stenosis evident. There is disc bulging with focal protrusion centrally at C5 6. Some right sided cord flattening may be present in the axial plane. Retrolisthesis of C4 on C5 with disc uncovering causing mild anterior thecal sac flattening without any stenosis or cord contact. * Patient has acute cholecystitis. Patient undergoing cholecystectomy in a.m. * Patient's daughter also has raised concern about memory loss, possible dementia. At this time patient is delirious, therefore cannot assess for underlying cognitive impairment/dementia. Patient's daughter was recommended to follow up with her neurologist once her acute medical condition has resolved for cognitive function testing. * B12 936, folate >24, TSH 2.65, B1, B6 level pending. Her last CK was 257 on 12/24/2020 with normal aldolase 5.7. * Patient has chronic disability. Patient should follow-up with her neurologist after discharge. * Please reconsult neurology if any other concerns. We will sign off.
[2021-01-07] MEDS: SODIUM CHLORIDE 0.9% 1,000 ML IV SCH ×2 (02:15→04:41)
[2021-01-07] MEDS: PIPERACILLIN-TAZOBACTAM 3.375 GM in SODIUM CHLORIDE 0.9% 100 ML IVPB SCH ×3 (04:36→20:08)
--- NOTE | 2021-01-07 06:00 | PN ---
PROGRESS NOTE DATE OF SERVICE: 01/06/2021 REASON FOR FOLLOWUP: Fever, possible cholecystitis. INTERVAL HISTORY: Patient is currently afebrile. The patient is breathing comfortably. The patient denies having any chest pain or shortness of breath or cough. No vomiting. No abdominal pain or diarrhea. PHYSICAL EXAMINATION: Blood pressure 142/88, pulse of 107, temperature 98.4, she is 96% on room air. General description is an elderly female lying in bed in no distress. Respiratory system: Unlabored breathing, decreased intensity of breath sounds, no wheeze. Heart S1, S2. Regular rate and rhythm. Abdomen is soft, no tenderness. LABS: Hemoglobin is 12.7, white count 5.5. BUN of 3 creatinine 0.25. DIAGNOSTIC IMPRESSION AND PLAN: Patient with fever, possible cholecystitis, fever responded to Zosyn. Culture has been negative so far. Continue with current antibiotics and monitor clinical course closely. MMODL / IJN: [id number] /
[2021-01-07 06:21] LABS: INR 1.3 (<1.2); Prothrombin Time 13.7 sec (9.0-12.0)
[2021-01-07] MEDS: ASPIRIN 81 MG PO SCH (07:53)
[2021-01-07] MEDS: ENOXAPARIN 40 MG/0.4 ML SYRINGE SQ SCH (07:53)
[2021-01-07] MEDS: ATORVASTATIN 20 MG TAB PO SCH (07:53)
[2021-01-07] MEDS: predniSONE 20 MG TAB PO SCH (07:54)
[2021-01-07] MEDS ORDERED: PROPOFOL 10 MG/ML 20 ML VIAL IV ONE (08:05)
[2021-01-07] MEDS ORDERED: fentaNYL (PF) 50 MCG/ML 2 ML AMP ONE (08:05)
[2021-01-07] MEDS ORDERED: LIDOCAINE 1% INJ 10MG/ML (20 ML MDV) ONE (08:05)
[2021-01-07] MEDS ORDERED: ePHEDrine SULFATE/0.9% NACL/PF 50 MG/5 ML SYRINGE IV ONE (08:05)
[2021-01-07] MEDS ORDERED: KETAMINE 10 MG/ML 20 ML VIAL ONE (08:05)
[2021-01-07] MEDS ORDERED: WATER FOR INJECTION, STERILE 10 ML VIAL IV ONE (08:05)
[2021-01-07] MEDS ORDERED: PHENYLEPHRINE-0.9% NACL SYG 1,000 MCG/10 ML SYRINGE ONE (08:05)
[2021-01-07] MEDS ORDERED: ALBUMIN HUMAN 5% (12.5gm) 250 ML BOTTLE IVPB ONE (08:05)
[2021-01-07] MEDS: PANTOPRAZOLE 40 MG/10 ML VIAL IVP SCH (08:07)
[2021-01-07] MEDS ORDERED: IV FLUID CONTINUATION 1,000 ML IV ONE (08:12)
[2021-01-07] MEDS ORDERED: BUPIVACAINE (PF) 0.25% 30 ML VIAL SQ ONE ×2 (08:40)
--- NOTE | 2021-01-07 09:10 | P.OP ---
Date of Procedure: 01/07/21 Procedure(s) Performed: PREOPERATIVE DIAGNOSIS: Acute calculus cholecystitis POSTOPERATIVE DIAGNOSIS: Same PROCEDURE: Laparoscopic cholecystectomy SURGEON: Hoang EBL: Minimal see anesthesia record ANESTHESIA: Gen. COMPLICATIONS: None OPERATIVE PROCEDURE: The patient was brought and placed on the operating room table in the supine position. The patient was placed under general anesthesia at that time. The abdomen was prepped and draped in the usual sterile fashion. A small curvilinear infraumbilical incision was made. The fascia was grasped with the Pedro forceps. The fascia was retracted anteriorly. The Veress needle was advanced into the peritoneal cavity. The saline drop test was normal. Insufflation took place up to 15 mmHg. A 5 mm optical trocar was advanced and the peritoneal cavity. 2 additional 5 mm trochars were placed in the right upper quadrant under direct visualization. A 12 mm trocar was advanced into the epigastric incision site. The gallbladder was acutely inflamed. There was an edematous wall. The gallbladder was retracted superiorly and laterally. The peritoneum overlying the infundibulum was bluntly dissected. The patient's cystic duct was visualized. The junction between the cystic duct common and hepatic duct was identified. The cystic duct was then divided after placement of 3 12 mm clips on the patient's side and one on the specimen side. The cystic artery was identified and clipped as well. A small vessel was seen along the gallbladder fossa and clipped as well. The gallbladder was then removed from the liver bed using electrocautery. The gallbladder was then removed from the epigastric trocar site with an Endo Catch bag. The gallbladder fossa was irrigated with saline. There was no evidence of any bleeding or biliary drainage seen. The fascia at the 12 millimeter site was closed using a Mark-Shasha 0 Vicryl stitch. The trochars were then removed. The skin at all 4 sites was closed using a 4-0 Monocryl stitch. Skin glue was utilized on the incision sites. At the end of this procedure the sponge and needle counts were correct. DISPOSITION: Stable to the recovery room
--- NOTE | 2021-01-07 10:34 | P.PN ---
Subjective Progress Note Date: 01/07/21 HISTORY OF PRESENT ILLNESS This is a 70-year-old female patient of Dr. 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 [facility] [place] Gammagard every 2 weeks for many years. Patient has history of abscess of the right thigh that was under the care of Dr. Olvera through the wound healing Center. Patient was recently hospitalized from December 22 through December 26 which time she was treated for acute UTI with suspected pyelonephritis and metabolic encephalopathy and sepsis, acute kidney injury. She did undergo modified barium swallow and recommendations were for mechanical soft diet with thin liquids, base of the tongue exercises were recommended. Patient was seen by Dr. Erazo for parotitis secondary to dehydration. She was treated for UTI with Zosyn and discharged on doxycycline. She was seen also by cardiology and ruled out acute coronary syndrome. The patient was discharged home and family did not want home care set up. She is normally bed or wheelchair bound. She now presents back to the emergency center as states that she wouldn't swallow couldn't eat anything complained of sore throat and ear pain. She also did not have much urine output. No fever. She did have a small bowel movement prior to coming into the hospital. Patient was due for her Gammagard apparently today and had missed a dose due to being hospitalized last week. She had her last appointment with her neurologist Dr. Chavez in August 2020 which was a virtual appointment. Patient presented to [facility] emergency center for evaluation. Temperature was 101.5, heart rate 120, blood pressure 126/104, pulse ox 94%. CBC was unremarkable. Sodium 137, potassium 2.6, chloride 100, CO2 31, BUN 5 and creatinine 0.28. Blood pressure 112. Lactic acid 1.9. AST 52, alkaline phosphatase 296. Phosphorus 2.3, magnesium 1.8. Urinalysis clear, nitrite and leukoesterase negative. EKG was sinus tachycardia with left internal hypertrophy. CAT scan of the abdomen and pelvis revealed cholelithiasis with gallbladder wall thickening although there is no evidence of inflammatory change. Small right-sided pleural effusion and right basilar compressive atelectasis. Patient was started on IV Levaquin and potassium was replaced with 20 mEq. She is status post 1800 mL of IV fluid. 01/03: Patient has been afebrile since admission, heart rate 114, blood pressure 138/87, pulse ox 98% on 2 L nasal cannula. Repeat potassium yesterday afternoon was 3.6 and magnesium 1.8. Patient's mental status is slightly improved from yesterday. She is awake and alert but remains confused. IV access has been unable to be obtained and Accu cath has been ordered. Consult in place with neurology and infectious disease. 01/04: Patient has been seen by infectious disease with recommendations for Zosyn and possible HIDA scan. This was canceled for unknown reason. We will add order for HIDA scan to be done today. Patient has also been seen by neurology for altered mental status is likely at acute delirium possible metabolic encephalopathy secondary to possible cryptogenic infection. Recommendations to hold IVIG until patient recover from acute illness. Recommendations to follow- up with her neurologist regarding memory loss with possible dementia. The following lab work was ordered: Vitamin B12, folate level, TSH, B1, B6. Patient has been afebrile, heart rate 97, blood pressure 113/72, pulse ox 90% on 2 L nasal cannula. Blood cultures no growth at 24 hours. Midline was placed yesterday for IV access. She was fed by staff. She reviews her breakfast this morning. She is awake and alert but remains confused. 01/05: HIDA scan revealed low ejection fraction of 21%. Correlate for biliary dyskinesia. Dr. Gan recommends continuing Zosyn. Patient is followed by neurology as well. Vitamin B12 level CMXXXVI. Folate greater than 24. TSH 2.650. Repeat blood work reveals WBC 6.5, hemoglobin 11.3, platelet count 195. Sodium 146, potassium 2.8, chloride 107, CO2 25, BUN 5, creatinine 0.2. AST 44, ALT 22, alkaline phosphatase 253. Dr. Townsend discussed condition with the patient's Shukri and patient's would like to move forward with gallbladder surgery. He understands that there are complications and she is at high risk for surgery due to her underlying neurological disorder. Consult has been added for Dr. Bolton to evaluate. 01/06: Patient has been afebrile, heart rate 108, blood pressure 139/70, pulse ox 98% on room air. Repeat blood work reveals CBC was unremarkable. Chloride 110, potassium 4.2, BUN 3 and creatinine 0.25. Total bilirubin 0.8, AST 55, ALT 23, clindamycin phosphatase 277. Dr. Gan recommends continuing Zosyn. Patient has been seen by general surgery with recommendations for IV fluids, IV antibiotics. And as for laparoscopic possible open cholecystectomy on Saturday. Neurology has ordered MRI of the spine to rule out spinal stenosis. Patient is complaining of abdominal pain and will add Tylenol 3 for pain control. 01/07: Cervical spine MRI revealed no severe spinal stenosis. There is disc bulging with focal protrusion centrally at C5-6. Some right-sided cord flattening may be present in the axial plane. Retrolisthesis of the C4 on C5 with disc uncovering cause mild anterior thecal sac flattening without stenosis or cord contact rate. Loss of disc height C6-7. Left paracentral large disc bulge with moderate anterior thecal sac compression C7-T1. Neurology has recom mended follow-up with her neurologist and signed off her case. She has been afebrile, heart rate 102-126 since yesterday afternoon, blood pressure 142/77, pulse ox 94% on room air. INR 1.3 orally. INR yesterday 2.1 and received vitamin K. Patient underwent left upper cholecystectomy this morning with Dr. Bolton with no immediate postop complications. REVIEW OF SYSTEMS Constitutional: Reported fever, reported chills, no night sweats. No weight change. Reported weakness, Reported fatigue Reported lethargy. Reported daytime sleepiness. EENT: No headache. No blurred vision or double vision, no loss of vision. Reported ear pain. No loss of Hearing, no ringing in the ears, no dizziness. No nasal drainage or congestion. No epistaxis. Reported sore throat. Reported difficulty swallowing. Lungs: No shortness of breath, cough, no sputum production. No wheezing. Cardiovascular: No chest pain, no lower extremity edema. No palpitations. No paroxysmal nocturnal dyspnea. No orthopnea. No lightheadedness or dizziness. No syncopal episodes. Abdominal: Reports abdominal pain. No nausea, vomiting. No diarrhea. No constipation. No bloody or tarry stools. No loss of appetite. Genitourinary: No dysuria, increased frequency, urgency. No urinary retention. Reported decreased urine output. Musculoskeletal: No myalgias. Reported muscle weakness, chronic gait dysfunction, no frequent falls. No back pain. No neck pain. Integumentary: No wounds, no lesions. No rash or pruritus. No unusual bruising. Neurologic: No aphasia. No facial droop. Reported change in mentation. No head injury. No headache. No paralysis. No paresthesia. Psychiatric: No depression. No anxiety. Endocrine: No abnormal blood sugars. PHYSICAL EXAMINATION Gen: This is a 70-year-old female. She is resting in bed and appears to be comfortable. No acute distress. HEENT: Head is atraumatic, normocephalic. Pupils equal, round. Sclerae is anicteric. Oral mucous membranes are dry. NECK: Supple. No JVD. No lymphadenopathy. No thyromegaly. LUNGS: Clear to auscultation. No wheezes or rhonchi. No intercostal retractions. HEART: Regular rate and rhythm. No murmur. ABDOMEN: Soft. Bowel sounds are present. No masses. Diffuse abdominal tenderness. Stage II decubitus ulcer on coccyx, POA. EXTREMITIES: 1+ bilateral pedal edema. No calf tenderness. NEUROLOGICAL: Patient is awake and alert, oriented to person and place. Patient is able to answer only simple questions. Significant generalized weakness noted. ASSESSMENT AND PLAN 1. Acute metabolic encephalopathy and fever of secondary to acute chol ecystitis. Consult with neurology and infectious disease appreciated. Infectious disease has started the patient on Zosyn. The following medications are on hold gabapentin 600 mg at bedtime, 300 mg twice daily, loratadine vitamins, oxybutynin. HIDA scan with low ejection fraction correlate for b iliary dyskinesia. Consult with Dr. Bolton appreciated. 2. Dehydration. Continue IV fluids 0.9 normal saline at 75 mL per hour. 3. Severe hypokalemia. Continue court recording monitor, continue replacement protocol. 4. Acute cholecystitis. Consult with general surgery appreciated. Patient status post laparoscopic cholecystectomy on 01/07. Continue Zosyn. Tylenol 3 as needed for pain. 5. Chronic kidney disease stage II 6. 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 Patient normally receives Gammagard every 14 days and missed a dose due to hospitalization. Patient also on chronic prednisone. Hold Avagard until infection cleared. Consult with neurology appreciated. 7. Hyperlipidemia. Continue simvastatin 40 mg at bedtime. 8. Overactive bladder. Hold oxybutynin. 9. Non-use edema of the lower extremities. 10. Recent left-sided parotitis secondary to dehydration, stable. 11. Severe hypokalemia. Replacement. 12. GI prophylaxis. Protonix. 13. DVT prophylaxis. Lovenox 40 mg subcu daily. DISCHARGE PLAN Most likely return home with her . Impression and plan of care have been directed as dictated by the signing physician. Loan Zhang nurse practitioner acting as scribe for signing physician. Objective - Vital Signs Vital signs: Vital Signs Temp 97.6 F 01/07/21 08:00 Pulse 102 H 01/07/21 08:00 Resp 20 01/07/21 08:00 BP 142/77 01/07/21 08:00 Pulse Ox 94 L 01/07/21 08:00 Intake & Output 01/06/21 01/07/21 01/07/21 18:59 06:59 18:59 Intake Total 0 Output Total 300 Balance -300 0 Intake: Oral 0 Output: Urine 300 Other: Voiding Method External Catheter External Catheter - Labs CBC & Chem 7: 01/06/21 02:06 01/06/21 02:06 Labs: Abnormal Lab Results - Last 24 Hours (Table) 01/06/21 01/07/21 Range/Units 18:18 05:55 PT 20.8 H 13.7 H (9.0-12.0) sec INR 2.1 H 1.3 H (<1.2) APTT 40.9 H (22.0-30.0) sec Microbiology - Last 24 Hours (Table) 01/02/21 11:30 Blood Culture - Preliminary Blood No Growth after 96 hours 01/02/21 11:37 Blood Culture - Preliminary Blood No Growth after 96 hours
[2021-01-07] MEDS: Acetaminophen-Codeine 300-30mg TAB PO PRN (11:52)
[2021-01-07 14:02] VITALS: BMI 30.7
--- NOTE | 2021-01-07 19:59 | PN ---
PROGRESS NOTE DATE OF SERVICE: 01/07/2021 REASON FOR FOLLOWUP: Fever, question of cholecystitis. INTERVAL HISTORY: The patient is currently afebrile. Patient is breathing comfortably on room air. The patient denies having any chest pain or cough. No abdominal pains, some nausea, but no vomiting and no diarrhea. PHYSICAL EXAMINATION: Blood pressure 103/68 with a pulse of 95, temperature 98. She is 95% on room air. General description is an elderly female lying in bed in no distress. Respiratory system: Unlabored breathing, clear to auscultation anteriorly. Heart S1, S2. Regular rate and rhythm. ABDOMEN: Soft, no tenderness. LABS: No new labs have been obtained today. Blood culture has been negative. DIAGNOSTIC IMPRESSION AND PLAN: Patient with fever, concerning for possible cholecystitis and multiple allergies. Patient is covered with Zosyn that will be continued for now and will monitor clinical course closely. MMODL / IJN: [id number] /
[2021-01-07] MEDS: MELATONIN 5 MG TABLET PO SCH (20:08)
[2021-01-08] MEDS: PIPERACILLIN-TAZOBACTAM 3.375 GM in SODIUM CHLORIDE 0.9% 100 ML IVPB SCH ×3 (03:38→20:13)
[2021-01-08] MEDS: SODIUM CHLORIDE 0.9% 1,000 ML IV SCH ×2 (03:43→11:00)
[2021-01-08] MEDS: Acetaminophen-Codeine 300-30mg TAB PO PRN ×2 (07:42→16:07)
[2021-01-08] MEDS: ASPIRIN 81 MG PO SCH (07:42)
[2021-01-08] MEDS: PANTOPRAZOLE 40 MG/10 ML VIAL IVP SCH (07:43)
[2021-01-08] MEDS: ATORVASTATIN 20 MG TAB PO SCH (07:43)
[2021-01-08] MEDS: ENOXAPARIN 40 MG/0.4 ML SYRINGE SQ SCH (07:43)
[2021-01-08] MEDS: predniSONE 20 MG TAB PO SCH (07:43)
--- NOTE | 2021-01-08 09:59 | P.PN ---
Subjective Progress Note Date: 01/08/21 Principal diagnosis: Acute cholecystitis Patient feels better today. She seems more alert. She is tachycardic. Morning labs pending. Objective - Vital Signs Vital signs: Vital Signs Temp 97.2 F L 01/08/21 07:46 Pulse 122 H 01/08/21 07:46 Resp 20 01/08/21 07:46 BP 132/83 01/08/21 07:46 Pulse Ox 97 01/08/21 07:46 Intake & Output 01/07/21 01/08/21 01/08/21 18:59 06:59 18:59 Intake Total 550 Output Total 260 450 Balance 290 -450 Weight 86.183 kg Intake: IV 300 Blood Product 250 Output: Urine 250 450 Estimated Blood Loss 10 Other: Voiding Method External Catheter External Catheter - Exam Abdomen: Soft, nondistended, mild tenderness, incisions clean and dry - Labs CBC & Chem 7: 01/06/21 02:06 01/06/21 02:06 Labs: Microbiology - Last 24 Hours (Table) 01/02/21 11:37 Blood Culture - Preliminary Blood No Growth after 120 hours 01/02/21 11:30 Blood Culture - Preliminary Blood No Growth after 120 hours Assessment and Plan (1) Acute cholecystitis Narrative/Plan: Overall patient seems to be improving. Check morning labs. Advance diet as sj erated. Current Visit: Yes Status: Acute Code(s): K81.0 - ACUTE CHOLECYSTITIS SNOMED Code(s): 59918797
--- NOTE | 2021-01-08 10:28 | XR ---
EXAMINATION TYPE: XR chest 1V portable DATE OF EXAM: 01/08/2021 COMPARISON: 12/24/2020 INDICATION: Cough, congestion TECHNIQUE: Single frontal view of the chest is obtained. FINDINGS: The heart size is mildly prominent. The pulmonary vasculature is normal. Mild bilateral pleural fluid collections are present. There may be some chronic elevation of right di aphragm. IMPRESSION: 1. Small bilateral pleural effusions. Some adjacent subsegmental infiltrates may be present. Findings are nonspecific. Follow-up can be performed.
--- NOTE | 2021-01-08 12:14 | P.PN ---
Subjective Progress Note Date: 01/08/21 HISTORY OF PRESENT ILLNESS This is a 70-year-old female patient of Dr. 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 [facility] [place] on Gammagard every 2 weeks for many years. Patient has history of abscess of the right thigh that was under the care of Dr. Olvera through the wound healing Center. Patient was recently hospitalized from December 22 through December 26 which time she was treated for acute UTI with suspected pyelonephritis and metabolic encephalopathy and sepsis, acute kidney injury. She did undergo modified barium swallow and recommendations were for mechanical soft diet with thin liquids, base of the tongue exercises were recommended. Patient was seen by Dr. Erazo for parotitis secondary to dehydration. She was treated for UTI with Zosyn and discharged on doxycycline. She was seen also by cardiology and ruled out acute coronary syndrome. The patient was discharged home and family did not want home care set up. She is normally bed or wheelchair bound. She now presents back to the emergency center as states that she wouldn't swallow couldn't eat anything complained of sore throat and ear pain. She also did not have much urine output. No fever. She did have a small bowel movement prior to coming into the hospital. Patient was due for her Gammagard apparently today and had missed a dose due to being hospitalized last week. She had her last appointment with her neurologist Dr. Chavez in August 2020 which was a virtual appointment. Patient presented to [facility] emergency center for evaluation. Temperature was 101.5, heart rate 120, blood pressure 126/104, pulse ox 94%. CBC was unremarkable. Sodium 137, potassium 2.6, chloride 100, CO2 31, BUN 5 and creatinine 0.28. Blood pressure 112. Lactic acid 1.9. AST 52, alkaline phosphatase 296. Phosphorus 2.3, magnesium 1.8. Urinalysis clear, nitrite and leukoesterase negative. EKG was sinus tachycardia with left internal hypertrophy. CAT scan of the abdomen and pelvis revealed cholelithiasis with gallbladder wall thickening although there is no evidence of inflammatory change. Small right-sided pleural effusion and right basilar compressive atelectasis. Patient was started on IV Levaquin and potassium was replaced with 20 mEq. She is status post 1800 mL of IV fluid. 01/03: Patient has been afebrile since admission, heart rate 114, blood pressure 138/87, pulse ox 98% on 2 L nasal cannula. Repeat potassium yesterday afternoon was 3.6 and magnesium 1.8. Patient's mental status is slightly improved from yesterday. She is awake and alert but remains confused. IV access has been unable to be obtained and Accu cath has been ordered. Consult in place with neurology and infectious disease. 01/04: Patient has been seen by infectious disease with recommendations for Zosyn and possible HIDA scan. This was canceled for unknown reason. We will add order for HIDA scan to be done today. Patient has also been seen by neurology for altered mental status is likely at acute delirium possible metabolic encephalopathy secondary to possible cryptogenic infection. Recommendations to hold IVIG until patient recover from acute illness. Recommendations to follow- up with her neurologist regarding memory loss with possible dementia. The following lab work was ordered: Vitamin B12, folate level, TSH, B1, B6. Patient has been afebrile, heart rate 97, blood pressure 113/72, pulse ox 90% on 2 L nasal cannula. Blood cultures no growth at 24 hours. Midline was placed yesterday for IV access. She was fed by staff. She reviews her breakfast this morning. She is awake and alert but remains confused. 01/05: HIDA scan revealed low ejection fraction of 21%. Correlate for biliary dyskinesia. Dr. Gan recommends continuing Zosyn. Patient is followed by neurology as well. Vitamin B12 level CMXXXVI. Folate greater than 24. TSH 2.650. Repeat blood work reveals WBC 6.5, hemoglobin 11.3, platelet count 195. Sodium 146, potassium 2.8, chloride 107, CO2 25, BUN 5, creatinine 0.2. AST 44, ALT 22, alkaline phosphatase 253. Dr. Townsend discussed condition with the patient's Shukri and patient's would like to move forward with gallbladder surgery. He understands that there are complications and she is at high risk for surgery due to her underlying neurological disorder. Consult has been added for Dr. Bolton to evaluate. 01/06: Patient has been afebrile, heart rate 108, blood pressure 139/70, pulse ox 98% on room air. Repeat blood work reveals CBC was unremarkable. Chloride 110, potassium 4.2, BUN 3 and creatinine 0.25. Total bilirubin 0.8, AST 55, ALT 23, clindamycin phosphatase 277. Dr. Gan recommends continuing Zosyn. Patient has been seen by general surgery with recommendations for IV fluids, IV antibiotics. And as for laparoscopic possible open cholecystectomy on Saturday. Neurology has ordered MRI of the spine to rule out spinal stenosis. Patient is complaining of abdominal pain and will add Tylenol 3 for pain control. 01/07: Cervical spine MRI revealed no severe spinal stenosis. There is disc bulging with focal protrusion centrally at C5-6. Some right-sided cord flattening may be present in the axial plane. Retrolisthesis of the C4 on C5 with disc uncovering cause mild anterior thecal sac flattening without stenosis or cord contact rate. Loss of disc height C6-7. Left paracentral large disc bulge with moderate anterior thecal sac compression C7-T1. Neurology has recom mended follow-up with her neurologist and signed off her case. She has been afebrile, heart rate 102-126 since yesterday afternoon, blood pressure 142/77, pulse ox 94% on room air. INR 1.3 orally. INR yesterday 2.1 and received vitamin K. Patient underwent left upper cholecystectomy this morning with Dr. Bolton with no immediate postop complications. 01/08: Patient is postop day #1 for laparoscopic cholecystectomy. Patient has refused to eat this morning. Nursing was able to get her to take her medications. We'll try advancing her diet. She also was noncompliant with getting labs drawn this morning. Repeat labs will be ordered for tomorrow. Patient is noted to have a very congested moist cough. Incentive spirometry and chest x-ray been ordered. Patient is denying pain but remains confused. Chest x-ray reveals small bilateral pleural effusions. Some adjacent subsegmental infiltrates may be present. Findings nonspecific.. REVIEW OF SYSTEMS Constitutional: Reported fever, reported chills, no night sweats. No weight change. Reported weakness, Reported fatigue Reported lethargy. Reported daytime sleepiness. EENT: No headache. No blurred vision or double vision, no loss of vision. Reported ear pain. No loss of Hearing, no ringing in the ears, no dizziness. No nasal drainage or congestion. No epistaxis. Reported sore throat. Reported difficulty swallowing. Lungs: No shortness of breath, cough, no sputum production. No wheezing. Cardiovascular: No chest pain, no lower extremity edema. No palpitations. No paroxysmal nocturnal dyspnea. No orthopnea. No lightheadedness or dizziness. No syncopal episodes. Abdominal: Reports abdominal pain improved. No nausea, vomiting. No diarrhea. No constipation. No bloody or tarry stools. No loss of appetite. Genitourinary: No dysuria, increased frequency, urgency. No urinary retention. Reported decreased urine output. Musculoskeletal: No myalgias. Reported muscle weakness, chronic gait dysfunction, no frequent falls. No back pain. No neck pain. Integumentary: No wounds, no lesions. No rash or pruritus. No unusual bruising. Neurologic: No aphasia. No facial droop. Reported change in mentation. No head injury. No headache. No paralysis. No paresthesia. Psychiatric: No depression. No anxiety. Endocrine: No abnormal blood sugars. PHYSICAL EXAMINATION Gen: This is a 70-year-old female. She is resting in bed and appears to be comfortable. No acute distress. HEENT: Head is atraumatic, normocephalic. Pupils equal, round. Sclerae is anicteric. Oral mucous membranes are dry. NECK: Supple. No JVD. No lymphadenopathy. No thyromegaly. LUNGS: Clear to auscultation. No wheezes or rhonchi. No intercostal retractions. HEART: Regular rate and rhythm. No murmur. ABDOMEN: Soft. Bowel sounds are present. Nondistended No masses. Mild abdominal tenderness. Stage II decubitus ulcer on coccyx, POA. EXTREMITIES: 1+ bilateral pedal edema. No calf tenderness. NEUROLOGICAL: Patient is awake and alert, oriented to person and place. Patient is able to answer only simple questions. Significant generalized weakness noted. ASSESSMENT AND PLAN 1. Acute metabolic encephalopathy and fever of secondary to acute cholecystitis. Consult with neurology and infectious disease appreciated. Infectious disease has started the patient on Zosyn. The following medications are on hold gabapentin 600 mg at bedtime, 300 mg twice daily, loratadine vitamins, oxybutynin. HIDA scan with low ejection fraction correlate for biliary dyskinesia. Consult with Dr. Bolton appreciated. Encourage incentive spirometry. 2. Dehydration. Continue IV fluids 0.9 normal saline at 75 mL per hour. Advance diet. 3. Severe hypokalemia. Continue hand stonecutter, continue replacement protocol. 4. Acute cholecystitis. Consult with general surgery appreciated. Patient status post laparoscopic cholecystectomy on 01/07. Continue Zosyn. Tylenol 3 as needed for pain. 5. Chronic kidney disease stage II 6. 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 Patient normally receives Gammagard every 14 days and missed a dose due to hospitalization. Patient also on chronic prednisone. Hold Avagard until infection cleared. Consult with neurology appreciated. 7. Hyperlipidemia. Continue simvastatin 40 mg at bedtime. 8. Overactive bladder. Hold oxybutynin. 9. Non-use edema of the lower extremities. 10. Recent left-sided parotitis secondary to dehydration, stable. 11. Severe hypokalemia. Replacement. 12. GI prophylaxis. Protonix. 13. DVT prophylaxis. Lovenox 40 mg subcu daily. DISCHARGE PLAN Most likely return home with her . Impression and plan of care have been directed as dictated by the signing physician. Loan Zhang nurse practitioner acting as scribe for signing physician. Objective - Vital Signs Vital signs: Vital Signs Temp 97.2 F L 01/08/21 07:46 Pulse 122 H 01/08/21 07:46 Resp 20 01/08/21 07:46 BP 132/83 01/08/21 07:46 Pulse Ox 97 01/08/21 07:46 Intake & Output 01/07/21 01/08/21 01/08/21 18:59 06:59 18:59 Intake Total 550 Output Total 260 450 Balance 290 -450 Weight 86.183 kg Intake: IV 300 Blood Product 250 Output: Urine 250 450 Estimated Blood Loss 10 Other: Voiding Method External Catheter External Catheter - Labs CBC & Chem 7: 01/06/21 02:06 01/06/21 02:06 Labs: Microbiology - Last 24 Hours (Table) 01/02/21 11:37 Blood Culture - Preliminary Blood No Growth after 120 hours 01/02/21 11:30 Blood Culture - Preliminary Blood No Growth after 120 hours
[2021-01-08] MEDS: HYDROCORTISONE SUCCINATE 100 MG/2 ML VIAL IV SCH ×2 (15:53→23:23)
--- NOTE | 2021-01-08 19:56 | PN ---
PROGRESS NOTE DATE OF SERVICE: 01/08/2021 REASON FOR FOLLOWUP: Fever secondary to cholecystitis. INTERVAL HISTORY: The patient is currently afebrile. The patient is status post laparoscopic cholecystectomy yesterday. The patient tolerated the procedure. Denies having any chest pain. No shortness of breath. No nausea, vomiting or diarrhea. PHYSICAL EXAMINATION: Blood pressure is 109/70 with a pulse of 111, temperature 98.1. She is 93% on room air. General description is an elderly female lying in bed in no distress. Respiratory system: Unlabored breathing, clear to auscultation anteriorly. Heart S1, S2. Regular rate and rhythm. Abdomen soft, no tenderness. LABS: Hemoglobin is 12.7, white count 5.5, BUN of 30, creatinine 0.25. DIAGNOSTIC IMPRESSION AND PLAN: Patient with a fever, concern for possible acalculous cholecystitis status post cholecystectomy. Patient at this time covered with Zosyn, transition to oral antibiotic on discharge and monitor clinical course closely. MMODL / IJN: [id number] /
[2021-01-08] MEDS: MELATONIN 5 MG TABLET PO SCH (20:13)
[2021-01-09] MEDS: PIPERACILLIN-TAZOBACTAM 3.375 GM in SODIUM CHLORIDE 0.9% 100 ML IVPB SCH ×3 (04:25→20:26)
[2021-01-09 07:06] LABS: Anisocytosis Slight; HCT 41.2 % (34.0-46.0); HGB 12.9 gm/dL (11.4-16.0); Hypochromasia Moderate; MCH 28.7 pg (25.0-35.0); MCHC 31.2 g/dL (31.0-37.0); MCV 91.9 fL (80.0-100.0); Macrocytosis Slight; Mean Platelet Volume 8.4; Platelet Count 135 k/uL (150-450); Poikilocytosis Slight; RBC 4.49 m/uL (3.80-5.40); RDW 19.7 % (11.5-15.5); WBC 8.2 k/uL (3.8-10.6)
[2021-01-09 07:22] LABS: ALT 36 U/L (4-34); AST 103 U/L (14-36); African American GFR (CKD) >90 (>60 ml/min/1.73 sqM); Albumin 2.1 g/dL (3.5-5.0); Albumin/Globulin Ratio 0.8; Alkaline Phosphatase 372 U/L (38-126); Anion Gap 14 mmol/L; Blood Urea Nitrogen <2 mg/dL (7-17); Calcium 7.4 mg/dL (8.4-10.2); Carbon Dioxide 19 mmol/L (22-30); Chloride 106 mmol/L (98-107); Globulin 2.5 g/dL; Glucose 112 mg/dL (74-99); Non-African American GFR(CKD) >90 (>60 ml/min/1.73 sqM); Sodium 139 mmol/L (137-145); Total Protein 4.6 g/dL (6.3-8.2)
[2021-01-09 07:25] LABS: Potassium 2.4 mmol/L (3.5-5.1)
[2021-01-09] MEDS ORDERED: Potassium Replacement Protocol 1 EACH MISC MISCELLANE PRN ×2 (07:33→12:44)
[2021-01-09] MEDS: ENOXAPARIN 40 MG/0.4 ML SYRINGE SQ SCH (08:06)
[2021-01-09] MEDS: SODIUM CHLORIDE 0.9% 1,000 ML IV SCH (08:07)
[2021-01-09] MEDS: ASPIRIN 81 MG PO SCH (08:08)
[2021-01-09] MEDS: ATORVASTATIN 20 MG TAB PO SCH (08:08)
[2021-01-09] MEDS: HYDROCORTISONE SUCCINATE 100 MG/2 ML VIAL IV SCH ×2 (08:08→15:45)
[2021-01-09] MEDS: POTASSIUM CHLORIDE ER 20 MEQ TAB.ER PO SCH ×7 (08:08→13:04)
[2021-01-09] MEDS: PANTOPRAZOLE 40 MG/10 ML VIAL IVP SCH (08:08)
--- NOTE | 2021-01-09 11:07 | P.PN ---
<Zari Jean - Last Filed: 01/09/21 11:01> Subjective Progress Note Date: 01/09/21 CHIEF COMPLAINT: Mental status changes HISTORY OF PRESENT ILLNESS: Acute cholecystitis status post laparoscopic cholecystectomy. Patient lying in bed comfortably. Per nursing staff decreased appetite. Patient denies any pain. No bowel movement reported. Afebrile. Heart rate 101. WBC 8.2 potassium 2.4 AST 103 ALT 36 alk phos 372 PHYSICAL EXAM: VITAL SIGNS: Reviewed. GENERAL: Well-developed in no acute distress. HEENT: No sclera icterus. Extraocular movements grossly intact. Moist buccal mucosa. Head is atraumatic, normocephalic. ABDOMEN: Soft. Nondistended. Incision sites clean dry and intact. Patient does have lower abdominal bruising. NEUROLOGIC: Alert and oriented. Cranial nerves II through XII grossly intact. ASSESSMENT: 1. Acute cholecystitis status post laparoscopic cholecystectomy 2. Hypokalemia PLAN: -Continue low fiber diet -Continue pain medication as needed -Potassium being replaced -Encourage incentive spirometer use -Antibiotics per ID -Continue GI prophylaxis Protonix and DVT prophylaxis subcu heparin Physician Network Support Technician note has been reviewed by physician. Signing provider agrees with the documented findings, assessment, and plan of care. Objective - Vital Signs Vital signs: Vital Signs Temp 98.3 F 01/09/21 07:20 Pulse 101 H 01/09/21 07:20 Resp 16 01/09/21 07:20 BP 147/92 01/09/21 07:20 Pulse Ox 97 01/09/21 07:20 Intake & Output 01/08/21 01/09/21 01/09/21 18:59 06:59 18:59 Output Total 450 225 Balance -450 -225 Output: Urine 450 225 Other: Voiding Method External Catheter External Catheter External Catheter # Bowel Movements 1 - Labs CBC & Chem 7: 01/09/21 05:42 01/09/21 05:42 Labs: Abnormal Lab Results - Last 24 Hours (Table) 01/09/21 01/09/21 Range/Units 05:42 05:42 RDW 19.7 H (11.5-15.5) % Plt Count 135 L (150-450) k/uL Potassium 2.4 L* (3.5-5.1) mmol/L Carbon Dioxide 19 L (22-30) mmol/L BUN <2 L (7-17) mg/dL Creatinine 0.24 L (0.52-1.04) mg/dL Glucose 112 H (74-99) mg/dL Calcium 7.4 L (8.4-10.2) mg/dL AST 103 H (14-36) U/L ALT 36 H (4-34) U/L Alkaline Phosphatase 372 H (38-126) U/L Total Protein 4.6 L (6.3-8.2) g/dL Albumin 2.1 L (3.5-5.0) g/dL Microbiology - Last 24 Hours (Table) 01/02/21 11:37 Blood Culture - Final Blood No Growth after 144 hours 01/02/21 11:30 Blood Culture - Final Blood No Growth after 144 hours <Chang Bolton - Last Filed: 01/09/21 12:46> Subjective As above. Patient says she has no pain today. Tolerating diet. Labs noted. Repeat CMP tomorrow. Objective - Vital Signs Vital signs: Vital Signs Temp 98.3 F 01/09/21 07:20 Pulse 101 H 01/09/21 07:20 Resp 16 01/09/21 07:20 BP 147/92 01/09/21 07:20 Pulse Ox 97 01/09/21 07:20 Intake & Output 01/08/21 01/09/21 01/09/21 18:59 06:59 18:59 Output Total 450 225 Balance -450 -225 Output: Urine 450 225 Other: Voiding Method External Catheter External Catheter External Catheter # Bowel Movements 1 - Labs CBC & Chem 7: 01/09/21 05:42 01/09/21 05:42 Labs: Abnormal Lab Results - Last 24 Hours (Table) 01/09/21 01/09/21 Range/Units 05:42 05:42 RDW 19.7 H (11.5-15.5) % Plt Count 135 L (150-450) k/uL Potassium 2.4 L* (3.5-5.1) mmol/L Carbon Dioxide 19 L (22-30) mmol/L BUN <2 L (7-17) mg/dL Creatinine 0.24 L (0.52-1.04) mg/dL Glucose 112 H (74-99) mg/dL Calcium 7.4 L (8.4-10.2) mg/dL AST 103 H (14-36) U/L ALT 36 H (4-34) U/L Alkaline Phosphatase 372 H (38-126) U/L Total Protein 4.6 L (6.3-8.2) g/dL Albumin 2.1 L (3.5-5.0) g/dL Microbiology - Last 24 Hours (Table) 01/02/21 11:37 Blood Culture - Final Blood No Growth after 144 hours 01/02/21 11:30 Blood Culture - Final Blood No Growth after 144 hours Assessment and Plan (1) Acute cholecystitis Current Visit: Yes Status: Acute Code(s): K81.0 - ACUTE CHOLECYSTITIS SN OMED Code(s): 19334106
[2021-01-09] MEDS: MULTIVITAMINS, THERA 1 EACH TAB PO SCH (12:08)
[2021-01-09] MEDS: POTASSIUM CHLORIDE 10 MEQ in WATER FOR INJECTION 1 100ML.BAG IVPB SCH ×7 (13:02→22:25)
--- NOTE | 2021-01-09 14:35 | P.PN ---
Subjective Progress Note Date: 01/09/21 HISTORY OF PRESENT ILLNESS This is a 70-year-old female patient of Dr. 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 Patient has history of abscess of the right thigh that was under the care of Dr. Olvera through the wound healing Center. Patient was recently hospitalized from December 22 through December 26 which time she was treated for acute UTI with suspected pyelonephritis and metabolic encephalopathy and sepsis, acute kidney injury. She did undergo modified barium swallow and recommendations were for mechanical soft diet with thin liquids, base of the tongue exercises were recommended. Patient was seen by Dr. Erazo for parotitis secondary to dehydration. She was treated for UTI with Zosyn and discharged on doxycycline. She was seen also by cardiology and ruled out acute coronary syndrome. The patient was discharged home and family did not want home care set up. She is normally bed or wheelchair bound. She now presents back to the emergency center as states that she wouldn't swallow couldn't eat anything complained of sore throat and ear pain. She also did not have much urine output. No fever. She did have a small bowel movement prior to coming into the hospital. Patient was due for her Gammagard apparently today and had missed a dose due to being hospitalized last week. She had her last appointment with her neurologist Dr. Chavez in August 2020 which was a virtual appointment. Patient presented to [facility] emergency center for evaluation. Temperature was 101.5, heart rate 120, blood pressure 126/104, pulse ox 94%. CBC was unremarkable. Sodium 137, potassium 2.6, chloride 100, CO2 31, BUN 5 and creatinine 0.28. Blood pressure 112. Lactic acid 1.9. AST 52, alkaline phosphatase 296. Phosphorus 2.3, magnesium 1.8. Urinalysis clear, nitrite and leukoesterase negative. EKG was sinus tachycardia with left internal hypertrophy. CAT scan of the abdomen and pelvis revealed cholelithiasis with gallbladder wall thickening although there is no evidence of inflammatory change. Small right-sided pleural effusion and right basilar compressive atelectasis. Patient was started on IV Levaquin and potassium was replaced with 20 mEq. She is status post 1800 mL of IV fluid. 01/03: Patient has been afebrile since admission, heart rate 114, blood pressure 138/87, pulse ox 98% on 2 L nasal cannula. Repeat potassium yesterday afternoon was 3.6 and magnesium 1.8. Patient's mental status is slightly improved from yesterday. She is awake and alert but remains confused. IV access has been unable to be obtained and Accu cath has been ordered. Consult in place with neurology and infectious disease. 01/04: Patient has been seen by infectious disease with recommendations for Zosyn and possible HIDA scan. This was canceled for unknown reason. We will add order for HIDA scan to be done today. Patient has also been seen by neurology for altered mental status is likely at acute delirium possible metabolic encephalopathy secondary to possible cryptogenic infection. Recommendations to hold IVIG until patient recover from acute illness. Recommendations to follow- up with her neurologist regarding memory loss with possible dementia. The following lab work was ordered: Vitamin B12, folate level, TSH, B1, B6. Patient has been afebrile, heart rate 97, blood pressure 113/72, pulse ox 90% on 2 L nasal cannula. Blood cultures no growth at 24 hours. Midline was placed yesterday for IV access. She was fed by staff. She reviews her breakfast this morning. She is awake and alert but remains confused. 01/05: HIDA scan revealed low ejection fraction of 21%. Correlate for biliary dyskinesia. Dr. Gan recommends continuing Zosyn. Patient is followed by neurology as well. Vitamin B12 level CMXXXVI. Folate greater than 24. TSH 2.650. Repeat blood work reveals WBC 6.5, hemoglobin 11.3, platelet count 195. Sodium 146, potassium 2.8, chloride 107, CO2 25, BUN 5, creatinine 0.2. AST 44, ALT 22, alkaline phosphatase 253. Dr. Townsend discussed condition with the patient's Shukri and patient's would like to move forward with gallbladder surgery. He understands that there are complications and she is at high risk for surgery due to her underlying neurological disorder. Consult has been added for Dr. Bolton to evaluate. 01/06: Patient has been afebrile, heart rate 108, blood pressure 139/70, pulse ox 98% on room air. Repeat blood work reveals CBC was unremarkable. Chloride 110, potassium 4.2, BUN 3 and creatinine 0.25. Total bilirubin 0.8, AST 55, ALT 23, clindamycin phosphatase 277. Dr. Gan recommends continuing Zosyn. Patient has been seen by general surgery with recommendations for IV fluids, IV antibiotics. And as for laparoscopic possible open cholecystectomy on Saturday. Neurology has ordered MRI of the spine to rule out spinal stenosis. Patient is complaining of abdominal pain and will add Tylenol 3 for pain control. 01/07: Cervical spine MRI revealed no severe spinal stenosis. There is disc bulging with focal protrusion centrally at C5-6. Some right-sided cord flattening may be present in the axial plane. Retrolisthesis of the C4 on C5 with disc uncovering cause mild anterior thecal sac flattening without stenosis or cord contact rate. Loss of disc height C6-7. Left paracentral large disc bulge with moderate anterior thecal sac compression C7-T1. Neurology has recom mended follow-up with her neurologist and signed off her case. She has been afebrile, heart rate 102-126 since yesterday afternoon, blood pressure 142/77, pulse ox 94% on room air. INR 1.3 orally. INR yesterday 2.1 and received vitamin K. Patient underwent left upper cholecystectomy this morning with Dr. Bolton with no immediate postop complications. 01/08: Patient is postop day #1 for laparoscopic cholecystectomy. Patient has refused to eat this morning. Nursing was able to get her to take her medications. We'll try advancing her diet. She also was noncompliant with getting labs drawn this morning. Repeat labs will be ordered for tomorrow. Patient is noted to have a very congested moist cough. Incentive spirometry and chest x-ray been ordered. Patient is denying pain but remains confused. Chest x-ray reveals small bilateral pleural effusions. Some adjacent subsegmental infiltrates may be present. Findings nonspecific.. 01/09: She is postop day #2. Patient refused to eat her breakfast. She is refusing potassium supplement oral which will be switched to IV. Repeat blood work reveals a platelet count 135 otherwise CBC is unremarkable. Potassium 2.4, CO2 19, BUN less than 2 and creatinine 0.24. Blood sugar 112. Total bilirubin 1, AST 103, ALT 36, alkaline phosphatase 376. General surgery recommends continuing low fiber diet and pain medications as needed, antibiotics per ID. Dr. Sayed is planning for oral antibiotics at the time of discharge. REVIEW OF SYSTEMS Constitutional: Reported fever, reported chills, no night sweats. No weight change. Reported weakness, Reported fatigue Reported lethargy. Reported daytime sleepiness. EENT: No headache. No blurred vision or double vision, no loss of vision. Reported ear pain. No loss of Hearing, no ringing in the ears, no dizziness. No nasal drainage or congestion. No epistaxis. Reported sore throat. Reported difficulty swallowing. Lungs: No shortness of breath, cough, no sputum production. No wheezing. Cardiovascular: No chest pain, no lower extremity edema. No palpitations. No paroxysmal nocturnal dyspnea. No orthopnea. No lightheadedness or dizziness. No syncopal episodes. Abdominal: Reports abdominal pain improved. No nausea, vomiting. No diarrhea. No constipation. No bloody or tarry stools. No loss of appetite. Genitourinary: No dysuria, increased frequency, urgency. No urinary retention. Reported decreased urine output. Musculoskeletal: No myalgias. Reported muscle weakness, chronic gait dysfunction, no frequent falls. No back pain. No neck pain. Integumentary: No wounds, no lesions. No rash or pruritus. No unusual bruising. Neurologic: No aphasia. No facial droop. Reported change in mentation. No head injury. No headache. No paralysis. No paresthesia. Psychiatric: No depression. No anxiety. Endocrine: No abnormal blood sugars. PHYSICAL EXAMINATION Gen: This is a 70-year-old female. She is resting in bed and appears to be comfortable. No acute distress. HEENT: Head is atraumatic, normocephalic. Pupils equal, round. Sclerae is anicteric. Oral mucous membranes are dry. NECK: Supple. No JVD. No lymphadenopathy. No thyromegaly. LUNGS: Clear to auscultation. No wheezes or rhonchi. No intercostal retractions. HEART: Regular rate and rhythm. No murmur. ABDOMEN: Soft. Bowel sounds are present. Nondistended No masses. Mild abdominal tenderness. Stage II decubitus ulcer on coccyx, POA. EXTREMITIES: 1+ bilateral pedal edema. No calf tenderness. NEUROLOGICAL: Patient is awake and alert, oriented to person and place. Patient is able to answer only simple questions. Significant generalized weakness noted. ASSESSMENT AND PLAN 1. Acute metabolic encephalopathy and fever of secondary to acute cholecystitis status post laparoscopic cholecystectomy. Consult with neurology and infectious disease appreciated. Infectious disease has started the patient on Zosyn. The following medications are on hold gabapentin 600 mg at bedtime, 300 mg twice sunita ly, loratadine vitamins, oxybutynin. HIDA scan with low ejection fraction correlate for biliary dyskinesia. Consult with Dr. Bolton appreciated. Encourage incentive spirometry. 2. Dehydration. Continue IV fluids 0.9 normal saline at 75 mL per hour. Advance diet. 3. Severe hypokalemia. Continue monitoring engineer, continue replacement protocol. Recheck potassium this evening and tomorrow. 4. Acute cholecystitis. Consult with general surgery appreciated. Patient status post laparoscopic cholecystectomy on 01/07. Continue Zosyn. Tylenol 3 as needed for pain. 5. Chronic kidney disease stage II 6. 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 Patient normally receives Gammagard every 14 days and missed a dose due to hospitalization. Patient also on chronic prednisone. Hold Avagard until infection cleared. Consult with neurology appreciated. 7. Hyperlipidemia. Continue simvastatin 40 mg at bedtime. 8. Overactive bladder. Hold oxybutynin. 9. Non-use edema of the lower extremities. 10. Recent left-sided parotitis secondary to dehydration, stable. 11. Severe hypokalemia. Replacement. 12. GI prophylaxis. Protonix. 13. DVT prophylaxis. Lovenox 40 mg subcu daily. DISCHARGE PLAN Most likely return home with her . Impression and plan of care have been directed as dictated by the signing physician. Loan Zhang nurse practitioner acting as scribe for signing physician. Objective - Vital Signs Vital signs: Vital Signs Temp 98.3 F 01/09/21 07:20 Pulse 101 H 01/09/21 07:20 Resp 16 01/09/21 07:20 BP 147/92 01/09/21 07:20 Pulse Ox 97 01/09/21 07:20 Intake & Output 01/08/21 01/09/21 01/09/21 18:59 06:59 18:59 Output Total 450 225 Balance -450 -225 Output: Urine 450 225 Other: Voiding Method External Catheter External Catheter # Bowel Movements 1 - Labs CBC & Chem 7: 01/09/21 05:42 01/09/21 05:42 Labs: Abnormal Lab Results - Last 24 Hours (Table) 01/09/21 01/09/21 Range/Units 05:42 05:42 RDW 19.7 H (11.5-15.5) % Plt Count 135 L (150-450) k/uL Potassium 2.4 L* (3.5-5.1) mmol/L Carbon Dioxide 19 L (22-30) mmol/L BUN <2 L (7-17) mg/dL Creatinine 0.24 L (0.52-1.04) mg/dL Glucose 112 H (74-99) mg/dL Calcium 7.4 L (8.4-10.2) mg/dL AST 103 H (14-36) U/L ALT 36 H (4-34) U/L Alkaline Phosphatase 372 H (38-126) U/L Total Protein 4.6 L (6.3-8.2) g/dL Albumin 2.1 L (3.5-5.0) g/dL Microbiology - Last 24 Hours (Table) 01/02/21 11:37 Blood Culture - Final Blood No Growth after 144 hours 01/02/21 11:30 Blood Culture - Final Blood No Growth after 144 hours
--- NOTE | 2021-01-09 18:32 | PN ---
PROGRESS NOTE DATE OF SERVICE: 01/09/2021 REASON FOR FOLLOWUP: Fever, likely cholecystitis. INTERVAL HISTORY: The patient is currently afebrile. The patient is slightly upset, as she is getting potassium infusion with pain. The patient denies having any chest pain or shortness of breath or cough. No abdominal pain or diarrhea. PHYSICAL EXAMINATION: Blood pressure 151/95, pulse of 111, temperature 98.4. She is 95% on room air. General description is an elderly female lying in bed in no distress. RESPIRATORY SYSTEM: Unlabored breathing. Clear to auscultation anteriorly. HEART: S1, S2. Regular rate and rhythm. ABDOMEN: Soft. No tenderness. LABS: Hemoglobin is 12.9, white count 8.2, BUN of 2, creatinine 0.24. DIAGNOSTIC IMPRESSION AND PLAN: Patient with a fever. Concern for cholecystitis, status post cholecystectomy. Fever has resolved. Currently on Zosyn. Transition to oral antibiotic on discharge. Continue with supportive care. MMODL / IJN: [id number] /
[2021-01-09] MEDS: MELATONIN 5 MG TABLET PO SCH (20:25)
[2021-01-10] MEDS: HYDROCORTISONE SUCCINATE 100 MG/2 ML VIAL IV SCH ×3 (00:14→16:35)
[2021-01-10] MEDS: SODIUM CHLORIDE 0.9% 1,000 ML IV SCH ×2 (02:29→21:13)
[2021-01-10] MEDS ORDERED: Potassium Replacement Protocol 1 EACH MISC MISCELLANE PRN (02:32)
[2021-01-10] MEDS: POTASSIUM CHLORIDE 10 MEQ in WATER FOR INJECTION 1 100ML.BAG IVPB SCH ×4 (02:55→06:10)
[2021-01-10] MEDS: PIPERACILLIN-TAZOBACTAM 3.375 GM in SODIUM CHLORIDE 0.9% 100 ML IVPB SCH ×3 (04:12→20:14)
[2021-01-10] MEDS: ATORVASTATIN 20 MG TAB PO SCH (08:36)
[2021-01-10] MEDS: PANTOPRAZOLE 40 MG TABLET PO SCH (08:36)
[2021-01-10] MEDS: ASPIRIN 81 MG PO SCH (08:36)
[2021-01-10] MEDS: ENOXAPARIN 40 MG/0.4 ML SYRINGE SQ SCH (08:36)
[2021-01-10 09:39] LABS: HCT 40.5 % (37.2-46.3); HGB 12.3 g/dL (12.0-15.0); MCH 28.5 pg (27.0-32.0); MCHC 30.4 g/dL (32.0-37.0); Mean Platelet Volume 11.7 fL (9.5-12.2); Platelet Count 146 X 10*3/uL (140-440); RBC 4.31 X 10*6/uL (4.10-5.20); RDW 22.4 % (11.5-14.5); WBC 9.81 X 10*3/uL (4.50-10.00)
--- NOTE | 2021-01-10 11:20 | P.PN ---
<Zari Jean - Last Filed: 01/10/21 11:17> Subjective Progress Note Date: 01/10/21 CHIEF COMPLAINT: Mental status changes HISTORY OF PRESENT ILLNESS: Acute cholecystitis status post laparoscopic cholecystectomy. Patient lying in bed comfortably. Per nursing staff decreased appetite. Patient denies any pain. She is having bowel movements. Afebrile WBC 9.81 hemoglobin 12.3 potassium 6.1 now elevated after supplement given. CMP pending PHYSICAL EXAM: VITAL SIGNS: Reviewed. GENERAL: Well-developed in no acute distress. HEENT: No sclera icterus. Extraocular movements grossly intact. Moist buccal mucosa. Head is atraumatic, normocephalic. ABDOMEN: Soft. Nondistended. Incision sites clean dry and intact. Patient does have lower abdominal bruising. NEUROLOGIC: Alert and oriented. Cranial nerves II through XII grossly intact. ASSESSMENT: 1. Acute cholecystitis status post laparoscopic cholecystectomy 2. Hyperkalemia to be corrected by medicine service PLAN: -Continue low fiber diet -Continue pain medication as needed -Encourage incentive spirometer use -Antibiotics per ID -Continue GI prophylaxis Protonix and DVT prophylaxis subcu heparin Physician Senior Manufacturing Engineer note has been reviewed by physician. Signing provider agrees with the documented findings, assessment, and plan of care. Objective - Vital Signs Vital signs: Vital Signs Temp 98.4 F 01/10/21 07:15 Pulse 99 01/10/21 07:15 Resp 18 01/10/21 07:15 BP 139/84 01/10/21 07:15 Pulse Ox 98 01/10/21 07:15 Intake & Output 01/09/21 01/10/21 01/10/21 18:59 06:59 18:59 Output Total 400 200 Balance -400 -200 Weight 86.183 kg Output: Urine 400 200 Other: Voiding Method External Catheter External Catheter # Voids 1 # Bowel Movements 1 - Labs CBC & Chem 7: 01/10/21 04:33 01/10/21 08:33 Labs: Abnormal Lab Results - Last 24 Hours (Table) 01/04/21 01/09/21 01/10/21 Range/Units 05:44 18:15 01:01 MCHC (32.0-37.0) g/dL RDW (11.5-14.5) % Potassium 3.2 L 3.4 L (3.5-5.1) mmol/L Vitamin B6 <2 L (5-50) ug/L 01/10/21 01/10/21 Range/Units 04:33 08:33 MCHC 30.4 L (32.0-37.0) g/dL RDW 22.4 H (11.5-14.5) % Potassium 6.1 H* (3.5-5.1) mmol/L Vitamin B6 (5-50) ug/L <Chang Bolton - Last Filed: 01/10/21 12:58> Subjective As above. Patient denies pain. Tolerating diet although volume of intake is lo w. Patient may require feeding tube placement. We'll follow. Objective - Vital Signs Vital signs: Vital Signs Temp 98.4 F 01/10/21 07:15 Pulse 99 01/10/21 07:15 Resp 18 01/10/21 07:15 BP 139/84 01/10/21 07:15 Pulse Ox 98 01/10/21 07:15 Intake & Output 01/09/21 01/10/21 01/10/21 18:59 06:59 18:59 Output Total 400 200 Balance -400 -200 Weight 86.183 kg Output: Urine 400 200 Other: Voiding Method External Catheter External Catheter # Voids 1 # Bowel Movements 1 - Labs CBC & Chem 7: 01/10/21 04:33 01/10/21 11:47 Labs: Abnormal Lab Results - Last 24 Hours (Table) 01/04/21 01/09/21 01/10/21 Range/Units 05:44 18:15 01:01 MCHC (32.0-37.0) g/dL RDW (11.5-14.5) % Potassium 3.2 L 3.4 L (3.5-5.1) mmol/L Vitamin B6 <2 L (5-50) ug/L 01/10/21 01/10/21 Range/Units 04:33 08:33 MCHC 30.4 L (32.0-37.0) g/dL RDW 22.4 H (11.5-14.5) % Potassium 6.1 H* (3.5-5.1) mmol/L Vitamin B6 (5-50) ug/L Assessment and Plan (1) Acute cholecystitis Current Visit: Yes Status: Acute Code(s): K81.0 - ACUTE CHOLECYSTITIS SNOMED Code(s): 37893692
--- NOTE | 2021-01-10 11:53 | P.PN ---
Subjective Progress Note Date: 01/10/21 HISTORY OF PRESENT ILLNESS This is a 70-year-old female patient of Dr. 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 Patient has history of abscess of the right thigh that was under the care of Dr. Olvera through the wound healing Center. Patient was recently hospitalized from December 22 through December 26 which time she was treated for acute UTI with suspected pyelonephritis and metabolic encephalopathy and sepsis, acute kidney injury. She did undergo modified barium swallow and recommendations were for mechanical soft diet with thin liquids, base of the tongue exercises were recommended. Patient was seen by Dr. Erazo for parotitis secondary to dehydration. She was treated for UTI with Zosyn and discharged on doxycycline. She was seen also by cardiology and ruled out acute coronary syndrome. The patient was discharged home and family did not want home care set up. She is normally bed or wheelchair bound. She now presents back to the emergency center as states that she wouldn't swallow couldn't eat anything complained of sore throat and ear pain. She also did not have much urine output. No fever. She did have a small bowel movement prior to coming into the hospital. Patient was due for her Gammagard apparently today and had missed a dose due to being hospitalized last week. She had her last appointment with her neurologist Dr. Chavez in August 2020 which was a virtual appointment. Patient presented to [facility] emergency center for evaluation. Temperature was 101.5, heart rate 120, blood pressure 126/104, pulse ox 94%. CBC was unremarkable. Sodium 137, potassium 2.6, chloride 100, CO2 31, BUN 5 and creatinine 0.28. Blood pressure 112. Lactic acid 1.9. AST 52, alkaline phosphatase 296. Phosphorus 2.3, magnesium 1.8. Urinalysis clear, nitrite and leukoesterase negative. EKG was sinus tachycardia with left internal hypertrophy. CAT scan of the abdomen and pelvis revealed cholelithiasis with gallbladder wall thickening although there is no evidence of inflammatory change. Small right-sided pleural effusion and right basilar compressive atelectasis. Patient was started on IV Levaquin and potassium was replaced with 20 mEq. She is status post 1800 mL of IV fluid. 01/03: Patient has been afebrile since admission, heart rate 114, blood pressure 138/87, pulse ox 98% on 2 L nasal cannula. Repeat potassium yesterday afternoon was 3.6 and magnesium 1.8. Patient's mental status is slightly improved from yesterday. She is awake and alert but remains confused. IV access has been unable to be obtained and Accu cath has been ordered. Consult in place with neurology and infectious disease. 01/04: Patient has been seen by infectious disease with recommendations for Zosyn and possible HIDA scan. This was canceled for unknown reason. We will add order for HIDA scan to be done today. Patient has also been seen by neurology for altered mental status is likely at acute delirium possible metabolic encephalopathy secondary to possible cryptogenic infection. Recommendations to hold IVIG until patient recover from acute illness. Recommendations to follow- up with her neurologist regarding memory loss with possible dementia. The following lab work was ordered: Vitamin B12, folate level, TSH, B1, B6. Patient has been afebrile, heart rate 97, blood pressure 113/72, pulse ox 90% on 2 L nasal cannula. Blood cultures no growth at 24 hours. Midline was placed yesterday for IV access. She was fed by staff. She reviews her breakfast this morning. She is awake and alert but remains confused. 01/05: HIDA scan revealed low ejection fraction of 21%. Correlate for biliary dyskinesia. Dr. Gan recommends continuing Zosyn. Patient is followed by neurology as well. Vitamin B12 level CMXXXVI. Folate greater than 24. TSH 2.650. Repeat blood work reveals WBC 6.5, hemoglobin 11.3, platelet count 195. Sodium 146, potassium 2.8, chloride 107, CO2 25, BUN 5, creatinine 0.2. AST 44, ALT 22, alkaline phosphatase 253. Dr. Townsend discussed condition with the patient's Shukri and patient's would like to move forward with gallbladder surgery. He understands that there are complications and she is at high risk for surgery due to her underlying neurological disorder. Consult has been added for Dr. Bolton to evaluate. 01/06: Patient has been afebrile, heart rate 108, blood pressure 139/70, pulse ox 98% on room air. Repeat blood work reveals CBC was unremarkable. Chloride 110, potassium 4.2, BUN 3 and creatinine 0.25. Total bilirubin 0.8, AST 55, ALT 23, clindamycin phosphatase 277. Dr. Gan recommends continuing Zosyn. Patient has been seen by general surgery with recommendations for IV fluids, IV antibiotics. And as for laparoscopic possible open cholecystectomy on Saturday. Neurology has ordered MRI of the spine to rule out spinal stenosis. Patient is complaining of abdominal pain and will add Tylenol 3 for pain control. 01/07: Cervical spine MRI revealed no severe spinal stenosis. There is disc bulging with focal protrusion centrally at C5-6. Some right-sided cord flattening may be present in the axial plane. Retrolisthesis of the C4 on C5 with disc uncovering cause mild anterior thecal sac flattening without stenosis or cord contact rate. Loss of disc height C6-7. Left paracentral large disc bulge with moderate anterior thecal sac compression C7-T1. Neurology has recom mended follow-up with her neurologist and signed off her case. She has been afebrile, heart rate 102-126 since yesterday afternoon, blood pressure 142/77, pulse ox 94% on room air. INR 1.3 orally. INR yesterday 2.1 and received vitamin K. Patient underwent left upper cholecystectomy this morning with Dr. Bolton with no immediate postop complications. 01/08: Patient is postop day #1 for laparoscopic cholecystectomy. Patient has refused to eat this morning. Nursing was able to get her to take her medications. We'll try advancing her diet. She also was noncompliant with getting labs drawn this morning. Repeat labs will be ordered for tomorrow. Patient is noted to have a very congested moist cough. Incentive spirometry and chest x-ray been ordered. Patient is denying pain but remains confused. Chest x-ray reveals small bilateral pleural effusions. Some adjacent subsegmental infiltrates may be present. Findings nonspecific.. 01/09: She is postop day #2. Patient refused to eat her breakfast. She is refusing potassium supplement oral which will be switched to IV. Repeat blood work reveals a platelet count 135 otherwise CBC is unremarkable. Potassium 2.4, CO2 19, BUN less than 2 and creatinine 0.24. Blood sugar 112. Total bilirubin 1, AST 103, ALT 36, alkaline phosphatase 376. General surgery recommends continuing low fiber diet and pain medications as needed, antibiotics per ID. Dr. Sayed is planning for oral antibiotics at the time of discharge. 01/10: Last evening, potassium 3.2 and this morning at 1 AM potassium was 3.4 subsequently 8 AM potassium was 6.1. No treatment at this time as this appears to be an accurate and repeat draw has been ordered. Patient is refusing all food and is refusing to take her medications this morning. Patient currently h ad a bowel movement. Repeat blood work reveals WBC 9.8, hemoglobin 12.3. Discussed with patient option of PEG tube and she is willing to proceed with that. We have added a speech therapy consult and also contacted patient's via phone call and he is in agreement for PEG tube if needed. REVIEW OF SYSTEMS Constitutional: Reported fever, reported chills, no night sweats. No weight change. Reported weakness, Reported fatigue Reported lethargy. Reported daytime sleepiness. EENT: No headache. No blurred vision or double vision, no loss of vision. Reported ear pain. No loss of Hearing, no ringing in the ears, no dizziness. No nasal drainage or congestion. No epistaxis. Reported sore throat. Reported difficulty swallowing. Lungs: No shortness of breath, cough, no sputum production. No wheezing. Cardiovascular: No chest pain, no lower extremity edema. No palpitations. No paroxysmal nocturnal dyspnea. No orthopnea. No lightheadedness or dizziness. No syncopal episodes. Abdominal: Reports abdominal pain improved. No nausea, vomiting. No diarrhea. No constipation. No bloody or tarry stools. Reports loss of appetite. Refusal to eat. Genitourinary: No dysuria, increased frequency, urgency. No urinary retention. Reported decreased urine output. Musculoskeletal: No myalgias. Reported muscle weakness, chronic gait dysfunction, no frequent falls. No back pain. No neck pain. Integumentary: No wounds, no lesions. No rash or pruritus. No unusual bruising. Neurologic: No aphasia. No facial droop. Reported change in mentation. No head injury. No headache. No paralysis. No paresthesia. Psychiatric: No depression. No anxiety. Endocrine: No abnormal blood sugars. PHYSICAL EXAMINATION Gen: This is a 70-year-old female. She is resting in bed and appears to be comfortable. No acute distress. HEENT: Head is atraumatic, normocephalic. Pupils equal, round. Sclerae is anicteric. Oral mucous membranes are dry. NECK: Supple. No JVD. No lymphadenopathy. No thyromegaly. LUNGS: Clear to auscultation. No wheezes or rhonchi. No intercostal retractions. HEART: Regular rate and rhythm. No murmur. ABDOMEN: Soft. Bowel sounds are present. Nondistended No masses. Mild abdominal tenderness. Stage II decubitus ulcer on coccyx, POA. EXTREMITIES: 1+ bilateral pedal edema. No calf tenderness. NEUROLOGICAL: Patient is awake and alert, oriented to person and place. Patient is able to answer only simple questions. Significant generalized weakness noted. ASSESSMENT AND PLAN 1. Acute metabolic encephalopathy and fever of secondary to acute cholecystitis status post laparoscopic cholecystectomy. Consult with neurology and infectious disease appreciated. Infectious disease appreciated, continue Zosyn. The following medications are on hold gabapentin 600 mg at bedtime, 300 mg twice daily, loratadine vitamins, oxybutynin. HIDA scan with low ejection fraction correlate for biliary dyskinesia. Consult with Dr. Bolton appreciated. Encourage incentive spirometry. 2. Dehydration. Continue IV fluids 0.9 normal saline decreased to 50 mL per hour. Advance diet. 3. Severe hypokalemia. Continue hvac lead, continue replacement protocol. Recheck potassium this morning as a redraw and tomorrow. 4. Acute cholecystitis. Consult with general surgery appreciated. Patient status post laparoscopic cholecystectomy on 01/07. Continue Zosyn. Tylenol 3 as needed for pain. 5. Chronic kidney disease stage II 6. 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 Patient normally receives Gammagard every 14 days and missed a dose due to hospitalization. Patient also on chronic prednisone. Hold Avagard until infection cleared. Consult with neurology appreciated. 7. Hyperlipidemia. Continue simvastatin 40 mg at bedtime. 8. Overactive bladder. Hold oxybutynin. 9. Non-use edema of the lower extremities. 10. Recent left-sided parotitis secondary to dehydration, stable. 11. Severe hypokalemia. Replacement. 12. Severe protein calorie malnutrition as patient is refusing to eat. Speech therapy has been consult. Discussed PEG tube insertion is option with patient and her and both are in agreement. 13. GI prophylaxis. Protonix. 13. DVT prophylaxis. Lovenox 40 mg subcu daily. DISCHARGE PLAN Most likely return home with her . Impression and plan of care have been directed as dictated by the signing physician. Loan Zhang nurse practitioner acting as scribe for signing physician. Objective - Vital Signs Vital signs: Vital Signs Temp 98.4 F 01/10/21 07:15 Pulse 99 01/10/21 07:15 Resp 18 01/10/21 07:15 BP 139/84 01/10/21 07:15 Pulse Ox 98 01/10/21 07:15 Intake & Output 01/09/21 01/10/21 01/10/21 18:59 06:59 18:59 Output Total 400 200 Balance -400 -200 Weight 86.183 kg Output: Urine 400 200 Other: Voiding Method External Catheter External Catheter # Voids 1 # Bowel Movements 1 - Labs CBC & Chem 7: 01/10/21 04:33 01/10/21 08:33 Labs: Abnormal Lab Results - Last 24 Hours (Table) 01/04/21 01/09/21 01/10/21 Range/Units 05:44 18:15 01:01 MCHC (32.0-37.0) g/dL RDW (11.5-14.5) % Potassium 3.2 L 3.4 L (3.5-5.1) mmol/L Vitamin B6 <2 L (5-50) ug/L 01/10/21 01/10/21 Range/Units 04:33 08:33 MCHC 30.4 L (32.0-37.0) g/dL RDW 22.4 H (11.5-14.5) % Potassium 6.1 H* (3.5-5.1) mmol/L Vitamin B6 (5-50) ug/L
[2021-01-10] MEDS: MULTIVITAMINS, THERA 1 EACH TAB PO SCH (13:36)
[2021-01-10 14:23] LABS: ALT 41 U/L (8-44); AST 98 U/L (13-35); African American GFR (CKD) 133.5 (60.0-200.0); Albumin/Globulin Ratio 1.37 (1.60-3.17); Alkaline Phosphatase 452 U/L (41-126); Blood Urea Nitrogen <5.0 mg/dL (9.0-27.0); Calcium 7.7 mg/dL (8.7-10.3); Carbon Dioxide 14.1 mmol/L (21.6-31.8); Chloride 107 mmol/L (96-109); Globulin 1.9 g/dL (1.6-3.3); Glucose 112 mg/dL (70-110); Non-African American GFR(CKD) 115.2 (60.0-200.0); Potassium 4.5 mmol/L (3.5-5.5); Sodium 142 mmol/L (135-145); Total Bilirubin 0.7 mg/dL (0.2-1.2); Total Protein 4.5 g/dL (6.2-8.2)
--- NOTE | 2021-01-10 15:42 | PN ---
PROGRESS NOTE DATE OF SERVICE: 01/10/2021 REASON FOR FOLLOWUP: Fever, cholecystitis. INTERVAL HISTORY: The patient is afebrile. The patient seemed to be slightly sedated and did not answer any questions. No other change has been reported by the nursing staff. PHYSICAL EXAMINATION: Blood pressure 139/84, pulse of 99, temperature 98.4. She is 98% on room air. General description is an elderly female lying in bed in no distress. RESPIRATORY SYSTEM: Unlabored breathing. Clear to auscultation anteriorly. HEART: S1, S2. Regular rate and rhythm. ABDOMEN: Soft. No tenderness. LABS: Hemoglobin is 12, white count 9.81. Potassium is 3.7. Creatinine 0.3. DIAGNOSTIC IMPRESSION AND PLAN: Patient admitted to hospital with a fever concerning for acalculous cholecystitis, status post cholecystectomy. Patient on Zosyn. Transition to a course of oral Augmentin on discharge. Continue with supportive care. MMODL / IJN: [id number] /
[2021-01-10] MEDS: MELATONIN 5 MG TABLET PO SCH (20:14)
[2021-01-11] MEDS: HYDROCORTISONE SUCCINATE 100 MG/2 ML VIAL IV SCH ×4 (00:52→23:17)
[2021-01-11] MEDS: PIPERACILLIN-TAZOBACTAM 3.375 GM in SODIUM CHLORIDE 0.9% 100 ML IVPB SCH ×3 (04:23→19:36)
[2021-01-11] MEDS: Acetaminophen-Codeine 300-30mg TAB PO PRN ×2 (06:21→17:10)
[2021-01-11] MEDS: ATORVASTATIN 20 MG TAB PO SCH (08:41)
[2021-01-11] MEDS: PANTOPRAZOLE 40 MG TABLET PO SCH (08:41)
[2021-01-11] MEDS: ASPIRIN 81 MG PO SCH (08:41)
[2021-01-11] MEDS: MULTIVITAMINS, THERA 1 EACH TAB PO SCH (08:41)
[2021-01-11] MEDS: ENOXAPARIN 40 MG/0.4 ML SYRINGE SQ SCH (08:42)
--- NOTE | 2021-01-11 10:27 | P.PN ---
<MirandaZari - Last Filed: 01/11/21 10:21> Subjective Progress Note Date: 01/11/21 CHIEF COMPLAINT: Mental status changes HISTORY OF PRESENT ILLNESS: Acute cholecystitis status post laparoscopic cholecystectomy. Patient is sleeping comfortably in bed. Per nursing staff no nausea or vomiting. She has been having bowel movements. She denies any pain. Patient has had decreased oral intake. This morning she only ate a few bites of her yogurt and a few sips of the ensure. She had a swallowing evaluation done y in which she passed. No signs of aspiration or penetration. She is on a dysphagia chopped diet. blogs manager is checking with insurance about coverage for possible PEG tube. Afebrile WBC 9.81 Hgb 12.3 potassium 3.7 albumin 2.60 PHYSICAL EXAM: VITAL SIGNS: Reviewed. GENERAL: Well-developed in no acute distress. HEENT: No sclera icterus. Extraocular movements grossly intact. Moist buccal mucosa. Head is atraumatic, normocephalic. ABDOMEN: Soft. Nondistended. Incision sites clean dry and intact. Patient does have lower abdominal bruising. NEUROLOGIC: Alert and oriented. Cranial nerves II through XII grossly intact. ASSESSMENT: 1. Acute cholecystitis status post laparoscopic cholecystectomy 2. Hyperkalemia corrected 3. Severe protein calorie malnutrition PLAN: -Patient has had decreased oral intake. Patient may require feeding tube placement. We'll continue to monitor. -Continue low fat, low fiber diet -Continue ensure supplement -Continue pain medication as needed -Encourage incentive spirometer use -Antibiotics per ID -Continue GI prophylaxis Protonix and DVT prophylaxis subcu heparin Physician Cyber Special Agent note has been reviewed by physician. Signing provider agrees with the documented findings, assessment, and plan of care. Objective - Vital Signs Vital signs: Vital Signs Temp 99.0 F 01/11/21 08:05 Pulse 93 01/11/21 08:05 Resp 19 01/11/21 02:35 BP 118/69 01/11/21 08:05 Pulse Ox 99 01/11/21 08:05 Intake & Output 01/10/21 01/11/21 01/11/21 18:59 06:59 18:59 Intake Total 600 Balance 600 Intake: Intake, IV Titration 600 Amount Sodium Chloride 0.9% 1, 600 000 ml @ 50 mls/hr IV . Q20H [facility] Rx#:[id number] Other: # Voids 1 2 # Bowel Movements 1 - Labs CBC & Chem 7: 01/10/21 04:33 01/10/21 11:47 Labs: Abnormal Lab Results - Last 24 Hours (Table) 01/10/21 Range/Units 04:33 Carbon Dioxide 14.1 L (21.6-31.8) mmol/L Anion Gap 20.90 H (4.00-12.00) mmol/L BUN <5.0 L (9.0-27.0) mg/dL Creatinine 0.3 L (0.6-1.5) mg/dL Glucose 112 H (70-110) mg/dL Calcium 7.7 L (8.7-10.3) mg/dL AST 98 H (13-35) U/L Alkaline Phosphatase 452 H (41-126) U/L Total Protein 4.5 L (6.2-8.2) g/dL Albumin 2.60 L (3.80-4.90) g/dL Albumin/Globulin Ratio 1.37 L (1.60-3.17) g/dL <Chang Bolton - Last Filed: 01/11/21 11:16> Subjective As above. Patient denies pain. Seems to be eating somewhat more than before. Swallow evaluation noted. Will follow. Objective - Vital Signs Vital signs: Vital Signs Temp 99.0 F 01/11/21 08:05 Pulse 93 01/11/21 08:05 Resp 19 01/11/21 02:35 BP 118/69 01/11/21 08:05 Pulse Ox 99 01/11/21 08:05 Intake & Output 01/10/21 01/11/21 01/11/21 18:59 06:59 18:59 Intake Total 600 0 Balance 600 0 Intake: Intake, IV Titration 600 Amount Sodium Chloride 0.9% 1, 600 000 ml @ 50 mls/hr IV . Q20H [facility] Rx#:[id number] Oral 0 Other: Voiding Method External Catheter # Voids 1 2 # Bowel Movements 1 - Labs CBC & Chem 7: 01/10/21 04:33 01/10/21 11:47 Labs: Abnormal Lab Results - Last 24 Hours (Table) 01/10/21 Range/Units 04:33 Carbon Dioxide 14.1 L (21.6-31.8) mmol/L Anion Gap 20.90 H (4.00-12.00) mmol/L BUN <5.0 L (9.0-27.0) mg/dL Creatinine 0.3 L (0.6-1.5) mg/dL Glucose 112 H (70-110) mg/dL Calcium 7.7 L (8.7-10.3) mg/dL AST 98 H (13-35) U/L Alkaline Phosphatase 452 H (41-126) U/L Total Protein 4.5 L (6.2-8.2) g/dL Albumin 2.60 L (3.80-4.90) g/dL Albumin/Globulin Ratio 1.37 L (1.60-3.17) g/dL Assessment and Plan (1) Acute cholecystitis Current Visit: Yes Status: Acute Code(s): K81.0 - ACUTE CHOLECYSTITIS SNOMED Code(s): 31422059
[2021-01-11 11:57] LABS: HGB 11.9 g/dL (12.0-15.0); MCH 28.4 pg (27.0-32.0); MCHC 30.5 g/dL (32.0-37.0); MCV 93.1 fL (80.0-97.0); Platelet Count 143 X 10*3/uL (140-440); RBC 4.19 X 10*6/uL (4.10-5.20); RDW 22.3 % (11.5-14.5); WBC 7.13 X 10*3/uL (4.50-10.00)
--- NOTE | 2021-01-11 12:17 | P.PN ---
Subjective Progress Note Date: 01/11/21 HISTORY OF PRESENT ILLNESS This is a 70-year-old female patient of Dr. 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 Ch[place] [facility] [place], on Gammagard every 2 weeks for many years. Patient has history of abscess of the right thigh that was under the care of Dr. Olvera through the wound healing Center. Patient was recently hospitalized from December 22 through December 26 which time she was treated for acute UTI with suspected pyelonephritis and metabolic encephalopathy and sepsis, acute kidney injury. She did undergo modified barium swallow and recommendations were for mechanical soft diet with thin liquids, base of the tongue exercises were recommended. Patient was seen by Dr. Erazo for parotitis secondary to dehydration. She was treated for UTI with Zosyn and discharged on doxycycline. She was seen also by cardiology and ruled out acute coronary syndrome. The patient was discharged home and family did not want home care set up. She is normally bed or wheelchair bound. She now presents back to the emergency center as states that she wouldn't swallow couldn't eat anything complained of sore throat and ear pain. She also did not have much urine output. No fever. She did have a small bowel movement prior to coming into the hospital. Patient was due for her Gammagard apparently today and had missed a dose due to being hospitalized last week. She had her last appointment with her neurologist Dr. Chavez in August 2020 which was a virtual appointment. Patient presented to [facility] emergency center for evaluation. Temperature was 101.5, heart rate 120, blood pressure 126/104, pulse ox 94%. CBC was unremarkable. Sodium 137, potassium 2.6, chloride 100, CO2 31, BUN 5 and creatinine 0.28. Blood pressure 112. Lactic acid 1.9. AST 52, alkaline phosphatase 296. Phosphorus 2.3, magnesium 1.8. Urinalysis clear, nitrite and leukoesterase negative. EKG was sinus tachycardia with left internal hypertrophy. CAT scan of the abdomen and pelvis revealed cholelithiasis with gallbladder wall thickening although there is no evidence of inflammatory change. Small right-sided pleural effusion and right basilar compressive atelectasis. Patient was started on IV Levaquin and potassium was replaced with 20 mEq. She is status post 1800 mL of IV fluid. 01/03: Patient has been afebrile since admission, heart rate 114, blood pressure 138/87, pulse ox 98% on 2 L nasal cannula. Repeat potassium yesterday afternoon was 3.6 and magnesium 1.8. Patient's mental status is slightly improved from yesterday. She is awake and alert but remains confused. IV access has been unable to be obtained and Accu cath has been ordered. Consult in place with neurology and infectious disease. 01/04: Patient has been seen by infectious disease with recommendations for Zosyn and possible HIDA scan. This was canceled for unknown reason. We will add order for HIDA scan to be done today. Patient has also been seen by neurology for altered mental status is likely at acute delirium possible metabolic encephalopathy secondary to possible cryptogenic infection. Recommendations to hold IVIG until patient recover from acute illness. Recommendations to follow- up with her neurologist regarding memory loss with possible dementia. The following lab work was ordered: Vitamin B12, folate level, TSH, B1, B6. Patient has been afebrile, heart rate 97, blood pressure 113/72, pulse ox 90% on 2 L nasal cannula. Blood cultures no growth at 24 hours. Midline was placed yesterday for IV access. She was fed by staff. She reviews her breakfast this morning. She is awake and alert but remains confused. 01/05: HIDA scan revealed low ejection fraction of 21%. Correlate for biliary dyskinesia. Dr. Gan recommends continuing Zosyn. Patient is followed by neurology as well. Vitamin B12 level CMXXXVI. Folate greater than 24. TSH 2.650. Repeat blood work reveals WBC 6.5, hemoglobin 11.3, platelet count 195. Sodium 146, potassium 2.8, chloride 107, CO2 25, BUN 5, creatinine 0.2. AST 44, ALT 22, alkaline phosphatase 253. Dr. Townsend discussed condition with the patient's Shukri and patient's would like to move forward with gallbladder surgery. He understands that there are complications and she is at high risk for surgery due to her underlying neurological disorder. Consult has been added for Dr. Bolton to evaluate. 01/06: Patient has been afebrile, heart rate 108, blood pressure 139/70, pulse ox 98% on room air. Repeat blood work reveals CBC was unremarkable. Chloride 110, potassium 4.2, BUN 3 and creatinine 0.25. Total bilirubin 0.8, AST 55, ALT 23, clindamycin phosphatase 277. Dr. Gan recommends continuing Zosyn. Patient has been seen by general surgery with recommendations for IV fluids, IV antibiotics. And as for laparoscopic possible open cholecystectomy on Saturday. Neurology has ordered MRI of the spine to rule out spinal stenosis. Patient is complaining of abdominal pain and will add Tylenol 3 for pain control. 01/07: Cervical spine MRI revealed no severe spinal stenosis. There is disc bulging with focal protrusion centrally at C5-6. Some right-sided cord flattening may be present in the axial plane. Retrolisthesis of the C4 on C5 with disc uncovering cause mild anterior thecal sac flattening without stenosis or cord contact rate. Loss of disc height C6-7. Left paracentral large disc bulge with moderate anterior thecal sac compression C7-T1. Neurology has recom mended follow-up with her neurologist and signed off her case. She has been afebrile, heart rate 102-126 since yesterday afternoon, blood pressure 142/77, pulse ox 94% on room air. INR 1.3 orally. INR yesterday 2.1 and received vitamin K. Patient underwent left upper cholecystectomy this morning with Dr. Bolton with no immediate postop complications. 01/08: Patient is postop day #1 for laparoscopic cholecystectomy. Patient has refused to eat this morning. Nursing was able to get her to take her medications. We'll try advancing her diet. She also was noncompliant with getting labs drawn this morning. Repeat labs will be ordered for tomorrow. Patient is noted to have a very congested moist cough. Incentive spirometry and chest x-ray been ordered. Patient is denying pain but remains confused. Chest x-ray reveals small bilateral pleural effusions. Some adjacent subsegmental infiltrates may be present. Findings nonspecific.. 01/09: She is postop day #2. Patient refused to eat her breakfast. She is refusing potassium supplement oral which will be switched to IV. Repeat blood work reveals a platelet count 135 otherwise CBC is unremarkable. Potassium 2.4, CO2 19, BUN less than 2 and creatinine 0.24. Blood sugar 112. Total bilirubin 1, AST 103, ALT 36, alkaline phosphatase 376. General surgery recommends continuing low fiber diet and pain medications as needed, antibiotics per ID. Dr. Sayed is planning for oral antibiotics at the time of discharge. 01/10: Last evening, potassium 3.2 and this morning at 1 AM potassium was 3.4 subsequently 8 AM potassium was 6.1. No treatment at this time as this appears to be an accurate and repeat draw has been ordered. Patient is refusing all food and is refusing to take her medications this morning. Patient currently h ad a bowel movement. Repeat blood work reveals WBC 9.8, hemoglobin 12.3. Discussed with patient option of PEG tube and she is willing to proceed with that. We have added a speech therapy consult and also contacted patient's via phone call and he is in agreement for PEG tube if needed. 01/11: Patient was evaluated by speech therapy and diet was adjusted only because of dentition issues and patient needs chapped food. She did not have any difficulty swallowing. senior clinical project manager is checking into insurance coverage for PEG tube feedings for failure to thrive. General surgery of course is following the patient. She continues to refuse any oral intake. She may have taken 2 bites this morning. She did take her morning medications. Patient has been afebrile, heart rate 93, blood pressure 118/69, pulse ox 99% on 2 L nasal cannula. Repeat blood work reveals WBC 7.13, hemoglobin 11.9, platelet count 143. Chemistry panel has been drawn but results are not available at 12 noon. REVIEW OF SYSTEMS Constitutional: Reported fever, reported chills, no night sweats. No weight change. Reported weakness, Reported fatigue Reported lethargy. Reported daytime sleepiness. EENT: No headache. No blurred vision or double vision, no loss of vision. Reported ear pain. No loss of Hearing, no ringing in the ears, no dizziness. No nasal drainage or congestion. No epistaxis. Reported sore throat. Reported difficulty swallowing. Lungs: No shortness of breath, cough, no sputum production. No wheezing. Cardiovascular: No chest pain, no lower extremity edema. No palpitations. No paroxysmal nocturnal dyspnea. No orthopnea. No lightheadedness or dizziness. No syncopal episodes. Abdominal: Reports abdominal pain improved. No nausea, vomiting. No diarrhea. No constipation. No bloody or tarry stools. Reports loss of appetite. Refusal to eat. Genitourinary: No dysuria, increased frequency, urgency. No urinary retention. Reported decreased urine output. Musculoskeletal: No myalgias. Reported muscle weakness, chronic gait dysfunction, no frequent falls. No back pain. No neck pain. Integumentary: No wounds, no lesions. No rash or pruritus. No unusual bruising. Neurologic: No aphasia. No facial droop. Reported change in mentation. No head injury. No headache. No paralysis. No paresthesia. Psychiatric: No depression. No anxiety. Endocrine: No abnormal blood sugars. PHYSICAL EXAMINATION Gen: This is a 70-year-old female. She is resting in bed and appears to be comfortable. No acute distress. HEENT: Head is atraumatic, normocephalic. Pupils equal, round. Sclerae is anicteric. Oral mucous membranes are dry. NECK: Supple. No JVD. No lymphadenopathy. No thyromegaly. LUNGS: Clear to auscultation. No wheezes or rhonchi. No intercostal retractions. HEART: Regular rate and rhythm. No murmur. ABDOMEN: Soft. Bowel sounds are present. Nondistended No masses. Mild abdominal tenderness. Stage II decubitus ulcer on coccyx, POA. EXTREMITIES: 1+ bilateral pedal edema. No calf tenderness. NEUROLOGICAL: Patient is awake and alert, oriented to person and place. Patient is able to answer only simple questions. Significant generalized weakness noted. ASSESSMENT AND PLAN 1. Acute metabolic encephalopathy and fever of secondary to acute cholecystitis status post laparoscopic cholecystectomy. Consult with neurology and infectious disease appreciated. Infectious disease appreciated, continue Zosyn. The following medications are on hold gabapentin 600 mg at bedtime, 300 mg twice daily, loratadine vitamins, oxybutynin. HIDA scan with low ejection fraction correlate for biliary dyskinesia. Consult with Dr. Bolton appreciated. Encourage incentive spirometry. 2. Dehydration. Continue IV fluids 0.9 normal saline decreased to 50 mL per hour. Advance diet. 3. Severe hypokalemia. Continue dyslexia teacher, continue replacement protocol. Recheck potassium this morning as a redraw and tomorrow. 4. Acute cholecystitis. Consult with general surgery appreciated. Patient status post laparoscopic cholecystectomy on 01/07. Continue Zosyn. Tylenol 3 as needed for pain. 5. Chronic kidney disease stage II 6. 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 Patient normally receives Gammagard every 14 days and missed a dose due to hospitalization. Patient also on chronic prednisone. Hold Avagard until infection cleared. Consult with neurology appreciated. 7. Hyperlipidemia. Continue simvastatin 40 mg at bedtime. 8. Overactive bladder. Hold oxybutynin. 9. Non-use edema of the lower extremities. 10. Recent left-sided parotitis secondary to dehydration, stable. 11. Severe hypokalemia. Replacement. 12. Severe protein calorie malnutrition secondary to failure to thrive.. Spe ech therapy valuation reviewed. His managers checking insurance coverage for PEG tube supplies and feedings. 13. GI prophylaxis. Protonix. 13. DVT prophylaxis. Lovenox 40 mg subcu daily. DISCHARGE PLAN Most likely return home with her . Impression and plan of care have been directed as dictated by the signing physician. Loan Zhang nurse practitioner acting as scribe for signing physician. Objective - Vital Signs Vital signs: Vital Signs Temp 99.0 F 01/11/21 08:05 Pulse 93 01/11/21 08:05 Resp 19 01/11/21 02:35 BP 118/69 01/11/21 08:05 Pulse Ox 99 01/11/21 08:05 Intake & Output 01/10/21 01/11/21 01/11/21 18:59 06:59 18:59 Intake Total 600 Balance 600 Intake: Intake, IV Titration 600 Amount Sodium Chloride 0.9% 1, 600 000 ml @ 50 mls/hr IV . Q20H [facility] Rx#:[id number] Other: # Voids 1 2 # Bowel Movements 1 - Labs CBC & Chem 7: 01/11/21 05:57 01/10/21 11:47 Labs: Abnormal Lab Results - Last 24 Hours (Table) 01/10/21 Range/Units 04:33 Carbon Dioxide 14.1 L (21.6-31.8) mmol/L Anion Gap 20.90 H (4.00-12.00) mmol/L BUN <5.0 L (9.0-27.0) mg/dL Creatinine 0.3 L (0.6-1.5) mg/dL Glucose 112 H (70-110) mg/dL Calcium 7.7 L (8.7-10.3) mg/dL AST 98 H (13-35) U/L Alkaline Phosphatase 452 H (41-126) U/L Total Protein 4.5 L (6.2-8.2) g/dL Albumin 2.60 L (3.80-4.90) g/dL Albumin/Globulin Ratio 1.37 L (1.60-3.17) g/dL
[2021-01-11 12:56] LABS: ALT 37 U/L (8-44); AST 72 U/L (13-35); African American GFR (CKD) 152.6 (60.0-200.0); Albumin/Globulin Ratio 1.39 (1.60-3.17); Alkaline Phosphatase 474 U/L (41-126); Blood Urea Nitrogen <5.0 mg/dL (9.0-27.0); Calcium 7.6 mg/dL (8.7-10.3); Carbon Dioxide 20.2 mmol/L (21.6-31.8); Chloride 109 mmol/L (96-109); Globulin 1.8 g/dL (1.6-3.3); Glucose 107 mg/dL (70-110); Non-African American GFR(CKD) 131.6 (60.0-200.0); Potassium 3.1 mmol/L (3.5-5.5); Sodium 144 mmol/L (135-145); Total Bilirubin 0.7 mg/dL (0.3-1.2); Total Protein 4.3 g/dL (6.2-8.2)
[2021-01-11] MEDS ORDERED: Potassium Replacement Protocol 1 EACH MISC MISCELLANE PRN (13:02)
[2021-01-11] MEDS: POTASSIUM CHLORIDE 10 MEQ in WATER FOR INJECTION 1 100ML.BAG IVPB SCH ×4 (13:34→18:19)
[2021-01-11] MEDS: SODIUM CHLORIDE 0.9% 1,000 ML IV SCH (17:06)
--- NOTE | 2021-01-11 17:43 | PN ---
PROGRESS NOTE DATE OF SERVICE: 01/11/2021 REASON FOR FOLLOWUP: Fever, cholecystitis. INTERVAL HISTORY: The patient is currently afebrile. The patient denies having any chest pain or shortness of breath or cough. No nausea, no vomiting, no abdominal pain or diarrhea. PHYSICAL EXAMINATION: Blood pressure 120/79, pulse of 88, temperature 98.8. She is 100% on room air. General description is an elderly female lying in bed in no distress. RESPIRATORY SYSTEM: Unlabored breathing. Clear to auscultation anteriorly. HEART: S1, S2. Regular rate and rhythm. ABDOMEN: Soft. No tenderness. LABS: Hemoglobin is 11.9, white count 7.13, BUN of 5, creatinine 0.2. Blood culture has been negative. DIAGNOSTIC IMPRESSION AND PLAN: Patient with a fever. Source is likely cholecystitis, status post cholecystectomy. Patient is on Zosyn short course of oral Augmentin on discharge. Continue supportive care. MMODL / IJN: [id number] /
[2021-01-11] MEDS: MELATONIN 5 MG TABLET PO SCH (20:35)
[2021-01-12] MEDS: PIPERACILLIN-TAZOBACTAM 3.375 GM in SODIUM CHLORIDE 0.9% 100 ML IVPB SCH ×3 (03:11→19:11)
[2021-01-12] MEDS: HYDROCORTISONE SUCCINATE 100 MG/2 ML VIAL IV SCH ×3 (07:42→23:05)
[2021-01-12] MEDS: ASPIRIN 81 MG PO SCH (07:42)
[2021-01-12] MEDS: ATORVASTATIN 20 MG TAB PO SCH (07:42)
[2021-01-12] MEDS: MULTIVITAMINS, THERA 1 EACH TAB PO SCH (07:42)
[2021-01-12] MEDS: PANTOPRAZOLE 40 MG TABLET PO SCH (07:42)
[2021-01-12] MEDS: ENOXAPARIN 40 MG/0.4 ML SYRINGE SQ SCH (07:42)
[2021-01-12] MEDS ORDERED: cloNIDine 0.1 MG/24HR PATCH TRANSDERM SCH (10:00)
--- NOTE | 2021-01-12 10:19 | P.PN ---
<Zari Jean - Last Filed: 01/12/21 10:13> Subjective Progress Note Date: 01/12/21 CHIEF COMPLAINT: Mental status changes HISTORY OF PRESENT ILLNESS: Acute cholecystitis status post laparoscopic cholecystectomy. Patient is sleeping comfortably in bed. Per nursing staff no nausea or vomiting. She has been having bowel movements. She denies any pain. Patient is still having poor oral intake. She only ate one bite of her breakfast. Patient and would like to proceed with PEG tube placement to help with nutrition support. She is afebrile. Heart rate 114 WBC 7.13 Hgb 11.9 potassium 3.1 albumin 2.50 PHYSICAL EXAM: VITAL SIGNS: Reviewed. GENERAL: Well-developed in no acute distress. HEENT: No sclera icterus. Extraocular movements grossly intact. Moist buccal mucosa. Head is atraumatic, normocephalic. ABDOMEN: Soft. Nondistended. Incision sites clean dry and intact. Patient does have lower abdominal bruising. NEUROLOGIC: Alert and oriented. Cranial nerves II through XII grossly intact. ASSESSMENT: 1. Acute cholecystitis status post laparoscopic cholecystectomy 2. Hypokalemia 3. Severe protein calorie malnutrition PLAN: -Further recommendations forthcoming per surgeon regarding PEG tube placement -Replace potassium -Continue low fat, low fiber diet, dysphagia chopped -Continue ensure supplement -Continue pain medication as needed -Encourage incentive spirometer use -Antibiotics per ID -Continue GI prophylaxis Protonix and DVT prophylaxis subcu heparin Physician Transportation Coordinator note has been reviewed by physician. Signing provider agrees with the documented findings, assessment, and plan of care. Objective - Vital Signs Vital signs: Vital Signs Temp 98.1 F 01/12/21 07:51 Pulse 114 H 01/12/21 07:51 Resp 18 01/12/21 07:51 BP 157/99 01/12/21 07:51 Pulse Ox 93 L 01/12/21 07:51 Intake & Output 01/11/21 01/12/21 01/12/21 18:59 06:59 18:59 Intake Total 0 Balance 0 Intake: Oral 0 Other: Voiding Method External Catheter External Catheter # Voids 3 2 - Labs CBC & Chem 7: 01/11/21 05:57 01/11/21 05:57 Labs: Abnormal Lab Results - Last 24 Hours (Table) 01/11/21 01/11/21 Range/Units 05:57 05:57 Hgb 11.9 L (12.0-15.0) g/dL MCHC 30.5 L (32.0-37.0) g/dL RDW 22.3 H (11.5-14.5) % Potassium 3.1 L (3.5-5.5) mmol/L Carbon Dioxide 20.2 L (21.6-31.8) mmol/L Anion Gap 14.80 H (4.00-12.00) mmol/L BUN <5.0 L (9.0-27.0) mg/dL Creatinine 0.2 L (0.6-1.5) mg/dL Calcium 7.6 L (8.7-10.3) mg/dL AST 72 H (13-35) U/L Alkaline Phosphatase 474 H (41-126) U/L Total Protein 4.3 L (6.2-8.2) g/dL Albumin 2.50 L (3.80-4.90) g/dL Albumin/Globulin Ratio 1.39 L (1.60-3.17) g/dL <Chang Bolton - Last Filed: 01/12/21 12:50> Subjective As above. Patient still doing well as it pertains to postoperative discomfort. Unfortunately she is doing poorly with oral intake. Patient remains confused at times. When I asked her if she wanted a feeding tube placed she states no however patient having difficulty with orientation to time and place. Spoke with by phone at length. Risks and benefits of feeding tube placement discussed. He would like to discuss this further with his daughters. I also suggested he talk to neurology regarding her prognosis which may help him make that decision as well. He would like to hold off until Saturday at the soonest for feeding tube placement if they are agreeable. We'll schedule for Saturday for now while we wait for final decisions. Objective - Vital Signs Vital signs: Vital Signs Temp 98.1 F 01/12/21 07:51 Pulse 114 H 01/12/21 07:51 Resp 18 01/12/21 07:51 BP 157/99 01/12/21 07:51 Pulse Ox 93 L 01/12/21 07:51 Intake & Output 01/11/21 01/12/21 01/12/21 18:59 06:59 18:59 Intake Total 0 Balance 0 Intake: Oral 0 Other: Voiding Method External Catheter External Catheter # Voids 3 2 - Labs CBC & Chem 7: 01/11/21 05:57 01/11/21 05:57 Labs: Abnormal Lab Results - Last 24 Hours (Table) 01/11/21 01/12/21 Range/Units 05:57 11:06 Potassium 3.1 L (3.5-5.5) mmol/L Carbon Dioxide 20.2 L (21.6-31.8) mmol/L Anion Gap 14.80 H (4.00-12.00) mmol/L BUN <5.0 L (9.0-27.0) mg/dL Creatinine 0.2 L (0.6-1.5) mg/dL Calcium 7.6 L (8.7-10.3) mg/dL AST 72 H (13-35) U/L Alkaline Phosphatase 474 H (41-126) U/L Total Protein 4.3 L (6.2-8.2) g/dL Albumin 2.50 L (3.80-4.90) g/dL Albumin/Globulin Ratio 1.39 L (1.60-3.17) g/dL Coronavirus (PCR) Detected A (Not Detectd) Assessment and Plan (1) Acute cholecystitis Current Visit: Yes Status: Acute Code(s): K81.0 - ACUTE CHOLECYSTITIS SNOMED Code(s): 80925729
[2021-01-12] MEDS: GABAPENTIN 300 MG CAP PO SCH (12:27)
--- NOTE | 2021-01-12 13:19 | P.PN ---
Subjective Progress Note Date: 01/12/21 HISTORY OF PRESENT ILLNESS This is a 70-year-old female patient of Dr. 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 Patient has history of abscess of the right thigh that was under the care of Dr. Olvera through the wound healing Center. Patient was recently hospitalized from December 22 through December 26 which time she was treated for acute UTI with suspected pyelonephritis and metabolic encephalopathy and sepsis, acute kidney injury. She did undergo modified barium swallow and recommendations were for mechanical soft diet with thin liquids, base of the tongue exercises were recommended. Patient was seen by Dr. Erazo for parotitis secondary to dehydration. She was treated for UTI with Zosyn and discharged on doxycycline. She was seen also by cardiology and ruled out acute coronary syndrome. The patient was discharged home and family did not want home care set up. She is normally bed or wheelchair bound. She now presents back to the emergency center as states that she wouldn't swallow couldn't eat anything complained of sore throat and ear pain. She also did not have much urine output. No fever. She did have a small bowel movement prior to coming into the hospital. Patient was due for her Gammagard apparently today and had missed a dose due to being hospitalized last week. She had her last appointment with her neurologist Dr. Chavez in August 2020 which was a virtual appointment. Patient presented to [facility] emergency center for evaluation. Temperature was 101.5, heart rate 120, blood pressure 126/104, pulse ox 94%. CBC was unremarkable. Sodium 137, potassium 2.6, chloride 100, CO2 31, BUN 5 and creatinine 0.28. Blood pressure 112. Lactic acid 1.9. AST 52, alkaline phosphatase 296. Phosphorus 2.3, magnesium 1.8. Urinalysis clear, nitrite and leukoesterase negative. EKG was sinus tachycardia with left internal hypertrophy. CAT scan of the abdomen and pelvis revealed cholelithiasis with gallbladder wall thickening although there is no evidence of inflammatory change. Small right-sided pleural effusion and right basilar compressive atelectasis. Patient was started on IV Levaquin and potassium was replaced with 20 mEq. She is status post 1800 mL of IV fluid. 01/03: Patient has been afebrile since admission, heart rate 114, blood pressure 138/87, pulse ox 98% on 2 L nasal cannula. Repeat potassium yesterday afternoon was 3.6 and magnesium 1.8. Patient's mental status is slightly improved from yesterday. She is awake and alert but remains confused. IV access has been unable to be obtained and Accu cath has been ordered. Consult in place with neurology and infectious disease. 01/04: Patient has been seen by infectious disease with recommendations for Zosyn and possible HIDA scan. This was canceled for unknown reason. We will add order for HIDA scan to be done today. Patient has also been seen by neurology for altered mental status is likely at acute delirium possible metabolic encephalopathy secondary to possible cryptogenic infection. Recommendations to hold IVIG until patient recover from acute illness. Recommendations to follow- up with her neurologist regarding memory loss with possible dementia. The following lab work was ordered: Vitamin B12, folate level, TSH, B1, B6. Patient has been afebrile, heart rate 97, blood pressure 113/72, pulse ox 90% on 2 L nasal cannula. Blood cultures no growth at 24 hours. Midline was placed yesterday for IV access. She was fed by staff. She reviews her breakfast this morning. She is awake and alert but remains confused. 01/05: HIDA scan revealed low ejection fraction of 21%. Correlate for biliary dyskinesia. Dr. Gan recommends continuing Zosyn. Patient is followed by neurology as well. Vitamin B12 level CMXXXVI. Folate greater than 24. TSH 2.650. Repeat blood work reveals WBC 6.5, hemoglobin 11.3, platelet count 195. Sodium 146, potassium 2.8, chloride 107, CO2 25, BUN 5, creatinine 0.2. AST 44, ALT 22, alkaline phosphatase 253. Dr. Townsend discussed condition with the patient's Shukri and patient's would like to move forward with gallbladder surgery. He understands that there are complications and she is at high risk for surgery due to her underlying neurological disorder. Consult has been added for Dr. Bolton to evaluate. 01/06: Patient has been afebrile, heart rate 108, blood pressure 139/70, pulse ox 98% on room air. Repeat blood work reveals CBC was unremarkable. Chloride 110, potassium 4.2, BUN 3 and creatinine 0.25. Total bilirubin 0.8, AST 55, ALT 23, clindamycin phosphatase 277. Dr. Gan recommends continuing Zosyn. Patient has been seen by general surgery with recommendations for IV fluids, IV antibiotics. And as for laparoscopic possible open cholecystectomy on Saturday. Neurology has ordered MRI of the spine to rule out spinal stenosis. Patient is complaining of abdominal pain and will add Tylenol 3 for pain control. 01/07: Cervical spine MRI revealed no severe spinal stenosis. There is disc bulging with focal protrusion centrally at C5-6. Some right-sided cord flattening may be present in the axial plane. Retrolisthesis of the C4 on C5 with disc uncovering cause mild anterior thecal sac flattening without stenosis or cord contact rate. Loss of disc height C6-7. Left paracentral large disc bulge with moderate anterior thecal sac compression C7-T1. Neurology has recom mended follow-up with her neurologist and signed off her case. She has been afebrile, heart rate 102-126 since yesterday afternoon, blood pressure 142/77, pulse ox 94% on room air. INR 1.3 orally. INR yesterday 2.1 and received vitamin K. Patient underwent left upper cholecystectomy this morning with Dr. Bolton with no immediate postop complications. 01/08: Patient is postop day #1 for laparoscopic cholecystectomy. Patient has refused to eat this morning. Nursing was able to get her to take her medications. We'll try advancing her diet. She also was noncompliant with getting labs drawn this morning. Repeat labs will be ordered for tomorrow. Patient is noted to have a very congested moist cough. Incentive spirometry and chest x-ray been ordered. Patient is denying pain but remains confused. Chest x-ray reveals small bilateral pleural effusions. Some adjacent subsegmental infiltrates may be present. Findings nonspecific.. 01/09: She is postop day #2. Patient refused to eat her breakfast. She is refusing potassium supplement oral which will be switched to IV. Repeat blood work reveals a platelet count 135 otherwise CBC is unremarkable. Potassium 2.4, CO2 19, BUN less than 2 and creatinine 0.24. Blood sugar 112. Total bilirubin 1, AST 103, ALT 36, alkaline phosphatase 376. General surgery recommends continuing low fiber diet and pain medications as needed, antibiotics per ID. Dr. Sayed is planning for oral antibiotics at the time of discharge. 01/10: Last evening, potassium 3.2 and this morning at 1 AM potassium was 3.4 subsequently 8 AM potassium was 6.1. No treatment at this time as this appears to be an accurate and repeat draw has been ordered. Patient is refusing all food and is refusing to take her medications this morning. Patient currently h ad a bowel movement. Repeat blood work reveals WBC 9.8, hemoglobin 12.3. Discussed with patient option of PEG tube and she is willing to proceed with that. We have added a speech therapy consult and also contacted patient's via phone call and he is in agreement for PEG tube if needed. 01/11: Patient was evaluated by speech therapy and diet was adjusted only because of dentition issues and patient needs chapped food. She did not have any difficulty swallowing. sales advisory manager is checking into insurance coverage for PEG tube feedings for failure to thrive. General surgery of course is following the patient. She continues to refuse any oral intake. She may have taken 2 bites this morning. She did take her morning medications. Patient has been afebrile, heart rate 93, blood pressure 118/69, pulse ox 99% on 2 L nasal cannula. Repeat blood work reveals WBC 7.13, hemoglobin 11.9, platelet count 143. Chemistry panel has been drawn but results are not available at 12 noon. 01/12: Patient's insurance will not cover cost of PEG tube feedings. This was reviewed and the family preservation caseworker with the patient's and he was to determine whether he wanted to proceed with PEG tube placement. Patient was subtotally scheduled for PEG tube insertion with Dr. Bolton on January 16. Patient is still refusing all food. Patient has been afebrile, heart rate 114, blood pressure 157/99, pulse ox 93% on room air. Patient's has been diagnosed with COVID-19 and thus a repeat Covid test has been ordered for this patient. REVIEW OF SYSTEMS Constitutional: Reported fever, reported chills, no night sweats. No weight change. Reported weakness, Reported fatigue Reported lethargy. Reported daytime sleepiness. EENT: No headache. No blurred vision or double vision, no loss of vision. Reported ear pain. No loss of Hearing, no ringing in the ears, no dizziness. No nasal drainage or congestion. No epistaxis. Reported sore throat. Reported difficulty swallowing. Lungs: No shortness of breath, cough, no sputum production. No wheezing. Cardiovascular: No chest pain, no lower extremity edema. No palpitations. No paroxysmal nocturnal dyspnea. No orthopnea. No lightheadedness or dizziness. No syncopal episodes. Abdominal: Reports abdominal pain improved. No nausea, vomiting. No diarrhea. No constipation. No bloody or tarry stools. Reports loss of appetite. Refusal to eat. Genitourinary: No dysuria, increased frequency, urgency. No urinary retention. Reported decreased urine output. Musculoskeletal: No myalgias. Reported muscle weakness, chronic gait dysfunction, no frequent falls. No back pain. No neck pain. Integumentary: No wounds, no lesions. No rash or pruritus. No unusual bruising. Neurologic: No aphasia. No facial droop. Reported change in mentation. No head injury. No headache. No paralysis. No paresthesia. Psychiatric: No depression. No anxiety. Endocrine: No abnormal blood sugars. PHYSICAL EXAMINATION Gen: This is a 70-year-old female. She is resting in bed and appears to be comfortable. No acute distress. HEENT: Head is atraumatic, normocephalic. Pupils equal, round. Sclerae is anicteric. Oral mucous membranes are dry. NECK: Supple. No JVD. No lymphadenopathy. No thyromegaly. LUNGS: Clear to auscultation. No wheezes or rhonchi. No intercostal retract ions. HEART: Regular rate and rhythm. No murmur. ABDOMEN: Soft. Bowel sounds are present. Nondistended No masses. Mild abdominal tenderness. Stage II decubitus ulcer on coccyx, POA. EXTREMITIES: 1+ bilateral pedal edema. No calf tenderness. NEUROLOGICAL: Patient is awake and alert, oriented to person and place. Patient is able to answer only simple questions. Significant generalized weakness noted. ASSESSMENT AND PLAN 1. Acute metabolic encephalopathy and fever of secondary to acute cholecystitis status post laparoscopic cholecystectomy. Consult with neurology and infectious disease appreciated. Infectious disease appreciated, continue Zosyn. The following medications are on hold gabapentin 600 mg at bedtime, 300 mg twice daily, loratadine vitamins, oxybutynin. HIDA scan with low ejection fraction correlate for biliary dyskinesia. Consult with Dr. Bolton appreciated. Encourage incentive spirometry. Repeat COVID-19 testing. 2. Dehydration. Continue IV fluids 0.9 normal saline decreased to 50 mL per hour. Advance diet. 3. Severe hypokalemia. Continue clinical research monitor, continue replacement protocol. Recheck potassium this morning as a redraw and tomorrow. 4. Acute cholecystitis. Consult with general surgery appreciated. Patient status post laparoscopic cholecystectomy on 01/07. Continue Zosyn. Tylenol 3 as needed for pain. 5. Chronic kidney disease stage II 6. 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 Patient normally receives Gammagard every 14 days and missed a dose due to hospitalization. Patient also on chronic prednisone. Hold Avagard until infection cleared. Consult with neurology appreciated. 7. Hyperlipidemia. Continue simvastatin 40 mg at bedtime. 8. Overactive bladder. Hold oxybutynin. 9. Non-use edema of the lower extremities. 10. Recent left-sided parotitis secondary to dehydration, stable. 11. Severe hypokalemia. Replacement. 12. Severe protein calorie malnutrition secondary to failure to thrive.. Patient scheduled for PEG tube insertion on January 16. Speech therapy eval reviewed. 13. GI prophylaxis. Protonix. 13. DVT prophylaxis. Lovenox 40 mg subcu daily. DISCHARGE PLAN Most likely return home with her . Impression and plan of care have been directed as dictated by the signing joyce faustin. Loan Zhang nurse practitioner acting as scribe for signing physician. Objective - Vital Signs Vital signs: Vital Signs Temp 98.1 F 01/12/21 07:51 Pulse 114 H 01/12/21 07:51 Resp 18 01/12/21 07:51 BP 157/99 01/12/21 07:51 Pulse Ox 93 L 01/12/21 07:51 Intake & Output 01/11/21 01/12/21 01/12/21 18:59 06:59 18:59 Intake Total 0 Balance 0 Intake: Oral 0 Other: Voiding Method External Catheter # Voids 3 2 - Labs CBC & Chem 7: 01/11/21 05:57 01/12/21 11:32 Labs: Abnormal Lab Results - Last 24 Hours (Table) 01/11/21 01/11/21 Range/Units 05:57 05:57 Hgb 11.9 L (12.0-15.0) g/dL MCHC 30.5 L (32.0-37.0) g/dL RDW 22.3 H (11.5-14.5) % Potassium 3.1 L (3.5-5.5) mmol/L Carbon Dioxide 20.2 L (21.6-31.8) mmol/L Anion Gap 14.80 H (4.00-12.00) mmol/L BUN <5.0 L (9.0-27.0) mg/dL Creatinine 0.2 L (0.6-1.5) mg/dL Calcium 7.6 L (8.7-10.3) mg/dL AST 72 H (13-35) U/L Alkaline Phosphatase 474 H (41-126) U/L Total Protein 4.3 L (6.2-8.2) g/dL Albumin 2.50 L (3.80-4.90) g/dL Albumin/Globulin Ratio 1.39 L (1.60-3.17) g/dL
[2021-01-12] MEDS ORDERED: Potassium Replacement Protocol 1 EACH MISC MISCELLANE PRN (13:42)
[2021-01-12 14:47] LABS: C Reactive Protein 25.6 mg/L (<10.0)
--- NOTE | 2021-01-12 15:18 | PN ---
PROGRESS NOTE DATE OF SERVICE: 01/12/2021 REASON FOR FOLLOWUP: Fever and cholecystitis. INTERVAL HISTORY: The patient remains to be afebrile. The patient is slightly more awake and alert. She is breathing comfortably. Denies having any chest pain or cough. No abdominal pain or diarrhea. PHYSICAL EXAMINATION: Blood pressure 157/99, pulse 140, temperature 98.1. She is 93% on room air. General description is an elderly female, lying in bed, in no distress. RESPIRATORY SYSTEM: Unlabored breathing, clear to auscultation anteriorly. HEART: S1, S2. Regular rate and rhythm. ABDOMEN: Soft, no tenderness. LABS: White count 7.13. Blood culture has been negative. DIAGNOSTIC IMPRESSION AND PLAN: Patient with fever, concerning for cholecystitis, status post cholecystectomy. The patient received about 10 days of antibiotic should be more than enough and can be discontinued on discharge. Continue with supportive care. MMODL / IJN: [id number] /
[2021-01-12] MEDS: POTASSIUM CHLORIDE 10 MEQ in WATER FOR INJECTION 1 100ML.BAG IVPB SCH ×6 (15:24→23:04)
--- NOTE | 2021-01-12 15:47 | XR ---
EXAMINATION TYPE: XR chest 1V portable DATE OF EXAM: 01/12/2021 COMPARISON: Chest x-ray 01/08/2021 HISTORY: Shortness of breath TECHNIQUE: Single frontal view of the chest is obtained. FINDINGS: Patient is rotated. Port-A-Cath is stable. Bibasilar patchy density persists. There is no evident pneumothorax. Difficult to exclude small effusion. Heart is obscured, there are low lung volu mes. Aorta is dense. IMPRESSION: Correlate for pneumonia. Difficult to exclude small effusion.
[2021-01-12] MEDS: POTASSIUM CHLORIDE ER 10 MEQ TAB.ER.PRT PO SCH (17:35)
[2021-01-12] MEDS: ACETAMINOPHEN TAB 500 MG TAB PO PRN (17:46)
[2021-01-12] MEDS: MIRTAZAPINE 15 MG TAB PO SCH (17:46)
[2021-01-12] MEDS: SODIUM CHLORIDE 0.9% 1,000 ML IV SCH (19:08)
[2021-01-12] MEDS: MELATONIN 5 MG TABLET PO SCH (20:11)
[2021-01-13] MEDS: PIPERACILLIN-TAZOBACTAM 3.375 GM in SODIUM CHLORIDE 0.9% 100 ML IVPB SCH ×3 (03:00→19:29)
[2021-01-13 04:17] LABS: Ferritin 1156.4 ng/mL (10.0-291.0)
[2021-01-13] MEDS: HYDROCORTISONE SUCCINATE 100 MG/2 ML VIAL IV SCH ×3 (08:21→23:12)
[2021-01-13] MEDS: ENOXAPARIN 40 MG/0.4 ML SYRINGE SQ SCH (08:22)
[2021-01-13] MEDS: PANTOPRAZOLE 40 MG TABLET PO SCH (08:22)
[2021-01-13] MEDS: MULTIVITAMINS, THERA 1 EACH TAB PO SCH (08:22)
[2021-01-13] MEDS: GABAPENTIN 300 MG CAP PO SCH ×2 (08:22→14:06)
[2021-01-13] MEDS: CHOLECALCIFEROL 25 MCG (1000 IU) TABLET PO SCH (08:22)
[2021-01-13] MEDS: ATORVASTATIN 20 MG TAB PO SCH (08:22)
[2021-01-13] MEDS: ASCORBIC ACID 500 MG TAB PO SCH (08:22)
[2021-01-13] MEDS: ZINC SULFATE 220 MG CAP PO SCH (08:22)
[2021-01-13] MEDS: ASPIRIN 81 MG PO SCH (08:22)
[2021-01-13 10:16] LABS: Anisocytosis Moderate; Basophils % (A) 0 %; Eosinophils % (A) 0 %; HCT 39.4 % (34.0-46.0); HGB 12.6 gm/dL (11.4-16.0); Hypochromasia Slight; Lymphocytes # (A) 2.3 k/uL (1.0-4.8); Lymphocytes % (A) 21 %; MCH 28.9 pg (25.0-35.0); MCHC 32.1 g/dL (31.0-37.0); MCV 90.1 fL (80.0-100.0); Mean Platelet Volume 10.6; Monocytes # (A) 0.3 k/uL (0-1.0); Monocytes % (A) 3 %; Neutrophils # (A) 8.1 k/uL (1.3-7.7); Neutrophils % (A) 75 %; Platelet Count 159 k/uL (150-450); Poikilocytosis Moderate; RBC 4.37 m/uL (3.80-5.40); RDW 20.6 % (11.5-15.5); WBC 10.8 k/uL (3.8-10.6)
[2021-01-13] MEDS ORDERED: LIDOCAINE 1% INJ 10MG/ML (20 ML MDV) ONE (10:33)
--- NOTE | 2021-01-13 10:35 | P.PN ---
<Zari Jean - Last Filed: 01/13/21 10:31> Subjective Progress Note Date: 01/13/21 CHIEF COMPLAINT: Mental status changes HISTORY OF PRESENT ILLNESS: Acute cholecystitis status post laparoscopic cholecystectomy. Patient is now Covid positive. She still has poor oral intake. She did have a temp last night of 100 and is now 97.6. Heart rate 105 WBC 10.8 hemoglobin 12.6 potassium level pending d-dimer 0.84 LDH and CRP elevated. Per nursing staff no nausea or vomiting. She has been having bowel movements. Chest x-ray correlate for pneumonia. PHYSICAL EXAM: VITAL SIGNS: Reviewed. GENERAL: Well-developed in no acute distress. HEENT: No sclera icterus. Extraocular movements grossly intact. Moist buccal mucosa. Head is atraumatic, normocephalic. ABDOMEN: Soft. Nondistended. Incision sites clean dry and intact. NEUROLOGIC: Alert and oriented. Cranial nerves II through XII grossly intact. ASSESSMENT: 1. Acute cholecystitis status post laparoscopic cholecystectomy 2. Hypokalemia 3. Severe protein calorie malnutrition 4. Covid positive PLAN: -PEG tube is tentatively scheduled for 01/16/2021. For now will await family's final decision regarding PEG tube placement -Await repeat potassium level, if remaining low we'll need to replace -Continue low fat, low fiber diet, dysphagia chopped -Continue ensure supplement -Continue pain medication as needed -Encourage incentive spirometer use -Antibiotics per ID -Continue GI prophylaxis Protonix and DVT prophylaxis subcu heparin Physician Ampoule Sealer note has been reviewed by physician. Signing provider agrees with the documented findings, assessment, and plan of care. Objective - Vital Signs Vital signs: Vital Signs Temp 97.6 F 01/13/21 05:19 Pulse 105 H 01/13/21 08:22 Resp 19 01/13/21 08:22 BP 137/90 01/13/21 05:19 Pulse Ox 93 L 01/13/21 05:19 Intake & Output 01/12/21 01/13/21 01/13/21 18:59 06:59 18:59 Output Total 1 1 Balance -1 -1 Weight 86.183 kg Output: Stool 1 1 Other: Voiding Method External Catheter External Catheter External Catheter # Voids 1 2 # Bowel Movements 1 - Labs CBC & Chem 7: 01/13/21 09:10 01/12/21 11:32 Labs: Abnormal Lab Results - Last 24 Hours (Table) 01/12/21 01/12/21 01/12/21 Range/Units 11:06 11:32 14:08 WBC (3.8-10.6) k/uL RDW (11.5-15.5) % Neutrophils # (1.3-7.7) k/uL D-Dimer 0.84 H (<0.60) mg/L FEU Potassium 2.5 L* (3.5-5.1) mmol/L Ferritin (10.0-291.0) ng/mL Lactate Dehydrogenase (313-618) U/L C-Reactive Protein (<10.0) mg/L Coronavirus (PCR) Detected A (Not Detectd) 01/12/21 01/13/21 Range/Units 14:08 09:10 WBC 10.8 H (3.8-10.6) k/uL RDW 20.6 H (11.5-15.5) % Neutrophils # 8.1 H (1.3-7.7) k/uL D-Dimer (<0.60) mg/L FEU Potassium (3.5-5.1) mmol/L Ferritin 1156.4 H (10.0-291.0) ng/mL Lactate Dehydrogenase 1107 H (313-618) U/L C-Reactive Protein 25.6 H (<10.0) mg/L Coronavirus (PCR) (Not Detectd) <Chang Bolton - Last Filed: 01/13/21 12:14> Subjective As above. Covid status noted. Patient remains with poor oral intake. Extensive care issues apparently to be addressed by primary service with as well today. Possible PEG tube on Saturday. Objective - Vital Signs Vital signs: Vital Signs Temp 98.6 F 01/13/21 10:00 Pulse 122 H 01/13/21 10:00 Resp 18 01/13/21 10:00 BP 144/96 01/13/21 10:00 Pulse Ox 92 L 01/13/21 10:00 Intake & Output 01/12/21 01/13/21 01/13/21 18:59 06:59 18:59 Output Total 1 1 Balance -1 -1 Weight 86.183 kg Output: Stool 1 1 Other: Voiding Method External Catheter External Catheter External Catheter # Voids 1 2 # Bowel Movements 1 - Labs CBC & Chem 7: 01/13/21 09:10 01/13/21 09:10 Labs: Abnormal Lab Results - Last 24 Hours (Table) 01/12/21 01/12/21 01/12/21 Range/Units 11:06 11:32 14:08 WBC (3.8-10.6) k/uL RDW (11.5-15.5) % Neutrophils # (1.3-7.7) k/uL D-Dimer 0.84 H (<0.60) mg/L FEU Potassium 2.5 L* (3.5-5.1) mmol/L Ferritin (10.0-291.0) ng/mL Lactate Dehydrogenase (313-618) U/L C-Reactive Protein (<10.0) mg/L Coronavirus (PCR) Detected A (Not Detectd) 01/12/21 01/13/21 Range/Units 14:08 09:10 WBC 10.8 H (3.8-10.6) k/uL RDW 20.6 H (11.5-15.5) % Neutrophils # 8.1 H (1.3-7.7) k/uL D-Dimer (<0.60) mg/L FEU Potassium (3.5-5.1) mmol/L Ferritin 1156.4 H (10.0-291.0) ng/mL Lactate Dehydrogenase 1107 H (313-618) U/L C-Reactive Protein 25.6 H (<10.0) mg/L Coronavirus (PCR) (Not Detectd) Assessment and Plan (1) Acute cholecystitis Current Visit: Yes Status: Acute Code(s): K81.0 - ACUTE CHOLECYSTITIS SNOMED Code(s): 27421276
[2021-01-13] MEDS ORDERED: LIDOCAINE 1% INJ 10MG/ML (20 ML MDV) SQ ONE (11:02)
--- NOTE | 2021-01-13 13:41 | P.PN ---
Subjective Progress Note Date: 01/13/21 HISTORY OF PRESENT ILLNESS This is a 70-year-old female patient of Dr. 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 [facility] [place], on Gammagard every 2 weeks for many years. Patient has history of abscess of the right thigh that was under the care of Dr. Olvera through the wound healing Center. Patient was recently hospitalized from December 22 through December 26 which time she was treated for acute UTI with suspected pyelonephritis and metabolic encephalopathy and sepsis, acute kidney injury. She did undergo modified barium swallow and recommendations were for mechanical soft diet with thin liquids, base of the tongue exercises were recommended. Patient was seen by Dr. Erazo for parotitis secondary to dehydration. She was treated for UTI with Zosyn and discharged on doxycycline. She was seen also by cardiology and ruled out acute coronary syndrome. The patient was discharged home and family did not want home care set up. She is normally bed or wheelchair bound. She now presents back to the emergency center as states that she wouldn't swallow couldn't eat anything complained of sore throat and ear pain. She also did not have much urine output. No fever. She did have a small bowel movement prior to coming into the hospital. Patient was due for her Gammagard apparently today and had missed a dose due to being hospitalized last week. She had her last appointment with her neurologist Dr. Chavez in August 2020 which was a virtual appointment. Patient presented to [facility] emergency center for evaluation. Temperature was 101.5, heart rate 120, blood pressure 126/104, pulse ox 94%. CBC was unremarkable. Sodium 137, potassium 2.6, chloride 100, CO2 31, BUN 5 and creatinine 0.28. Blood pressure 112. Lactic acid 1.9. AST 52, alkaline phosphatase 296. Phosphorus 2.3, magnesium 1.8. Urinalysis clear, nitrite and leukoesterase negative. EKG was sinus tachycardia with left internal hypertrophy. CAT scan of the abdomen and pelvis revealed cholelithiasis with gallbladder wall thickening although there is no evidence of inflammatory change. Small right-sided pleural effusion and right basilar compressive atelectasis. Patient was started on IV Levaquin and potassium was replaced with 20 mEq. She is status post 1800 mL of IV fluid. 01/03: Patient has been afebrile since admission, heart rate 114, blood pressure 138/87, pulse ox 98% on 2 L nasal cannula. Repeat potassium yesterday afternoon was 3.6 and magnesium 1.8. Patient's mental status is slightly improved from yesterday. She is awake and alert but remains confused. IV access has been unable to be obtained and Accu cath has been ordered. Consult in place with neurology and infectious disease. 01/04: Patient has been seen by infectious disease with recommendations for Zosyn and possible HIDA scan. This was canceled for unknown reason. We will add order for HIDA scan to be done today. Patient has also been seen by neurology for altered mental status is likely at acute delirium possible metabolic encephalopathy secondary to possible cryptogenic infection. Recommendations to hold IVIG until patient recover from acute illness. Recommendations to follow- up with her neurologist regarding memory loss with possible dementia. The following lab work was ordered: Vitamin B12, folate level, TSH, B1, B6. Patient has been afebrile, heart rate 97, blood pressure 113/72, pulse ox 90% on 2 L nasal cannula. Blood cultures no growth at 24 hours. Midline was placed yesterday for IV access. She was fed by staff. She reviews her breakfast this morning. She is awake and alert but remains confused. 01/05: HIDA scan revealed low ejection fraction of 21%. Correlate for biliary dyskinesia. Dr. Gan recommends continuing Zosyn. Patient is followed by neurology as well. Vitamin B12 level CMXXXVI. Folate greater than 24. TSH 2.650. Repeat blood work reveals WBC 6.5, hemoglobin 11.3, platelet count 195. Sodium 146, potassium 2.8, chloride 107, CO2 25, BUN 5, creatinine 0.2. AST 44, ALT 22, alkaline phosphatase 253. Dr. Townsend discussed condition with the patient's Shukri and patient's would like to move forward with gallbladder surgery. He understands that there are complications and she is at high risk for surgery due to her underlying neurological disorder. Consult has been added for Dr. Bolton to evaluate. 01/06: Patient has been afebrile, heart rate 108, blood pressure 139/70, pulse ox 98% on room air. Repeat blood work reveals CBC was unremarkable. Chloride 110, potassium 4.2, BUN 3 and creatinine 0.25. Total bilirubin 0.8, AST 55, ALT 23, clindamycin phosphatase 277. Dr. Gan recommends continuing Zosyn. Patient has been seen by general surgery with recommendations for IV fluids, IV antibiotics. And as for laparoscopic possible open cholecystectomy on Saturday. Neurology has ordered MRI of the spine to rule out spinal stenosis. Patient is complaining of abdominal pain and will add Tylenol 3 for pain control. 01/07: Cervical spine MRI revealed no severe spinal stenosis. There is disc bulging with focal protrusion centrally at C5-6. Some right-sided cord flattening may be present in the axial plane. Retrolisthesis of the C4 on C5 with disc uncovering cause mild anterior thecal sac flattening without stenosis or cord contact rate. Loss of disc height C6-7. Left paracentral large disc bulge with moderate anterior thecal sac compression C7-T1. Neurology has recom mended follow-up with her neurologist and signed off her case. She has been afebrile, heart rate 102-126 since yesterday afternoon, blood pressure 142/77, pulse ox 94% on room air. INR 1.3 orally. INR yesterday 2.1 and received vitamin K. Patient underwent left upper cholecystectomy this morning with Dr. Boltno with no immediate postop complications. 01/08: Patient is postop day #1 for laparoscopic cholecystectomy. Patient has refused to eat this morning. Nursing was able to get her to take her medications. We'll try advancing her diet. She also was noncompliant with getting labs drawn this morning. Repeat labs will be ordered for tomorrow. Patient is noted to have a very congested moist cough. Incentive spirometry and chest x-ray been ordered. Patient is denying pain but remains confused. Chest x-ray reveals small bilateral pleural effusions. Some adjacent subsegmental infiltrates may be present. Findings nonspecific.. 01/09: She is postop day #2. Patient refused to eat her breakfast. She is refusing potassium supplement oral which will be switched to IV. Repeat blood work reveals a platelet count 135 otherwise CBC is unremarkable. Potassium 2.4, CO2 19, BUN less than 2 and creatinine 0.24. Blood sugar 112. Total bilirubin 1, AST 103, ALT 36, alkaline phosphatase 376. General surgery recommends continuing low fiber diet and pain medications as needed, antibiotics per ID. Dr. Sayed is planning for oral antibiotics at the time of discharge. 01/10: Last evening, potassium 3.2 and this morning at 1 AM potassium was 3.4 subsequently 8 AM potassium was 6.1. No treatment at this time as this appears to be an accurate and repeat draw has been ordered. Patient is refusing all food and is refusing to take her medications this morning. Patient currently h ad a bowel movement. Repeat blood work reveals WBC 9.8, hemoglobin 12.3. Discussed with patient option of PEG tube and she is willing to proceed with that. We have added a speech therapy consult and also contacted patient's via phone call and he is in agreement for PEG tube if needed. 01/11: Patient was evaluated by speech therapy and diet was adjusted only because of dentition issues and patient needs chapped food. She did not have any difficulty swallowing. property disposal manager is checking into insurance coverage for PEG tube feedings for failure to thrive. General surgery of course is following the patient. She continues to refuse any oral intake. She may have taken 2 bites this morning. She did take her morning medications. Patient has been afebrile, heart rate 93, blood pressure 118/69, pulse ox 99% on 2 L nasal cannula. Repeat blood work reveals WBC 7.13, hemoglobin 11.9, platelet count 143. Chemistry panel has been drawn but results are not available at 12 noon. 01/12: Patient's insurance will not cover cost of PEG tube feedings. This was reviewed and the field case manager with the patient's and he was to determine whether he wanted to proceed with PEG tube placement. Patient was subtotally scheduled for PEG tube insertion with Dr. Bolton on January 16. Patient is still refusing all food. Patient has been afebrile, heart rate 114, blood pressure 157/99, pulse ox 93% on room air. Patient's has been diagnosed with COVID-19 and thus a repeat Covid test has been ordered for this patient. 01/13: Covid test came back positive yesterday. Chest x-ray from yesterday reveals correlate for pneumonia. Difficult to exclude small effusion. D-dimer was 0.84, ferritin 1156, LDH 1107, C-reactive protein 25.6. Repeat blood work today reveals potassium of 3.7. Patient refused all oral potassium yesterday which was given IV instead. WBC 10.8, hemoglobin 12.6 and platelet count 159. Patient continues to refuse all oral intake. She did take her medications today. She did state to the nurse that she just wants to . PICC line was ordered to start TPN until patient can start on PEG tube feedings but patient has no veins available per radiology and PICC line insertion was canceled. Dr. Guerin will discuss with the patient's family options regarding other options including central line, NG tube or hold feedings. Also, patient is due for IVIG on Saturday and orders and protocol will be on the front of patient's chart if we wish to pursue this on Saturday. REVIEW OF SYSTEMS Constitutional: Reported fever, reported chills, no night sweats. No weight change. Reported weakness, Reported fatigue Reported lethargy. Reported daytime sleepiness. EENT: No headache. No blurred vision or double vision, no loss of vision. Reported ear pain. No loss of Hearing, no ringing in the ears, no dizziness. No nasal drainage or congestion. No epistaxis. Reported sore throat. Reported difficulty swallowing. Lungs: No shortness of breath, cough, no sputum production. No wheezing. Cardiovascular: No chest pain, no lower extremity edema. No palpitations. No paroxysmal nocturnal dyspnea. No orthopnea. No lightheadedness or dizziness. No syncopal episodes. Abdominal: Reports abdominal pain improved. No nausea, vomiting. No diarrhea. No constipation. No bloody or tarry stools. Reports loss of appetite. Refusal to eat. Genitourinary: No dysuria, increased frequency, urgency. No urinary retention. Reported decreased urine output. Musculoskeletal: No myalgias. Reported muscle weakness, chronic gait dysfu nction, no frequent falls. No back pain. No neck pain. Integumentary: No wounds, no lesions. No rash or pruritus. No unusual bruising. Neurologic: No aphasia. No facial droop. Reported change in mentation. No head injury. No headache. No paralysis. No paresthesia. Psychiatric: No depression. No anxiety. Endocrine: No abnormal blood sugars. PHYSICAL EXAMINATION Gen: This is a 70-year-old female. She is resting in bed and appears to be comfortable. No acute distress. HEENT: Head is atraumatic, normocephalic. Pupils equal, round. Sclerae is anict frankie. Oral mucous membranes are dry. NECK: Supple. No JVD. No lymphadenopathy. No thyromegaly. LUNGS: Clear to auscultation. No wheezes or rhonchi. No intercostal retractions. HEART: Regular rate and rhythm. No murmur. ABDOMEN: Soft. Bowel sounds are present. Nondistended No masses. no abdominal tenderness. Stage II decubitus ulcer on coccyx, POA. EXTREMITIES: 1+ bilateral pedal edema. No calf tenderness. NEUROLOGICAL: Patient is awake and alert, oriented to person and place. Patient is able to answer simple questions. Significant generalized weakness noted. ASSESSMENT AND PLAN 1. Acute metabolic encephalopathy and fever of secondary to acute cholecystitis status post laparoscopic cholecystectomy. Consult with neurology and infectious disease appreciated. Infectious disease appreciated, continue Zosyn. The following medications are on hold gabapentin 600 mg at bedtime, 300 mg twice daily, loratadine vitamins, oxybutynin. HIDA scan with low ejection fraction correlate for biliary dyskinesia. Consult with Dr. Bolton appreciated. Encourage incentive spirometry. 2. Dehydration. Continue IV fluids 0.9 normal saline decreased to 50 mL per ho ur. Advance diet. 3. Severe hypokalemia. Continue shaker operator, continue replacement protocol . Recheck potassium this morning as a redraw and tomorrow. 4. Acute cholecystitis. Consult with general surgery appreciated. Patient status post laparoscopic cholecystectomy on 01/07. Continue Zosyn. Tylenol 3 as needed for pain. 5. COVID-[address] Gan is following. Continue Lovenox, Solu-Cortef, vitamin supplements added. 6. Chronic kidney disease stage II 7. 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 Patient normally receives Gammagard every 14 days and missed a dose due to hospitalization. Patient also on chronic prednisone. Hold Avagard until infection cleared. Consult with neurology appreciated. Patient is due for IVIG on January 16. 8. Hyperlipidemia. Continue simvastatin 40 mg at bedtime. 9. Overactive bladder. Hold oxybutynin. 10. Non-use edema of the lower extremities. 11. Recent left-sided parotitis secondary to dehydration, stable. 12. Severe hypokalemia. Replacement. 13. Severe protein calorie malnutrition secondary to failure to thrive.. Patient scheduled for PEG tube insertion on January 16. Speech therapy eval reviewed. 14. GI prophylaxis. Protonix. 15. DVT prophylaxis. Lovenox 40 mg subcu daily. Prognosis is guarded. DISCHARGE PLAN Most likely return home with her . To be determined. Patient's is Covid positive. Impression and plan of care have been directed as dictated by the signing physician. Loan Zhang nurse practitioner acting as scribe for signing physician. Objective - Vital Signs Vital signs: Vital Signs Temp 97.6 F 01/13/21 05:19 Pulse 105 H 01/13/21 08:22 Resp 19 01/13/21 08:22 BP 137/90 01/13/21 05:19 Pulse Ox 93 L 01/13/21 05:19 Intake & Output 01/12/21 01/13/21 01/13/21 18:59 06:59 18:59 Output Total 1 1 Balance -1 -1 Weight 86.183 kg Output: Stool 1 1 Other: Voiding Method External Catheter External Catheter External Catheter # Voids 1 2 # Bowel Movements 1 - Labs CBC & Chem 7: 01/13/21 09:10 01/13/21 09:10 Labs: Abnormal Lab Results - Last 24 Hours (Table) 01/12/21 01/12/21 01/12/21 Range/Units 11:06 11:32 14:08 D-Dimer 0.84 H (<0.60) mg/L FEU Potassium 2.5 L* (3.5-5.1) mmol/L Ferritin (10.0-291.0) ng/mL Lactate Dehydrogenase (313-618) U/L C-Reactive Protein (<10.0) mg/L Coronavirus (PCR) Detected A (Not Detectd) 01/12/21 Range/Units 14:08 D-Dimer (<0.60) mg/L FEU Potassium (3.5-5.1) mmol/L Ferritin 1156.4 H (10.0-291.0) ng/mL Lactate Dehydrogenase 1107 H (313-618) U/L C-Reactive Protein 25.6 H (<10.0) mg/L Coronavirus (PCR) (Not Detectd)
[2021-01-13] MEDS: POTASSIUM CHLORIDE ER 10 MEQ TAB.ER.PRT PO SCH (14:05)
[2021-01-13] MEDS: METOPROLOL TARTRATE 12.5 MG TAB PO SCH ×2 (14:06→19:29)
[2021-01-13] MEDS ORDERED: NON FORMULARY DRUG IV SCH (15:15)
[2021-01-13] MEDS ORDERED: BAMLANIVIMAB (EUA) 700 MG, ETESEVIMAB (EUA) 1,400 MG in SODIUM CHLORIDE 0.9% 50 ML IVPB ONE (16:00)
[2021-01-13] MEDS ORDERED: SODIUM CHLORIDE 0.9% 50 ML IVPB ONE (16:21)
[2021-01-13] MEDS: MIRTAZAPINE 15 MG TAB PO SCH (17:59)
[2021-01-13] MEDS: SODIUM CHLORIDE 0.9% 1,000 ML IV SCH (19:29)
[2021-01-13] MEDS: MELATONIN 5 MG TABLET PO SCH (19:29)
--- NOTE | 2021-01-13 19:50 | PN ---
PROGRESS NOTE DATE OF SERVICE: 01/13/2021 REASON FOR FOLLOWUP: 1. Fever secondary to cholecystitis. 2. COVID-19 infection. INTERVAL HISTORY: The patient is currently afebrile. She is breathing comfortably, currently on room air. Denies having any chest pain. Occasional cough. No abdominal pain or diarrhea. PHYSICAL EXAMINATION: Blood pressure 133/77 with a pulse of 103, temperature 98.4. She is 95% on room air. General description is an elderly female lying in bed in no distress. RESPIRATORY SYSTEM: Unlabored breathing. Clear to auscultation anteriorly. HEART: S1, S2. Regular rate and rhythm. ABDOMEN: Soft. No tenderness. LABS: Hemoglobin is 12.6, white count 10.8. D-dimer is 0.84. Ferritin is 1156. LDH is 1107. DIAGNOSTIC IMPRESSION AND PLAN: 1. Patient with a fever secondary to cholecystitis, status post cholecystectomy. Underlying infection has been adequately treated. 2. Patient with a positive COVID test in this patient currently hypoxemic, nosocomial- acquired. The patient does have multiple risk factors and risk of worsening pneumonia. She will benefit from monoclonal antibiotics. This was discussed with the admitting physician . MMODL / IJN: [id number] /
[2021-01-14] MEDS: PIPERACILLIN-TAZOBACTAM 3.375 GM in SODIUM CHLORIDE 0.9% 100 ML IVPB SCH ×3 (03:36→20:21)
[2021-01-14] MEDS: ATORVASTATIN 20 MG TAB PO SCH (08:45)
[2021-01-14] MEDS: GABAPENTIN 300 MG CAP PO SCH ×2 (08:45→16:38)
[2021-01-14] MEDS: MULTIVITAMINS, THERA 1 EACH TAB PO SCH (08:45)
[2021-01-14] MEDS: ASCORBIC ACID 500 MG TAB PO SCH (08:45)
[2021-01-14] MEDS: METOPROLOL TARTRATE 12.5 MG TAB PO SCH ×2 (08:45→19:25)
[2021-01-14] MEDS: CHOLECALCIFEROL 25 MCG (1000 IU) TABLET PO SCH (08:45)
[2021-01-14] MEDS: HYDROCORTISONE SUCCINATE 100 MG/2 ML VIAL IV SCH ×2 (08:46→16:43)
[2021-01-14] MEDS: ASPIRIN 81 MG PO SCH (08:46)
[2021-01-14] MEDS: ENOXAPARIN 40 MG/0.4 ML SYRINGE SQ SCH (08:46)
[2021-01-14] MEDS: PANTOPRAZOLE 40 MG TABLET PO SCH (08:46)
[2021-01-14] MEDS: POTASSIUM CHLORIDE ER 10 MEQ TAB.ER.PRT PO SCH (08:46)
[2021-01-14] MEDS: SODIUM CHLORIDE 0.9% 1,000 ML IV SCH (08:47)
[2021-01-14] MEDS: ZINC SULFATE 220 MG CAP PO SCH (08:47)
[2021-01-14] MEDS: ACETAMINOPHEN TAB 500 MG TAB PO PRN ×2 (09:01→19:25)
--- NOTE | 2021-01-14 15:15 | P.PN ---
Subjective Progress Note Date: 01/14/21 HPI: She denies any abdominal pain. Per discussion with nursing, she is off her mental baseline and only alert to self. She is lethargic. ABDOMEN: No peritonitis. MUSCULOSKELETAL: Moderate varying ecchymoses along the upper extremities extending to the hand. PSYCH: Alert to self. Lethargic LABS: COVID+ PLAN: 1. Per discussion with nursing, patient have been aspirating. 2. Also per nursing, patient has poor oral intake with aspiration, family is agreeable with PEG feeding tube. 3. She is elevated risk with COVID+ and multiple medical co-morbidities. Objective - Vital Signs Vital signs: Vital Signs Temp 97.8 F 01/14/21 14:00 Pulse 86 01/14/21 14:00 Resp 18 01/14/21 14:00 BP 159/87 01/14/21 14:00 Pulse Ox 95 01/14/21 14:29 Intake & Output 01/13/21 01/14/21 01/14/21 18:59 06:59 18:59 Output Total 1 Balance -1 Weight 86.183 kg Output: Stool 1 Other: Voiding Method External Catheter External Catheter Diaper Incontinent # Voids 1 1 # Bowel Movements 1 - Labs CBC & Chem 7: 01/13/21 09:10 01/13/21 09:10
[2021-01-14] MEDS: MIRTAZAPINE 15 MG TAB PO SCH (16:38)
[2021-01-14] MEDS ORDERED: ENALAPRILAT 1.25 MG/ML 1 ML VIAL IVP PRN (16:39)
--- NOTE | 2021-01-14 17:36 | XR ---
EXAMINATION TYPE: XR chest 1V portable DATE OF EXAM: 01/14/2021 COMPARISON: 01/12/2021 HISTORY: Cough. Short of breath TECHNIQUE: FINDINGS: There is patchy airspace infiltrates in both lungs and more noticeable in the right upper l obe. There is right central venous catheter with tip in the right atrium. There is some atelectasis r ight lung base. There is no gross heart failure. Heart size is fairly normal. IMPRESSION: Bilateral pulmonary infiltrates and atelectasis appears slightly worse than recent exam.
--- NOTE | 2021-01-14 18:17 | PN ---
PROGRESS NOTE DATE OF SERVICE: 01/14/2021 REASON FOR FOLLOWUP: COVID-19 infection. INTERVAL HISTORY: Patient is afebrile. The patient apparently noted to have worsening of her respiratory status and is requiring supplemental oxygen. The patient denies any chest pain. No abdominal pain or diarrhea. PHYSICAL EXAMINATION: Blood pressure 159/87, pulse of 83, temperature 97.8, 95% on 8 L high-flow oxygen. General description is an elderly female lying in bed in no distress. Respiratory system: Unlabored breathing, clear to auscultation anteriorly. Heart S1, S2. Regular rate and rhythm. Abdomen: Soft, no tenderness. EXTREMITIES: No edema of the feet. LABS: No new labs have been obtained today. DIAGNOSTIC IMPRESSION/PLAN: 1. Patient with fevers secondary to cholecystitis that has adequately treated. The patient status post cholecystectomy. 2. Patient now with evidence of bilateral pneumonia secondary to Covid 19. Did receive does not look like she has responded to it. The patient is currently on Solu-Medrol, Lovenox, will add Remdesivir and monitor clinical course closely. MMODL / IJN: [id number] /
--- NOTE | 2021-01-14 18:28 | P.PN ---
Subjective Progress Note Date: 01/14/21 HISTORY OF PRESENT ILLNESS This is a 70-year-old female patient of Dr. 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 Patient has history of abscess of the right thigh that was under the care of Dr. Olvera through the wound healing Center. Patient was recently hospitalized from December 22 through December 26 which time she was treated for acute UTI with suspected pyelonephritis and metabolic encephalopathy and sepsis, acute kidney injury. She did undergo modified barium swallow and recommendations were for mechanical soft diet with thin liquids, base of the tongue exercises were recommended. Patient was seen by Dr. Erazo for parotitis secondary to dehydration. She was treated for UTI with Zosyn and discharged on doxycycline. She was seen also by cardiology and ruled out acute coronary syndrome. The patient was discharged home and family did not want home care set up. She is normally bed or wheelchair bound. She now presents back to the emergency center as states that she wouldn't swallow couldn't eat anything complained of sore throat and ear pain. She also did not have much urine output. No fever. She did have a small bowel movement prior to coming into the hospital. Patient was due for her Gammagard apparently today and had missed a dose due to being hospitalized last week. She had her last appointment with her neurologist Dr. Chavez in August 2020 which was a virtual appointment. Patient presented to emergency center for evaluation. Temperature was 101.5, heart rate 120, blood pressure 126/104, pulse ox 94%. CBC was unremarkable. Sodium 137, potassium 2.6, chloride 100, CO2 31, BUN 5 and creatinine 0.28. Blood pressure 112. Lactic acid 1.9. AST 52, alkaline phosphatase 296. Phosphorus 2.3, magnesium 1.8. Urinalysis clear, nitrite and leukoesterase negative. EKG was sinus tachycardia with left internal hypertrophy. CAT scan of the abdomen and pelvis revealed cholelithiasis with gallbladder wall thickening although there is no evidence of inflammatory change. Small right-sided pleural effusion and right basilar compressive atelectasis. Patient was started on IV Levaquin and potassium was replaced with 20 mEq. She is status post 1800 mL of IV fluid. 01/03: Patient has been afebrile since admission, heart rate 114, blood pressure 138/87, pulse ox 98% on 2 L nasal cannula. Repeat potassium yesterday afternoon was 3.6 and magnesium 1.8. Patient's mental status is slightly improved from yesterday. She is awake and alert but remains confused. IV access has been unable to be obtained and Accu cath has been ordered. Consult in place with neurology and infectious disease. 01/04: Patient has been seen by infectious disease with recommendations for Zosyn and possible HIDA scan. This was canceled for unknown reason. We will add order for HIDA scan to be done today. Patient has also been seen by neurology for altered mental status is likely at acute delirium possible metabolic encephalopathy secondary to possible cryptogenic infection. Recommendations to hold IVIG until patient recover from acute illness. Recommendations to follow- up with her neurologist regarding memory loss with possible dementia. The following lab work was ordered: Vitamin B12, folate level, TSH, B1, B6. Patient has been afebrile, heart rate 97, blood pressure 113/72, pulse ox 90% on 2 L nasal cannula. Blood cultures no growth at 24 hours. Midline was placed yesterday for IV access. She was fed by staff. She reviews her breakfast this morning. She is awake and alert but remains confused. 01/05: HIDA scan revealed low ejection fraction of 21%. Correlate for biliary dyskinesia. Dr. Gan recommends continuing Zosyn. Patient is followed by neurology as well. Vitamin B12 level CMXXXVI. Folate greater than 24. TSH 2.650. Repeat blood work reveals WBC 6.5, hemoglobin 11.3, platelet count 195. Sodium 146, potassium 2.8, chloride 107, CO2 25, BUN 5, creatinine 0.2. AST 44, ALT 22, alkaline phosphatase 253. Dr. Townsend discussed condition with the patient's Shukri and patient's would like to move forward with gallbladder surgery. He understands that there are complications and she is at high risk for surgery due to her underlying neurological disorder. Consult has been added for Dr. Bolton to evaluate. 01/06: Patient has been afebrile, heart rate 108, blood pressure 139/70, pulse ox 98% on room air. Repeat blood work reveals CBC was unremarkable. Chloride 110, potassium 4.2, BUN 3 and creatinine 0.25. Total bilirubin 0.8, AST 55, ALT 23, clindamycin phosphatase 277. Dr. Gan recommends continuing Zosyn. Patient has been seen by general surgery with recommendations for IV fluids, IV antibiotics. And as for laparoscopic possible open cholecystectomy on Saturday. Neurology has ordered MRI of the spine to rule out spinal stenosis. Patient is complaining of abdominal pain and will add Tylenol 3 for pain control. 01/07: Cervical spine MRI revealed no severe spinal stenosis. There is disc bulging with focal protrusion centrally at C5-6. Some right-sided cord flattening may be present in the axial plane. Retrolisthesis of the C4 on C5 with disc uncovering cause mild anterior thecal sac flattening without stenosis or cord contact rate. Loss of disc height C6-7. Left paracentral large disc bulge with moderate anterior thecal sac compression C7-T1. Neurology has recom mended follow-up with her neurologist and signed off her case. She has been afebrile, heart rate 102-126 since yesterday afternoon, blood pressure 142/77, pulse ox 94% on room air. INR 1.3 orally. INR yesterday 2.1 and received vitamin K. Patient underwent left upper cholecystectomy this morning with Dr. Bolton with no immediate postop complications. 01/08: Patient is postop day #1 for laparoscopic cholecystectomy. Patient has refused to eat this morning. Nursing was able to get her to take her medications. We'll try advancing her diet. She also was noncompliant with getting labs drawn this morning. Repeat labs will be ordered for tomorrow. Patient is noted to have a very congested moist cough. Incentive spirometry and chest x-ray been ordered. Patient is denying pain but remains confused. Chest x-ray reveals small bilateral pleural effusions. Some adjacent subsegmental infiltrates may be present. Findings nonspecific.. 01/09: She is postop day #2. Patient refused to eat her breakfast. She is refusing potassium supplement oral which will be switched to IV. Repeat blood work reveals a platelet count 135 otherwise CBC is unremarkable. Potassium 2.4, CO2 19, BUN less than 2 and creatinine 0.24. Blood sugar 112. Total bilirubin 1, AST 103, ALT 36, alkaline phosphatase 376. General surgery recommends continuing low fiber diet and pain medications as needed, antibiotics per ID. Dr. Sayed is planning for oral antibiotics at the time of discharge. 01/10: Last evening, potassium 3.2 and this morning at 1 AM potassium was 3.4 subsequently 8 AM potassium was 6.1. No treatment at this time as this appears to be an accurate and repeat draw has been ordered. Patient is refusing all food and is refusing to take her medications this morning. Patient currently h ad a bowel movement. Repeat blood work reveals WBC 9.8, hemoglobin 12.3. Discussed with patient option of PEG tube and she is willing to proceed with that. We have added a speech therapy consult and also contacted patient's via phone call and he is in agreement for PEG tube if needed. 01/11: Patient was evaluated by speech therapy and diet was adjusted only because of dentition issues and patient needs chapped food. She did not have any difficulty swallowing. commercial portfolio manager is checking into insurance coverage for PEG tube feedings for failure to thrive. General surgery of course is following the patient. She continues to refuse any oral intake. She may have taken 2 bites this morning. She did take her morning medications. Patient has been afebrile, heart rate 93, blood pressure 118/69, pulse ox 99% on 2 L nasal cannula. Repeat blood work reveals WBC 7.13, hemoglobin 11.9, platelet count 143. Chemistry panel has been drawn but results are not available at 12 noon. 01/12: Patient's insurance will not cover cost of PEG tube feedings. This was reviewed and the case supervisor with the patient's and he was to determine whether he wanted to proceed with PEG tube placement. Patient was subtotally scheduled for PEG tube insertion with Dr. Bolton on January 16. Patient is still refusing all food. Patient has been afebrile, heart rate 114, blood pressure 157/99, pulse ox 93% on room air. Patient's has been diagnosed with COVID-19 and thus a repeat Covid test has been ordered for this patient. 01/13: Covid test came back positive yesterday. Chest x-ray from yesterday reveals correlate for pneumonia. Difficult to exclude small effusion. D-dimer was 0.84, ferritin 1156, LDH 1107, C-reactive protein 25.6. Repeat blood work today reveals potassium of 3.7. Patient refused all oral potassium yesterday which was given IV instead. WBC 10.8, hemoglobin 12.6 and platelet count 159. Patient continues to refuse all oral intake. She did take her medications today. She did state to the nurse that she just wants to . PICC line was ordered to start TPN until patient can start on PEG tube feedings but patient has no veins available per radiology and PICC line insertion was canceled. Dr. Guerin will discuss with the patient's family options regarding other options including central line, NG tube or hold feedings. Also, patient is due for IVIG on Saturday and orders and protocol will be on the front of patient's chart if we wish to pursue this on Saturday. patient appears significantly confused on examination oriented 1. She is not taking anything by mouth. She was also noted to be aspirating on her pills and water. Patient would need speech evaluation for aspiration. PEG tube is planned for Saturday which would help with patient's nutrition at this point. Plan for PEG tube placement on Saturday. No IV access available patient has an infusion port that can be used if necessary. Patient also noted to be requiring increased amount of oxygen and is saturating at 94% on 7 L of oxygen. Chest x- ray obtained suggest bilateral pulmonary infiltrate and atelectasis that is worse than recent exam. Continue Zosyn. Pulmonary consulted for patient's worsening hypoxic respiratory failure. Hydrocortisone will be switched to Solu- Medrol 60 IV every 6 hours. Inflammatory markers ordered. If d-dimer elevated we'll order CTA chest. Patient has bilateral upper extremity swelling will hold IV fluids for today and reassess patient's hydration status tomorrow. Speech to evaluate the patient for swallowing as patient noted to have aspiration. REVIEW OF SYSTEMS Could not be obtained due to mental Objective - Vital Signs Vital signs: Vital Signs Temp 97.8 F 01/14/21 14:00 Pulse 86 01/14/21 14:00 Resp 18 01/14/21 14:00 BP 159/87 01/14/21 14:00 Pulse Ox 95 01/14/21 14:29 Intake & Output 01/13/21 01/14/21 01/14/21 18:59 06:59 18:59 Output Total 1 Balance -1 Weight 86.183 kg Output: Stool 1 Other: Voiding Method External Catheter External Catheter Diaper Incontinent # Voids 1 1 1 # Bowel Movements 1 1 - Exam PHYSICAL EXAMINATION Gen: This is a 70-year-old female. She is resting in bed and appears to be comfortable. No acute distress. HEENT: Head is atraumatic, normocephalic. Pupils equal, round. Sclerae is anicteric. Oral mucous membranes are dry. NECK: Supple. No JVD. No lymphadenopathy. No thyromegaly. LUNGS:decreased air entry to auscultation. No wheezes or rhonchi. No intercostal retractions. HEART: Regular rate and rhythm. No murmur. ABDOMEN: Soft. Bowel sounds are present. Nondistended No masses. no abdominal tenderness. Stage II decubitus ulcer on coccyx, POA. EXTREMITIES: 1+ bilateral pedal edema. 1 + edema hand and fist with diffuse echchymosis No calf tenderness. NEUROLOGICAL: Patient is awake and alert, oriented to person and place. Patient is able to answer simple questions. Significant generalized weakness noted. - Labs CBC & Chem 7: 01/13/21 09:10 01/13/21 09:10 Assessment and Plan Plan: ASSESSMENT AND PLAN 1. Acute metabolic encephalopathy and fever of secondary to acute cholecystitis status post laparoscopic cholecystectomy. Consult with neurology and infectious disease appreciated. Infectious disease appreciated, continue Zosyn. The following medications are on hold gabapentin 600 mg at bedtime, 300 mg twice daily, loratadine vitamins, oxybutynin. HIDA scan with low ejection fraction correlate for biliary dyskinesia. Consult with Dr. Bolton appreciated. Encourage incentive spirometry. 2. Dehydration. 1+ pain edema all extremities hold IV fluids . Advance diet. 3. Severe hypokalemia. Continue phototypesetting equipment monitor, continue replacement protocol. Recheck potassium this morning as a redraw and tomorrow. 4. Acute cholecystitis. Consult with general surgery appreciated. Patient status post laparoscopic cholecystectomy on 01/07. Continue Zosyn. Tylenol 3 as needed for pain. 5. Acute COVID-19 pneumonia possible aspiration. On Zosyn inflammatory markers ordered infectious disease consulted Dr. Gan is following. Continue Lovenox, Solu-Cortef, vitamin supplements added. 6. Chronic kidney disease stage II 7. 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 Patient normally receives Gammagard every 14 days and missed a dose due to hospitalization. Patient also on chronic prednisone. Hold Avagard until infection cleared. Consult with neurology appreciated. Patient is due for IVIG on January 16. 8. Hyperlipidemia. Continue simvastatin 40 mg at bedtime. 9. Overactive bladder. Hold oxybutynin. 10. Non-use edema of the lower extremities. 11. Recent left-sided parotitis secondary to dehydration, stable. 12. Severe hypokalemia. Replacement. 13. Severe protein calorie malnutrition secondary to failure to thrive.. P atient scheduled for PEG tube insertion on January 16. Speech therapy eval reviewed. 14. GI prophylaxis. Protonix. 15. DVT prophylaxis. Lovenox 40 mg subcu daily 16 acute hypoxic respiratory failure likely secondary to Covid pneumonia and aspiration. If d-dimer elevated will undergo CTA. Prognosis is guarded. Patient appears to be confused oriented 1 requiring high amount of oxygen with minimal food intake. Plan for PEG tube on Saturday. DISCHARGE PLAN Most likely return home with her . To be determined. Patient's is Covid positive.
[2021-01-14] MEDS: methylPREDNISolone SOD SUCCI 125 MG/2 ML VIAL IV SCH ×2 (19:11→23:03)
[2021-01-14] MEDS: MELATONIN 5 MG TABLET PO SCH (19:25)
[2021-01-14] MEDS ORDERED: REMDESIVIR 200 MG in SODIUM CHLORIDE 0.9% 250 ML IVPB ONE (19:30)
[2021-01-14 20:24] LABS: ALT 32 U/L (4-34); AST 106 U/L (14-36); African American GFR (CKD) >90 (>60 ml/min/1.73 sqM); Albumin 1.7 g/dL (3.5-5.0); Albumin/Globulin Ratio 0.8; Alkaline Phosphatase 330 U/L (38-126); Anion Gap 6 mmol/L; Blood Urea Nitrogen 4 mg/dL (7-17); Calcium 6.9 mg/dL (8.4-10.2); Carbon Dioxide 24 mmol/L (22-30); Chloride 112 mmol/L (98-107); Globulin 2.1 g/dL; Glucose 85 mg/dL (74-99); Non-African American GFR(CKD) >90 (>60 ml/min/1.73 sqM); Sodium 142 mmol/L (137-145); Total Bilirubin 0.8 mg/dL (0.2-1.3); Total Protein 3.8 g/dL (6.3-8.2)
[2021-01-14 20:28] LABS: LDH 2342 U/L (313-618)
[2021-01-14 20:35] LABS: C Reactive Protein 25.6 mg/dL (<1.0)
[2021-01-14 20:44] LABS: Potassium 2.4 mmol/L (3.5-5.1)
[2021-01-14] MEDS: POTASSIUM CHLORIDE 10 MEQ in WATER FOR INJECTION 1 100ML.BAG IVPB SCH ×3 (21:20→23:24)
[2021-01-14] MEDS: POTASSIUM CHLORIDE ER 20 MEQ TAB.ER PO SCH ×2 (21:20→23:03)
[2021-01-14] MEDS: Acetaminophen-Codeine 300-30mg TAB PO PRN (23:03)
[2021-01-15] MEDS: POTASSIUM CHLORIDE 10 MEQ in WATER FOR INJECTION 1 100ML.BAG IVPB SCH ×3 (00:21→02:31)
[2021-01-15] MEDS: POTASSIUM CHLORIDE ER 20 MEQ TAB.ER PO SCH (01:24)
[2021-01-15] MEDS: PIPERACILLIN-TAZOBACTAM 3.375 GM in SODIUM CHLORIDE 0.9% 100 ML IVPB SCH ×2 (03:38→13:02)
[2021-01-15] MEDS: Acetaminophen-Codeine 300-30mg TAB PO PRN ×2 (05:09→09:27)
[2021-01-15] MEDS: methylPREDNISolone SOD SUCCI 125 MG/2 ML VIAL IV SCH ×4 (05:09→23:40)
[2021-01-15 08:10] LABS: Magnesium 1.5 mg/dL (1.6-2.3); Potassium 4.1 mmol/L (3.5-5.1)
[2021-01-15] MEDS: METOPROLOL TARTRATE 12.5 MG TAB PO SCH ×2 (09:25→20:41)
[2021-01-15] MEDS: GABAPENTIN 300 MG CAP PO SCH ×2 (09:26→16:25)
[2021-01-15] MEDS: ASPIRIN 81 MG PO SCH (09:26)
[2021-01-15] MEDS: MULTIVITAMINS, THERA 1 EACH TAB PO SCH (09:26)
[2021-01-15] MEDS: CHOLECALCIFEROL 25 MCG (1000 IU) TABLET PO SCH (09:26)
[2021-01-15] MEDS: PANTOPRAZOLE 40 MG TABLET PO SCH (09:26)
[2021-01-15] MEDS: ZINC SULFATE 220 MG CAP PO SCH (09:26)
[2021-01-15] MEDS: ATORVASTATIN 20 MG TAB PO SCH (09:26)
[2021-01-15] MEDS: POTASSIUM CHLORIDE ER 10 MEQ TAB.ER.PRT PO SCH (09:28)
[2021-01-15] MEDS: ENOXAPARIN 40 MG/0.4 ML SYRINGE SQ SCH (09:28)
[2021-01-15] MEDS: ASCORBIC ACID 500 MG TAB PO SCH (09:28)
[2021-01-15 10:07] LABS: Ferritin 2767.3 ng/mL (10.0-291.0)
--- NOTE | 2021-01-15 12:46 | P.CNPUL ---
History of Present Illness Consult date: 01/15/21 Reason for consult: dyspnea, pneumonia History of present illness: 70-year-old here patient and I was asked to see and evaluate this patient magdiel mayaing COVID-19 related pneumonia. The patient was diagnosed having COVID-19 on 01/12/2021 during her hospital stay. This was suspected as the patient was getting short of breath and the patient's called in and she told us that he was positive. Meanwhile, the patient has multiple other medical problems and comorbidities. She originally came in for acute cholecystitis. She was seen by general surgery. She underwent cholecystectomy on 01/07/2021 and she has been maintained on IV Zosyn. During the current hospital stay, the patient developed encephalopathy and worsening hypoxemia and currently she is on oxygen at 7 L per minute. I reviewed the most recent chest x-ray from yesterday and I compared it to the original chest x-ray from 01/08/2021 and there is obvious worsening in t he pulmonary infiltrates consistent with COVID-19 related pneumonia. 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 She is nonambulatory. She has overactive bladder. She has hyperlipidemia. She has none use edema in lower extremities. Note that once the patient was diagnosed having COVID-19 infection, she was given monoclonal antibodies upon the instruction of her primary care physician. She did not show any signs of improvement she in fact progressed and she is currently on solumedrol and Rem. The patient is not white alert. History provided by the patient is limited. She is having a dry cough. She is currently on 7 L. 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 History of Any Multi-Drug Resistant Organisms: None Reported Date of last positivie culture/infection: 11/19/18 MDRO Source:: THIGH Past Surgical History: Appendectomy, Hysterectomy, Tonsillectomy Additional Past Surgical History / Comment(s): cyst removal left inner thigh, 4 muscle biopsies, facial plastic surgery after bout with shingles, Infusaport. bilateral cataract surgery with lens implants, benign mass removed from urethra, skin graft to left foot, spouse believes pt has filters in bilateral groins for DVTs Past Anesthesia/Blood Transfusion Reactions: Motion Sickness, Postoperative Nausea & Vomiting (PONV) Additional Past Anesthesia/Blood Transfusion Reaction / Comment(s): PONV AFTER URETHRA SURGERY. Past Psychological History: No Psychological Hx Reported Smoking Status: Former smoker Past Alcohol Use History: None Reported Past Drug Use History: None Reported - Past Family History Mother Family Medical History: Dementia Additional Family Medical History / Comment(s): Mother at age 93-95 from Alzheimer dementia. Father Family Medical History: Coronary Artery Disease (CAD), Dementia Additional Family Medical History / Comment(s): Father at age 93-95 from coronary artery disease. Brother(s) Family Medical History: No Reported History Additional Family Medical History / Comment(s): Patient has 1 brother with celiac disease. Daughter(s) Family Medical History: No Reported History Additional Family Medical History / Comment(s): Patient has 2 daughters with no major medical problems. Son(s) Family Medical History: No Reported History Additional Family Medical History / Comment(s): Patient has one son with no major medical problems. Medications and Allergies Home Medications Medication Instructions Recorded Confirmed Type Calcium Carbonate/Vitamin D3 1 tab PO BID 10/25/14 01/02/21 History [Caltrate 600 Plus D3 Tablet] Gammagard 1 dose IV [id number] 10/25/14 01/02/21 History predniSONE 20 mg PO DAILY 10/25/14 01/02/21 History Gabapentin [Neurontin] 300 mg PO BID@0900,1300 12/26/15 01/02/21 History Oxybutynin Chloride [Ditropan] 5 mg PO BID 02/10/18 01/02/21 History Aspirin EC [Ecotrin Low Dose] 81 mg PO DAILY 08/27/18 01/02/21 History Simvastatin [Zocor] 40 mg PO DAILY 01/14/19 01/02/21 History Acetaminophen [Tylenol Extra 1,000 mg PO Q6H PRN 03/20/19 01/02/21 History Strength] Biotin 10,000 mcg PO DAILY 12/22/20 01/02/21 History Cholecalciferol [Vitamin D3 (25 50 mcg PO DAILY 12/22/20 01/02/21 History Mcg = 1000 Iu)] Gabapentin 600 mg PO HS 12/22/20 01/02/21 History Loratadine [Claritin] 10 mg PO DAILY 12/22/20 01/02/21 History Melatonin 5 mg PO HS 12/22/20 01/02/21 History Multivitamin [Multivitamins Adult 2 tab PO DAILY 12/22/20 01/02/21 History Gummies] Allergies Allergy/AdvReac Type Severity Reaction Status Date / Time diphenhydramine HCl Allergy Mild Itching, Verified 01/02/21 11:36 [From Benadryl] hives cephalexin monohydrate Allergy Itching, Verified 01/02/21 11:36 [From Keflex] hives sulfamethoxazole AdvReac Mild Rash/Hives Verified 01/02/21 11:36 [From Bactrim] trimethoprim [From Bactrim] AdvReac Mild Rash/Hives Verified 01/02/21 11:36 Physical Exam Vitals: Vital Signs Temp Pulse Resp BP Pulse Ox 01/15/21 10:00 97.7 F 59 L 20 96 01/15/21 05:30 97.7 F 112 H 23 149/86 94 L 01/15/21 01:55 97.2 F L 100 18 101/63 96 01/14/21 22:12 97.3 F L 64 17 133/68 94 L 01/14/21 18:21 144/70 01/14/21 18:00 97.4 F L 83 18 151/90 94 L 01/14/21 14:29 95 01/14/21 14:00 97.8 F 86 18 159/87 92 L Intake and Output 01/14/21 01/15/21 01/15/21 22:59 06:59 14:59 Output Total 1 Balance -1 Output: Stool 1 Other: Voiding Method Diaper Diaper Incontinent Incontinent # Voids 1 2 # Bowel Movements 1 1 Gen. appearance the patient is quite lethargic, resting in bed, she looks toxic, breathing is nonlabored. She is currently on 7 L. Head exam was generally normal. There was no scleral icterus or corneal arcus. Mucous membranes were moist. Neck was supple and without jugular venous distension, thyromegaly, or carotid bruits. Carotids were easily palpable bilaterally. There was no adenopathy. Lungs are diminished in the patient's crackles bilaterally Cardiac exam revealed the PMI to be normally situated and sized. The rhythm was regular and no extrasystoles were noted during several minutes of auscultation. The first and second heart sounds were normal and physiologic splitting of the second heart sound was noted. There were no murmurs, rubs, clicks, or gallops. Abdomen is soft and the patient's surgical wound site over the right upper quadrant is dry clean and intact and the bowel sounds are hypoactive. Extremities revealed +1 edema in the lower extremity is bilaterally and there are areas of ecchymosis. No cyanosis or clubbing. Skin reveals this patient with decub ulcer of the coccyx Neurologically the patient is awake only to self. May be able to answer occasional simple questions. She has generalized global motor weakness. Results - Laboratory Findings CBC and BMP: 01/13/21 09:10 01/15/21 06:22 PT/INR, D-dimer PT 13.7 sec (9.0-12.0) H 01/07/21 05:55 INR 1.3 (<1.2) H 01/07/21 05:55 D-Dimer 1.01 mg/L FEU (<0.60) H 01/14/21 18:11 Abnormal lab findings: Abnormal Labs 01/02/21 01/02/21 01/02/21 11:47 11:47 11:47 WBC RBC Hgb MCHC RDW 19.0 H Plt Count Absolute Nucleated RBC Immature Gran # Neutrophils # Eosinophils # NRBC/100 WBC Diff PT INR APTT D-Dimer Sodium Potassium 2.6 L* Chloride Carbon Dioxide 31 H Anion Gap BUN 5 L Creatinine 0.28 L BUN/Creatinine Ratio Glucose 112 H Calcium 8.1 L Phosphorus 2.3 L Magnesium Ferritin AST 52 H ALT Alkaline Phosphatase 296 H Lactate Dehydrogenase C-Reactive Protein Total Protein 5.2 L Albumin 2.4 L Albumin/Globulin Ratio Vitamin B6 Procalcitonin Urine Protein Urine Ketones Urine Blood Urine Bilirubin Hyaline Casts Urine Mucus Coronavirus (PCR) 01/02/21 01/03/21 01/03/21 12:39 05:32 05:32 WBC RBC Hgb MCHC 29.9 L RDW 20.6 H Plt Count Absolute Nucleated RBC 0.04 H Immature Gran # 0.14 H Neutrophils # Eosinophils # 0.01 L NRBC/100 WBC Diff 0.5 H PT INR APTT D-Dimer Sodium Potassium Chloride Carbon Dioxide Anion Gap 14.10 H BUN <5.0 L Creatinine 0.3 L BUN/Creatinine Ratio Glucose Calcium 7.8 L Phosphorus Magnesium Ferritin AST 68 H ALT Alkaline Phosphatase 226 H Lactate Dehydrogenase C-Reactive Protein 13.9 H Total Protein 4.3 L Albumin 2.30 L Albumin/Globulin Ratio 1.15 L Vitamin B6 Procalcitonin Urine Protein Trace H Urine Ketones 3+ H Urine Blood Small H Urine Bilirubin 1+ H Hyaline Casts 3 H Urine Mucus Few H Coronavirus (PCR) 01/03/21 01/04/21 01/05/21 05:32 05:44 04:41 WBC RBC 3.95 L Hgb 11.3 L MCHC 30.1 L RDW 20.6 H Plt Count Absolute Nucleated RBC 0.02 H Immature Gran # Neutrophils # Eosinophils # NRBC/100 WBC Diff 0.3 H PT INR APTT D-Dimer Sodium Potassium Chloride Carbon Dioxide Anion Gap BUN Creatinine BUN/Creatinine Ratio Glucose Calcium Phosphorus Magnesium Ferritin AST ALT Alkaline Phosphatase Lactate Dehydrogenase C-Reactive Protein Total Protein Albumin Albumin/Globulin Ratio Vitamin B6 <2 L Procalcitonin 1.56 H Urine Protein Urine Ketones Urine Blood Urine Bilirubin Hyaline Casts Urine Mucus Coronavirus (PCR) 01/05/21 01/06/21 01/06/21 04:41 02:06 02:06 WBC RBC Hgb MCHC RDW 19.2 H Plt Count Absolute Nucleated RBC Immature Gran # Neutrophils # Eosinophils # NRBC/100 WBC Diff PT INR APTT D-Dimer Sodium 146 H Potassium 2.8 L Chloride 110 H Carbon Dioxide Anion Gap 13.50 H BUN 5.0 L 3 L Creatinine 0.2 L 0.25 L BUN/Creatinine Ratio 25.00 H Glucose 51 L Calcium 7.5 L 7.6 L Phosphorus Magnesium Ferritin AST 44 H 55 H ALT Alkaline Phosphatase 253 H 277 H Lactate Dehydrogenase C-Reactive Protein Total Protein 4.2 L 4.4 L Albumin 2.30 L 2.0 L Albumin/Globulin Ratio 1.21 L Vitamin B6 Procalcitonin Urine Protein Urine Ketones Urine Blood Urine Bilirubin Hyaline Casts Urine Mucus Coronavirus (PCR) 01/06/21 01/07/21 01/09/21 18:18 05:55 05:42 WBC RBC Hgb MCHC RDW 19.7 H Plt Count 135 L Absolute Nucleated RBC Immature Gran # Neutrophils # Eosinophils # NRBC/100 WBC Diff PT 20.8 H 13.7 H INR 2.1 H 1.3 H APTT 40.9 H D-Dimer Sodium Potassium Chloride Carbon Dioxide Anion Gap BUN Creatinine BUN/Creatinine Ratio Glucose Calcium Phosphorus Magnesium Ferritin AST ALT Alkaline Phosphatase Lactate Dehydrogenase C-Reactive Protein Total Protein Albumin Albumin/Globulin Ratio Vitamin B6 Procalcitonin Urine Protein Urine Ketones Urine Blood Urine Bilirubin Hyaline Casts Urine Mucus Coronavirus (PCR) 01/09/21 01/09/21 01/10/21 05:42 18:15 01:01 WBC RBC Hgb MCHC RDW Plt Count Absolute Nucleated RBC Immature Gran # Neutrophils # Eosinophils # NRBC/100 WBC Diff PT INR APTT D-Dimer Sodium Potassium 2.4 L* 3.2 L 3.4 L Chloride Carbon Dioxide 19 L Anion Gap BUN <2 L Creatinine 0.24 L BUN/Creatinine Ratio Glucose 112 H Calcium 7.4 L Phosphorus Magnesium Ferritin AST 103 H ALT 36 H Alkaline Phosphatase 372 H Lactate Dehydrogenase C-Reactive Protein Total Protein 4.6 L Albumin 2.1 L Albumin/Globulin Ratio Vitamin B6 Procalcitonin Urine Protein Urine Ketones Urine Blood Urine Bilirubin Hyaline Casts Urine Mucus Coronavirus (PCR) 01/10/21 01/10/21 01/10/21 04:33 04:33 08:33 WBC RBC Hgb MCHC 30.4 L RDW 22.4 H Plt Count Absolute Nucleated RBC Immature Gran # Neutrophils # Eosinophils # NRBC/100 WBC Diff PT INR APTT D-Dimer Sodium Potassium 6.1 H* Chloride Carbon Dioxide 14.1 L Anion Gap 20.90 H BUN <5.0 L Creatinine 0.3 L BUN/Creatinine Ratio Glucose 112 H Calcium 7.7 L Phosphorus Magnesium Ferritin AST 98 H ALT Alkaline Phosphatase 452 H Lactate Dehydrogenase C-Reactive Protein Total Protein 4.5 L Albumin 2.60 L Albumin/Globulin Ratio 1.37 L Vitamin B6 Procalcitonin Urine Protein Urine Ketones Urine Blood Urine Bilirubin Hyaline Casts Urine Mucus Coronavirus (PCR) 01/11/21 01/11/21 01/12/21 05:57 05:57 11:06 WBC RBC Hgb 11.9 L MCHC 30.5 L RDW 22.3 H Plt Count Absolute Nucleated RBC Immature Gran # Neutrophils # Eosinophils # NRBC/100 WBC Diff PT INR APTT D-Dimer Sodium Potassium 3.1 L Chloride Carbon Dioxide 20.2 L Anion Gap 14.80 H BUN <5.0 L Creatinine 0.2 L BUN/Creatinine Ratio Glucose Calcium 7.6 L Phosphorus Magnesium Ferritin AST 72 H ALT Alkaline Phosphatase 474 H Lactate Dehydrogenase C-Reactive Protein Total Protein 4.3 L Albumin 2.50 L Albumin/Globulin Ratio 1.39 L Vitamin B6 Procalcitonin Urine Protein Urine Ketones Urine Blood Urine Bilirubin Hyaline Casts Urine Mucus Coronavirus (PCR) Detected A 01/12/21 01/12/21 01/12/21 11:32 14:08 14:08 WBC RBC Hgb MCHC RDW Plt Count Absolute Nucleated RBC Immature Gran # Neutrophils # Eosinophils # NRBC/100 WBC Diff PT INR APTT D-Dimer 0.84 H Sodium Potassium 2.5 L* Chloride Carbon Dioxide Anion Gap BUN Creatinine BUN/Creatinine Ratio Glucose Calcium Phosphorus Magnesium Ferritin 1156.4 H AST ALT Alkaline Phosphatase Lactate Dehydrogenase 1107 H C-Reactive Protein 25.6 H Total Protein Albumin Albumin/Globulin Ratio Vitamin B6 Procalcitonin Urine Protein Urine Ketones Urine Blood Urine Bilirubin Hyaline Casts Urine Mucus Coronavirus (PCR) 01/13/21 01/14/21 01/14/21 09:10 18:11 20:00 WBC 10.8 H RBC Hgb MCHC RDW 20.6 H Plt Count Absolute Nucleated RBC Immature Gran # Neutrophils # 8.1 H Eosinophils # NRBC/100 WBC Diff PT INR APTT D-Dimer 1.01 H Sodium Potassium 2.4 L* Chloride 112 H Carbon Dioxide Anion Gap BUN 4 L Creatinine 0.23 L BUN/Creatinine Ratio Glucose Calcium 6.9 L Phosphorus Magnesium Ferritin 2767.3 H AST 106 H ALT Alkaline Phosphatase 330 H Lactate Dehydrogenase 2342 H C-Reactive Protein 25.6 H Total Protein 3.8 L Albumin 1.7 L Albumin/Globulin Ratio Vitamin B6 Procalcitonin Urine Protein Urine Ketones Urine Blood Urine Bilirubin Hyaline Casts Urine Mucus Coronavirus (PCR) 01/15/21 06:22 WBC RBC Hgb MCHC RDW Plt Count Absolute Nucleated RBC Immature Gran # Neutrophils # Eosinophils # NRBC/100 WBC Diff PT INR APTT D-Dimer Sodium Potassium Chloride Carbon Dioxide Anion Gap BUN Creatinine BUN/Creatinine Ratio Glucose Calcium Phosphorus Magnesium 1.5 L Ferritin AST ALT Alkaline Phosphatase Lactate Dehydrogenase C-Reactive Protein Total Protein Albumin Albumin/Globulin Ratio Vitamin B6 Procalcitonin Urine Protein Urine Ketones Urine Blood Urine Bilirubin Hyaline Casts Urine Mucus Coronavirus (PCR) - Diagnostic Findings Chest x-ray: image reviewed Assessment and Plan Plan: 1 acute COVID-19 related pneumonia. Diagnosis was established on 01/12/2021 during her hospital stay. However, it's very likely that the patient was infected on outpatient basis knowing that her was also positive for the same viral infection. She is developing progressive worsening in hypoxemia. She has developed worsening in the pulmonary infiltrates bilaterally more so on the right. She was given monoclonal antibodies during her hospital stay currently on IV Solu-Medrol and REM 2 acute hypoxic respiratory failure currently on 7 L of oxygen by nasal cannula 3 encephalopathy, consider COVID-19 encephalopathy versus metabolic encephalopathy post acute cholecystitis 4 acute cholecystitis postcholecystectomy currently on Zosyn 5 chronic stage II kidney disease 6 inclusion body myositis and paraplegia 7 hyperlipidemia 8 over active bladder 91 lower extremity edema 10 difficulty in swallowing and the patient may need a PEG tube 11 severe protein calorie malnutrition and the patient is seeking a PEG tube insertion. Plan Titrate FiO2 to maintain a saturation above 90% currently on 7 L The d-dimer is at 1.01 and the patient is on anticoagulation with Lovenox 40 mg subcu for DVT prophylaxis Continue IV Solu-Medrol Continue Remdesivir protocol Monitor inflammatory markers, most recent LDH is 2342 IV Zosyn Obviously this is a very critical condition and the patient would likely progress in regards to her COVID-19 related pneumonia. She has very poor baseline performance and functional status. Strongly urged her primary care team to establish a CODE STATUS knowing that the patient would not survive mechanical ventilation should her overall pulmonary status get worse. The family should be made clear that. We'll continue the current supportive care. We'll continue to follow.
[2021-01-15 15:27] LABS: Glucose,Whole Blood 118 mg/dL (75-99)
--- NOTE | 2021-01-15 16:05 | P.PN ---
Subjective Progress Note Date: 01/15/21 HPI: Patient had respiratory depression and had A-team. She is now transferred to the ICU. She is on BiPAP. ABDOMEN: No peritonitis. MUSCULOSKELETAL: Moderate varying ecchymoses along the upper extremities extending to the hand. PSYCH: Alert to self. Lethargic LABS: COVID+ PLAN: 1. Her prognosis is poor. 2. CODE STATUS determination review is advised. Objective - Vital Signs Vital signs: Vital Signs Temp 97.7 F 01/15/21 10:00 Pulse 59 L 01/15/21 10:00 Resp 20 01/15/21 10:00 BP 149/86 01/15/21 05:30 Pulse Ox 96 01/15/21 10:00 Intake & Output 01/14/21 01/15/21 01/15/21 18:59 06:59 18:59 Output Total 1 Balance -1 Output: Stool 1 Other: Voiding Method Diaper Diaper Diaper Incontinent Incontinent Incontinent # Voids 1 2 # Bowel Movements 1 1 - Labs CBC & Chem 7: 01/13/21 09:10 01/15/21 06:22 Labs: Abnormal Lab Results - Last 24 Hours (Table) 01/14/21 01/14/21 01/15/21 Range/Units 18:11 20:00 06:22 D-Dimer 1.01 H (<0.60) mg/L FEU Potassium 2.4 L* (3.5-5.1) mmol/L Chloride 112 H (98-107) mmol/L BUN 4 L (7-17) mg/dL Creatinine 0.23 L (0.52-1.04) mg/dL POC Glucose (mg/dL) (75-99) mg/dL Calcium 6.9 L (8.4-10.2) mg/dL Magnesium 1.5 L (1.6-2.3) mg/dL Ferritin 2767.3 H (10.0-291.0) ng/mL AST 106 H (14-36) U/L Alkaline Phosphatase 330 H (38-126) U/L Lactate Dehydrogenase 2342 H (313-618) U/L C-Reactive Protein 25.6 H (<1.0) mg/dL Total Protein 3.8 L (6.3-8.2) g/dL Albumin 1.7 L (3.5-5.0) g/dL 01/15/21 Range/Units 15:25 D-Dimer (<0.60) mg/L FEU Potassium (3.5-5.1) mmol/L Chloride (98-107) mmol/L BUN (7-17) mg/dL Creatinine (0.52-1.04) mg/dL POC Glucose (mg/dL) 118 H (75-99) mg/dL Calcium (8.4-10.2) mg/dL Magnesium (1.6-2.3) mg/dL Ferritin (10.0-291.0) ng/mL AST (14-36) U/L Alkaline Phosphatase (38-126) U/L Lactate Dehydrogenase (313-618) U/L C-Reactive Protein (<1.0) mg/dL Total Protein (6.3-8.2) g/dL Albumin (3.5-5.0) g/dL
[2021-01-15] MEDS ORDERED: DEXMEDETOMIDINE/0.9% NACL(PMX) 400 MCG in EMPTY BAG 1 BAG IV SCH (16:30)
[2021-01-15] MEDS ORDERED: LACTATED RINGERS 1,000 ML IV SCH (16:32)
[2021-01-15] MEDS ORDERED: LIDOCAINE 1% (10MG/ML) FOR IV START INTRADERMA PRN (16:32)
--- NOTE | 2021-01-15 16:37 | P.PN ---
Subjective Progress Note Date: 01/15/21 HISTORY OF PRESENT ILLNESS This is a 70-year-old female patient of Dr. 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 Patient has history of abscess of the right thigh that was under the care of Dr. Olvera through the wound healing Center. Patient was recently hospitalized from December 22 through December 26 which time she was treated for acute UTI with suspected pyelonephritis and metabolic encephalopathy and sepsis, acute kidney injury. She did undergo modified barium swallow and recommendations were for mechanical soft diet with thin liquids, base of the tongue exercises were recommended. Patient was seen by Dr. Erazo for parotitis secondary to dehydration. She was treated for UTI with Zosyn and discharged on doxycycline. She was seen also by cardiology and ruled out acute coronary syndrome. The patient was discharged home and family did not want home care set up. She is normally bed or wheelchair bound. She now presents back to the emergency center as states that she wouldn't swallow couldn't eat anything complained of sore throat and ear pain. She also did not have much urine output. No fever. She did have a small bowel movement prior to coming into the hospital. Patient was due for her Gammagard apparently today and had missed a dose due to being hospitalized last week. She had her last appointment with her neurologist Dr. Chavez in August 2020 which was a virtual appointment. Patient presented to [facility] emergency center for evaluation. Temperature was 101.5, heart rate 120, blood pressure 126/104, pulse ox 94%. CBC was unremarkable. Sodium 137, potassium 2.6, chloride 100, CO2 31, BUN 5 and creatinine 0.28. Blood pressure 112. Lactic acid 1.9. AST 52, alkaline phosphatase 296. Phosphorus 2.3, magnesium 1.8. Urinalysis clear, nitrite and leukoesterase negative. EKG was sinus tachycardia with left internal hypertrophy. CAT scan of the abdomen and pelvis revealed cholelithiasis with gallbladder wall thickening although there is no evidence of inflammatory change. Small right-sided pleural effusion and right basilar compressive atelectasis. Patient was started on IV Levaquin and potassium was replaced with 20 mEq. She is status post 1800 mL of IV fluid. 01/03: Patient has been afebrile since admission, heart rate 114, blood pressure 138/87, pulse ox 98% on 2 L nasal cannula. Repeat potassium yesterday afternoon was 3.6 and magnesium 1.8. Patient's mental status is slightly improved from yesterday. She is awake and alert but remains confused. IV access has been unable to be obtained and Accu cath has been ordered. Consult in place with neurology and infectious disease. 01/04: Patient has been seen by infectious disease with recommendations for Zosyn and possible HIDA scan. This was canceled for unknown reason. We will add order for HIDA scan to be done today. Patient has also been seen by neurology for altered mental status is likely at acute delirium possible metabolic encephalopathy secondary to possible cryptogenic infection. Recommendations to hold IVIG until patient recover from acute illness. Recommendations to follow- up with her neurologist regarding memory loss with possible dementia. The following lab work was ordered: Vitamin B12, folate level, TSH, B1, B6. Patient has been afebrile, heart rate 97, blood pressure 113/72, pulse ox 90% on 2 L nasal cannula. Blood cultures no growth at 24 hours. Midline was placed yesterday for IV access. She was fed by staff. She reviews her breakfast this morning. She is awake and alert but remains confused. 01/05: HIDA scan revealed low ejection fraction of 21%. Correlate for biliary dyskinesia. Dr. Gan recommends continuing Zosyn. Patient is followed by neurology as well. Vitamin B12 level CMXXXVI. Folate greater than 24. TSH 2.650. Repeat blood work reveals WBC 6.5, hemoglobin 11.3, platelet count 195. Sodium 146, potassium 2.8, chloride 107, CO2 25, BUN 5, creatinine 0.2. AST 44, ALT 22, alkaline phosphatase 253. Dr. Townsend discussed condition with the patient's Shukri and patient's would like to move forward with gallbladder surgery. He understands that there are complications and she is at high risk for surgery due to her underlying neurological disorder. Consult has been added for Dr. Bolton to evaluate. 01/06: Patient has been afebrile, heart rate 108, blood pressure 139/70, pulse ox 98% on room air. Repeat blood work reveals CBC was unremarkable. Chloride 110, potassium 4.2, BUN 3 and creatinine 0.25. Total bilirubin 0.8, AST 55, ALT 23, clindamycin phosphatase 277. Dr. Gan recommends continuing Zosyn. Patient has been seen by general surgery with recommendations for IV fluids, IV antibiotics. And as for laparoscopic possible open cholecystectomy on Saturday. Neurology has ordered MRI of the spine to rule out spinal stenosis. Patient is complaining of abdominal pain and will add Tylenol 3 for pain control. 01/07: Cervical spine MRI revealed no severe spinal stenosis. There is disc bulging with focal protrusion centrally at C5-6. Some right-sided cord flattening may be present in the axial plane. Retrolisthesis of the C4 on C5 with disc uncovering cause mild anterior thecal sac flattening without stenosis or cord contact rate. Loss of disc height C6-7. Left paracentral large disc bulge with moderate anterior thecal sac compression C7-T1. Neurology has recom mended follow-up with her neurologist and signed off her case. She has been afebrile, heart rate 102-126 since yesterday afternoon, blood pressure 142/77, pulse ox 94% on room air. INR 1.3 orally. INR yesterday 2.1 and received vitamin K. Patient underwent left upper cholecystectomy this morning with Dr. Bolton with no immediate postop complications. 01/08: Patient is postop day #1 for laparoscopic cholecystectomy. Patient has refused to eat this morning. Nursing was able to get her to take her medications. We'll try advancing her diet. She also was noncompliant with getting labs drawn this morning. Repeat labs will be ordered for tomorrow. Patient is noted to have a very congested moist cough. Incentive spirometry and chest x-ray been ordered. Patient is denying pain but remains confused. Chest x-ray reveals small bilateral pleural effusions. Some adjacent subsegmental infiltrates may be present. Findings nonspecific.. 01/09: She is postop day #2. Patient refused to eat her breakfast. She is refusing potassium supplement oral which will be switched to IV. Repeat blood work reveals a platelet count 135 otherwise CBC is unremarkable. Potassium 2.4, CO2 19, BUN less than 2 and creatinine 0.24. Blood sugar 112. Total bilirubin 1, AST 103, ALT 36, alkaline phosphatase 376. General surgery recommends continuing low fiber diet and pain medications as needed, antibiotics per ID. Dr. Sayed is planning for oral antibiotics at the time of discharge. 01/10: Last evening, potassium 3.2 and this morning at 1 AM potassium was 3.4 subsequently 8 AM potassium was 6.1. No treatment at this time as this appears to be an accurate and repeat draw has been ordered. Patient is refusing all food and is refusing to take her medications this morning. Patient currently h ad a bowel movement. Repeat blood work reveals WBC 9.8, hemoglobin 12.3. Discussed with patient option of PEG tube and she is willing to proceed with that. We have added a speech therapy consult and also contacted patient's via phone call and he is in agreement for PEG tube if needed. 01/11: Patient was evaluated by speech therapy and diet was adjusted only because of dentition issues and patient needs chapped food. She did not have any difficulty swallowing. information technology manager is checking into insurance coverage for PEG tube feedings for failure to thrive. General surgery of course is following the patient. She continues to refuse any oral intake. She may have taken 2 bites this morning. She did take her morning medications. Patient has been afebrile, heart rate 93, blood pressure 118/69, pulse ox 99% on 2 L nasal cannula. Repeat blood work reveals WBC 7.13, hemoglobin 11.9, platelet count 143. Chemistry panel has been drawn but results are not available at 12 noon. 01/12: Patient's insurance will not cover cost of PEG tube feedings. This was reviewed and the case resolution specialist with the patient's and he was to determine whether he wanted to proceed with PEG tube placement. Patient was subtotally scheduled for PEG tube insertion with Dr. Bolton on January 16. Patient is still refusing all food. Patient has been afebrile, heart rate 114, blood pressure 157/99, pulse ox 93% on room air. Patient's has been diagnosed with COVID-19 and thus a repeat Covid test has been ordered for this patient. 01/13: Covid test came back positive yesterday. Chest x-ray from yesterday reveals correlate for pneumonia. Difficult to exclude small effusion. D-dimer was 0.84, ferritin 1156, LDH 1107, C-reactive protein 25.6. Repeat blood work today reveals potassium of 3.7. Patient refused all oral potassium yesterday which was given IV instead. WBC 10.8, hemoglobin 12.6 and platelet count 159. Patient continues to refuse all oral intake. She did take her medications today. She did state to the nurse that she just wants to . PICC line was ordered to start TPN until patient can start on PEG tube feedings but patient has no veins available per radiology and PICC line insertion was canceled. Dr. Guerin will discuss with the patient's family options regarding other options including central line, NG tube or hold feedings. Also, patient is due for IVIG on Saturday and orders and protocol will be on the front of patient's chart if we wish to pursue this on Saturday. patient appears significantly confused on examination oriented 1. She is not taking anything by mouth. She was also noted to be aspirating on her pills and water. Patient would need speech evaluation for aspiration. PEG tube is planned for Saturday which would help with patient's nutrition at this point. Plan for PEG tube placement on Saturday. No IV access available patient has an infusion port that can be used if necessary. Patient also noted to be requiring increased amount of oxygen and is saturating at 94% on 7 L of oxygen. Chest x- ray obtained suggest bilateral pulmonary infiltrate and atelectasis that is worse than recent exam. Continue Zosyn. Pulmonary consulted for patient's worsening hypoxic respiratory failure. Hydrocortisone will be switched to Solu- Medrol 60 IV every 6 hours. Inflammatory markers ordered. If d-dimer elevated we'll order CTA chest. Patient has bilateral upper extremity swelling will hold IV fluids for today and reassess patient's hydration status tomorrow. Speech to evaluate the patient for swallowing as patient noted to have aspiration. 01/15 patient's appear confused on examination oriented to self. She was found morning and has multiple fluid bullous involving her pannus and her upper extremities. Patient temp is 97.7 pulse 59 respiratory rate 20 oxygen saturation 96% on 7 L of nasal cannula. Patient did not appear well on evaluation and has not been answering questions. Due to worsening chest x-ray secondary to Covid pulmonary consult was placed. Patient started on an aspirin and IV Solu-Medrol. A team was called on patient a few minutes ago as patient becomes more short of breath and is transferred to ICU on BiPAP. REVIEW OF SYSTEMS Could not be obtained due to mental Objective - Vital Signs Vital signs: Vital Signs Temp 97.7 F 01/15/21 10:00 Pulse 59 L 01/15/21 10:00 Resp 20 01/15/21 10:00 BP 149/86 01/15/21 05:30 Pulse Ox 96 01/15/21 10:00 Intake & Output 01/14/21 01/15/21 01/15/21 18:59 06:59 18:59 Output Total 1 Balance -1 Output: Stool 1 Other: Voiding Method Diaper Diaper Diaper Incontinent Incontinent Incontinent # Voids 1 2 # Bowel Movements 1 1 - Exam PHYSICAL EXAMINATION Gen: This is a 70-year-old female. She is resting in bed and appears drowsy and confused HEENT: Head is atraumatic, normocephalic. Pupils equal, round. Sclerae is anicteric. Oral mucous membranes are dry. NECK: Supple. No JVD. No lymphadenopathy. No thyromegaly. LUNGS:decreased air entry to auscultation. No wheezes or rhonchi. No intercostal retractions. HEART: Regular rate and rhythm. No murmur. ABDOMEN: Soft. Bowel sounds are present. Nondistended No masses. no abdominal tenderness. Stage II decubitus ulcer on coccyx, POA. EXTREMITIES: 1+ bilateral pedal edema. 1 + edema hand and fist with diffuse echchymosis No calf tenderness. NEUROLOGICAL: Patient is awake and alert, oriented to person and place. Patient is able to answer simple questions. Significant generalized weakness noted. - Labs CBC & Chem 7: 01/13/21 09:10 01/15/21 06:22 Labs: Abnormal Lab Results - Last 24 Hours (Table) 01/14/21 01/14/21 01/15/21 Range/Units 18:11 20:00 06:22 D-Dimer 1.01 H (<0.60) mg/L FEU Potassium 2.4 L* (3.5-5.1) mmol/L Chloride 112 H (98-107) mmol/L BUN 4 L (7-17) mg/dL Creatinine 0.23 L (0.52-1.04) mg/dL POC Glucose (mg/dL) (75-99) mg/dL Calcium 6.9 L (8.4-10.2) mg/dL Magnesium 1.5 L (1.6-2.3) mg/dL Ferritin 2767.3 H (10.0-291.0) ng/mL AST 106 H (14-36) U/L Alkaline Phosphatase 330 H (38-126) U/L Lactate Dehydrogenase 2342 H (313-618) U/L C-Reactive Protein 25.6 H (<1.0) mg/dL Total Protein 3.8 L (6.3-8.2) g/dL Albumin 1.7 L (3.5-5.0) g/dL 01/15/21 Range/Units 15:25 D-Dimer (<0.60) mg/L FEU Potassium (3.5-5.1) mmol/L Chloride (98-107) mmol/L BUN (7-17) mg/dL Creatinine (0.52-1.04) mg/dL POC Glucose (mg/dL) 118 H (75-99) mg/dL Calcium (8.4-10.2) mg/dL Magnesium (1.6-2.3) mg/dL Ferritin (10.0-291.0) ng/mL AST (14-36) U/L Alkaline Phosphatase (38-126) U/L Lactate Dehydrogenase (313-618) U/L C-Reactive Protein (<1.0) mg/dL Total Protein (6.3-8.2) g/dL Albumin (3.5-5.0) g/dL Assessment and Plan Plan: ASSESSMENT AND PLAN 1. Acute metabolic encephalopathy and fever of secondary to acute cholecystitis status post laparoscopic cholecystectomy. Consult with neurology and infectious disease appreciated. Infectious disease appreciated, continue Zosyn. The following medications are on hold gabapentin , loratadine vitamins, oxybutynin. HIDA scan with low ejection fraction correlate for biliary dyskinesia. Consult with Dr. Bolton appreciated. Encourage incentive spirometry. 2. Dehydration. 1+ pain edema all extremities hold IV fluids . Advance diet. 3. Severe hypokalemia. Continue pvc monitor, continue replacement protocol. Recheck potassium this morning as a redraw and tomorrow. 4. Acute cholecystitis. Consult with general surgery appreciated. Patient status post laparoscopic cholecystectomy on 01/07. Continue Zosyn. Tylenol 3 as needed for pain. 5. Acute COVID-19 pneumonia possible aspiration. On Zosyn inflammatory markers ordered infectious disease consulted Dr. Malik is following. Continue Lovenox, Solu-Cortef, vitamin supplements added. 6. Chronic kidney disease stage II 7. 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 Patient normally receives Gammagard every 14 days and missed a dose due to hospitalization. Patient also on chronic prednisone. Hold Avagard until infection cleared. Consult with neurology appreciated. Patient is due for IVIG on January 16. 8. Hyperlipidemia. Continue simvastatin 40 mg at bedtime. 9. Overactive bladder. Hold oxybutynin. 10. Non-use edema of the lower extremities. 11. Recent left-sided parotitis secondary to dehydration, stable. 12. Severe hypokalemia. Replacement. 13. Severe protein calorie malnutrition secondary to failure to thrive.. Patient scheduled for PEG tube insertion on January 16. Speech therapy eval reviewed. 14. GI prophylaxis. Protonix. 15. DVT prophylaxis. Lovenox 40 mg subcu daily 16 acute hypoxic respiratory failure likely secondary to Covid pneumonia and aspiration. Lasix started at 40 IV twice a day If d-dimer elevated will undergo CTA. 17 anasarca likely secondary to fluids. Lasix started 48. He Prognosis is guarded. Patient appears to be confused oriented 1 requiring high amount of oxygen with minimal food intake. Plan for PEG tube on Saturday. DISCHARGE PLAN Most likely return home with her . To be determined. Patient's is Covid positive.
[2021-01-15 16:44] LABS: ABG Base Excess -20.4 mmol/L; ABG Oxygen Saturation 75.8 % (94-97); ABG PCO2 22 mmHg (35-45); ABG TCO2 9 mmol/L (19-24); Allen Test Performed? Yes
[2021-01-15 16:46] LABS: ABG PH 7.18 (7.35-7.45); ABG PO2 54 mmHg (83-108)
[2021-01-15 16:47] LABS: ABG HCO3 8 mmol/L (21-25)
[2021-01-15] MEDS ORDERED: SODIUM BICARB 8.4% 50 ML SYR (1 MEQ/ML) IV STA (17:03)
[2021-01-15] MEDS ORDERED: SODIUM CHLORIDE 0.9% 2,000 ML IV ONE (17:10)
[2021-01-15] MEDS ORDERED: DEXTROSE 5% IN WATER 1,000 ML with SODIUM BICARB (1 MEQ/ML) 150 ML IV SCH (17:15)
[2021-01-15] MEDS ORDERED: NOREPINEPHRINE 8 MG in SODIUM CHLORIDE 0.9% 250 ML IV SCH (17:15)
--- NOTE | 2021-01-15 18:02 | PN ---
PROGRESS NOTE DATE OF SERVICE: 01/15/2021 REASON FOR FOLLOWUP: COVID-19 infection. INTERVAL HISTORY: Patient remains to be afebrile. The patient is lethargic and not a very good historian today. Per nursing staff, denies any chest pain or cough though. No abdominal pain. PHYSICAL EXAMINATION: Blood pressure is 149/86, pulse of 59, temperature is 97.7. He is 93% on 7 L high flow oxygen. General description is a middle-aged female lying in bed in no distress. Respiratory system: Unlabored breathing, clear to auscultation anteriorly. Heart S1, S2. Regular rate and rhythm. Abdomen: Soft, no tenderness. LABS: Potassium is 4.1. Mag is 1.5. No other labs were done. DIAGNOSTIC IMPRESSION AND PLAN: 1. Patient with acute COVID-19 infection acquired in this patient currently on Lovenox, Solu-Medrol, and Remdesivir. 2. Patient with acute cholecystitis for which the patient received adequate antibiotic therapy. Rocephin will be discontinued. MMODL / IJN: [id number] /
[2021-01-15] MEDS: MIRTAZAPINE 15 MG TAB PO SCH (18:11)
[2021-01-15 18:39] LABS: Anisocytosis Moderate; HGB 10.3 gm/dL (11.4-16.0); Hypochromasia Moderate; MCHC 30.4 g/dL (31.0-37.0); Macrocytosis Slight; Mean Platelet Volume 9.9; Platelet Count 168 k/uL (150-450); Poikilocytosis Moderate; RDW 21.4 % (11.5-15.5)
[2021-01-15 18:46] LABS: AST 157 U/L (14-36); African American GFR (CKD) >90 (>60 ml/min/1.73 sqM); Albumin 1.2 g/dL (3.5-5.0); Alkaline Phosphatase 245 U/L (38-126); Anion Gap 17 mmol/L; Blood Urea Nitrogen 7 mg/dL (7-17); Carbon Dioxide 19 mmol/L (22-30); Chloride 117 mmol/L (98-107); Glucose 77 mg/dL (74-99); Magnesium 1.5 mg/dL (1.6-2.3); Non-African American GFR(CKD) >90 (>60 ml/min/1.73 sqM); Potassium 4.1 mmol/L (3.5-5.1); Sodium 153 mmol/L (137-145); Total Bilirubin 0.5 mg/dL (0.2-1.3); Total Protein 2.6 g/dL (6.3-8.2)
[2021-01-15 18:56] LABS: ALT 43 U/L (4-34); Calcium 6.3 mg/dL (8.4-10.2)
[2021-01-15] MEDS ORDERED: REMDESIVIR 100 MG in SODIUM CHLORIDE 0.9% 250 ML IVPB SCH (19:00)
[2021-01-15 19:17] LABS: Band Neutrophils % 1 %; Lymphocytes # (M) 1.63 k/uL (1.0-4.8); Monocytes # (M) 0.36 k/uL (0-1.0); Neutrophils % (M) 72 %; Nucleated Red Blood Cells 10 /100 WBC (0-0); Polychromasia Present; Total Cells Counted 200; WBC 7.1 k/uL (3.8-10.6)
[2021-01-15 19:18] LABS: Poikilocytosis (M) Present
--- NOTE | 2021-01-15 19:31 | P.PCN ---
Date of Procedure: 01/15/21 Preoperative Diagnosis: COVID 19 pneumonia and respiratory failure Postoperative Diagnosis: Same Procedure(s) Performed: Insertion of central line and arterial line Anesthesia: local Surgeon: Axel Kent Pathology: none sent Condition: critical Disposition: ICU Operative Findings: Indication: Hemodynamic monitoring. A time-out was completed verifying correct patient, procedure, site, positioning, and implant(s) or special equipment if applicable. The patients right groin was prepped and draped in sterile fashion. 1% Lidocaine was used to anesthetize the area. An 18G Arrow arterial line was introduced into the femoral artery. The catheter was threaded over the guide wire and the needle was removed with appropriate pulsatile blood return. Blood loss was minimal. The catheter was then sutured in place to the skin and a sterile dressing applied. Perfusion to the extremity distal to the point of catheter insertion was checked and found to be adequate. The patient tolerated the procedure well and there were no complications. Indication: Hemodynamic monitoring/Intravenous access. A time-out was completed verifying correct patient, procedure, site, positioning, and implant(s) or special equipment if applicable. The patient was placed in a dependent position appropriate for central line placement based on the vein to be cannulated. The patients right groin was prepped and draped in sterile fashion. 1% Lidocaine was used to anesthetize the surrounding skin area. A triple lumen 9F Cordis catheter was introduced into thw common femoral vein using Seldinger technique. The catheter was threaded smoothly over the guide wire and appropriate blood return was obtained. Each lumen of the catheter was evacuated of air and flushed with sterile saline. The catheter was then sutured in place to the skin and a sterile dressing applied. Perfusion to the extremity distal to the point of catheter insertion was checked and found to be adequate. The patient tolerated the procedure well and there were no complications.
[2021-01-15 19:41] LABS: ABG HCO3 12 mmol/L (21-25); ABG PCO2 20 mmHg (35-45); ABG PH 7.39 (7.35-7.45); ABG PO2 71 mmHg (83-108); ABG TCO2 13 mmol/L (19-24)
[2021-01-15 20:01] LABS: Glucose,Whole Blood 101 mg/dL (75-99)
[2021-01-15] MEDS: MELATONIN 5 MG TABLET PO SCH (20:41)
[2021-01-15] MEDS: MAGNESIUM SULFATE-D5W PMX 1 GM in DEXTROSE/WATER 1 100ML.BAG IVPB SCH ×2 (20:50→21:44)
[2021-01-15] MEDS ORDERED: CALCIUM GLUCONATE 1 GM in SODIUM CHLORIDE 0.9% 100 ML IVPB ONE (21:00)
[2021-01-15] MEDS ORDERED: FUROSEMIDE 10 MG/ML 4 ML VIAL IV SCH (21:00)
[2021-01-15 21:10] VITALS: BP 105/89
[2021-01-15] MEDS ORDERED: SODIUM CHLORIDE 0.9% 1,000 ML IV ONE (21:22)
[2021-01-15 21:47] LABS: Allen Test Performed? no
[2021-01-16 00:21] LABS: Glucose,Whole Blood 183 mg/dL (75-99)
[2021-01-16 00:24] VITALS: TEMP 93.5
[2021-01-16 04:05] LABS: Anisocytosis Moderate; HCT 36.8 % (34.0-46.0); HGB 11.6 gm/dL (11.4-16.0); Hypochromasia Marked; MCH 29.8 pg (25.0-35.0); MCHC 31.7 g/dL (31.0-37.0); MCV 94.2 fL (80.0-100.0); Macrocytosis Slight; Mean Platelet Volume 10.3; Platelet Count 151 k/uL (150-450); Poikilocytosis Moderate; RBC 3.91 m/uL (3.80-5.40); RDW 21.2 % (11.5-15.5)
[2021-01-16 04:13] LABS: Ionized Calcium 3.8 mg/dL (4.5-5.3)
[2021-01-16 04:17] LABS: D-Dimer 3.44 mg/L FEU (<0.60)
[2021-01-16 04:30] LABS: African American GFR (CKD) >90 (>60 ml/min/1.73 sqM); Albumin 1.4 g/dL (3.5-5.0); Alkaline Phosphatase 333 U/L (38-126); Anion Gap 23 mmol/L; Blood Urea Nitrogen 7 mg/dL (7-17); Carbon Dioxide 11 mmol/L (22-30); Chloride 112 mmol/L (98-107); Creatine Kinase 296 U/L (30-135); Glucose 258 mg/dL (74-99); Magnesium 2.2 mg/dL (1.6-2.3); Non-African American GFR(CKD) >90 (>60 ml/min/1.73 sqM); Potassium 4.1 mmol/L (3.5-5.1); Sodium 146 mmol/L (137-145); Total Bilirubin 0.8 mg/dL (0.2-1.3); Total Protein 3.1 g/dL (6.3-8.2)
[2021-01-16 04:37] LABS: Calcium 6.5 mg/dL (8.4-10.2)
[2021-01-16 05:24] LABS: Band Neutrophils % 29 %; Neutrophils % (M) 63 %; Nucleated Red Blood Cells 13 /100 WBC (0-0); Total Cells Counted 200
[2021-01-16 05:25] LABS: Lymphocytes # (M) 0.59 k/uL (1.0-4.8); WBC 9.9 k/uL (3.8-10.6)
[2021-01-16 05:26] LABS: Anisocytosis (M) Present; Crenated RBC Present; Ovalocytes Present; Poikilocytosis (M) Present; RBC Fragments Present; Toxic Granulation Present; Toxic Vacuolation Present
[2021-01-16 05:53] LABS: ALT 147 U/L (4-34); AST 654 U/L (14-36); C Reactive Protein 21.4 mg/dL (<1.0)
[2021-01-16] MEDS: methylPREDNISolone SOD SUCCI 125 MG/2 ML VIAL IV SCH (06:33)
[2021-01-16 07:05] VITALS: PULSE 97; RESP 11
--- NOTE | 2021-01-16 08:48 | XR ---
EXAMINATION TYPE: XR chest 1V portable DATE OF EXAM: 01/16/2021 COMPARISON: Chest x-ray 01/14/2021 HISTORY: Shortness of breath TECHNIQUE: Single frontal view of the chest is obtained. FINDINGS: Patient is rotated and there are overlying leads. Port-A-Cath in the right pectoral region is again seen and is stable. Bilateral airspace disease is present. There is no evident pneumothorax , difficult to exclude effusion. Cardiac mediastinal silhouette shows possible cardiac enlargement. IMPRESSION: Findings are similar to prior exam. Correlate for pneumonia. Difficult to exclude effusi on.
[2021-01-16 11:44] LABS: Ferritin 13822.4 ng/mL (10.0-291.0)
--- NOTE | 2021-01-16 13:43 | P.DS ---
Providers Date of admission: 01/02/21 13:41 Expected date of discharge: 01/16/21 Attending physician: Darion Townsend Consults: 01/02/21 14:06 Consult Physician Routine Consulting Provider: Da Zaman Consult Reason/Comments: Acute encephalopathy, infusion myositis Do you want consulting provider notified?: Yes 01/02/21 15:37 Consult Physician Routine Consulting Provider: Saulo Gan Consult Reason/Comments: fever, no clear source Do you want consulting provider notified?: Yes 01/05/21 13:32 Consult Physician Routine Consulting Provider: Chang Bolton Consult Reason/Comments: GB Do you want consulting provider notified?: Yes 01/12/21 13:44 Consult Physician Routine Consulting Provider: Saulo Gan Consult Reason/Comments: COVID Do you want consulting provider notified?: Yes 01/14/21 18:19 Consult Physician Routine Consulting Provider: Axel Kent Consult Reason/Comments: acute hypoxic resp failure, acute COVID, failure to thrive Do you want consulting provider notified?: Yes [facility]: HISTORY OF PRESENT ILLNESS This is a 70-year-old female patient of Dr. 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 Patient has history of abscess of the right thigh that was under the care of Dr. Olvera through the wound healing Center. Patient was recently hospitalized from December 22 through December 26 which time she was treated for acute UTI with suspected pyelonephritis and metabolic encephalopathy and sepsis, acute kidney injury. She did undergo modified barium swallow and recommendations were for mechanical soft diet with thin liquids, base of the tongue exercises were recommended. Patient was seen by Dr. Erazo for parotitis secondary to dehydration. She was treated for UTI with Zosyn and discharged on doxycycline. She was seen also by cardiology and ruled out acute coronary syndrome. The patient was discharged home and family did not want home care set up. She is normally bed or wheelchair bound. She now presents back to the emergency center as states that she wouldn't swallow couldn't eat anything complained of sore throat and ear pain. She also did not have much urine output. No fever. She did have a small bowel movement prior to coming into the hospital. Patient was due for her Gammagard apparently today and had missed a dose due to being hospitalized last week. She had her last appointment with her neurologist Dr. Chavez in August 2020 which was a virtual appointment. Patient presented to [facility] emergency center for evaluation. Temperature was 101.5, heart rate 120, blood pressure 126/104, pulse ox 94%. CBC was unremarkable. Sodium 137, potassium 2.6, chloride 100, CO2 31, BUN 5 and creatinine 0.28. Blood pressure 112. Lactic acid 1.9. AST 52, alkaline phosphatase 296. Phosphorus 2.3, magnesium 1.8. Urinalysis clear, nitrite and leukoesterase negative. EKG was sinus tachycardia with left internal hypertrophy. CAT scan of the abdomen and pelvis revealed cholelithiasis with gallbladder wall thickening although there is no evidence of inflammatory change. Small right-sided pleural effusion and right basilar compressive atelectasis. Patient was started on IV Levaquin and potassium was replaced with 20 mEq. She is status post 1800 mL of IV fluid. 01/03: Patient has been afebrile since admission, heart rate 114, blood pressure 138/87, pulse ox 98% on 2 L nasal cannula. Repeat potassium yesterday afternoon was 3.6 and magnesium 1.8. Patient's mental status is slightly improved from yesterday. She is awake and alert but remains confused. IV access has been unable to be obtained and Accu cath has been ordered. Consult in place with neurology and infectious disease. 01/04: Patient has been seen by infectious disease with recommendations for Zosyn and possible HIDA scan. This was canceled for unknown reason. We will add order for HIDA scan to be done today. Patient has also been seen by neurology for altered mental status is likely at acute delirium possible metabolic encephalopathy secondary to possible cryptogenic infection. Recommendations to hold IVIG until patient recover from acute illness. Recommendations to follow- up with her neurologist regarding memory loss with possible dementia. The following lab work was ordered: Vitamin B12, folate level, TSH, B1, B6. Patient has been afebrile, heart rate 97, blood pressure 113/72, pulse ox 90% on 2 L nasal cannula. Blood cultures no growth at 24 hours. Midline was placed yesterday for IV access. She was fed by staff. She reviews her breakfast this morning. She is awake and alert but remains confused. 01/05: HIDA scan revealed low ejection fraction of 21%. Correlate for biliary dyskinesia. Dr. Gan recommends continuing Zosyn. Patient is followed by neurology as well. Vitamin B12 level CMXXXVI. Folate greater than 24. TSH 2.650. Repeat blood work reveals WBC 6.5, hemoglobin 11.3, platelet count 195. Sodium 146, potassium 2.8, chloride 107, CO2 25, BUN 5, creatinine 0.2. AST 44, ALT 22, alkaline phosphatase 253. Dr. Townsend discussed condition with the patient's Shukri and patient's would like to move forward with gallbladder surgery. He understands that there are complications and she is at high risk for surgery due to her underlying neurological disorder. Consult has been added for Dr. Bolton to evaluate. 01/06: Patient has been afebrile, heart rate 108, blood pressure 139/70, pulse ox 98% on room air. Repeat blood work reveals CBC was unremarkable. Chloride 110, potassium 4.2, BUN 3 and creatinine 0.25. Total bilirubin 0.8, AST 55, ALT 23, clindamycin phosphatase 277. Dr. Gan recommends continuing Zosyn. Patient has been seen by general surgery with recommendations for IV fluids, IV antibiotics. And as for laparoscopic possible open cholecystectomy on Saturday. Neurology has ordered MRI of the spine to rule out spinal stenosis. Patient is complaining of abdominal pain and will add Tylenol 3 for pain control. 01/07: Cervical spine MRI revealed no severe spinal stenosis. There is disc bulging with focal protrusion centrally at C5-6. Some right-sided cord flattening may be present in the axial plane. Retrolisthesis of the C4 on C5 with disc uncovering cause mild anterior thecal sac flattening without stenosis or cord contact rate. Loss of disc height C6-7. Left paracentral large disc bulge with moderate anterior thecal sac compression C7-T1. Neurology has recommended follow-up with her neurologist and signed off her case. She has been afebrile, heart rate 102-126 since yesterday afternoon, blood pressure 142/77, pulse ox 94% on room air. INR 1.3 orally. INR yesterday 2.1 and received vitamin K. Patient underwent left upper cholecystectomy this morning with Dr. Bolton with no immediate postop complications. 01/08: Patient is postop day #1 for laparoscopic cholecystectomy. Patient has refused to eat this morning. Nursing was able to get her to take her medications. We'll try advancing her diet. She also was noncompliant with getting labs drawn this morning. Repeat labs will be ordered for tomorrow. Patient is noted to have a very congested moist cough. Incentive spirometry and chest x-ray been ordered. Patient is denying pain but remains confused. Chest x-ray reveals small bilateral pleural effusions. Some adjacent subsegmental infiltrates may be present. Findings nonspecific.. 01/09: She is postop day #2. Patient refused to eat her breakfast. She is refusing potassium supplement oral which will be switched to IV. Repeat blood work reveals a platelet count 135 otherwise CBC is unremarkable. Potassium 2.4, CO2 19, BUN less than 2 and creatinine 0.24. Blood sugar 112. Total bilirubin 1, AST 103, ALT 36, alkaline phosphatase 376. General surgery recommends continuing low fiber diet and pain medications as needed, antibiotics per ID. Dr. Groves is planning for oral antibiotics at the time of discharge. 01/10: Last evening, potassium 3.2 and this morning at 1 AM potassium was 3.4 subsequently 8 AM potassium was 6.1. No treatment at this time as this appears to be an accurate and repeat draw has been ordered. Patient is refusing all food and is refusing to take her medications this morning. Patient currently had a bowel movement. Repeat blood work reveals WBC 9.8, hemoglobin 12.3. Discussed with patient option of PEG tube and she is willing to proceed with that. We have added a speech therapy consult and also contacted patient's via phone call and he is in agreement for PEG tube if needed. 01/11: Patient was evaluated by speech therapy and diet was adjusted only because of dentition issues and patient needs chapped food. She did not have any difficulty swallowing. manager urology is checking into insurance coverage for PEG tube feedings for failure to thrive. General surgery of course is following the patient. She continues to refuse any oral intake. She may have taken 2 bites this morning. She did take her morning medications. Patient has been afebrile, heart rate 93, blood pressure 118/69, pulse ox 99% on 2 L nasal cannula. Repeat blood work reveals WBC 7.13, hemoglobin 11.9, platelet count 143. Chemistry panel has been drawn but results are not available at 12 noon. 01/12: Patient's insurance will not cover cost of PEG tube feedings. This was reviewed and the case managers with the patient's and he was to determine whether he wanted to proceed with PEG tube placement. Patient was subtotally scheduled for PEG tube insertion with Dr. Bolton on January 16. Patient is still refusing all food. Patient has been afebrile, heart rate 114, blood pressure 157/99, pulse ox 93% on room air. Patient's has been diagnosed with COVID-19 and thus a repeat Covid test has been ordered for this patient. 01/13: Covid test came back positive yesterday. Chest x-ray from yesterday reveals correlate for pneumonia. Difficult to exclude small effusion. D-dimer was 0.84, ferritin 1156, LDH 1107, C-reactive protein 25.6. Repeat blood work today reveals potassium of 3.7. Patient refused all oral potassium yesterday which was given IV instead. WBC 10.8, hemoglobin 12.6 and platelet count 159. Patient continues to refuse all oral intake. She did take her medications today. She did state to the nurse that she just wants to . PICC line was ordered to start TPN until patient can start on PEG tube feedings but patient has no veins available per radiology and PICC line insertion was canceled. Dr. Guerin will discuss with the patient's family options regarding other options including central line, NG tube or hold feedings. Also, patient is due for IVIG on Saturday and orders and protocol will be on the front of patient's chart if we wish to pursue this on Saturday. patient appears significantly confused on examination oriented 1. She is not taking anything by mouth. She was also noted to be aspirating on her pills and water. Patient would need speech evaluation for aspiration. PEG tube is planned for Saturday which would help with patient's nutrition at this point. Plan for PEG tube placement on Saturday. No IV access available patient has an infusion port that can be used if necessary. Patient also noted to be requiring increased amount of oxygen and is saturating at 94% on 7 L of oxygen. Chest x- ray obtained suggest bilateral pulmonary infiltrate and atelectasis that is worse than recent exam. Continue Zosyn. Pulmonary consulted for patient's worsening hypoxic respiratory failure. Hydrocortisone will be switched to Solu-Medrol 60 IV every 6 hours. Inflammatory markers ordered. If d-dimer elevated we'll order CTA chest. Patient has bilateral upper extremity swelling will hold IV fluids for today and reassess patient's hydration status tomorrow. Speech to evaluate the patient for swallowing as patient noted to have aspiration. 01/15 patient's appear confused on examination oriented to self. She was found morning and has multiple fluid bullous involving her pannus and her upper extremities. Patient temp is 97.7 pulse 59 respiratory rate 20 oxygen saturation 96% on 7 L of nasal cannula. Patient did not appear well on evaluation and has not been answering questions. Due to worsening chest x-ray secondary to Covid pulmonary consult was placed. Patient started on an aspirin and IV Solu-Medrol. A team was called on patient a few minutes ago as patient becomes more short of breath and is transferred to ICU on BiPAP. 01/16: Patient on the morning of January 16. Please see nursing documentation for details. DISCHARGE DIAGNOSES 1. Acute metabolic encephalopathy and fever of secondary to acute cholecystitis status post laparoscopic cholecystectomy. Symptoms were possibly related to Covid 19 pneumonia, POA. 2. Dehydration. 3. Severe hypokalemia. 4. Acute cholecystitis. 5. Acute COVID-19 pneumonia possible aspiration, POA. 6. Chronic kidney disease stage II 7. 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 8. Hyperlipidemia. 9. Overactive bladder. 10. Non-use edema of the lower extremities. 11. Recent left-sided parotitis secondary to dehydration, stable. 12. Severe hypokalemia. 13. Severe protein calorie malnutrition secondary to failure to thrive. 14. Acute hypoxic respiratory failure likely secondary to Covid pneumonia and aspiration. 17 Anasarca likely secondary to fluids. Impression and plan of care have been directed as dictated by the signing physician. Loan Zhang nurse practitioner acting as scribe for signing physician. Patient Condition at Discharge: Undetermined Plan - Discharge Summary Discharge Rx Participant: No New Discharge Prescriptions: No Action predniSONE 20 mg PO DAILY Gammagard 1 dose IV [id number] Calcium Carbonate/Vitamin D3 [Caltrate 600 Plus D3 Tablet] 1 tab PO BID Gabapentin [Neurontin] 300 mg PO BID@0900,1300 Oxybutynin Chloride [Ditropan] 5 mg PO BID Aspirin EC [Ecotrin Low Dose] 81 mg PO DAILY Simvastatin [Zocor] 40 mg PO DAILY Acetaminophen [Tylenol Extra Strength] 1,000 mg PO Q6H PRN PRN Reason: Pain Multivitamin [Multivitamins Adult Gummies] 2 tab PO DAILY Loratadine [Claritin] 10 mg PO DAILY Cholecalciferol [Vitamin D3 (25 Mcg = 1000 Iu)] 50 mcg PO DAILY Biotin 10,000 mcg PO DAILY Melatonin 5 mg PO HS Gabapentin 600 mg PO HS Discharge Medication List Calcium Carbonate/Vitamin D3 [Caltrate 600 Plus D3 Tablet] 1 tab PO BID 10/25/14 [History] Gammagard 1 dose IV [id number] 10/25/14 [History] predniSONE 20 mg PO DAILY 10/25/14 [History] Gabapentin [Neurontin] 300 mg PO BID@0900,1300 12/26/15 [History] Oxybutynin Chloride [Ditropan] 5 mg PO BID 02/10/18 [History] Aspirin EC [Ecotrin Low Dose] 81 mg PO DAILY 08/27/18 [History] Simvastatin [Zocor] 40 mg PO DAILY 01/14/19 [History] Acetaminophen [Tylenol Extra Strength] 1,000 mg PO Q6H PRN 03/20/19 [History] Biotin 10,000 mcg PO DAILY 12/22/20 [History] Cholecalciferol [Vitamin D3 (25 Mcg = 1000 Iu)] 50 mcg PO DAILY 12/22/20 [History] Gabapentin 600 mg PO HS 12/22/20 [History] Loratadine [Claritin] 10 mg PO DAILY 12/22/20 [History] Melatonin 5 mg PO HS 12/22/20 [History] Multivitamin [Multivitamins Adult Gummies] 2 tab PO DAILY 12/22/20 [History] Follow up Appointment(s)/Referral(s): [facility], [NON-STAFF] - Choco Castro DO [Primary Care Provider] - 1 Week Kishan Chavez MD [REFERRING] - 1 Week Activity/Diet/Wound Care/Special Instructions: 1. Use Jevity 1.0 formula for Peg Tube feedings. The flight surveyor recommends six 8 ounce cans daily to total 48 ounces or 1,440 mls. This can be purchased through [employer],, [employer], or at [employer] [facility]. Discharge Disposition: - Preliminary Cause of Preliminary Cause of : COVID19 PNEUMONIA
--- NOTE | 2021-01-18 09:27 | CDI ---
Documentation Clarification Form Date: 01/18/2021 09:10:26 AM From: Luli Dee CCS, CCDS Admit Date: 01/02/2021 01:41:00 PM Patient Name: Caprice Mosquera Visit Number: [id number] Discharge Date: 01/16/2021 09:42:00 AM ATTENTION: The Clinical Documentation Specialists (CDI) and [facility] Coding Staff appreciate your assistance in clarifying documentation. Please respond to the clarification below the line at the bottom and electronically sign. The CDI & [facility] Coding staff will review the response and follow-up if needed. Please note: Queries are made part of the Legal Health Record. If you have any questions, please contact the author of this message via ITS. Dr. Marisela Chavarria: Per the 01/16 Discharge Summary: COVID 19 Pneumonia and Aspiration Pneumonia are documented as Present on Admission. Please clarify the POA status of both of these conditions. History/Risk Factors Per the 01/02 H/P History of Present Illness: Hypertension, Hypertensive cardiovascular disease, Inclusion Body Myositis diagnosed 1991, on Gammagard every 2 weeks; Abscess of the right thigh, treated at the [facility]. Recently hospitalized from December 22 through December 26, treated for Acute UTI with suspected Pyelonephritis and Metabolic Encephalopathy, Sepsis & GERMAN. Former smoker, Bedbound and Wheelchair confined. Clinical Indicators: Presented to the ED on 01/02 via EMS with Altered Mental Status, difficulty swallowing and not taking previously prescribed discharge medications, complaining of abdominal pain. ED Clinical Impression: Acute encephalopathy, Hypocalcemia, Hypokalemia, Dehydration. 01/02 VS: T 101.5, P 120, R 18, BP 126/104, PO 94 RA - 97 2Lnc, BMI: 31.5 01/02 LAB: WBC 10.4, K 2.6, CO2 31, BUN 5, Cr 0.28, Glucose 112, Calcium 8.1, Phos 2.3, AST 52, Alk Phos 296, Total Protein 5.2, Albumin 2.4. 01/02 UA: Tr Protein, 2+ Ketones, Small Blood, Neg Nitrite, 1+ Bili. 01/02 COVID: NEGATIVE 01/12 COVID: POSITIVE RAD: No CXR on 01/02 01/08 CXR: Small bilateral pleural effusions. Some adjacent subsegmental infiltrates may be present. 01/12 CXR: Correlate for pneumonia. 01/14 CXR: Bilateral pulmonary infiltrates and atelectasis appears slightly worse than recent exam. Treatment 01/02: IV fluid 1,000 mls @ 130 mls/hr q7H, IV fluid 800 mls @ 999 mls/hr q49M, IV Levaquin x1, IV Kcl x1, IV Ativan 01/03: IV Zosyn, IV KCL 01/12: IV KCL, po Vit C, po Vit D3, po Orazinc 01/14: IV Solumedrol, IV Remdesivir Please clarify if the COVID 19 Pneumonia and Aspiration Pneumonia were Present on Admission: [ ] Y = Yes, the condition was present at the time of the order for inpatient admission. [ ] N = No, the condition was not present at the time of the order for inpatient admission. [ ] W = Clinically undetermined if the condition was present at the time of the order for inpatient admission. (Template Last Revised: November 2020) yes, present on admission MTDD
--- NOTE | 2021-01-18 09:37 | CDI ---
Documentation Clarification Form Date: 01/18/2021 09:28:51 AM From: Luli Dee CCS, CCDS Admit Date: 01/02/2021 01:41:00 PM Patient Name: Caprice Mosquera Visit Number: [id number] Discharge Date: 01/16/2021 09:42:00 AM ATTENTION: The Clinical Documentation Specialists (CDI) and [facility] Coding Staff appreciate your assistance in clarifying documentation. Please respond to the clarification below the line at the bottom and electronically sign. The CDI & [facility] Coding staff will review the response and follow-up if needed. Please note: Queries are made part of the Legal Health Record. If you have any questions, please contact the author of this message via ITS. Dr. Marisela Chavarria: The patient has documented paraplegia with known Inclusion Body Myositis, Polymyositis and is Bedbound and/or Wheelchair Confined. Presented to the ED from home very weak & lethargic. Has difficulty swallowing and unable to take oral or liquid intake including her medications. Diagnosed with Acute Cholecystitis and Severe Protein Calorie Malnutrition. History/Risk Factors Per the 01/02 H/P History of Present Illness: Hypertension, Hypertensive cardiovascular disease, Inclusion Body Myositis diagnosed 1991, on Gammagard every 2 weeks; Abscess of the right thigh, treated at the wound care center. Recently hospitalized from December 22 through December 26, treated for Acute UTI with suspected Pyelonephritis and Metabolic Encephalopathy, Sepsis & GERMAN. Former smoker, Bedbound and Wheelchair confined. Clinical Indicators: Presented to the ED on 01/02 via EMS with Altered Mental Status, difficulty swallowing and not taking previously prescribed discharge medications, complaining of abdominal pain. ED Clinical Impression: Acute encephalopathy, Hypocalcemia, Hypokalemia, Dehydration. 01/02 VS: T 101.5, P 120, R 18, BP 126/104, PO 94 RA - 97 2Lnc, BMI: 31.5 01/02 LAB: WBC 10.4, K 2.6, CO2 31, BUN 5, Cr 0.28, Glucose 112, Calcium 8.1, Phos 2.3, AST 52, Alk Phos 296, Total Protein 5.2, Albumin 2.4. 01/02: UA: Tr Protein, 2+ Ketones, Small Blood, Neg Nitrite, 1+ Bili. 01/02 COVID: NEGATIVE 01/12 COVID: POSITIVE Per the Nursing Physical Assessment: Stage II Pressure Ulcer Coccyx, Skin Tears Right Arm, Left Hand, 2 Person Assist, Incontinence, Total Assistance Feeding. Treatment 01/02: IV fluid 1,000 mls @ 130 mls/hr q7H, IV fluid 800 mls @ 999 mls/hr q49M, IV Levaquin x1, IV Kcl x1, IV Ativan 01/03: IV Zosyn, IV KCL 01/12: IV KCL, po Vit C, po Vit D3, po Orazinc 01/14: IV Solumedrol, IV Remdesivir Is there an additional diagnosis that is clinically appropriate for this patient? [ ] Functional Quadriplegia [ ] Complete Immobility due to frailty/severe debility [ ] Other (please specify) [ ] Unable to determine (Template Last Revised: November 2020) Complete immobility due to severe debility secondary to inclusion body myositis MTDD
--- NOTE | 2021-02-09 14:32 | CDI ---
Documentation Clarification Form Date: 02/09/2021 02:21:24 PM From: Chauncey Russelldarlene Phone: Paz Chan [phone] Admit Date: 01/02/2021 01:41:00 PM Patient Name: Caprice Mosquera Visit Number: [id number] Discharge Date: 01/16/2021 09:42:00 AM ATTENTION: The Clinical Documentation Specialists (CDI) and [facility] Coding Staff appreciate your assistance in clarifying documentation. Please respond to the clarification below the line at the bottom and electronically sign. The CDI & [facility] Coding staff will review the response and follow-up if needed. Please note: Queries are made part of the Legal Health Record. If you have any questions, please contact the author of this message via ITS. Dr. Marisela Chavarria The patient presented with the following clinical indicators. Additional clarification regarding the etiology/cause of the clinical indicators is requested. ED note: discharged several days ago for sepsis due to UTI. Consult 01/02: sepsis. Sepsis is not mentioned in the progress notes or discharge summary History/Risk Factors: COVID dx with COVID PNA Clinical Indicators: WBC: 5-10.4 Lactic acid: 1.9 Blood cultures: Vitals signs: 01/02: Temp 101, pulse 120, resp 18, BP 126/104 Treatment: ID Consult: Antibiotics: IV levofloxacin 01/02, IV zosyn 01/03 IV Bolus: In your professional opinion, please clarify if these findings signify one of the following conditions: [X ] Sepsis POA [ ] Sepsis, Not POA [ ] Sepsis ruled out [ ] Severe Sepsis with organ failure [ ] Septic Shock [ ] SIRS, without underlying infectious process [ ] Other, please specify [ ] Unable to determine SIRS Criteria: 2 or more of the following may indicate SIRS -Temperature < 96.8F (36C) or > 101.0F (38.3C) -Heart Rate > 90 bpm -Respiratory Rate > 20 breaths/min or PaCO2 < 32 mmHg -White Blood Cell Count > 12,000 or < 4,000 cells/mm3 or > 10% bands MTDD
--- NOTE | 2021-02-10 08:33 | CDI ---
Documentation Clarification Form Date: 02/10/2021 08:16:30 AM From: Chauncey Souza Phone: Paz Chan Admit Date: 01/02/2021 01:41:00 PM Patient Name: Caprice Mosquera Visit Number: [id number] Discharge Date: 01/16/2021 09:42:00 AM ATTENTION: The Clinical Documentation Specialists (CDI) and [facility] Coding Staff appreciate your assistance in clarifying documentation. Please respond to the clarification below the line at the bottom and electronically sign. The CDI & [facility] Coding staff will review the response and follow-up if needed. Please note: Queries are made part of the Legal Health Record. If you have any questions, please contact the author of this message via ITS. Dr. Marisela Chavarria The patient presented with the following clinical indicators. Additional clarification regarding the etiology/cause of the clinical indicators is requested. Consult 01/[address] Gan for fever states sepsis as a dx. Ed note indicates discharged several days prior for sepsis due to a UTI. Sepsis is not mentioned in the discharge summary or elsewhere in the chart. History/Risk Factors: +COVID, tachycardia, AMS Clinical Indicators:ED: WBC: 10.4 Lactic acid: no result Blood cultures: not done Vitals signs: BP 126/104, Temp 101, pulse 120, resp 18 Treatment: ID Consult: Dr Saulo Gan 01/02 Antibiotics: Zosyn IV Bolus: N/A In your professional opinion, please clarify if these findings signify one of the following conditions: [ X] Sepsis POA [ ] Sepsis, Not POA [ ] Sepsis ruled out [ ] SIRS, without underlying infectious process [ ] Other, please specify [ ] Unable to determine SIRS Criteria: 2 or more of the following may indicate SIRS -Temperature < 96.8F (36C) or > 101.0F (38.3C) -Heart Rate > 90 bpm -Respiratory Rate > 20 breaths/min or PaCO2 < 32 mmHg -White Blood Cell Count > 12,000 or < 4,000 cells/mm3 or > 10% MTDD
--- NOTE | 2021-02-10 08:51 | CDI ---
Documentation Clarification Form Date: 02/10/2021 08:16:00 AM From: Chauncey Souza Phone: Paz Chan [phone] Admit Date: 01/02/2021 01:41:00 PM Patient Name: Caprice Mosquera Visit Number: [id number] Discharge Date: 01/16/2021 09:42:00 AM ATTENTION: The Clinical Documentation Specialists (CDI) and [facility] Coding Staff appreciate your assistance in clarifying documentation. Please respond to the clarification below the line at the bottom and electronically sign. The CDI & [facility] Coding staff will review the response and follow-up if needed. Please note: Queries are made part of the Legal Health Record. If you have any questions, please contact the author of this message via ITS. Dr. Marisela Chavarria The patient presented with the following clinical indicators. Additional clarification regarding the etiology/cause of the clinical indicators is requested. Consult by Dr Saulo Gan 01/02 indicates sepsis as a diagnosis. ED notes indicate discharged several days ago for sepsis due to a UTI. Sepsis is not mentioned elsewhere in the chart or in the discharge summary History/Risk Factors: +COVID, AMS, tachycardia Clinical Indicators: ED: WBC: 10.4 Lactic acid: N/A Blood cultures: not done Vitals signs: Temp 101, BP 126/104, pulse 120, resp 18 Treatment: ID Consult: Dr Saulo Gan 01/02 Antibiotics: 4/6-zosyn 3.375 gm@25 mis/hr IVBP Q 8 hr IV Bolus: 01/02 levofloxacin 750 mg@100 mis/hr IVBP In your professional opinion, please clarify if these findings signify one of the following conditions: [x ] Sepsis POA [ ] Sepsis, Not POA [ ] Sepsis ruled out [ ] sepsis due to COVID POA [ ] sepsis due to COVID not POA [ ] SIRS, without underlying infectious process [ ] Other, please specify [ ] Unable to determine SIRS Criteria: 2 or more of the following may indicate SIRS -Temperature < 96.8F (36C) or > 101.0F (38.3C) -Heart Rate > 90 bpm -Respiratory Rate > 20 breaths/min or PaCO2 < 32 mmHg -White Blood Cell Count > 12,000 or < 4,000 cells/mm3 or > 10% bands MTDD
== END 2021-01-16 09:42 | disposition expired | DRG 853 ==
LOC: EC 10:05 → 4SSUR 13:41 → 2SICU 01-15 15:17
PROVIDERS: ADMIT Internal Medicine Geriatric Medicine; ATTEND Internal Medicine Geriatric Medicine
PROC: 5A0935A Assistance with Respiratory Ventilation, Less than 24 Consecutive Hours, High Flow/Velocity Cannula (ICD-10-PCS; 2021-01-04)
PROC: 0FT44ZZ Resection of Gallbladder, Percutaneous Endoscopic Approach (ICD-10-PCS; principal; 2021-01-07 08:00)
PROC: 5A09457 Assistance with Respiratory Ventilation, 24-96 Consecutive Hours, Continuous Positive Airway Pressure (ICD-10-PCS; 2021-01-13)
PROC: XW033E5 Introduction of Remdesivir Anti-infective into Peripheral Vein, Percutaneous Approach, New Technology Group 5 (ICD-10-PCS; 2021-01-14)
PROC: 04HY32Z Insertion of Monitoring Device into Lower Artery, Percutaneous Approach (ICD-10-PCS; 2021-01-15)
PROC: 4A133B1 Monitoring of Arterial Pressure, Peripheral, Percutaneous Approach (ICD-10-PCS; 2021-01-15)
PROC: 4A133J1 Monitoring of Arterial Pulse, Peripheral, Percutaneous Approach (ICD-10-PCS; 2021-01-15)
PROC: 3E033XZ Introduction of Vasopressor into Peripheral Vein, Percutaneous Approach (ICD-10-PCS; 2021-01-15)
DX: A41.89 Other specified sepsis (principal); U07.1 COVID-19; G93.41 Metabolic encephalopathy; J12.82 Pneumonia due to coronavirus disease 2019; J96.01 Acute respiratory failure with hypoxia; E43 Unspecified severe protein-calorie malnutrition; J69.0 Pneumonitis due to inhalation of food and vomit; R53.2 Functional quadriplegia; K80.00 Calculus of gallbladder with acute cholecystitis without obstruction; Z79.82 Long term (current) use of aspirin; Z86.718 Personal history of other venous thrombosis and embolism; E78.5 Hyperlipidemia, unspecified; N18.2 Chronic kidney disease, stage 2 (mild); Z87.891 Personal history of nicotine dependence; Z99.3 Dependence on wheelchair; Z82.0 Family history of epilepsy and other diseases of the nervous system; Z82.49 Family history of ischemic heart disease and other diseases of the circulatory system; Z83.79 Family history of other diseases of the digestive system; Z87.440 Personal history of urinary (tract) infections; E86.0 Dehydration; E87.6 Hypokalemia; E83.51 Hypocalcemia; Z79.52 Long term (current) use of systemic steroids; N32.89 Other specified disorders of bladder; K11.20 Sialoadenitis, unspecified; R00.0 Tachycardia, unspecified; Z88.1 Allergy status to other antibiotic agents; K82.8 Other specified diseases of gallbladder; R41.3 Other amnesia; M21.372 Foot drop, left foot; M21.371 Foot drop, right foot; E87.5 Hyperkalemia; R62.7 Adult failure to thrive; Z91.19 Patient's noncompliance with other medical treatment and regimen; Z53.09 Procedure and treatment not carried out because of other contraindication; Z68.31 Body mass index [BMI] 31.0-31.9, adult; R60.1 Generalized edema; Z79.899 Other long term (current) drug therapy; Z90.710 Acquired absence of both cervix and uterus; Z96.1 Presence of intraocular lens; N32.81 Overactive bladder; Z98.41 Cataract extraction status, right eye; Z98.42 Cataract extraction status, left eye; I12.9 Hypertensive chronic kidney disease with stage 1 through stage 4 chronic kidney disease, or unspecified chronic kidney disease; Z98.890 Other specified postprocedural states; L89.152 Pressure ulcer of sacral region, stage 2; G72.41 Inclusion body myositis [IBM]
CPT/HCPCS: 36410; 36415; 36573; 71045; 72141; 74177; 76937; 78227; 80053; 81001; 82330; 82550; 82607; 82728; 82746; 82805; 83605; 83615; 83735; 83880; 84100; 84132; 84145; 84207; 84425; 84443; 85025; 85027; 85379; 85384; 85610; 85730; 86140; 87040; 87635; 88304; 93005; 94660; 94760; 96361; 96365; 96366; 99285